=== PATIENT | female | born 1990 | race Caucasian/White ===

== ENCOUNTER 2016-09-23 09:31 | Observation (INO) | payer BC ==
[~2016-09-23] VITALS: Ht 165.1 cm; Wt 53.6 kg
[~2016-09-23 09:31] MED LIST: DIPH25CA84 PO; HYDR-4246 PO; INSU100V13 SQ; INSU100V8 SQ; METO10TA3 PO; MIDO5TAB PO; NITR100C9 PO
--- OUTSIDE RECORDS SUMMARY | 2016-09-23 09:37 | XMS REPORT ---
Author Author GENERATED, SYSTEM Organization Unknown Address Unknown Phone Unavailable Care Team Providers Care Electronics Instructor Name Role Phone PP Unavailable Reason For Visit Reason for Visit from 01/30/2016 2:37 PM:* Pt Stated Reason for Adm : schizophrenia or other psychotic disorder Reason for Visit from 01/29/2016 9:25 PM:* Pt Stated Reason for Adm : schizophrenia or other psychotic disorder Chief Complaint SCHIZOPHRENIA OR OTHER PSYCHOTIC D/O Social History Social History from 02/01/2016 1:52 PM:* Tobacco Use? : Current Some Day Smoker Social History from 01/30/2016 2:37 PM:* Tobacco Use? : Current Some Day Smoker Social History from 01/29/2016 9:25 PM:* Tobacco Use? : Current Some Day Smoker Functional Status Functional Status from 02/01/2016 10:12 AM:* LOC : Alert * Oriented To : Person,Place,Time,Event * Weight Bearing Status : Full * Assist Level : Independent * # Assists : Independent Functional Status from 01/31/2016 8:45 PM:* LOC : Alert * Oriented To : Person,Place,Time,Event * Weight Bearing Status : Full * Assist Level : Independent * # Assists : Independent Functional Status from 01/31/2016 9:22 AM:* LOC : Alert * Oriented To : Person,Place,Time,Event * Weight Bearing Status : Full * Assist Level : Independent * # Assists : Independent Functional Status from 01/30/2016 8:18 PM:* LOC : Alert * Oriented To : Person,Place,Time,Event * Weight Bearing Status : Full * Assist Level : Independent * # Assists : Independent Functional Status from 01/30/2016 10:26 AM:* LOC : Alert * Oriented To : Person,Place,Time,Event * Weight Bearing Status : Full * Assist Level : Independent * # Assists : Independent Functional Status from 01/29/2016 9:25 PM:* LOC : Alert * Oriented To : Person * Weight Bearing Status : Full * Assist Level : Independent * # Assists : Independent Vital Signs Hospital Vital Signs from 02/01/2016 5:51 AM:* Height : 5/5 ft,in * Temperature : 98.3 F * Pulse : 107 * Respirations : 18 * BP : 123/84 Hospital Vital Signs from 01/31/2016 10:27 AM:* Weight : 48.9/ kg * Height : 5/5 ft,in Hospital Vital Signs from 01/31/2016 5:30 AM:* Weight : 48.9/ kg * Height : 5/5 ft,in * Temperature : 97.8 F * Pulse : 102 * Respirations : 18 * BP : 119/87 Hospital Vital Signs from 01/31/2016 2:14 AM:* Height : 5/5 ft,in * Temperature : 98.2 F * Pulse : 126 * BP : 104/71 Hospital Vital Signs from 01/30/2016 10:09 PM:* Height : 5/5 ft,in * Pulse : 122 * BP : 96/63 Hospital Vital Signs from 01/30/2016 8:20 PM:* Height : 5/5 ft,in * Temperature : 98.9 F * Pulse : 120 * Respirations : 18 * BP : 105/74 Hospital Vital Signs from 01/30/2016 7:41 PM:* Height : 5/5 ft,in * Temperature : 99.5 F * Pulse : 129 * Respirations : 18 * BP : 81/57 Hospital Vital Signs from 01/30/2016 9:26 AM:* Height : 5/5 ft,in Hospital Vital Signs from 01/30/2016 5:54 AM:* Height : 5/5 ft,in * Temperature : 97.0 F * Pulse : 92 * Respirations : 16 * BP : 109/70 Hospital Vital Signs from 01/29/2016 9:44 PM:* Weight : 47.1/ kg * Height : 5/5 ft,in * Temperature : 97.8 F * Pulse : 113 * Respirations : 16 * BP : 115/82 Hospital Vital Signs from 01/29/2016 9:25 PM:* Weight : 47.1/ kg * Height : 5/5 ft,in Results Chemistry from 01/31/2016 4:56 AMGLUCOSE (FASTING) 56 MG/DL L (65-99 MG/DL) Chemistry from 01/30/2016 3:17 PM*EST AVG GLUCOSE 200.1 gm/dl TSH 0.623 UIU/ML (0.340-4.820 UIU/ML) THYROXINE FREE (FT4) (LAB) 1.27 NG/DL (0.76-1.46 NG/DL) HEMOGLOBIN A1C 8.6 % H (4.5-6.2 %) Urinalysis from 01/31/2016 5:49 PM*URINE COLOR YELLOW (STRAW/YELL/DK YELL ) *URINE APPEARANCE CLEAR (CLEAR ) URINE PH 6.5 (5.0-8.0 ) URINE SPECIFIC GRAVITY 1.010 (<=1.005->=1.030 ) *URINE GLUCOSE >1000 MG/DL A (NEGATIVE MG/DL) *URINE BILIRUBIN NEGATIVE (NEGATIVE ) *URINE KETONES NEGATIVE MG/DL (NEGATIVE MG/DL) *URINE BLOOD LARGE A (NEGATIVE ) *URINE PROTEIN NEGATIVE MG/DL (NEGATIVE MG/DL) *URINE UROBILINOGEN 0.2 EU/DL (0.2-1.0 EU/DL) *URINE NITRITES NEGATIVE (NEGATIVE ) *URINE LEUKOCYTES TRACE A (NEGATIVE ) *MICROSCOPIC EXAM PERFORMED PERFORMED *WBC URINE 1-5 /HPF (0-5 /HPF) *RBC URINE 10-25 /HPF A (0-1 /HPF) *SQUAMOUS EP. CELLS FEW /LPF (NEG-FEW /LPF) *BACTERIA FEW /HPF A (NEGATIVE /HPF) Microbiology from 01/31/2016 5:49 PM* CULTURE URINE (Preliminary Result) Specimen Number: [id number] Sample Collection Date/Time: 01/31/2016 5:49 PM Specimen Source: Urine Clean Catch CULTURE URINE: No growth at 24 hrs Problems Encounter Diagnosis * Altered Mental Status Status:Active. * Fall Risk Status:Active. * Nutritional Deficiency Status:Active. Encounters Encounter Diagnosis * Altered Mental Status Status:Active. * Fall Risk Status:Active. * Nutritional Deficiency Status:Active. Plan of Care Follow-up Appointments from 02/01/2016 1:52 PM:* #1 Office appointment: : Jb moya * #1 Date/Time : 02/05/2016 12:30 PM * Address # 1 : [place] [phone] Procedures No relevant procedures performed. Immunizations No immunizations administered or ordered. Hospital Course Hospital Discharge Instructions How to care for yourself at home from 02/01/2016 1:52 PM:* Discharge Activity : Activity as tolerated * Discharge Diet : As before hospitalization * Call your doctor if: : Fever over 101 F or severe chills,Chest pain or other unexplained symptoms,Tingling or numbness develops,A sudden increase or decrease in weight,You have persistent or worsening symptoms Allergies, Adverse Reactions, Alerts * sodium hypochlorite causes Mild Unknown. * Adhesive Tape (as Miscellaneous allergen) causes Unknown. * adhesive tape causes Unknown. * No Latex Allergy. * No IV Contrast Allergy. * No Known Food Allergies. Medication It is the responsibility of the patient or patient representative government relations to confirm the list of medications with either the patient's personal care provider or the patient's follow-up care provider to ensure the patient has an appropriate list of medications to take at home. Discharge medications New medications* QUEtiapine 100 mg Tablet, Ordered By: MATTHEW BRAVO Directions: as directed oral as directed for mood stabilization Additional Instructions: 0.5 tab 0900am , 0.5 tab 300pm. 1.5 tab hs #75 nr * phenazopyridine 200 mg Tablet, Ordered By: MATTHEW BRAVO Directions: 1 tablet oral three times a day after meals for dysuria Additional Instructions: for three more doses #3 nr * metoclopramide HCl (Reglan) 5 mg Tablet, Ordered By: MATTHEW BRAVO Directions: 1 tablet oral four times daily before meals and at bedtime for gastroparesis Additional Instructions: x 5 days # 20 nr Continued medications* HYDROcodone-acetaminophen 7.5 mg-325 mg Tablet, Ordered By: MATTHEW BRAVO Directions: 1 tablet oral every six hours PRN pain Additional Instructions: pt supply Changed medications* insulin glargine (LanTUS) 100 unit/mL Solution, Ordered By : MATTHEW BRAVO Directions: 6 unit subcutaneous twice a day every morning and at bedtime for DM Additional Instructions: pt supply * insulin aspart (NovoLOG) 100 unit/mL Solution, Ordered By: MATTHEW BRAVO Directions: per scale subcutaneous three times a day with or after meal for DM Additional Instructions: For Glucose 0 to 60 Give 0 UNIT ,For Glucose 61 to 140 Give 0 UNIT ,For Glucose 141 to 160 Give 2 UNIT ,For Glucose 161 to 200 Give 3 UNIT ,For Glucose 201 to 250 Give 4 UNIT ,For Glucose 251 to 300 Give 6 UNIT , For Glucose 301 to 350 Give 8 UNIT ,For Glucose 351 to 400 Give 10 UNIT * escitalopram oxalate 10 mg Tablet, Ordered By: MATTHEW BRAVO Directions: 1 tablet oral daily for depression * LORazepam 1 mg Tablet, Ordered By: MATTHEW BRAVO Directions: 1 tablet oral daily PRN anxiety Additional Instructions: supply at home Stopped medications* ondansetron 4 mg tablet,disintegrating Directions: 1 tablet oral every six hours PRN nausea or vomiting * dicyclomine 10 mg Capsule Directions: 1 capsule oral four times daily PRN unknown at this time
--- OUTSIDE RECORDS SUMMARY | 2016-09-23 09:37 | XMS REPORT | Continuity of Care Document ---
Author Author [facility] Organization [facility] Address Unknown Phone Unavailable Support Name Relationship Address Phone LESLY BRANCH MD Caregiver [address] [place] [address] Unavailable SHAHANA DAVIS II, MD Caregiver [address] [place] [address] [address] [place], [place] [phone] BRE SAWYER MD Caregiver [address] [place] [address] [address] [place] [address] [phone] GEMA MCKENNA Next Of Kin [address] [place] [address] CP Insurance Providers Payer Name Policy Number Subscriber Name Relationship [facility] [id number] Gema Mckenna 01 Spouse Advance Directives Directive Response Recorded Date/Time Ordered Resuscitation Status Full Code 05/14/14 8:16pm Resuscitation Documents on File Yes 05/14/14 9:51pm Chief Complaint and Reason for Visit Chief Complaint DKA AND ABD PAIN Reason for Visit DKA (diabetic ketoacidoses) Problems Medical Problems Problem Onset Date Status Abdominal pain Unknown Active Type I diabetes Unknown Active Vomiting Unknown Active Abdominal pain Unknown Active Chest pain Unknown Active Hyperglycemia mild acidosis Unknown Active Nausea with Vomiting Unknown Active Type I diabetes Unknown Active DIABETIC KETOACIDOSIS Unknown Active Diabetic gastroparesis Unknown Active DKA (diabetic ketoacidoses) Unknown Active DKA (diabetic ketoacidoses) Unknown Active Controlled type 1 diabetes mellitus Unknown Active DKA (diabetic ketoacidoses) Unknown Active Medications Medication Dose Route Sig Days/Qty Instructions Order Date Discontinued Date Status Ramipril 2.5 Mg PO DAILY 06/16/08 08/14/08 Discontinued Insulin Lispro 15 U SQ AC B 03/14/09 07/18/09 Discontinued Insulin Glargine 30 U SQ TWICE A DAY 03/14/09 07/18/09 Discontinued Diltiazem Hcl 1 DAILY HS 06/16/08 08/14/08 Discontinued [Treximet 85/500] 2 Q 2H PRN 06/16/08 08/14/08 Discontinued [Novolog] 17 Units SQ AC L & S 06/16/08 08/14/08 Discontinued Vits W-Ca,Fe,Fa(<1MG) 03/14/09 07/18/09 Discontinued Ondansetron Hcl 4 Mg PO NEEDED 03/14/09 07/18/09 Discontinued Amoxicillin Trihydrate 500 Mg PO FOUR TIMES DAILY 03/14/09 07/18/09 Discontinued Acyclovir 200 Mg PO THREE TIMES A DAY 03/14/09 07/18/09 Discontinued Insulin Glargine 12 U SQ TWICE A DAY 11/08/09 05/02/14 Discontinued Insulin Lispro 12 U SQ BEFORE MEALS 11/08/09 05/02/14 Discontinued [Altace] 08/29/09 11/08/09 Discontinued Ramipril 2.5 Mg PO DAILY 07/13/10 11/30/11 Discontinued Mometasone Furoate 2 [place] IH DAILY 09/24/10 02/20/11 Discontinued Hydrocodone Bit/Acetaminophen 1 Tab PO DAILY 09/24/10 11/05/10 Discontinued Guaifenesin/P-Ephed Hcl 1 Tab PO TWICE A DAY 09/24/10 11/05/10 Discontinued Vits W-Ca,Fe,Fa(<1MG) 1 Tab PO DAILY 11/30/11 04/10/12 Discontinued Acetaminophen/Dp-Hydram Hcl 1 Tab PO NEEDED 11/30/11 01/17/12 Discontinued Hydromorphone Hcl 2 Mg PO NEEDED 02/05/12 04/07/12 Discontinued Cephalexin Monohydrate 500 Mg PO 02/05/12 04/07/12 Discontinued Cephalexin Monohydrate 500 Mg PO THREE TIMES A DAY 21 Qty 04/07/1205/25 Discontinued Hydrocodone Bit/Acetaminophen 1 Udtab PO EVERY 4-6 HOURS 30 Qty 04/21/12 Discontinued Promethazine Hcl 25 Mg PO EVERY 4-6 HOURS 30 Qty 04/07/12 05/19/12 Discontinued Ranitidine Hcl 75 Mg PO TWICE A DAY 04/21/12 06/23/12 Discontinued Metoclopramide Hcl 10 Mg PO NEEDED 07/06/12 Active Hydrocodone Bit/Acetaminophen 30 Qty 04/21/13 07/24/13 Discontinued Ondansetron Hcl NEEDED 30 Qty 04/21/13 Active Insulin Glargine,Hum.rec.anlog 12 Unit SQ TWICE A DAY 04/27/1405/02 Discontinued Insulin Glargine,Hum.rec.anlog 10 Unit SQ MORNING AND BEDTIME 30 Days 05/02/14 Active Insulin Lispro 2 Unit SQ 1715 30 Days 05/02/14 Active Insulin Lispro 2 Unit SQ 0745 30 Days 05/02/14 Active Insulin Lispro 2 Unit SQ GIVE WITH LUNCH 30 Days 05/02/14 Active Levofloxacin 500 Mg PO BEFORE BREAKFAST 5 Days 05/16/14 Active Social History Social History Problem Response Recorded Date/Time Smoking Status Former smoker 05/14/2014 9:54pm When did patient START smoking? AGE 18 05/14/2014 9:54pm When did patient STOP smoking? AGE 21 05/14/2014 9:54pm Chewing Tobacco Status No 09/09/2013 8:07pm Hx Substance Use No 05/14/2014 7:12pm Hx Alcohol Use No 05/14/2014 7:12pm Has the pt used tobacco in the last 12 months Yes 05/14/2014 9:54pm Query Response Start Date Stop Date Smoking Status Former smoker Hospital Discharge Instructions Instructions: Care Instructions: Reason for Hospitalization: Diabetic Ketoacidosis I was in the hospital because (patient own words): "HEAVY BREATHING AND PAIN" Discharge Diet: Diet as tolerated at home. Discharge Activity: Regular Follow Up Appointments: 1-[address] Sawyer Pt states she will look at her calendar at home and make and appointment Patient Instructions: Call for any issues or questions concerning insulin/sugars Condition at time of discharge: Good or drainage from your wound. Condition at time of discharge: Good EMERGENT EVALUATION Wound/Incision Care: KEEP THE AREA DRY. Condition at time of discharge: Good incision is completely healed. Mepilex 1.Dressing to remain in place until your follow up appointment. 2.If this dressing starts peeling up slightly, it may be reinforced, if it peels excessively, notify your surgeon's office. 3.You may shower with the dressing in place, but do not submerge in water 4.Do not allow water to seep under the dressing, if it should seep under, remove the dressing and notify your surgeon. Notify Physician If: Call your Surgeon if you have: 1.Chest pain, difficulty breathing, fever>100.5 degrees, chills, heart rate >100, confusion, or persistent nausea/vomitting. 2.Severe pain, swelling, redness, or warmth in either of your legs. 3.During office hours, call [phone] 4. After hours, please call [facility] at [phone], and have the charging car operator page your Surgeon IN THE EVENT OF AN EMERGENCY, seek medical care at the nearest Emergency Room Condition at time of discharge: Good Plan of Care Discharge Date 05/16/14 1:30pm Disposition 01 DISCHARGED HOME, SELF-CARE Instructions/Education Provided Diabetic Ketoacidosis Prescriptions See Medications Section Functional Status Query Response Date Recorded Physical Hygiene Self May 16, 2014 1:10pm Disabilities Visual May 16, 2014 1:10pm Devices Used Glasses May 16, 2014 1:10pm Dressing Self May 16, 2014 1:10pm Ambulation Self May 16, 2014 1:10pm Diet Self May 16, 2014 1:10pm Mental Status Alert May 16, 2014 1:10pm Disabilities Visual May 16, 2014 1:10pm Devices Used Glasses May 16, 2014 1:10pm Physical Hygiene Self May 16, 2014 1:10pm Dressing Self May 16, 2014 1:10pm Ambulation Self May 16, 2014 1:10pm Diet Self May 16, 2014 1:10pm Allergies, Adverse Reactions, Alerts Allergen Type Severity Reaction Status Last Updated Sodium hypochlorite Allergy Mild Hives (Bleach) Active 05/14/14 Adhesive Allergy Unknown BLISTERING Active 05/14/14 Immunizations Name Given Type Hx Influenza Vaccination Y 2013 Historical Hx Pneumococcal Vaccination No Historical Hx Tetanus, Diptheria, Pertussis Y UNKNOWN Historical Hx Influenza Vaccination Y 2013 Historical Hx Tetanus, Diptheria, Pertussis Y UNKNOWN Historical Influenza, seasonal, injectable 04/28/14 Administered Influenza, seasonal, injectable 04/28/14 Administered Vital Signs Acute Vital Signs Vital Response Date/Time Temperature (Fahrenheit) 97.1 deg F (96.8 - 99.1) Temperature (Calculated Celsius) 36.39974 degrees C (36.0 - 37.3) Temperature Source Oral Pulse Rate (adult) 89 bpm (60 - 100) Respiratory Rate 16 breaths/min (10 - 20) Height 5 ft 5 in Weight 115 lb Body Mass Index 19.0 kg/m^2 Results Test Source Date Result Interp. Ref. Range Comments Acetaminophen Level September 24, 2010 6:08am < 10 UG/ML L 10-30 Acetone Level May 15, 2014 8:43am Negative - Acetone, Qualitative February 19, 2012 12:20am Ref lab rpt scanned - -- - 02/20/12 0730 ---ACETO previously reported as: SENT OUT Activated Partial Thromboplast Time July 18, 2009 10:47am 19.8 SEC L 25-36 Alanine Aminotransferase (ALT/SGPT) May 16, 2014 4:59am 29 U/L N 9- 52 Albumin May 16, 2014 4:59am 2.6 G/DL L 3.5-5.0 Albumin/Globulin Ratio May 16, 2014 4:59am 1.1 RATIO N 1.1-2.2 Alcohol, Quantitative September 24, 2010 6:08am <10 MG/DL - Alkaline Phosphatase May 16, 2014 4:59am 80 U/L N 38-126 Amylase Level May 15, 2014 8:43am 48 U/L N 30-110 Anion Gap May 16, 2014 4:59am 5 MEQ/L N 5-15 Anisocytosis April 15, 2013 4:35am 1+ - COMMENT CBC WITH MANUAL DIFF Arterial Blood Base Excess April 27, 2014 4:24pm -24.3 MMOL/L L -2.0- 2.0 Arterial Blood HCO3 April 27, 2014 4:24pm 4 MEQ/L L 22-26 Arterial Blood Oxygen Content November 08, 2009 9:41am Not Performed - Arterial Blood Oxygen Saturation April 27, 2014 4:24pm 97.0 % N 95.0- 98.0 Arterial Blood Partial Pressure CO2 April 27, 2014 4:24pm [address] 34-45 Arterial Blood Total CO2 April 27, 2014 4:24pm 4.2 MEQ/L L 23-27 Arterial Blood pH April 27, 2014 4:24pm 7.070 PL 7.350-7.450 Arterial Blood pO2 at Patient Temp April 27, 2014 4:24pm 120 MMHG H 80 -100 Aspartate Amino Transf (AST/SGOT) May 16, 2014 4:59am 19 U/L N 14- 36 BUN/Creatinine Ratio May 16, 2014 4:59am 30 RATIO H 6-26 Band Neutrophils # July 27, 2013 4:30am 0.1 T/MM3 - Band Neutrophils % July 27, 2013 4:30am 2.0 % N 0-6 Basophils # (Auto) May 16, 2014 4:59am 0.0 T/MM3 N 0-0.2 Basophils # (Manual) November 05, 2012 8:10am 0.2 T/MM3 N 0-0.2 Basophils % (Manual) November 05, 2012 8:10am 1.0 % N 0-2 Basophils (%) (Auto) May 16, 2014 4:59am 0.5 % N 0-2 Beta HCG, Quantitative May 28, 2012 2:48pm < 2.39 UIU/ML - NON- INDIVIDUALS=0 - 4.83;SAMPLES BETWEEN 4.83 - 25 SHOULD BE RE-TESTED AFTER 48 HOURS IF IS SUSPECTED; GESTATION 1-10 WEEKS: 45-256,380; 11-15 WEEKS: 11,556-265,380; 16-22 WEEKS: 27,023-111,954; 23-40 WEEKS: 24,031-101,566 Blood Gas Oxygen Saturation November 08, 2009 9:41am 98.0 % N 95.0-98.0 Is the patient on room air? YWhat is the Source? (Liters or Percent) ROOM AIR Blood Gas Tidal Volume November 08, 2009 9:41am Not Performed 0-1200 Blood Gas Vent Rate November 08, 2009 9:41am Not Performed 0-30 Blood Urea Nitrogen May 16, 2014 4:59am 12.0 MG/DL N 7-17 Calcium Level May 16, 2014 4:59am 8.4 MG/DL DN 8.4-10.2 Calculated Osmolality May 16, 2014 4:59am 269 MOSM/KG N 261-280 Carbon Dioxide Level May 16, 2014 4:59am 26 MEQ/L DN 22-30 Chemistry Specimen Hemolysis May 16, 2014 4:59am < 15 0-25 0-25 : No Hemolysis.26-70: Slight Hemolysis - can falsely elevate K and Urine Protein. 71-285: Moderate Hemolysis - can falsely elevate K, Troponin I, CA 19-9, PTH, CSF GLucose, and Urine Protein, and can falsely decrease Phenytoin. 286-999: Gross Hemolysis - can falsely elevate K, Troponin I, CA 19-9, PTH, CSF Glucose, and Urine Protine, and can falsely decrease Phenytoin. Recommend specimen recollection. Chlamydia Direct Antigen Assay December 12, 2007 9:43pm Negative - Has specimen been collected/obtained? Y Chloride Level May 16, 2014 4:59am 109 MEQ/L DH 98-107 Conjugated Bilirubin May 14, 2014 7:10pm 0.00 MG/DL N 0.00-0.30 Creatinine May 16, 2014 4:59am 0.4 MG/DL DL 0.7-1.2 D-Dimer April 13, 2013 9:28pm 425 NG/ML H 0-230 <224 NG/ML= PRESUMPTIVE NEGATIVE FOR PE OR DVT>224 NG/ML=ADDITIONAL EVALUATION FOR PE OR DVT RECOMMENDED Differential Total Cells Counted November 05, 2010 9:25pm 100 % - EKG June 15, 2008 6:45pm Complete - Eosinophils # (Auto) May 16, 2014 4:59am 0.1 T/MM3 N 0-0.5 Eosinophils # (Manual) September 24, 2010 6:08am 0.3 T/MM3 N 0-0.5 Eosinophils % (Manual) September 24, 2010 6:08am 1.0 % N 0-4 Eosinophils (%) (Auto) May 16, 2014 4:59am 1.3 % N 0-4 Erythrocyte Sedimentation Rate April 19, 2013 4:27am 54 MM/HR H 0-20 COMMENT DO ON BLOOD ALREADY DRAWNCOMMENT DO ON BLOOD AREADY DRAWN Membranes Rupture (PAMG-1) February 11, 2012 8:48pm Negative - Free Thyroxine August 29, 2009 6:15am 1.22 NG/DL N 0.78-2.19 Free Triiodothyronine August 29, 2009 6:15am 2.44 PG/ML L 2.77-5.27 Gastric Fluid Occult Blood February 11, 2012 5:32pm Pos - Has specimen been collected/obtained? Y Gastric Fluid pH February 11, 2012 5:32pm 3.000 - Has specimen been collected/obtained? Y Gentamicin Level Peak January 08, 2009 12:11pm 4.4 UG/ML L 5-12 Gentamicin Level Trough January 08, 2009 10:18am < 0.6 UG/ML 0-2 Globulin May 16, 2014 4:59am 2.3 G/DL L 2.4-3.6 Glomerular Filtration Rate Calc May 16, 2014 4:59am 198 - Glucometer May 16, 2014 9:43am 163 mg/dL H 65-110 Glucose Level May 16, 2014 4:59am 93 MG/DL N 65-110 Hematocrit May 16, 2014 4:59am 32.1 % DL 36-46 Hemoglobin May 16, 2014 4:59am 11.0 GM/DL DL 12-16 Hemoglobin A1c August 26, 2012 6:05am 13.5 % DH 6-7 <6.0 NON- DIABETIC RANGE6.0-7.0 ADA THERAPEUTIC RANGE >7.0 ACTION SUGGESTED Hypochromasia April 17, 2013 4:49am 1+ - Icterus Index May 16, 2014 4:59am < 2 0-7 Immature Granulocyte # (Auto) May 16, 2014 4:59am 0.01 T/MM3 N 0.00 -0.03 Immature Granulocyte % (Auto) May 16, 2014 4:59am 0.2 % N 0.0-0.5 Influenza Type A Antigen July 30, 2012 9:08pm Negative - Negative for Flu A protein antigen. Assay sensitivity isbetween 65-83%. A negative result does not exclude influenza virus infection. "Influenza FA" may be ordered if clinical presentation warrants confirmatory testing. Influenza Type B Antigen July 30, 2012 9:08pm Negative - Negative for Flu B protein antigen. Assay sensitivity isbetween 65-83%. A negative result does not exclude influenza virus infection. "Influenza FA" may be ordered if clinical presentation warrants confirmatory testing. Ionized Calcium (Measured) July 13, 2010 4:25pm 1.10 MMOL/L L 1.12- 1.32 Lab Scanned Report November 09, 2012 3:46pm LAB RESULTS - SCANNED [id number] - Lipase May 14, 2014 7:10pm 56 U/L N 23-300 Lymphocytes # (Auto) May 16, 2014 4:59am 2.5 T/MM3 N 1-4.8 Lymphocytes # (Manual) July 27, 2013 4:30am 2.0 T/MM3 N 1-4.8 Lymphocytes % (Manual) July 27, 2013 4:30am 30.0 % N 23-45 Lymphocytes (%) (Auto) May 16, 2014 4:59am 41.2 % N 23-45 Magnesium Level September 09, 2013 8:14pm 2.0 MG/DL N 1.6-2.3 Mean Corpuscular Hemoglobin May 16, 2014 4:59am 29.8 UUG N 26-34 Mean Corpuscular Hemoglobin Concent May 16, 2014 4:59am 34.3 GM/DL N 31-37 Mean Corpuscular Volume May 16, 2014 4:59am 87.0 UM3 N 80-100 Mean Platelet Volume May 16, 2014 4:59am 8.7 UM3 L 9.4-12.4 Metamyelocytes # November 05, 2010 9:25pm 0.3 T/MM3 - Metamyelocytes % November 05, 2010 9:25pm 1.0 % H 0-0 Monocytes # (Auto) May 16, 2014 4:59am 0.5 T/MM3 N 0-0.8 Monocytes # (Manual) July 27, 2013 4:30am 0.5 T/MM3 N 0-0.8 Monocytes % (Manual) July 27, 2013 4:30am 7.0 % N 0-9.0 Monocytes (%) (Auto) May 16, 2014 4:59am 8.3 % N 0-9.0 Neutrophils # (Auto) May 16, 2014 4:59am 2.9 T/MM3 N 1.8-7.7 Neutrophils # (Manual) July 27, 2013 4:30am 3.8 T/MM3 N 1.8-7.7 Neutrophils % (Manual) July 27, 2013 4:30am 57.0 % N 33-66 Neutrophils (%) (Auto) May 16, 2014 4:59am 48.5 % N 33-66 Oxygen Delivery Method (LAB) May 14, 2014 7:10pm Room air - Phosphorus Level November 07, 2012 7:10am 3.1 MG/DL N 2.5-4.5 Platelet Count May 16, 2014 4:59am 326 T/MM3 N 130-400 Platelet Evaluation (Diff) April 15, 2013 4:35am Few - COMMENT CBC WITH MANUAL DIFF Potassium Level May 16, 2014 4:59am 3.8 MEQ/L DN 3.6-5 Prealbumin October 01, 2012 8:53pm 15.4 MG/DL L 17.6-36.0 COMMENT may use blood in lab Procalcitonin April 13, 2013 8:00pm 0.07 NG/ML - PCT </=0.5 ng/mL - sepsis not likely;PCT >0.5 and </=2 ng/mL - sepsis possible; PCT >2 ng/mL - sepsis likely; PCT >/=10 ng/mL - systemic inflammatory response - sepsis or septic shock highly indicated. Prothromb Time International Ratio July 18, 2009 10:47am 0.72 L 0.79- 1.23 THERAPUTIC RANGE=2.00-3.00 FOR ANTI-THROMBOSIS THERAPUTIC RANGE=2.50- 3.50 FOR IMPLANTED VALVE RDW Standard Deviation May 16, 2014 4:59am 39.3 FL N 36.9-50.2 Reactive Lymphocytes # July 27, 2013 4:30am 0.3 T/MM3 H 0-0 Reactive Lymphocytes % July 27, 2013 4:30am 4.0 % H 0-0 Red Blood Count May 16, 2014 4:59am 3.69 M/MM3 L 4.00-5.20 Salicylates Level September 24, 2010 6:08am < 1.0 MG/DL L 2-20 Serum Osmolality September 09, 2013 8:14pm 318 mOsm/kg H - Osmolality performed at [facility], [address], [place] [address]Hskiegw Director Elen Rajput MD Sodium Level May 16, 2014 4:59am 140 MEQ/L N 134-144 Tests Not Done July 18, 2009 11:39am Not done - Has specimen been collected/obtained? Y Thyroid Stimulating Hormone (TSH) September 26, 2012 10:56pm 2.80 MIU/L N 0.47-4.68 Total Bilirubin May 16, 2014 4:59am 0.30 MG/DL N 0.20-1.30 Total Protein May 16, 2014 4:59am 4.9 G/DL L 6.3-8.2 Troponin I April 27, 2014 4:31pm < 0.012 ng/ml 0-0.12 Turbidity May 16, 2014 4:59am < 20 0-20 Unconjugated Bilirubin May 14, 2014 7:10pm 0.60 MG/DL N 0.00-1.10 Urinalysis Comment May 01, 2014 11:55am Microscopic not ind. - Has specimen been collected/obtained? Y Urine Acetaminophen Screen February 20, 2011 8:05am Positive NG/ML - Urine Amorphous Urates August 29, 2009 6:59am Few - Has specimen been collected/obtained? Y Urine Amphetamines Screen September 27, 2012 4:00pm Negative NG/ML - COMMENT WILL CALL Urine Bacteria May 14, 2014 7:26pm 2+ H - Has specimen been collected/obtained? Y Urine Barbiturates Screen September 27, 2012 4:00pm Negative NG/ML - COMMENT WILL CALL Urine Benzodiazepines Screen September 27, 2012 4:00pm Negative NG/ML - COMMENT WILL CALL Urine Bilirubin May 14, 2014 7:26pm Negative - Has specimen been collected/obtained? Y Urine Blood May 14, 2014 7:26pm 1+ H - Has specimen been collected /obtained? Y Urine Calcium Phosphate Crystals June 15, 2008 5:30pm Not Performed - Urine Cannabinoids Screen September 27, 2012 4:00pm Positive NG/ML - COMMENT WILL CALL Urine Cocaine Screen September 27, 2012 4:00pm Negative NG/ML - COMMENT WILL CALL Urine Collection Type May 14, 2014 7:26pm Cleancatch-midstream - Has specimen been collected/obtained? Y Urine Color May 14, 2014 7:26pm Yellow - Has specimen been collected/obtained? Y Urine Culture Indicated July 26, 2013 1:34am Cult reflexed &setup - COMMENT PER DKA PROTOCOLHas specimen been collected/obtained? Y What is the Source? VOIDED-NOT CC-MIDSTREAM Urine Drug Screen Confirmation September 27, 2012 4:29pm Sent out - Urine Fine Granular Casts July 24, 2013 2:10pm 0-1 /LPF - Has specimen been collected/obtained? Y Urine Glucose (UA) May 14, 2014 7:26pm 3+ H - Has specimen been collected/obtained? Y Urine Ketones May 14, 2014 7:26pm 3+ H - Has specimen been collected/obtained? Y Urine Leukocyte Esterase May 14, 2014 7:26pm Negative - Has specimen been collected/obtained? Y Urine Methadone Screen September 27, 2012 4:00pm Negative NG/ML - COMMENT WILL CALL Urine Methamphetamines Screen February 20, 2011 8:05am Negative NG/ML - Urine Microscopic Not Indicated February 20, 2011 8:05am Not indicated - Has specimen been collected/obtained? Y Urine Mucus September 10, 2013 4:00am Present - Has specimen been collected/obtained? Y Urine Nitrite May 14, 2014 7:26pm Negative - Has specimen been collected/obtained? Y Urine Opiates Screen September 27, 2012 4:00pm Positive NG/ML - COMMENT WILL CALL Urine Phencyclidine Screen September 27, 2012 4:00pm Not Performed - Urine Protein May 14, 2014 7:26pm Negative - Has specimen been collected/obtained? Y Urine RBC May 14, 2014 7:26pm 5-10 /HPF H - Has specimen been collected/obtained? Y Urine Renal Epithelial Cells February 19, 2009 3:18pm 1-3 /HPF - Has specimen been collected/obtained? Y Urine Specific [place] May 14, 2014 7:26pm 1.015 - Has specimen been collected/obtained? Y Urine Squamous Epithelial Cells September 10, 2013 4:00am 0-5 - Has specimen been collected/obtained? Y Urine Transitional Epithelial Cells February 19, 2009 3:18pm 1-3 /HPF - Has specimen been collected/obtained? Y Urine Tricyclic Antidepressants September 27, 2012 4:00pm Negative NG/ML - COMMENT WILL CALL Urine Turbidity May 14, 2014 7:26pm Sl cloudy - Has specimen been collected/obtained? Y Urine Urobilinogen May 14, 2014 7:26pm 0.2 EU/DL - Has specimen been collected/obtained? Y Urine WBC May 14, 2014 7:26pm Trace /HPF - Has specimen been collected/obtained? Y Urine WBC Clumps July 26, 2013 12:00am Few - Has specimen been collected/obtained? Y Urine Yeast May 14, 2014 7:26pm 1+ H - Has specimen been collected /obtained? Y Urine pH May 14, 2014 7:26pm 6.0 - Has specimen been collected/ obtained? Y Venous Blood Base Excess May 14, 2014 7:10pm -7.3 MMOL/L L -2.0- 2.0 Venous Blood HCO3 May 14, 2014 7:10pm 19 MEQ/L L 22-26 Venous Blood Lactate April 13, 2013 8:00pm 2.5 MMOL/L H 0.6-2.2 Venous Blood Oxygen Content September 09, 2013 8:45pm Not Performed - Venous Blood Oxygen Saturation May 14, 2014 7:10pm 44.0 % - Venous Blood Partial Pressure CO2 May 14, 2014 7:10pm 39 MMHG L 40- 52 Venous Blood Partial Pressure O2 May 14, 2014 7:10pm 28 MMHG L 40- 52 Venous Blood Total Carbon Dioxide May 14, 2014 7:10pm 20.0 MEQ/L - Venous Blood pH May 14, 2014 7:10pm 7.290 L 7.31-7.41 White Blood Count May 16, 2014 4:59am 6.0 T/MM3 DN 4.5-11.0 Blood Culture Blood April 13, 2013 8:12pm NO GROWTH AFTER 5 DAYS Neisseria gonorrhoeae Culture Cervix December 13, 2007 9:20pm Gram Stain Abscess September 25, 2010 12:38pm Urine Culture Urine, Clean Catch-Midstream July 26, 2013 2:06am Escherichia Coli Name: DENNIS MCKENNA Unit #: [id number] : 1990 Sex: F Loc / Svc: CCU DOS: 04/27/14 Signed Report #: [id number] DIAGNOSTIC IMAGING REPORT TYPE OF EXAM: CT ABD/PELVIS W/CONTRAST ONLY Dictated By: GEMA LIN MD INDICATION: ITS.REASON: severe RLQ pain CT ABD/PELVIS W/CONTRAST ONLY: Comparison: October 15, 2012 Technique: Axial CT images were performed through the abdomen and pelvis after the administration of intravenous contrast. Contrast: Omnipaque 300 67 mL Findings: The lung bases are clear. Minimal prominence of the intrahepatic bile ducts. No focal enhancing hepatic lesion or mass. The gallbladder is mildly distended. The spleen is normal. The pancreas and adrenal glands are normal. Kidneys are normal. The appendix shows large appendicoliths, unchanged from the comparison study. It is gas filled without periappendiceal inflammatory changes or stranding. This is in a retrocecal location. No abdominal or pelvic lymphadenopathy. Bladder is decompressed with a Serrano catheter with some nondependent gas likely related to prior instrumentation. Moderate free pelvic fluid. The uterus is heterogeneously enhancing and prominent. It is stable in appearance from the comparison study however. Large amount of stool throughout the colon. Small bowel is normal in caliber. Impression: No CT evidence of acute appendicitis. Moderate free pelvic fluid could relate to an ovarian cyst rupture. Probable constipation. . Procedures No known history of procedures. Encounters Encounter Location Date/Time Discharged Inpatient [facility] 05/14/14 10:03pm Discharged Inpatient [facility] 04/27/14 5:25pm Recent Diagnosis DKA (diabetic ketoacidoses)
--- OUTSIDE RECORDS SUMMARY | 2016-09-23 09:37 | XMS REPORT | Continuity of Care Document ---
Author Author [facility] Organization [facility] Address Unknown Phone Unavailable Allergies Medications Problems Date Dx Coded Attending Type Code Diagnosis Diagnosed By 10/19/2012 Padmini Pugh MD 250.13 DIAB W KETOACIDOSIS, TYPE I [JUVENILE TYPE ], UNCON 10/19/2012 Padmini Pugh MD 787.01 NAUSEA WITH VOMITING 10/19/2012 Padmini Pugh MD 789.00 ABDOMINAL PAIN, UNSPECIFIED SITE Procedures Results Test Result Range MRSA SURVEILLANCE SCREEN - 10/19/12 16:12 Uncategorized GLUCOSE (POC) - 10/19/12 17:10 GLUCOSE (POC) 336 mg/dL 70-99 URINALYSIS, ROUTINE - 10/19/12 18:14 UA LEUKOCYTE ESTERASE DIPSTICK NEGATIVE NEGATIVE UA NITRITE DIPSTICK NEGATIVE NEGATIVE UA PROTEIN DIPSTICK TRACE NEGATIVE UA GLUCOSE DIPSTICK 4+ NEGATIVE UA KETONE DIPSTICK 3+ NEGATIVE UA UROBILINOGEN DIPSTICK NORMAL NORMAL UA BILIRUBIN DIPSTICK NEGATIVE NEGATIVE UA BLOOD DIPSTICK NEGATIVE NEGATIVE UA BACTERIA 1+ NEGATIVE UA EPITHELIAL CELLS 1+ epi/hpf 0 - 1+ UA RBC 0-3 rbc/hpf 0 - 3 UA VOLUME FOR EXAM 12.0 mL (12mL STD) UA WBC 2-5 wbc/hpf 0 - 5 UA YEAST 3+ NEGATIVE UA SPECIFIC GRAVITY 1.026 1.015-1.025 UR PH 5.0 5.0-7.0 CBC - 10/19/12 19:01 MEAN CELL HGB 29.8 pg 27.0-33.0 MEAN CELL HGB CONCENTRATION 34.2 g/dL 32.0-37.0 MEAN CELL VOLUME 87.1 fl 80.0-100.0 RED BLOOD CELL 4.43 m/cumm 4.00-6.00 RED CELL DISTRIBUTION WIDTH 12.9 % 11.0- 15.6 WHITE BLOOD CELL 12.6 k/cumm 5.0-10.0 HEMOGLOBIN 13.2 gm/dL 12.0-16.0 HEMATOCRIT 38.6 % 37.0-47.0 PLATELET COUNT 448 k/cumm 150-400 HEMOGLOBIN A1C - 10/19/12 19:01 HEMOGLOBIN A1C 13.9 % < 5.7 METABOLIC PANEL, BASIC - 10/19/12 19:01 POTASSIUM 4.1 mmol/L 3.5-5.3 EST GFR (MDRD) > 60 mL/min > 59 ANION GAP 24 mmol/L 5-15 GLUCOSE 188 mg/dL 70-99 CALCIUM 7.5 mg/dL 8.5-10.1 BLOOD UREA NITROGEN 15 mg/dL 7-20 CREATININE 1.0 mg/dL 0.6-1.0 SODIUM 148 mmol/L 135-148 CHLORIDE 111 mmol/L 98-110 CARBON DIOXIDE 13 mmol/L 21-32 PHOSPHORUS - 10/19/12 19:01 PHOSPHORUS 2.0 mg/dL 2.5-4.9 MAGNESIUM - 10/19/12 19:01 MAGNESIUM 1.4 mg/dL 1.8-2.4 THYROID STIM HORMONE (TSH) - 10/19/12 19:01 THYROID STIM HORMONE (TSH) 0.83 uIU/mL 0.34-4.82 GLUCOSE (POC) - 10/19/12 19:03 GLUCOSE (POC) 201 mg/dL 70-99 GLUCOSE (POC) - 10/19/12 19:56 GLUCOSE (POC) 179 mg/dL 70-99 METABOLIC PANEL, BASIC - 10/19/12 21:45 POTASSIUM 3.9 mmol/L 3.5-5.3 EST GFR (MDRD) > 60 mL/min > 59 ANION GAP 15 mmol/L 5-15 GLUCOSE 104 mg/dL 70-99 CALCIUM 7.5 mg/dL 8.5-10.1 BLOOD UREA NITROGEN 14 mg/dL 7-20 CREATININE 0.9 mg/dL 0.6-1.0 SODIUM 143 mmol/L 135-148 CHLORIDE 113 mmol/L 98-110 CARBON DIOXIDE 15 mmol/L 21-32 GLUCOSE (POC) - 10/19/12 21:46 GLUCOSE (POC) 110 mg/dL 70-99 GLUCOSE (POC) - 10/19/12 23:59 GLUCOSE (POC) 148 mg/dL 70-99 GLUCOSE (POC) - 10/20/12 02:07 GLUCOSE (POC) 191 mg/dL 70-99 METABOLIC PANEL, BASIC - 10/20/12 02:07 POTASSIUM 4.0 mmol/L 3.5-5.3 EST GFR (MDRD) > 60 mL/min > 59 ANION GAP 16 mmol/L 5-15 GLUCOSE 178 mg/dL 70-99 CALCIUM 7.7 mg/dL 8.5-10.1 BLOOD UREA NITROGEN 13 mg/dL 7-20 CREATININE 0.9 mg/dL 0.6-1.0 SODIUM 140 mmol/L 135-148 CHLORIDE 109 mmol/L 98-110 CARBON DIOXIDE 15 mmol/L 21-32 UR KETONES - 10/20/12 02:19 UR KETONES 3+ NEGATIVE GLUCOSE (POC) - 10/20/12 03:07 GLUCOSE (POC) 187 mg/dL 70-99 GLUCOSE (POC) - 10/20/12 04:36 GLUCOSE (POC) 126 mg/dL 70-99 GLUCOSE (POC) - 10/20/12 05:21 GLUCOSE (POC) 89 mg/dL 70-99 METABOLIC PANEL, BASIC - 10/20/12 05:22 POTASSIUM 3.6 mmol/L 3.5-5.3 EST GFR (MDRD) > 60 mL/min > 59 ANION GAP 9 mmol/L 5-15 GLUCOSE 82 mg/dL 70-99 CALCIUM 7.6 mg/dL 8.5-10.1 BLOOD UREA NITROGEN 12 mg/dL 7-20 CREATININE 0.8 mg/dL 0.6-1.0 SODIUM 140 mmol/L 135-148 CHLORIDE 113 mmol/L 98-110 CARBON DIOXIDE 18 mmol/L 21-32 CBC W/MANUAL DIFF - 10/20/12 05:22 MEAN CELL HGB 29.2 pg 27.0-33.0 MEAN CELL HGB CONCENTRATION 33.7 g/dL 32.0-37.0 MEAN CELL VOLUME 86.5 fl 80.0-100.0 RED BLOOD CELL 4.08 m/cumm 4.00-6.00 RED CELL DISTRIBUTION WIDTH 12.9 % 11.0- 15.6 WHITE BLOOD CELL 9.0 k/cumm 5.0-10.0 HEMOGLOBIN 11.9 gm/dL 12.0-16.0 HEMATOCRIT 35.3 % 37.0-47.0 PLATELET COUNT 386 k/cumm 150-400 MANUAL DIFF(O) - 10/20/12 05:22 BAND % 2 % 0-10 GRANULOCYTE # 6.1 k/cumm 2.0-9.0 LYMPHOCYTE # 2.6 k/cumm 1.0-4.0 LYMPHOCYTE % 29 % 20-30 DIFFERENTIAL MANUAL MONOCYTE # 0.3 k/cumm 0.1-1.0 MONOCYTE % 3 % 4-6 RBC MORPH NOTED SEGMENTED NEUTROPHIL % 66 % 50-70 PHOSPHORUS - 10/20/12 05:22 PHOSPHORUS 1.7 mg/dL 2.5-4.9 GLUCOSE (POC) - 10/20/12 06:06 GLUCOSE (POC) 97 mg/dL 70-99 GLUCOSE (POC) - 10/20/12 06:56 GLUCOSE (POC) 95 mg/dL 70-99 GLUCOSE (POC) - 10/20/12 08:19 GLUCOSE (POC) 162 mg/dL 70-99 GLUCOSE (POC) - 10/20/12 12:24 GLUCOSE (POC) 121 mg/dL 70-99 METABOLIC PANEL, BASIC - 10/20/12 13:29 POTASSIUM 3.6 mmol/L 3.5-5.3 EST GFR (MDRD) > 60 mL/min > 59 ANION GAP 9 mmol/L 5-15 GLUCOSE 143 mg/dL 70-99 CALCIUM 7.9 mg/dL 8.5-10.1 BLOOD UREA NITROGEN 15 mg/dL 7-20 CREATININE 1.0 mg/dL 0.6-1.0 SODIUM 140 mmol/L 135-148 CHLORIDE 112 mmol/L 98-110 CARBON DIOXIDE 19 mmol/L 21-32 Encounters ACCT No. Visit Date/Time Discharge Status Pt. Type Provider Facility Loc./Unit Complaint [id number] 10/19/2012 15:50:00 2012 17:23:00 DIS Inpatient Lexy LATHAM, Padmini Stahl [facility] [id number]
--- OUTSIDE RECORDS SUMMARY | 2016-09-23 09:39 | XMS REPORT | Continuity of Care Document ---
Author Author [facility] Organization [facility] Address Unknown Phone Unavailable Support Name Relationship Address Phone RUFINOFORD HARDEN Caregiver [facility] [address] [place] [address] BRE SAWYER MD Caregiver [address] [place] [address] [place] [address] [phone] DAVID UQIJANO Next Of Kin [address] [id number] CP Insurance Providers Payer Name Policy Number Subscriber Name Relationship [facility] [id number] [place] 01 Spouse Advance Directives Directive Response Recorded Date/Time Advanced Directives Type Unable to Obtain 04/27/14 5:37pm Ordered Resuscitation Status Full Code 04/27/14 5:34pm Resuscitation Documents on File No 04/27/14 6:00pm Chief Complaint and Reason for Visit Chief Complaint DKA Reason for Visit Abdominal pain DKA (diabetic ketoacidoses) DKA (diabetic ketoacidoses) Controlled type 1 diabetes mellitus Problems Medical Problems Problem Onset Date Status [...] Controlled type 1 diabetes mellitus Unknown Active Medications Medication Dose Route Sig [...] DAILY 07/13/10 11/30/11 Discontinued Mometasone Furoate 2 [place] [facility] DAILY 09/24/10 02/20/11 Discontinued Hydrocodone Bit/Acetaminophen [...] Ondansetron Hcl NEEDED 30 Qty 04/21/13 Active Acetaminophen 650 Mg RECTALLY NEEDED 07/24/13 Active Insulin Glargine,Hum.rec.anlog 12 Unit SQ TWICE A DAY 04/27/1405/02 Discontinued Insulin Glargine,Hum.rec.anlog 10 Unit SQ MORNING AND BEDTIME 30 Days 05/02/14 Active Insulin Lispro 2 Unit SQ 1715 30 Days 05/02/14 Active Insulin Lispro 2 Unit SQ 0745 30 Days 05/02/14 Active Insulin Lispro 2 Unit SQ GIVE WITH LUNCH 30 Days 05/02/14 Active Hydrocodone/Acetaminophen 1-2 Tab PO Every 6 Hours PRN PAIN 40 Qty Active Social History Social History Problem Response Recorded Date/Time Smoking Status Current some day smoker 04/27/2014 7:53pm When did patient START smoking? a couple months ago she started back up 04/27 7:53pm Chewing Tobacco Status No 09/09/2013 8:07pm Hx Substance Use No 04/27/2014 4:04pm Hx Alcohol Use No 04/27/2014 4:04pm Has the pt used tobacco in the last 12 months Yes 04/27/2014 7:53pm Query Response Start Date Stop Date Smoking Status Former smoker Hospital Discharge Instructions Instructions: Care Instructions: Reason for Hospitalization: DKA I was in the hospital because (patient own words): "I am having trouble breathing. I hurt so bad" Discharge Diet: regular Discharge Activity: As tolerated Follow Up Appointments: Dr. Sawyer ON 05/12/14 AT 2:00PM Condition at time of discharge: Good Should your symptoms persist you [place] [facility] [place] return to the ED for emergent evaluation Condition at time of discharge: Good Call your Surgeon if you have: 1.Chest pain, difficulty breathing, fever>100.5 degrees, chills, heart rate >100, confusion, or persistent nausea/vomitting. 2.Severe pain, swelling, redness, or warmth in either of your legs. 3.During office hours, call [phone] 4. After hours, please call [facility] at [phone], and have the enhanced environmental operator page your Surgeon IN THE EVENT OF AN EMERGENCY, seek medical care at the nearest Emergency Room Condition at time of discharge: Good Plan of Care Discharge Date 05/02/14 1:50pm Disposition 01 DISCHARGED HOME, SELF-CARE Instructions/Education Provided Diabetic Ketoacidosis Prescriptions See Medications Section Functional Status Query Response Date Recorded Physical Hygiene Self May 02, 2014 1:12pm Disabilities None May 02, 2014 1:12pm Devices Used None May 02, 2014 1:12pm Dressing Self May 02, 2014 1:12pm Ambulation Self May 02, 2014 1:12pm Diet Self May 02, 2014 1:12pm Mental Status Alert Oriented May 02, 2014 1:12pm Disabilities None May 02, 2014 1:12pm Devices Used None May 02, 2014 1:12pm Physical Hygiene Self May 02, 2014 1:12pm Dressing Self May 02, 2014 1:12pm Ambulation Self May 02, 2014 1:12pm Diet Self May 02, 2014 1:12pm Allergies, Adverse Reactions, Alerts Allergen Type Severity Reaction Status Last Updated Sodium hypochlorite Allergy Mild Hives (Bleach) Active 07/24/13 Adhesive Allergy BLISTERING Active 07/24/13 Immunizations Name Given Type Hx Influenza Vaccination No Historical Hx Pneumococcal Vaccination No Historical Hx Tetanus, Diptheria, Pertussis NA Historical Hx Influenza Vaccination No Historical Hx Tetanus, Diptheria, Pertussis NA Historical Vital Signs Acute Vital Signs Vital Response Date/Time Temperature (Fahrenheit) 96.4 deg F (96.8 - 99.1) Temperature (Calculated Celsius) 35.01633 degrees C (36.0 - 37.3) Temperature Source Oral Pulse Rate (adult) 100 bpm (60 - 100) Respiratory Rate 14 breaths/min (10 - 20) O2 Sat by Pulse Oximetry 97 % (90 - 100) Oxygen Delivery Method Room Air Blood Pressure 96/64 mm Hg Blood Pressure Source Automatic Cuff Height 5 ft 5 in Weight 113 lb Body Mass Index 18.0 kg/m^2 Results Test Source Date Result Interp. Ref. Range Comments Acetaminophen Level September 24, 2010 6:08am < 10 UG/ML L 10-30 Acetone Level April 27, 2014 4:31pm 1+ - Acetone, Qualitative February 19, 2012 12:20am Ref lab rpt scanned - -- - 02/20/12 0730 ---ACETO previously reported as: SENT OUT Activated Partial Thromboplast Time July 18, 2009 10:47am 19.8 SEC L 25-36 Alanine Aminotransferase (ALT/SGPT) April 30, 2014 4:51am 27 U/L N 9- 52 Albumin April 30, 2014 4:51am 2.9 G/DL L 3.5-5.0 Albumin/Globulin Ratio April 30, 2014 4:51am 1.2 RATIO N 1.1-2.2 Alcohol, Quantitative September 24, 2010 6:08am <10 MG/DL - Alkaline Phosphatase April 30, 2014 4:51am 84 U/L N 38-126 Amylase Level April 28, 2014 9:06am 46 U/L N 30-110 Anion Gap April 30, 2014 4:51am 6 MEQ/L N 5-15 Anisocytosis April 15, 2013 [...] H 80 -100 Aspartate Amino Transf (AST/SGOT) April 30, 2014 4:51am 21 U/L N 14- 36 BUN/Creatinine Ratio April 30, 2014 4:51am 12 RATIO N 6-26 Band Neutrophils # July 27, 2013 4:30am 0.1 T/MM3 - Band Neutrophils % July 27, 2013 4:30am 2.0 % N 0-6 Basophils # (Auto) April 30, 2014 4:51am 0.0 T/MM3 N 0-0.2 Basophils # (Manual) November 05, 2012 8:10am 0.2 T/MM3 N 0-0.2 Basophils % (Manual) November 05, 2012 8:10am 1.0 % N 0-2 Basophils (%) (Auto) April 30, 2014 4:51am 0.3 % N 0-2 Beta HCG, Quantitative May [...] 9:41am Not Performed 0-30 Blood Urea Nitrogen April 30, 2014 4:51am 6.0 MG/DL DL 7-17 Calcium Level April 30, 2014 4:51am 8.7 MG/DL DN 8.4-10.2 Calculated Osmolality April 30, 2014 4:51am 265 MOSM/KG N 261-280 Carbon Dioxide Level April 30, 2014 4:51am 29 MEQ/L N 22-30 Chemistry Specimen Hemolysis April 30, 2014 4:51am < 15 0-25 0-25: No Hemolysis.26-70: Slight Hemolysis - can falsely [...] Has specimen been collected/obtained? Y Chloride Level April 30, 2014 4:51am 104 MEQ/L N 98-107 Conjugated Bilirubin April 28, 2014 9:06am 0.00 MG/DL N 0.00-0.30 Creatinine April 30, 2014 4:51am 0.5 MG/DL L 0.7-1.2 D-Dimer April 13, 2013 9:28pm 425 NG/ML H 0-230 <224 NG/ML= PRESUMPTIVE NEGATIVE FOR PE OR DVT>224 NG/ML=ADDITIONAL EVALUATION FOR PE OR DVT RECOMMENDED Differential Total Cells Counted November 05, 2010 9:25pm 100 % - EKG June 15, 2008 6:45pm Complete - Eosinophils # (Auto) April 30, 2014 4:51am 0.1 T/MM3 N 0-0.5 Eosinophils # (Manual) September 24, 2010 6:08am 0.3 T/MM3 N 0-0.5 Eosinophils % (Manual) September 24, 2010 6:08am 1.0 % N 0-4 Eosinophils (%) (Auto) April 30, 2014 4:51am 0.9 % N 0-4 Erythrocyte Sedimentation Rate April [...] 2009 10:18am < 0.6 UG/ML 0-2 Globulin April 30, 2014 4:51am 2.5 G/DL N 2.4-3.6 Glomerular Filtration Rate Calc April 30, 2014 4:51am 153 - Glucometer May 02, 2014 9:53am 197 mg/dL H 65-110 Glucose Level April 30, 2014 4:51am 80 MG/DL N 65-110 Hematocrit April 30, 2014 4:51am 35.1 % L 36-46 Hemoglobin April 30, 2014 4:51am 12.1 GM/DL N 12-16 Hemoglobin A1c August 26, 2012 6:05am 13.5 % DH 6-7 <6.0 NON- DIABETIC RANGE6.0-7.0 ADA THERAPEUTIC RANGE >7.0 ACTION SUGGESTED Hypochromasia April 17, 2013 4:49am 1+ - Icterus Index April 30, 2014 4:51am < 2 0-7 Immature Granulocyte # (Auto) April 30, 2014 4:51am 0.01 T/MM3 N 0.00- 0.03 Immature Granulocyte % (Auto) April 30, 2014 4:51am 0.1 % N 0.0-0.5 Influenza Type A Antigen [...] 09, 2012 3:46pm LAB RESULTS - SCANNED [id number] - Lipase April 28, 2014 9:06am 20 U/L L 23-300 Lymphocytes # (Auto) April 30, 2014 4:51am 1.9 T/MM3 N 1-4.8 Lymphocytes # (Manual) July 27, 2013 4:30am 2.0 T/MM3 N 1-4.8 Lymphocytes % (Manual) July 27, 2013 4:30am 30.0 % N 23-45 Lymphocytes (%) (Auto) April 30, 2014 4:51am 25.2 % N 23-45 Magnesium Level September 09, 2013 8:14pm 2.0 MG/DL N 1.6-2.3 Mean Corpuscular Hemoglobin April 30, 2014 4:51am 30.0 UUG N 26-34 Mean Corpuscular Hemoglobin Concent April 30, 2014 4:51am 34.5 GM/DL N 31-37 Mean Corpuscular Volume April 30, 2014 4:51am 86.9 UM3 N 80-100 Mean Platelet Volume April 30, 2014 4:51am 9.3 UM3 L 9.4-12.4 Metamyelocytes # November 05, 2010 9:25pm 0.3 T/MM3 - Metamyelocytes % November 05, 2010 9:25pm 1.0 % H 0-0 Monocytes # (Auto) April 30, 2014 4:51am 0.6 T/MM3 N 0-0.8 Monocytes # (Manual) July 27, 2013 4:30am 0.5 T/MM3 N 0-0.8 Monocytes % (Manual) July 27, 2013 4:30am 7.0 % N 0-9.0 Monocytes (%) (Auto) April 30, 2014 4:51am 8.0 % N 0-9.0 Neutrophils # (Auto) April 30, 2014 4:51am 4.9 T/MM3 N 1.8-7.7 Neutrophils # (Manual) July 27, 2013 4:30am 3.8 T/MM3 N 1.8-7.7 Neutrophils % (Manual) July 27, 2013 4:30am 57.0 % N 33-66 Neutrophils (%) (Auto) April 30, 2014 4:51am 65.5 % N 33-66 Oxygen Delivery Method (LAB) April 27, 2014 4:24pm Room air - Phosphorus Level November 07, 2012 7:10am 3.1 MG/DL N 2.5-4.5 Platelet Count April 30, 2014 4:51am 258 T/MM3 N 130-400 Platelet Evaluation (Diff) April 15, 2013 4:35am Few - COMMENT CBC WITH MANUAL DIFF Potassium Level April 30, 2014 4:51am 3.9 MEQ/L DN 3.6-5 Prealbumin October 01, 2012 [...] 3.50 FOR IMPLANTED VALVE RDW Standard Deviation April 30, 2014 4:51am 40.1 FL N 36.9-50.2 Reactive Lymphocytes # July 27, 2013 4:30am 0.3 T/MM3 H 0-0 Reactive Lymphocytes % July 27, 2013 4:30am 4.0 % H 0-0 Red Blood Count April 30, 2014 4:51am 4.04 M/MM3 N 4.00-5.20 Salicylates Level September 24, 2010 6:08am < 1.0 MG/DL L 2-20 Serum Osmolality September 09, 2013 8:14pm 318 mOsm/kg H - Osmolality performed at [facility], [address] [place], [place] [address]Yuxpitr Director Elen Rajput MD Sodium Level April 30, 2014 4:51am 139 MEQ/L N 134-144 Tests Not Done July 18, 2009 11:39am Not done - Has specimen been collected/obtained? Y Thyroid Stimulating Hormone (TSH) September 26, 2012 10:56pm 2.80 MIU/L N 0.47-4.68 Total Bilirubin April 30, 2014 4:51am 0.40 MG/DL N 0.20-1.30 Total Protein April 30, 2014 4:51am 5.4 G/DL L 6.3-8.2 Troponin I April 27, 2014 4:31pm < 0.012 ng/ml 0-0.12 Turbidity April 30, 2014 4:51am < 20 0-20 Unconjugated Bilirubin April 28, 2014 9:06am 0.30 MG/DL N 0.00-1.10 Urinalysis Comment May 01, 2014 11:55am Microscopic not ind. - Has specimen been collected/obtained? Y Urine Acetaminophen Screen February 20, 2011 8:05am Positive NG/ML - Urine Amorphous Urates August 29, 2009 6:59am Few - Has specimen been collected/obtained? Y Urine Amphetamines Screen September 27, 2012 4:00pm Negative NG/ML - COMMENT WILL CALL Urine Bacteria September 10, 2013 4:00am None seen - Has specimen been collected/obtained? Y Urine Barbiturates Screen September 27, 2012 4:00pm Negative NG/ML - COMMENT WILL CALL Urine Benzodiazepines Screen September 27, 2012 4:00pm Negative NG/ML - COMMENT WILL CALL Urine Bilirubin May 01, 2014 11:55am Negative - Has specimen been collected/obtained? Y Urine Blood May 01, 2014 11:55am Trace-lysed H - Has specimen been collected/obtained? Y Urine Calcium Phosphate Crystals June 15, 2008 5:30pm Not Performed - Urine Cannabinoids Screen September 27, 2012 4:00pm Positive NG/ML - COMMENT WILL CALL Urine Cocaine Screen September 27, 2012 4:00pm Negative NG/ML - COMMENT WILL CALL Urine Collection Type May 01, 2014 11:55am Voided-not cc-midstr - Has specimen been collected/obtained? Y Urine Color May 01, 2014 11:55am Yellow - Has specimen been collected/obtained? Y Urine Culture Indicated July 26, 2013 1:34am Cult reflexed &setup - COMMENT PER DKA PROTOCOLHas specimen been collected/obtained? Y What is the Source? VOIDED-NOT CC-MIDSTREAM Urine Drug Screen Confirmation September 27, 2012 4:29pm Sent out - Urine Fine Granular Casts July 24, 2013 2:10pm 0-1 /LPF - Has specimen been collected/obtained? Y Urine Glucose (UA) May 01, 2014 11:55am Negative - Has specimen been collected/obtained? Y Urine Ketones May 01, 2014 11:55am Negative - Has specimen been collected/obtained? Y Urine Leukocyte Esterase May 01, 2014 11:55am Trace H - Has specimen been collected/obtained? Y Urine Methadone Screen September 27, 2012 4:00pm Negative NG/ML - COMMENT WILL CALL Urine Methamphetamines Screen February 20, 2011 8:05am Negative NG/ML - Urine Microscopic Not Indicated February 20, 2011 8:05am Not indicated - Has specimen been collected/obtained? Y Urine Mucus September 10, 2013 4:00am Present - Has specimen been collected/obtained? Y Urine Nitrite May 01, 2014 11:55am Negative - Has specimen been collected/obtained? Y Urine Opiates Screen September 27, 2012 4:00pm Positive NG/ML - COMMENT WILL CALL Urine Phencyclidine Screen September 27, 2012 4:00pm Not Performed - Urine Test September 10, 2013 4:00am Negative - Has specimen been collected/obtained? Y Urine Protein May 01, 2014 11:55am Negative - Has specimen been collected/obtained? Y Urine RBC September 10, 2013 4:00am 1-3 /HPF - Has specimen been collected/obtained? Y Urine Renal Epithelial Cells February 19, 2009 3:18pm 1-3 /HPF - Has specimen been collected/obtained? Y Urine Specific [place] May 01, 2014 11:55am 1.020 - Has specimen been collected/obtained? Y Urine Squamous Epithelial Cells September 10, 2013 4:00am 0-5 - Has specimen been collected/obtained? Y Urine Transitional Epithelial Cells February 19, 2009 3:18pm 1-3 /HPF - Has specimen been collected/obtained? Y Urine Tricyclic Antidepressants September 27, 2012 4:00pm Negative NG/ML - COMMENT WILL CALL Urine Turbidity May 01, 2014 11:55am Clear - Has specimen been collected/obtained? Y Urine Urobilinogen May 01, 2014 11:55am 0.2 EU/DL - Has specimen been collected/obtained? Y Urine WBC September 10, 2013 4:00am 1-3 /HPF - Has specimen been collected/obtained? Y Urine WBC Clumps July 26, 2013 12:00am Few - Has specimen been collected/obtained? Y Urine Yeast July 26, 2013 1:34am 1+ H - COMMENT PER DKA PROTOCOLHas specimen been collected/obtained? Y What is the Source? VOIDED-NOT CC-MIDSTREAM Urine pH May 01, 2014 11:55am 6.0 - Has specimen been collected/ obtained? Y Venous Blood Base Excess September 09, 2013 8:45pm -16.4 MMOL/L L -2.0- 2.0 Venous Blood HCO3 September 09, 2013 8:45pm 11 MEQ/L L 22-26 Venous Blood Lactate April 13, 2013 8:00pm 2.5 MMOL/L H 0.6-2.2 Venous Blood Oxygen Content September 09, 2013 8:45pm Not Performed - Venous Blood Oxygen Saturation September 09, 2013 8:45pm 69.0 % - Venous Blood Partial Pressure CO2 September 09, 2013 8:45pm 28 MMHG L 40- 52 Venous Blood Partial Pressure O2 September 09, 2013 8:45pm 46 MMHG N 40- 52 Venous Blood Total Carbon Dioxide September 09, 2013 8:45pm 11.4 MEQ/L - Venous Blood pH September 09, 2013 8:45pm 7.180 L 7.31-7.41 White Blood Count April 30, 2014 4:51am 7.5 T/MM3 N 4.5-11.0 Blood Culture Blood April 13, 2013 8:12pm NO GROWTH AFTER 5 DAYS Neisseria gonorrhoeae Culture Cervix December 13, 2007 9:20pm Gram Stain Abscess September 25, 2010 12:38pm Urine Culture Urine, Clean Catch-Midstream July 26, 2013 2:06am Escherichia Coli Name: DENNIS ANGELES Unit #: [id number] : 1990 Sex: F Loc / Svc: CCU DOS: 04/27/14 Signed Report #: [id number] DIAGNOSTIC IMAGING REPORT TYPE OF EXAM: CT [...] procedures. Encounters Encounter Location Date/Time Discharged Inpatient [facility] 04/27/14 5:25pm Recent Diagnosis Abdominal pain DKA (diabetic ketoacidoses) DKA (diabetic ketoacidoses) Controlled type 1 diabetes mellitus
--- OUTSIDE RECORDS SUMMARY | 2016-09-23 09:39 | XMS REPORT ---
Author Author [facility], SYSTEM Organization Unknown Address Unknown Phone Unavailable Care Team Providers Care [facility] Specialist Name Role Phone PP Unavailable Reason For [...] PM* CULTURE URINE (Preliminary Result) Specimen Number: [id number] Sample Collection Date/Time: 01/31/2016 5:49 PM Specimen [...] * Address # 1 : [place] [phone] Procedures No relevant procedures performed. Immunizations No [...] the responsibility of the patient or patient security systems sales representative to confirm the list of medications with [...]
--- OUTSIDE RECORDS SUMMARY | 2016-09-23 09:39 | XMS REPORT | Continuity of Care Document ---
Author Author [facility] Organization [facility] Address Unknown Phone Unavailable Support Name Relationship Address Phone RICHARD GANDHI MD Caregiver [address] [place] [address] Unavailable RADHA SOTO MD Caregiver [address] [place] [address] Unavailable GEMA ANGELES Next Of Kin [address] [address] Insurance Providers Guarantor Dennis Angeles Address [address] [address] CP Email DENIED/09/01/16 Payer [facility] Policy Number [id number] Subscriber's Name Gema Angeles Relationship 01 Spouse Group Number [id number] Advance Directives Directive Response Recorded Date/Time Advanced Directives Type None 09/01/16 10:58am Chief Complaint and Reason for Visit Chief Complaint Diabetic Problem Reason for Visit [id number] Chronic abdominal pain Nausea and vomiting Problems Active Problems Medical Problem Onset Date Status Abdominal pain Unknown Acute Abdominal pain Unknown Acute Acute appendicitis Unknown Acute Anxiety Unknown Anxiety and depression Unknown Chronic Cannabis use, unspecified with anxiety disorder Unknown Chronic Chest pain Unknown Acute Chronic abdominal pain Unknown Chronic Controlled type 1 diabetes mellitus Unknown Chronic DIABETIC KETOACIDOSIS Unknown Acute DKA (diabetic ketoacidoses) Unknown Acute DKA (diabetic ketoacidoses) Unknown Resolved DKA (diabetic ketoacidoses) Unknown Resolved DKA (diabetic ketoacidoses) Unknown Acute Depression Unknown Diabetic gastroparesis Unknown Chronic Fatigue Unknown Chronic Febrile illness, acute Unknown Acute Hives Unknown Acute Hyperglycemia mild acidosis Unknown Acute Hypokalemia Unknown Resolved Mood disorder Unknown Chronic Narcotic abuse, episodic Unknown Acute Narcotic dependence, episodic use Unknown Nausea and vomiting Unknown Resolved Normocytic anemia Unknown Acute Panic attacks Unknown Pneumonia Unknown Acute Pre-syncope Unknown Chronic Pyelonephritis Unknown Acute Recurrent UTI (urinary tract infection) Unknown Chronic Respiratory distress Unknown Acute Sepsis Unknown Resolved Suicidal ideation Unknown Type I diabetes mellitus Unknown Chronic Type I diabetes mellitus Unknown Chronic UTI (urinary tract infection) Unknown Resolved Urinary retention Unknown Acute Vomiting Unknown Acute Past Problems Medical Problem Onset Date Acute psychosis Unknown Altered mental state Unknown Constipation Unknown Dehydration Unknown Depression with suicidal ideation Unknown Diabetes mellitus, insulin dependent (IDDM), controlled Unknown Diabetes mellitus, insulin dependent (IDDM), uncontrolled Unknown E10.65 Unknown Emphysematous cystitis Unknown Fall on same level Unknown Hydronephrosis Unknown Hyperglycemia without ketosis Unknown Leukocytosis Unknown Manipulative behavior Unknown Medical non-compliance Unknown Opiate withdrawal Unknown Psychogenic cyclical vomiting Unknown Suicidal ideations Unknown Syncopal episodes Unknown UTI (urinary tract infection) Unknown UTI (urinary tract infection) Unknown Urinary retention Unknown Urinary tract infection Unknown Urinary tract infection Unknown Volume depletion Unknown Medications Current Home Medications Medication Dose Units Route Directions Days Qty Instructions Start Date Diphenhydramine Hcl (Benadryl) 25 Mg Capsule 25 Mg Oral Q6h/0300,0900,1500, 2100 as needed for Itch 30 Days 120 Capsule 08/24/16 Hydrocodone/Acetaminophen ([place] 5-325 Tablet) 5-325 Tablet 1-2 Tab Oral Every 4-6 Hours Prn for Pain 20 Tablet 07/09/16 Insulin Aspart (Novolog) 100 Unit/Ml Inj 10 Unit Sub-Q Three Times Daily With Meals 01/08/16 Insulin Glargine,Hum.rec.anlog (Lantus) 100 Unit/Ml Inj 10 Unit Sub-Q Twice A Day 01/08/16 Metoclopramide Hcl 10 Mg Tablet 10 Mg Oral Four Times Daily 07/09 Midodrine Hcl 5 Mg Tablet 5 Mg Oral Three Times A Day 09/01/16 Nitrofurantoin Monohyd/M-Cryst (Nitrofurantoin Roane-Mcr 100 Mg) 100 Mg Capsule 100 Mg Oral Twice A Day 09/01/16 Past Home Medications Medication Directions Ordered Status Acetaminophen/Dp-Hydram Hcl (Tylenol Pm Ex-Str Caplet) 1 Tab Tablet, 1 Tab Oral As Needed 11/30/11 Discontinued Acetaminophen/Hydrocodone Bitart ([place] 5-325 Tablet) 1 Each Tablet, 1 Tab Oral Every 6 Hours as needed for Pain 08/18/15 Discontinued Acyclovir 200 Mg Capsule, 200 Mg Oral Three Times A Day 03/14/09 Discontinued Altace , 08/29/09 Discontinued Amoxicillin Trihydrate (Amoxicillin) 500 Mg Capsule, 500 Mg Oral Four Times Daily 03/14/09 Discontinued Cephalexin Monohydrate (Keflex) 500 Mg Capsule, 500 Mg Oral Three Times A Day 04/07/12 Discontinued Cephalexin Monohydrate (Keflex) 500 Mg Capsule, 500 Mg Oral 02/05/12 Discontinued Ciprofloxacin Hcl 500 Mg Tablet, 500 Mg Oral Twice A Day 01/08/16 Discontinued Ciprofloxacin Hcl 500 Mg Tablet, 500 Mg Oral Twice A Day 08/18/15 Discontinued Diltiazem Hcl (Cardizem Cd) 180 Mg Cap.sr.24h, 1 Daily Hs 06/16/08 Discontinued Escitalopram Oxalate 10 Mg Tablet, 10 Mg Oral Daily 11/13/15 Discontinued Guaifenesin/P-Ephed Hcl (Mucinex D 1,200 Mg/120 Mg Tab) 1 Tab.sr .12 H Tab.sr.12h, 1 Tab Oral Twice A Day 09/24/10 Discontinued Hydrocodone Bit/Acetaminophen (Anexsia 7.5/325 Mg Tablet) 1 Tab Tablet, 03/26 Discontinued Hydrocodone Bit/Acetaminophen ([place] 5) 1 Udtab Tablet, 1 Udtab Oral Every 4- 6 Hours 04/07/12 Discontinued Hydrocodone Bit/Acetaminophen (Lortab 5) 1 Tab Tablet, 1 Tab Oral Daily 09/24 Discontinued Hydrocodone/Acetaminophen ([place] 5-325 Tablet) 5-325 Tablet, 1-2 Tab Oral Q6h/ 0300,0900,1500,2100 as needed for Pain 01/08/16 Discontinued Hydromorphone Hcl (Dilaudid) 2 Mg Tablet, 2 Mg Oral As Needed 02/05/12 Discontinued Insulin Glargine (Lantus) 100 U/Ml Vial, 12 U Sub-Q Twice A Day 11/08/09 Discontinued Insulin Glargine (Lantus) 100 U/Ml Vial, 30 U Sub-Q Twice A Day 03/14/09 Discontinued Insulin Glargine,Hum.rec.anlog (Lantus) 100 Unit/Ml Inj, 12 Unit Sub-Q Twice A Day 04/27/14 Discontinued Insulin Lispro (Humalog) 100 Unit/Ml Inj, 12 Unit Sub-Q Give With Supper 10/27 Discontinued Insulin Lispro (Humalog) 100 Unit/Ml Inj, 2 Unit Sub-Q 0745 05/02/14 Discontinued Insulin Lispro (Humalog) 100 Unit/Ml Inj, 2 Unit Sub-Q 1715 05/02/14 Discontinued Insulin Lispro (Humalog) 100 Unit/Ml Inj, 2 Unit Sub-Q Give With Lunch Discontinued Insulin Lispro (Humalog) 100 U/Ml Vial, 12 U Sub-Q Before Meals 11/08/09 Discontinued Insulin Lispro (Humalog) 100 U/Ml Vial, 15 U Sub-Q Ac B 03/14/09 Discontinued Levofloxacin (Levaquin) 500 Mg Tablet, 500 Mg Oral Daily 11/15/15 Discontinued Levofloxacin (Levaquin) 500 Mg Tablet, 500 Mg Oral Daily 09/23/15 Discontinued Levofloxacin (Levaquin) 500 Mg Tablet, 500 Mg Oral Before Breakfast 05/16/14 Discontinued Metronidazole 500 Mg Tablet, 500 Mg Oral Three Times A Day 01/08/16 Discontinued Mometasone Furoate (Nasonex) 17 Gm [place], 2 [place] Inhalation Daily 09/24/10 Discontinued Novolog , 17 Units Sub-Q Ac L & S 06/16/08 Discontinued Ondansetron (Zofran Odt) 4 Mg Tab.rapdis, 4 Mg Oral Every 4-6 Hours Prn for Nausea &/Or Vomiting 07/09/16 Discontinued Ondansetron Hcl 4 Mg Tablet, 4 Mg Oral As Needed 04/21/13 Discontinued Ondansetron Hcl (Zofran) 4 Mg Tablet, 4 Mg Oral As Needed 03/14/09 Discontinued Vits W-Ca,Fe,Fa(<1MG) () 1 Tab Tablet, 1 Tab Oral Daily 01/07 Discontinued Vits W-Ca,Fe,Fa(<1MG) ( Vitamins) 1 Tab Tablet, 03/14/09 Discontinued Prochlorperazine Maleate (Compazine) 10 Mg Tablet, 10 Mg Oral Four Times Daily for Nausea &/Or Vomiting 07/09/16 Discontinued Promethazine Hcl (Phenergan) 25 Mg Tablet, 25 Mg Oral Every 4-6 Hours Discontinued Quetiapine Fumarate (Seroquel) 100 Mg Tablet, 50 Mg Oral Am 02/24/16 Discontinued Quetiapine Fumarate (Seroquel) 100 Mg Tablet, 100 Mg Oral 1500 02/24/16 Discontinued Quetiapine Fumarate (Seroquel) 100 Mg Tablet, 150 Mg Oral Bedtime 02/24/16 Discontinued Ramipril (Altace) 2.5 Mg Tablet, 2.5 Mg Oral Daily 07/13/10 Discontinued Ramipril (Altace) 2.5 Mg Tablet, 2.5 Mg Oral Daily 06/16/08 Discontinued Ranitidine Hcl (Zantac 75) 75 Mg Tablet, 75 Mg Oral Twice A Day 04/21/12 Discontinued Sulfamethoxazole/Trimethoprim (Sulfamethoxazole-Tmp Ds Tablet) 1 Tab Tablet, 1 Tab Oral Twice A Day 03/28/15 Discontinued Treximet 85/500 , 2 Q 2H Prn 06/16/08 Discontinued Social History Social History Problem Response Recorded Date/Time Onset Date Status Chewing Tobacco Status No 09/09/2013 8:07pm Not Applicable Not Applicable Hx Substance Use No 07/09/2016 12:40pm Not Applicable Not Applicable Hx Alcohol Use Y OCCASIONALLY 07/09/2016 12:40pm Not Applicable Not Applicable Has the pt used tobacco in the last 12 months Yes 08/21/2016 4:26pm Not Applicable Not Applicable Tobacco Usage none 01/16/2016 1:28pm Not Applicable Not Applicable Hospital Discharge Instructions No hospital discharge instructions. Plan of Care Discharge Date 09/01/16 3:00pm Disposition 01 DISCHARGED HOME, SELF-CARE Condition at Discharge Improved Instructions/Education Provided Type 1 Diabetes in Adults (ED) Acute Nausea and Vomiting (ED) Prescriptions See Medication Section Referrals RICHARD GANDHI MD Address: [address] [place] [id number] Additional Instructions/Education 1. Continue your usual home medications 2. Clear liquids advancing diet as tolerated 3. Follow up with your primary doctor tomorrow. Care Plan and Goals Physician Care Plan Problem: Vomiting Goal: Follow up with primary care provider Instructions: Take medications and follow care plan as discussed/written Functional Status No functional status results. Allergies, Adverse Reactions, Alerts Allergen Type Severity Reaction Status Last Updated Sodium hypochlorite Allergy Mild Hives ([place]ach) Active 09/01/16 Adhesive Allergy Unknown BLISTERING Active 09/01/16 Immunizations Query Response on File Recorded Date/Time Hx Influenza Vaccination No 08/21/16 4:26pm Hx Pneumococcal Vaccination No 08/21/16 4:26pm Hx Tetanus, Diptheria, Pertussis Y UNKNOWN 03/26/15 1:03pm Hx Influenza Vaccination No 08/21/16 4:26pm Hx Tetanus, Diptheria, Pertussis Y UNKNOWN 03/26/15 1:03pm DTaP Vaccine History 1 07/09/16 12:40pm Influenza Vaccine Hx 05/201608/22/16 12:14pm Tetanus Diptheria Vaccine History 1 07/09/16 12:40pm Vital Signs Acute Vital Signs Vital Response Date/Time Temperature (Fahrenheit) 98.2 deg F (96.8 - 99.1) 09/01/2016 3:00pm Temperature (Calculated Celsius) 36.88923 degrees C (36.0 - 37.3) 09/01/2016 3:00pm Pulse Rate (adult) 100 bpm (60 - 100) 09/01/2016 3:00pm Respiratory Rate 20 breaths/min (10 - 20) 09/01/2016 3:00pm O2 Sat by Pulse Oximetry 98 % (90 - 100) 09/01/2016 3:00pm Oxygen Delivery Method Room Air 08/24/2016 8:40am Blood Pressure 110/76 mm Hg 09/01/2016 3:00pm Blood Pressure Source Automatic Cuff 08/24/2016 8:40am Height (Feet) 5 feet 09/01/2016 10:30am Height (Inches) 5.00 inches 09/01/2016 10:30am Weight (Kilograms) 50.000 kg 09/01/2016 10:30am Body Mass Index (BMI) 18.0 09/01/2016 10:30am Results Laboratory Results Test Name Result Units Flags Reference Collection Date/Time Result Date/ Time Comments Troponin I < 0.012 ng/ml 0-0.12 07/09/2016 1:28pm 07/09/2016 2:00pm Troponin values with a difference of 55% increase from orginal troponin value represent a true biological DELTA value. (%increase Calc=Orginal Troponin value, divided by subsequent Troponin value, multiplied by 100) Lipase 49 U/L 23-300 07/09/2016 1:28pm 07/09/2016 1:53pm B-Hydroxybutyrate 5.50 MMOL/L H 0-0.6 07/09/2016 2:20pm 07/09/2016 2: 32pm Urine Collection Type VOIDED-NOT CC-MIDSTR 07/09/2016 2:15pm 2015 2:35pm Urine Color YELLOW YELLOW 07/09/2016 2:15pm 07/09/2016 2:35pm Urine Turbidity SL CLOUDY CLEAR 07/09/2016 2:15pm 07/09/2016 2:35pm Urine Specific [place] >=1.030 H 1.015-1.025 07/09/2016 2:15pm 2015 2:35pm Urine pH 5.5 5.0-8.0 07/09/2016 2:15pm 07/09/2016 2:35pm Urine Leukocyte Esterase NEGATIVE NEGATIVE 07/09/2016 2:15pm 2015 2:35pm Urine Nitrite NEGATIVE NEGATIVE 07/09/2016 2:15pm 07/09/2016 2:35pm Urine Protein TRACE A NEGATIVE 07/09/2016 2:15pm 07/09/2016 2:35pm Urine Glucose (UA) 3+ A NEGATIVE 07/09/2016 2:15pm 07/09/2016 2:35pm Urine Ketones 3+ A NEGATIVE 07/09/2016 2:15pm 07/09/2016 2:35pm Urine Urobilinogen 0.2 EU/DL NORMAL 07/09/2016 2:15pm 07/09/2016 2: 35pm Urine Bilirubin 1+ A NEGATIVE 07/09/2016 2:15pm 07/09/2016 2:35pm Urine Blood 2+ A NEGATIVE 07/09/2016 2:15pm 07/09/2016 2:35pm Urine WBC 1-3 /HPF 0-5 07/09/2016 2:15pm 07/09/2016 2:54pm Urine RBC 3-5 /HPF H 0-3 07/09/2016 2:15pm 07/09/2016 2:54pm Urine Squamous Epithelial Cells 0-5 07/09/2016 2:15pm 07/09/2016 2: 54pm Urine Bacteria 4+ H NEGATIVE 07/09/2016 2:15pm 07/09/2016 2:54pm Urine Yeast 1+ H NEGATIVE 07/09/2016 2:15pm 07/09/2016 2:54pm Urine Amorphous Urates MANY 07/09/2016 2:15pm 07/09/2016 2:54pm Urine Mucus PRESENT 07/09/2016 2:15pm 07/09/2016 2:54pm Urine Hyaline Casts 0-1 /LPF 07/09/2016 2:15pm 07/09/2016 2:54pm Urine Culture Indicated CULT NOT INDICATED 07/09/2016 2:15pm 2015 2:54pm Erythrocyte Sedimentation Rate 19 mm/h 0-23 08/22/2016 4:23pm 2016 11:09pm Sedimentation Rate performed at [facility] Reference Lab, [facility] [place] [facility] [place] [address] Network Technical Analyst Ugo Romero DO White Blood Count 11.9 T/MM3 H 4.5-11.0 09/01/2016 11:3009/01/2016 12 :09pm Red Blood Count 4.58 M/MM3 4.00-5.20 09/01/2016 11:3009/01/2016 12: 09pm Hemoglobin 13.3 GM/DL 12-16 09/01/2016 11:3009/01/2016 12:09pm Hematocrit 38.4 % 36-46 09/01/2016 11:3009/01/2016 12:09pm Mean Corpuscular Volume 83.8 UM3 80-100 09/01/2016 11:3009/01/2016 12:09pm Mean Corpuscular Hemoglobin 29.0 UUG 26-34 09/01/2016 11:302016 12:09pm Mean Corpuscular Hemoglobin Concent 34.6 GM/DL 31-37 09/01/2016 11:3009/01/2016 12:09pm RDW Standard Deviation 36.6 FL L 36.9-50.2 09/01/2016 11:302016 12:09pm Platelet Count 374 T/MM3 130-400 09/01/2016 11:3009/01/2016 12:09pm Mean Platelet Volume 9.1 UM3 L 9.4-12.4 09/01/2016 11:3009/01/2016 12 :09pm Neutrophils (%) (Auto) 74.1 % H 33-66 09/01/2016 11:3009/01/2016 12: 09pm Lymphocytes (%) (Auto) 20.4 % L 23-45 09/01/2016 11:3009/01/2016 12: 09pm Monocytes (%) (Auto) 4.5 % 0-9.0 09/01/2016 11:3009/01/2016 12:09pm Eosinophils (%) (Auto) 0.4 % 0-4 09/01/2016 11:30am 09/01/2016 12:09pm Basophils (%) (Auto) 0.4 % 0-2 09/01/2016 11:3009/01/2016 12:09pm Immature Granulocyte % (Auto) 0.2 % 0.0-0.5 09/01/2016 11:302016 12:09pm Absolute Neutrophils (auto) 8.8 T/MM3 H 1.8-7.7 09/01/2016 11:3009/01 12:09pm Absolute Lymphocytes (auto) 2.4 T/MM3 1-4.8 09/01/2016 11:302016 12:09pm Absolute Monocytes (auto) 0.5 T/MM3 0-0.8 09/01/2016 11:302016 12:09pm Absolute Eosinophils (auto) 0.1 T/MM3 0-0.5 09/01/2016 11:302016 12:09pm Absolute Basophils (auto) 0.1 T/MM3 0-0.2 09/01/2016 11:302016 12:09pm Absolute Immature Granulocyte (auto 0.02 T/MM3 0.00-0.03 09/01/2016 11: 3009/01/2016 12:09pm Icterus Index < 2 0-7 09/01/2016 11:3009/01/2016 12:14pm Chemistry Specimen Hemolysis < 15 0-25 09/01/2016 11:3009/01/2016 12:14pm 0-25: Specimen Exhibited No Hemolysis. Turbidity < 20 0-20 09/01/2016 11:3009/01/2016 12:14pm Sodium Level 139 MEQ/L 134-144 09/01/2016 11:3009/01/2016 12:14pm Potassium Level 4.2 MEQ/L 3.6-5 09/01/2016 11:3009/01/2016 12:14pm Chloride Level 101 MEQ/L 98-107 09/01/2016 11:3009/01/2016 12:14pm Carbon Dioxide Level 24 MEQ/L 22-30 09/01/2016 11:3009/01/2016 12: 14pm Anion Gap 14 MEQ/L 5-15 09/01/2016 11:3009/01/2016 12:14pm Blood Urea Nitrogen 22.0 MG/DL H 7-17 09/01/2016 11:3009/01/2016 12: 14pm Creatinine 0.5 MG/DL L 0.7-1.2 09/01/2016 11:3009/01/2016 12:14pm BUN/Creatinine Ratio 44 RATIO H 6-26 09/01/2016 11:3009/01/2016 12: 14pm Glomerular Filtration Rate Calc 149 09/01/2016 11:3009/01/2016 12:14pm Glucose Level 234 MG/DL H 65-110 09/01/2016 11:3009/01/2016 12:14pm Calculated Osmolality 279 MOSM/KG 261-280 09/01/2016 11:302016 12:14pm Calcium Level 10.2 MG/DL 8.4-10.2 09/01/2016 11:3009/01/2016 12: 14pm Total Bilirubin 0.80 MG/DL 0.20-1.30 09/01/2016 11:3009/01/2016 12: 14pm Alkaline Phosphatase 129 U/L H 38-126 09/01/2016 11:3009/01/2016 12: 14pm Total Protein 7.9 G/DL 6.3-8.2 09/01/2016 11:3009/01/2016 12:14pm Albumin 4.6 G/DL 3.5-5.0 09/01/2016 11:3009/01/2016 12:14pm Globulin 3.3 G/DL 2.4-3.6 09/01/2016 11:3009/01/2016 12:14pm Albumin/Globulin Ratio 1.4 RATIO 1.1-2.2 09/01/2016 11:3009/01/2016 12:14pm Aspartate Amino Transf (AST/SGOT) 43 U/L H 14-36 09/01/2016 11:30 12:14pm Alanine Aminotransferase (ALT/SGPT) 31 U/L 9-52 09/01/2016 11:30 12:14pm Magnesium Level 2.0 MG/DL 1.6-2.3 09/01/2016 11:30am 09/01/2016 12: 14pm Arterial Blood pH 7.390 7.350-7.450 09/01/2016 2:00pm 09/01/2016 2: 17pm Arterial Blood Partial Pressure CO2 42 MMHG 34-45 09/01/2016 2:00pm 2:17pm Arterial Blood pO2 at Patient Temp 60 MMHG L 80-100 09/01/2016 2:00pm 2:17pm Arterial Blood HCO3 25 MEQ/L 22-26 09/01/2016 2:00pm 09/01/2016 2:17pm Arterial Blood Total CO2 26.7 MEQ/L 23-27 09/01/2016 2:00pm 09/01/2016 2:17pm Arterial Blood Base Excess 0.3 MMOL/L -2.0-2.0 09/01/2016 2:00pm 2016 2:17pm Arterial Blood Oxygen Saturation 90.0 % L 95.0-98.0 09/01/2016 2:00pm 2:17pm Blood Gas Oxygen Percent Given 21 09/01/2016 2:00pm 09/01/2016 2: 17pm Oxygen Delivery Method (LAB) ROOM AIR 09/01/2016 2:00pm 09/01/2016 2:17pm Glucometer 221 mg/dL H 65-110 09/01/2016 11:13am 09/01/2016 11:16am Procedures Procedure Status Date Provider(s) Mri brain stem w/o dye Completed 06/26/16 Routine venipuncture Completed 07/09/16 Comprehen metabolic panel Completed 07/09/16 Urinalysis auto w/scope Completed 07/09/16 Acetone assay Completed 07/09/16 Reagent strip/blood glucose Completed 07/09/16 Reagent strip/blood glucose Completed 07/09/16 Assay of lipase Completed 07/09/16 Assay of troponin quant Completed 07/09/16 Chorionic gonadotropin assay Completed 07/09/16 Complete cbc w/auto diff wbc Completed 07/09/16 Hydrate iv infusion add-on Completed 07/09/16 Ther/proph/diag iv inf init Completed 07/09/16 Ther/proph/diag inj sc/im Completed 07/09/16 Ther/proph/diag inj sc/im Completed 07/09/16 Tx/pro/dx inj new drug addon Completed 07/09/16 Tx/pro/dx inj new drug addon Completed 07/09/16 Tx/pro/dx inj new drug addon Completed 07/09/16 Tx/pro/dx inj new drug addon Completed 07/09/16 Tx/pro/dx inj same drug service learning coordinator Completed 07/09/16 Tx/pro/dx inj same drug service learning coordinator Completed 07/09/16 Emergency dept visit Completed 07/09/16"INJECTION, PROCHLORPERAZINE, UP TO 10 MG" Completed 07/09/16"INJECTION, HYDROMORPHONE, UP TO 4 MG" Completed 07/09/16"INJECTION, HYDROMORPHONE, UP TO 4 MG" Completed 07/09/16"INJECTION, DIPHENHYDRAMINE HCL, UP TO 50 MG" Completed 07/09/16"INJECTION, DIPHENHYDRAMINE HCL, UP TO 50 MG" Completed 07/09/16"INJECTION, INSULIN, PER 5 UNITS" Completed 07/09/16"INJECTION, ONDANSETRON HYDROCHLORIDE, PER 1 MG" Completed 07/09/16"INJECTION, HYDROXYZINE HCL, UP TO 25 MG" Completed 07/09/16"INFUSION, NORMAL SALINE SOLUTION , 1000 CC" Completed 07/09/16"INFUSION, NORMAL SALINE SOLUTION , 1000 CC" Completed 07/09/16 Encounters Encounter Location Arrival/Admit Date Discharge/Depart Date Attending Provider Departed Emergency Room [facility] 09/01/16 10:29am 09/01/16 3: 00pm RADHA SOTO MD Discharged Inpatient [facility] 08/21/16 4:04pm 08/24/16 4:00pm RICHARD GANDHI MD Departed Emergency Room [facility] 07/09/16 12:15pm 07/09/16 5: 45pm RADHA SOTO MD Registered Clinic [facility] 06/26/16 1:27pm RICHARD GANDHI MD Recent Diagnosis
--- NOTE | 2016-09-23 09:49 | NUR ---
DR DR GARCIA AT BEDSIDE.
[2016-09-23] MEDS ORDERED: NORMAL SALINE 1,000 ML IV ONE (09:51)
--- NOTE | 2016-09-23 09:54 | ERPDOC ---
Departure Disposition Decision Date: Sep 23, 2016 Disposition Decision Time: 11:51 Disposition: 02 TO [facility] Impression Impression Impression: Primary Impression: Nausea and vomiting Vomiting type: unspecified Vomiting Intractability: non-intractable Qualified Codes: R11.2 - Nausea with vomiting, unspecified Severity: Moderate Condition: Stable Seen By: Physician only Referrals: RICHARD YUSUF MD (Family) Problems/Meds/Labs Reviewed?: Yes Medications reviewed and manag: Yes Follow up care ordered?: Yes Mental Status: Alert, Oriented HPI - General Medical General Chief Complaint: Nausea,Vomiting,Diarrhea Stated Complaint: N/V, HIGH BLOOD SUGARS, FEVER Time Seen by Provider: 09:51 Source: patient Exam Limitations: no limitations HPI - General Medical Initial Comments Patient is a 26-year-old female brittle type I diabetic with poor coping mechanisms and poor compliance. Patient presents to the ER for evaluation of nausea vomiting diarrhea. Patient started feeling poorly yesterday approximately 3:30 the morning patient developed nausea and vomiting has had 4- 5 greenish stools that she describes. Patient has not seen her primary medical physician or her antiquer in several months due to financial issues. Patient this morning decided to present to the ER for evaluation. Occurred At: home Onset: Rapid Duration: 6-12 hrs Allergies: Coded Allergies: sodium hypochlorite solution (Verified Allergy, Mild, Hives (Bleach), 09/01) adhesive (Verified Allergy, Unknown, BLISTERING, 09/01/16) ADHESIVE TAPE Past History Patient Surgical History 04/23/2016 - Cystoscopy by Dr. Pelletier: Trabeculated bladder with mild catheter-associated cystitis Appendectomy in August 2015 x 2 Ureteral stents Groin abscess excision Past Medical History Metabolic: diabetes, other GI: GERD, other Female: UTI, kidney stones, pyelonephritis Neurological: headaches Psychological: anxiety, depression, suicide attempt Surgical History General: appendix Reproductive/: , other Family History Family PMH: FOUND: CA, aortic aneurysm, diabetes, hypertension Vaccines Hx Influenza Vaccination: No Hx Pneumococcal Vaccination: No Hx Tetanus, Diptheria, Pertuss: Yes (UNKNOWN) Social History Does patient use chewing tobac: No Substance Use Type: former substance user, marijuana Alcohol Intake: occasionally Marital Status: Sexuality: male partner Housing: house Household Members: spouse, children Number of Children: 2 Current Occupational Status: unemployed Grade (if student): Graduated HS Review of Systems Constitutional Constitutional: appetite decrease, chills, dizziness, fever (subjective), weakness Eyes Vision: DENIES: double vision, loss of visual bentley ENMT Sinuses: DENIES: congestion, rhinorrhea Mouth/Throat: DENIES: scratchy throat, sore throat Cardiovascular Cardiac: DENIES: chest pain, dyspnea on exertion Pulmonary Respiratory: DENIES: cough, dyspnea, sputum, tachypnea GI Upper Abdomen: nausea, pain, vomiting Lower Abdomen: diarrhea, pain General: DENIES: burning, frequency, urgency Musculoskeletal General: DENIES: cramps, pain, weakness Integumentary Skin: DENIES: color change, itching, rash Endocrine Endocrine: DENIES: heat/cold intolerance Hematologic/Lymphatic Hematologic/Lymphatic: DENIES: anemia Physical Exam General General Nourishment: well nourished, well developed General Body Habitus: well groomed Vitals and Pain First Documented Vital Signs Date Time Temp Pulse Resp B/P Pulse Ox O2 Delivery O2 Flow Rate FiO2 09/23/16 09:34 97.9 116 20 111/74 99 Room Air Weight: Kilograms: 50.600 Height (feet): 5 Height (inches): 5.00 Triage Pain Scale: RN VS reviewed by Provider: Yes Eyes (brief) Eyes Brief: found: EOMI ENMT (brief) ENMT Brief: FOUND: mucosa moist, normal dentition, NOT FOUND: nasal erythema, pharnyx erythema, tonsillar deviation Neck (brief) Neck: NOT FOUND: adenopathy, spasm, tenderness Respiratory (brief) Respiratory: FOUND: clear all bentley, equal bilaterally, NOT FOUND: rales, wheezes Cardiovascular (brief) Cardiac: FOUND: regular rate, regular rhythm Capillary Refill: <2 sec Abdomen (brief) Abdominal Brief: FOUND: bowel normo active x4, soft, tender (diffuse abdominal tenderness) Lymphatic (brief) Lymphatic Brief: NOT FOUND: adenopathy Musculoskeletal (brief) Musculoskeletal Brief: NOT FOUND: spasm, tenderness Integumentary (brief) Integumentary Brief: FOUND: dry, pink, warm, NOT FOUND: rash Neurologic (brief) Neurological Brief: FOUND: CN w/o gross def to obs, motor-no gross deficits, sensory-no gross deficits Psychiatric (brief) Psychiatric Brief: FOUND: alert, oriented Differential Diagnoses Considering: DKA, Hypo/Hyperglycemia, Hypo/Hyperkalemia, Hypo/Hypernatremia, UTI, Other (gastroenteritis, colitis, diarrhea) Progress Results/Orders Orders Procedure Category Date Status Time Bgm (Ed) EDM 09/23/16 Transmitted 09:33 Cbc W/Auto LAB 09/23/16 Complete Diff-Reflex Manual 09:51 Cmp - Comprehensive LAB 09/23/16 Complete Metabolic 09:51 Lipase LAB 09/23/16 Complete 09:51 Magnesium LAB 09/23/16 Complete 09:51 Iv Lock (Ed Only) EDM 09/23/16 Transmitted 09:51 Nothing By Mouth (Ed EDM 09/23/16 Transmitted Only) 09:51 Normal Saline (Normal PHA 09/23/16 Complete Saline Iv) 09:51 Diphenhydramine PHA 09/23/16 Complete (Benadryl) 10:00 Hydromorphone PHA 09/23/16 Complete (Dilaudid) 10:00 Prochlorperazine PHA 09/23/16 Complete (Compazine) 10:00 Blood Gas, Arterial - LAB 09/23/16 Complete ABG 09:51 LAB 09/23/16 Complete Qualitative, Serum 10:02 UA, LAB 09/23/16 Complete Dip&Micro(Complete) & 10:08 Diphenhydramine PHA 09/23/16 Complete (Benadryl) 12:00 Place In Facility: ED ADM 09/23/16 Transmitted 11:55 Up In Room With Assist CARTER 09/23/16 In Process 11:55 Full Liquid Diet DIET 09/23/16 Transmitted Dinner Iv Lock (Nursing) CARTER 09/23/16 In Process 11:55 Prn Orders (Adult) PHA 09/23/16 In Process (May Use Prn Orders) 12:00 1/2 Ns W/ Kcl 20meq PHA 09/23/16 In Process (1/2 Ns W/ Kcl 20meq 12:00 Ondansetron Inj PHA 09/23/16 In Process (Zofran) 12:00 Promethazine PHA 09/23/16 In Process (Phenergan) 15:00 Measure Vital Signs CARTER 09/23/16 In Process 11:55 Lab Results Laboratory Tests Test 09/23/16 09:43 09/23/16 10:08 09/23/16 10:29 09/23/16 11:20 Glucometer 266mg/dL Urine Collection Type Voided-not cc-midstr Urine Color Yellow Urine Turbidity Clear Urine pH 5.5 Urine Specific [place] 1.025 Urine Protein 1+ Urine Glucose (UA) 3+ Urine Ketones 3+ Urine Blood 2+ Urine Nitrite Negative Urine Bilirubin 2+ Urine Urobilinogen 0.2EU/DL Urine Leukocyte Esterase Negative Urine RBC 1-3/HPF Urine WBC 0-1/HPF Urine Squamous Epithelial Cells 5-10 Urine Bacteria 1+ Urine Hyaline Casts 0-1/LPF Urine Yeast Trace Urine Culture Indicated Cult not indicated White Blood Count 7.4T/MM3 Red Blood Count 4.92M/MM3 Hemoglobin 14.3GM/DL Hematocrit 41.1% Mean Corpuscular Volume 83.5UM3 Mean Corpuscular Hemoglobin 29.1UUG Mean Corpuscular Hemoglobin Concent 34.8GM/DL RDW Standard Deviation 37.7FL Platelet Count 334T/MM3 Mean Platelet Volume 8.9UM3 Immature Granulocyte % (Auto) 0.1% Neutrophils (%) (Auto) 63.0% Lymphocytes (%) (Auto) 28.5% Monocytes (%) (Auto) 6.6% Eosinophils (%) (Auto) 1.1% Basophils (%) (Auto) 0.7% Absolute Immature Granulocyte (auto 0.01T/MM3 Absolute Neutrophils (auto) 4.7T/MM3 Absolute Lymphocytes (auto) 2.1T/MM3 Absolute Monocytes (auto) 0.5T/MM3 Absolute Eosinophils (auto) 0.1T/MM3 Absolute Basophils (auto) 0.1T/MM3 Turbidity < 20 Sodium Level 142MEQ/L Potassium Level 4.1MEQ/L Chloride Level 105MEQ/L Carbon Dioxide Level 21MEQ/L Anion Gap 16MEQ/L Blood Urea Nitrogen 20.0MG/DL Creatinine 0.6MG/DL Glomerular Filtration Rate Calc 121 BUN/Creatinine Ratio 33RATIO Glucose Level 191MG/DL Calculated Osmolality 281MOSM/KG Calcium Level 10.1MG/DL Magnesium Level 1.9MG/DL Total Bilirubin 1.10MG/DL Icterus Index < 2 Aspartate Amino Transf (AST/SGOT) 15U/L Alanine Aminotransferase (ALT/SGPT) 24U/L Alkaline Phosphatase 120U/L Total Protein 7.8G/DL Albumin 4.5G/DL Globulin 3.3G/DL Albumin/Globulin Ratio 1.4RATIO Lipase 72U/L Human Chorionic Gonadotropin, Qual Negative Chemistry Specimen Hemolysis < 15 Arterial Blood pH 7.320 Arterial Blood Partial Pressure CO2 41MMHG Arterial Blood pO2 at Patient Temp 91MMHG Arterial Blood HCO3 21MEQ/L Arterial Blood Total CO2 22.4MEQ/L Arterial Blood Oxygen Saturation 96.0% Arterial Blood Base Excess -4.7MMOL/L Oxygen Delivery Method (LAB) Room air Blood Gas Oxygen Liter Flow Blood Gas Oxygen Percent Given 21 Blood Gas Vent Rate Blood Gas Tidal Volume ML Medications Current ED Medications Sodium Chloride (Normal Saline IV) 1,000 ml @ 999 mls/hr Q1H1M ONCE IV Last administered on 09/23/16 10:40; Start 09/23/16 at 09:51; Stop 09/23/16 at 10:51 ; Status DC Diphenhydramine HCl (Benadryl) 25 mg O ONCE IV Last administered on 09/23/16 10:40; Start 09/23/16 at 10:00; Stop 09/23/16 at 10:01; Status DC Hydromorphone HCl (Dilaudid) 0.5 mg O ONCE IV Last administered on 09/23/16 10:48; Start 09/23/16 at 10:00; Stop 09/23/16 at 10:01; Status DC Prochlorperazine Edisylate (Compazine) 10 mg O ONCE IV Last administered on 10:44; Start 09/23/16 at 10:00; Stop 09/23/16 at 10:01; Status DC Progress Progress Patient with mildly elevated gap of 16, mildly low CO2 at 21, 3+ ketones pH of 7.32. I do not believe patient isn't nory diabetic ketoacidosis, however patient certainly is at risk given her past medical history. Discuss case with Dr. Yusuf he will admit observation status to the floor. KESHIA GARCIA MD Sep 23, 2016 09:54
[2016-09-23] MEDS ORDERED: PROCHLORPERAZINE 10mg/2ml INJECTION IV ONE (10:00)
[2016-09-23] MEDS ORDERED: HYDROMORPHONE 2mg/ml INJECTION IV ONE (10:00)
[2016-09-23] MEDS ORDERED: DiphenhydrAMINE 50 MG/ML INJECTION IV ONE ×2 (10:00→12:00)
--- OUTSIDE RECORDS SUMMARY | 2016-09-23 10:03 | XMS REPORT ---
Author Author GENERATED, SYSTEM Organization Unknown Address Unknown Phone Unavailable Care Team Providers Care Frame Maker Name Role Phone PP Unavailable Reason For [...] PM* CULTURE URINE (Preliminary Result) Specimen Number: [id number] Sample Collection Date/Time: 01/31/2016 5:49 PM Specimen [...] * Address # 1 : [place] [phone] Procedures No relevant procedures performed. Immunizations No [...] the responsibility of the patient or patient sales representative aircraft to confirm the list of medications with [...] phenazopyridine 200 mg Tablet, Ordered By: MATTHEW BRAOV Directions: 1 tablet oral three times a [...]
--- OUTSIDE RECORDS SUMMARY | 2016-09-23 10:03 | XMS REPORT | Continuity of Care Document ---
Author Author [facility] Organization [facility] Address Unknown Phone Unavailable Allergies Medications [...] Status Pt. Type Provider Facility Loc./Unit Complaint [id number] 10/19/2012 15:50:00 2012 17:23:00 DIS Inpatient Lexy LATHAM, Padmini Stahl [facility] W.9TS
--- OUTSIDE RECORDS SUMMARY | 2016-09-23 10:03 | XMS REPORT | Continuity of Care Document ---
Author Author [facility] Organization [facility] Address Unknown Phone Unavailable Support Name Relationship Address Phone LESLY BRANCH MD Caregiver [address] [place] [address] Unavailable SHAHANA DAVIS II, MD Caregiver [address] [place] [address] [address] [place], [place] [phone] BRE SAWYER MD Caregiver [address] [place] [address] [address] [place] [address] [phone] GEMA MCKENNA Next Of Kin [address] [place] [address] CP Insurance Providers Payer Name Policy Number Subscriber Name Relationship [facility] [id number] Gema Mckenna 01 Spouse Advance Directives Directive [...] DAILY 07/13/10 11/30/11 Discontinued Mometasone Furoate 2 [place] [facility] DAILY 09/24/10 02/20/11 Discontinued Hydrocodone Bit/Acetaminophen [...] of your legs. 3.During office hours, call [phone] 4. After hours, please call [facility] at [phone], and have the clipper machine operator page your Surgeon IN THE EVENT [...] F (96.8 - 99.1) Temperature (Calculated Celsius) 36.36355 degrees C (36.0 - 37.3) Temperature Source [...] 09, 2012 3:46pm LAB RESULTS - SCANNED [id number] - Lipase May 14, 2014 7:10pm 56 [...] 318 mOsm/kg H - Osmolality performed at [facility], [address] [facility], [place] [address]Stlwwvt Director Elen Rajput MD Sodium Level May [...] Has specimen been collected/obtained? Y Urine Specific [place] May 14, 2014 7:26pm 1.015 - Has [...] Escherichia Coli Name: DENNIS MCKENNA Unit #: [id number] : 1990 Sex: F Loc / Svc: CCU DOS: 04/27/14 Signed Report #: [id number] DIAGNOSTIC IMAGING REPORT TYPE OF EXAM: CT [...] procedures. Encounters Encounter Location Date/Time Discharged Inpatient [facility] 05/14/14 10:03pm Discharged Inpatient [facility] 04/27/14 5:25pm Recent Diagnosis DKA (diabetic ketoacidoses)
--- OUTSIDE RECORDS SUMMARY | 2016-09-23 10:05 | XMS REPORT | Continuity of Care Document ---
Author Author [facility] Organization [facility] Address Unknown Phone Unavailable Support Name Relationship Address Phone RUFINOFORD HARDEN Caregiver [facility] [address] [address] BRE SAWYER MD Caregiver [address] [place] [address] [place] [address] [phone] DAVID QUIJANO Next Of Kin [address] [id number] CP Insurance Providers Payer Name Policy Number Subscriber Name Relationship [facility] [id number] Gema [place] 01 Spouse Advance Directives Directive [...] DAILY 07/13/10 11/30/11 Discontinued Mometasone Furoate 2 [place] [facility] DAILY 09/24/10 02/20/11 Discontinued Hydrocodone Bit/Acetaminophen [...] Should your symptoms persist you could contact [facility] or return to the ED for emergent evaluation Condition at time of discharge: Good Call your Surgeon if you have: 1.Chest pain, difficulty breathing, fever>100.5 degrees, chills, heart rate >100, confusion, or persistent nausea/vomitting. 2.Severe pain, swelling, redness, or warmth in either of your legs. 3.During office hours, call [phone] 4. After hours, please call [facility] at [phone], and have the tape edge machine operator page your Surgeon IN THE [...] F (96.8 - 99.1) Temperature (Calculated Celsius) 35.10724 degrees C (36.0 - 37.3) Temperature Source [...] 09, 2012 3:46pm LAB RESULTS - SCANNED [id number] - Lipase April 28, 2014 9:06am 20 [...] 318 mOsm/kg H - Osmolality performed at [facility], [address] [place], [place] [address]Gkbjiki Director Elen Rajput MD Sodium Level April [...] Has specimen been collected/obtained? Y Urine Specific [place] May 01, 2014 11:55am 1.020 - Has [...] Escherichia Coli Name: DENNIS ANGELES Unit #: [id number] : 1990 Sex: F Loc / Svc: CCU DOS: 04/27/14 Signed Report #: [id number] DIAGNOSTIC IMAGING REPORT TYPE OF EXAM: CT [...] procedures. Encounters Encounter Location Date/Time Discharged Inpatient [facility] 04/27/14 5:25pm Recent Diagnosis Abdominal pain DKA (diabetic ketoacidoses) DKA (diabetic ketoacidoses) Controlled type 1 diabetes mellitus
--- OUTSIDE RECORDS SUMMARY | 2016-09-23 10:05 | XMS REPORT ---
Author Author GENERATED, SYSTEM Organization Unknown Address Unknown Phone Unavailable Care Team Providers Care Wet Mixer Name Role Phone PP Unavailable Reason For [...] PM* CULTURE URINE (Preliminary Result) Specimen Number: [id number] Sample Collection Date/Time: 01/31/2016 5:49 PM Specimen [...] * Address # 1 : [place] [phone] Procedures No relevant procedures performed. Immunizations No [...] the responsibility of the patient or patient claim representative to confirm the list of medications [...]
--- NOTE | 2016-09-23 10:07 | NUR ---
UA PT VOIDED 300ML CLEAR YELLOW URINE.
--- NOTE | 2016-09-23 10:15 | NUR ---
IV ATTEMPT UNSUCCESSFUL X2 ATTEMPTS. NOTIFIED DR GARCIA. HOT PACKED L ARM FOR ASSISTANCE BY AKBAR BRAVO.
[2016-09-23 10:36] LABS: BASOPHILS # (AUTO) 0.1 T/MM3 (0-0.2); BASOPHILS % (AUTO) 0.7 % (0-2); EOSINOPHILS # (AUTO) 0.1 T/MM3 (0-0.5); EOSINOPHILS % (AUTO) 1.1 % (0-4); HCT - HEMATOCRIT 41.1 % (36-46); HGB - HEMOGLOBIN 14.3 GM/DL (12-16); IMMATURE GRANULOCYTE # (AUTO) 0.01 T/MM3 (0.00-0.03); IMMATURE GRANULOCYTE % (AUTO) 0.1 % (0.0-0.5); LYMPHOCYTES # (AUTO) 2.1 T/MM3 (1-4.8); LYMPHOCYTES % (AUTO) 28.5 % (23-45); MEAN CORPUSCULAR HGB 29.1 UUG (26-34); MEAN CORPUSCULAR HGB CONC(MCHC 34.8 GM/DL (31-37); MEAN CORPUSCULAR VOLUME 83.5 UM3 (80-100); MEAN PLATELET VOLUME 8.9 UM3 (9.4-12.4); MONOCYTES # (AUTO) 0.5 T/MM3 (0-0.8); MONOCYTES % (AUTO) 6.6 % (0-9.0); NEUTROPHILS #(AUTO)-ABSOLUTE 4.7 T/MM3 (1.8-7.7); RED BLOOD COUNT 4.92 M/MM3 (4.00-5.20); WBC - WHITE BLOOD COUNT 7.4 T/MM3 (4.5-11.0)
[2016-09-23 10:38] LABS: BLOOD, URINE 2+ (NEGATIVE); COLOR,URINE YELLOW (YELLOW); LEUKOCYTE ESTERASE ,URINE NEGATIVE (NEGATIVE); NITRITE,URINE NEGATIVE (NEGATIVE); UROBILINOGEN,URINE 0.2 EU/DL (NORMAL)
[2016-09-23 10:48] LABS: ALBUMIN 4.5 G/DL (3.5-5.0); ALBUMIN/GLOBULIN RATIO 1.4 RATIO (1.1-2.2); ALKALINE PHOSPHATASE 120 U/L (38-126); ALT (SGPT) 24 U/L (9-52); ANION GAP 16 MEQ/L (5-15); AST (SGOT) 15 U/L (14-36); BUN/CREATININE RATIO 33 RATIO (6-26); CALCIUM 10.1 MG/DL (8.4-10.2); CHLORIDE 105 MEQ/L (98-107); CO2 - CARBON DIOXIDE 21 MEQ/L (22-30); CREATININE 0.6 MG/DL (0.7-1.2); GLOMERULAR FILTRATION RATE 121; GLUCOSE 191 MG/DL (65-110); MAGNESIUM 1.9 MG/DL (1.6-2.3); POTASSIUM 4.1 MEQ/L (3.6-5); SODIUM 142 MEQ/L (134-144); TOTAL PROTEIN 7.8 G/DL (6.3-8.2)
[2016-09-23 10:49] LABS: BACTERIA,URINE 1+ (NEGATIVE); WBC,URINE 0-1 /HPF (0-5)
[2016-09-23 10:50] LABS: HYALINE CASTS, URINE 0-1 /LPF; YEAST,URINE TRACE (NEGATIVE)
[2016-09-23 10:57] LABS: LIPASE 72 U/L (23-300)
--- NOTE | 2016-09-23 11:19 | NUR ---
RT AT BEDSIDE FOR ABG DRAW.
[2016-09-23] MEDS ORDERED: PRN ORDERS MC (12:00)
[2016-09-23] MEDS ORDERED: ONDANSETRON 4mg/2ml INJECTION IV PRN (12:00)
--- NOTE | 2016-09-23 12:14 | NUR ---
REPORT GIVEN TO [facility].
--- OUTSIDE RECORDS SUMMARY | 2016-09-23 12:18 | XMS REPORT | Continuity of Care Document ---
Author Author [facility] Organization [facility] Address Unknown Phone Unavailable Allergies Medications Problems [...] Status Pt. Type Provider Facility Loc./Unit Complaint [id number] 10/19/2012 15:50:00 2012 17:23:00 DIS Inpatient Lexy LATHAM, Padmini Stahl [facility] W.9TS
--- OUTSIDE RECORDS SUMMARY | 2016-09-23 12:18 | XMS REPORT | Continuity of Care Document ---
Author Author [facility] Organization [facility] Address Unknown Phone Unavailable Support Name Relationship Address Phone LESLY BRANCH MD Caregiver [address] [place] [address] Unavailable SHAHANA DAVIS II, MD Caregiver [address] [place] [address] [address] [place], [place] [phone] BRE SAWYER MD Caregiver [address] [place] [address] [address] [place] [address] [phone] GEMA MCKENNA Next Of Kin [address] [place] [address] CP Insurance Providers Payer Name Policy Number Subscriber Name Relationship [facility] [id number] Gema Mckenna 01 Spouse Advance Directives Directive [...] DAILY 07/13/10 11/30/11 Discontinued Mometasone Furoate 2 [place] [facility] DAILY 09/24/10 02/20/11 Discontinued Hydrocodone Bit/Acetaminophen [...] of your legs. 3.During office hours, call [phone] 4. After hours, please call [facility] at [phone], and have the feed preparation operator page your Surgeon IN THE EVENT [...] F (96.8 - 99.1) Temperature (Calculated Celsius) 36.96886 degrees C (36.0 - 37.3) Temperature Source [...] 09, 2012 3:46pm LAB RESULTS - SCANNED [id number] - Lipase May 14, 2014 7:10pm 56 [...] 318 mOsm/kg H - Osmolality performed at [facility], [address] [facility], [place] [address]Fluwgpr Director Elen Rajput MD Sodium Level May [...] Has specimen been collected/obtained? Y Urine Specific [place] May 14, 2014 7:26pm 1.015 - Has [...] Escherichia Coli Name: DENNIS MCKENNA Unit #: [id number] : 1990 Sex: F Loc / Svc: CCU DOS: 04/27/14 Signed Report #: [id number] DIAGNOSTIC IMAGING REPORT TYPE OF EXAM: CT [...] procedures. Encounters Encounter Location Date/Time Discharged Inpatient [facility] 05/14/14 10:03pm Discharged Inpatient [facility] 04/27/14 5:25pm Recent Diagnosis DKA (diabetic ketoacidoses)
--- OUTSIDE RECORDS SUMMARY | 2016-09-23 12:19 | XMS REPORT ---
Author Author GENERATED, SYSTEM Organization Unknown Address Unknown Phone Unavailable Care Team Providers Care Jig Worker Name Role Phone PP Unavailable Reason For [...] PM* CULTURE URINE (Preliminary Result) Specimen Number: [id number] Sample Collection Date/Time: 01/31/2016 5:49 PM Specimen [...] * Address # 1 : [place] [phone] Procedures No relevant procedures performed. Immunizations No [...] the responsibility of the patient or patient asset protection representative to confirm the list of medications [...]
--- OUTSIDE RECORDS SUMMARY | 2016-09-23 12:20 | XMS REPORT | Continuity of Care Document ---
Author Author [facility] Organization [facility] Address Unknown Phone Unavailable Support Name Relationship Address Phone RUFINOFORD HARDEN Caregiver [facility] [address] [place] [address] BRE SAWYER MD Caregiver [address] [place] [address] [place] [address] [phone] DAVID QUIJANO Next Of Kin [address] [phone] CP Insurance Providers Payer Name Policy Number Subscriber Name Relationship [facility] [id number] Gema [place] 01 Spouse Advance Directives Directive [...] DAILY 07/13/10 11/30/11 Discontinued Mometasone Furoate 2 [place] [facility] DAILY 09/24/10 02/20/11 Discontinued Hydrocodone Bit/Acetaminophen [...] Should your symptoms persist you could contact [facility] or return to the ED for emergent evaluation Condition at time of discharge: Good Call your Surgeon if you have: 1.Chest pain, difficulty breathing, fever>100.5 degrees, chills, heart rate >100, confusion, or persistent nausea/vomitting. 2.Severe pain, swelling, redness, or warmth in either of your legs. 3.During office hours, call [phone] 4. After hours, please call [facility] at [phone], and have the melt down furnace operator page your Surgeon IN THE EVENT [...] F (96.8 - 99.1) Temperature (Calculated Celsius) 35.10721 degrees C (36.0 - 37.3) Temperature Source [...] 09, 2012 3:46pm LAB RESULTS - SCANNED [id number] - Lipase April 28, 2014 9:06am 20 [...] 318 mOsm/kg H - Osmolality performed at [facility], [address] [place], [place] [address]Cfjcpxm Director Elen Rajput MD Sodium Level April [...] Has specimen been collected/obtained? Y Urine Specific [place] May 01, 2014 11:55am 1.020 - Has [...] Escherichia Coli Name: DENNIS ANGELES Unit #: [id number] : 1990 Sex: F Loc / Svc: CCU DOS: 04/27/14 Signed Report #: [id number] DIAGNOSTIC IMAGING REPORT TYPE OF EXAM: CT [...] procedures. Encounters Encounter Location Date/Time Discharged Inpatient [facility] 04/27/14 5:25pm Recent Diagnosis Abdominal pain DKA (diabetic ketoacidoses) DKA (diabetic ketoacidoses) Controlled type 1 diabetes mellitus
--- OUTSIDE RECORDS SUMMARY | 2016-09-23 12:21 | XMS REPORT ---
Author Author GENERATED, SYSTEM Organization Unknown Address Unknown Phone Unavailable Care Team Providers Care Application Manager Name Role Phone PP Unavailable Reason For [...] PM* CULTURE URINE (Preliminary Result) Specimen Number: [id number] Sample Collection Date/Time: 01/31/2016 5:49 PM Specimen [...] * Address # 1 : [place] [phone] Procedures No relevant procedures performed. Immunizations No [...] the responsibility of the patient or patient community engagement representative to confirm the list of medications [...]
--- NOTE | 2016-09-23 12:23 | NUR ---
ADMIT PT TAKEN TO MEDICAL UNIT VIA WC. PT'S GLASSES, PHONE WITH GENERATION ENGINEERING TECHNOLOGIST, PURSE, COAT, T-SHIRT AND PANTS AND SLIPPERS ACCOMPANY.
--- NOTE | 2016-09-23 12:23 | NUR ---
ADMISSION VSS. RA. REPORTING PAIN 7/10 IN ABDOMEN. REPORTS NAUSEA IS BETTER THAN WHEN ARRIVING IN ER BUT STILL PRESENT, WILL GIVE ZOFRAN. UP WITH SBA. WILL PUT BED ALARM ON FOR NOW SINCE RECEIVING DILAUDID AND APPEARS A LITTLE WEAK.
[2016-09-23 12:33] VITALS: BP 107/74; PULSE 100; RESP 16; TEMP 96.8; O2SAT 100
[2016-09-23 12:38] VITALS: Ht 165.1 cm; Wt 53.6 kg
[2016-09-23] MEDS: 1/2 NS w/ KCL 20mEq 1,000 ML IV SCH ×2 (12:44→22:53)
[2016-09-23 13:48] VITALS: PULSE 95; RESP 16; O2SAT 98
[2016-09-23] MEDS: HYDROCODONE/APAP 5 mg/325 mg TABLET PO PRN ×2 (14:11→19:42)
[2016-09-23] MEDS ORDERED: METOCLOPRAMIDE 10mg/2ml INJECTION IV PRN (14:15)
[2016-09-23] MEDS ORDERED: PROMETHAZINE 25 MG INJECTION IV SCH (15:00)
[2016-09-23 15:09] VITALS: BP 93/65; PULSE 98; RESP 18; TEMP 97; O2SAT 100
[2016-09-23] MEDS: INSULIN LISPRO 100 UNIT/ML SQ SCH (18:23)
--- NOTE | 2016-09-23 18:29 | NUR ---
SHIFT SUMMARY VSS. RA. PATIENT REPORTS LOWER ABDOMINAL PAIN. PRN NORCO GIVEN X1. ZOFRAN GIVEN X1 AND REGLAN GIVEN X1 FOR NAUSEA. 1/2NS WITH 20 KCL INFUSING AT 100CC/HR INTO PERIPHERAL. PATIENT CURRENTLY ON FULL LIQUID DIET, INTAKE IS FAIR. SUPPER BLOOD GLUCOSE ELEVATED, SCHEDULED INSULIN GIVEN.
[2016-09-23] MEDS: DiphenhydrAMINE 25 MG CAPSULE PO PRN (19:42)
--- NOTE | 2016-09-23 19:45 | NUR ---
COMFORT REQUESTS BENADRYL AND PAIN MED. GIVEN, TAKES WITH LIQUIDS. DENIES NAUSEA AT PRESENT
--- NOTE | 2016-09-23 20:10 | HPF ---
HISTORY Patient is a 26-year-old female with known history of type I diabetes needing insulin. Patient has been doing well she said until this morning at 3 a.m. She started having acute onset of diarrhea, nausea and vomiting. Within four hours she vomited six times and had diarrhea six times. No diarrhea since 7 o'clock this morning. She is nauseated. She also complains of itching which is always a symptom she has when she comes to the hospital. She thought it was due to bed linens, etc. PAST MEDICAL HISTORY 1. Type I diabetes mellitus needing insulin. 2. Chronic UTI. 3. Anxiety. 4. Depression. 5. Mood disorder. 6. Chronic abdominal pain, gastroparesis. PAST SURGICAL HISTORY 1. Cystoscopy for trabeculated bladder with mild catheter-associated cystitis. 2. Appendectomy - August 2015. 3. x 2. 4. Urethral stent. 5. Groin abscess incision. ALLERGIES Sodium hypochlorite. Adhesive tape. FAMILY HISTORY Father had heart attack. Grandparents had aortic aneurysm. Two sisters are healthy. Maternal great-grandmother had diabetes mellitus. SOCIAL HISTORY Patient is with two children. REVIEW OF SYSTEMS Denies fever, chills, orthopnea, PND, leg-swelling, hematochezia, melena, TIA or seizure symptoms. PHYSICAL EXAM GENERAL: The patient looks comfortable at this time. VITAL SIGNS: Blood pressure 93/65, pulse 98, respirations 16, oxygen saturation 100% on room air, temperature 97.0. NECK: Supple. CHEST: Lungs are clear. CARDIOVASCULAR: Regular rate and rhythm. ABDOMEN: Soft. Diffusely tender mostly in the right upper quadrant which is similar to what she has had in the past. Bowel sounds are normoactive. No surgical abdomen at this time. EXTREMITIES: No cyanosis, clubbing or edema. NEUROLOGIC: Grossly intact. LABORATORY ABG shows pH 7.32, pco2 41, po2 91, base excess -4.7. Potassium 4.1, sodium 142, creatinine 0.6, blood sugar 191. Blood sugars have run between 102-266 since 3:20. Liver function tests are normal. test is negative. Lipase is normal. CBC is unremarkable. Urine shows 1+ protein, 3+ glucose, 3+ ketones, 2+ blood, 2+ bilirubin, 1+ bacteria. ASSESSMENT 1. Acute gastroenteritis, probably viral. 2. Moderate dehydration. 3. Recurrent diffuse abdominal pain. 4. Diffuse itching which is chronic, associated with when patient comes to the hospital. 5. Anxiety disorder. 6. Depression. 7. Mood disorder. PLAN Admit patient to the medical floor on an outpatient basis under the care of Dr. Jean Yusuf. The patient will receive IV fluids overnight. Will manage her pain with Kalama use. Will try to avoid IV narcotics at this time. Will try her on oral Benadryl as well. Continue home medications. Continue insulin dosage as at home. Check blood sugar q.i.d. and see what happens for now. No additional tests are needed at this time. FILEMOND
[2016-09-23] MEDS ORDERED: MIDODRINE 5 MG TABLET PO SCH (21:00)
[2016-09-23] MEDS: INSULIN GLARGINE 100 UNIT/ML SQ SCH (21:47)
--- NOTE | 2016-09-23 23:00 | NUR ---
BGM pt. feels like blood sugar "is dropping". Checked at 70, takes milk, PB and minda crackers
--- NOTE | 2016-09-23 23:59 | NUR ---
ACTIVITY UP IN ROOM W/ GOOD BALANCE. DENIES DIZZINESS UP
[2016-09-24 00:02] VITALS: BP 109/75; PULSE 85; RESP 12; TEMP 97.5; O2SAT 98
--- NOTE | 2016-09-24 05:02 | NUR ---
rest sleeps restfully last four hours, resp. easy
[2016-09-24 05:24] LABS: ANION GAP 6 MEQ/L (5-15); BUN/CREATININE RATIO 30 RATIO (6-26); CALCIUM 8.7 MG/DL (8.4-10.2); CHLORIDE 106 MEQ/L (98-107); CO2 - CARBON DIOXIDE 25 MEQ/L (22-30); CREATININE 0.4 MG/DL (0.7-1.2); GLOMERULAR FILTRATION RATE 193; GLUCOSE 165 MG/DL (65-110); POTASSIUM 3.9 MEQ/L (3.6-5); SODIUM 137 MEQ/L (134-144)
[2016-09-24 07:45] VITALS: BP 114/69; PULSE 88; RESP 14; TEMP 97.5; O2SAT 99
[2016-09-24] MEDS: 1/2 NS w/ KCL 20mEq 1,000 ML IV SCH ×3 (08:00→18:00)
[2016-09-24] MEDS: DiphenhydrAMINE 25 MG CAPSULE PO PRN ×2 (08:04→17:31)
[2016-09-24] MEDS: HYDROCODONE/APAP 5 mg/325 mg TABLET PO PRN ×3 (08:04→18:49)
[2016-09-24] MEDS: MIDODRINE 5 MG TABLET PO SCH ×3 (08:05→17:32)
[2016-09-24] MEDS: INSULIN GLARGINE 100 UNIT/ML SQ SCH (08:05)
--- NOTE | 2016-09-24 09:26 | NUR ---
KAY VILLANUEVA VISITED PT. CM EXPLAINED ROLE AND PROVIDED CONTACT INFORMATION. PT PLANS TO RETURN HOME POST STAY AT [facility]. PT DENIES NEEDS. PT IS AWARE TO CONTACT CM IF NEEDS ARISE.
[2016-09-24] MEDS: INSULIN LISPRO 100 UNIT/ML SQ SCH ×3 (10:49→18:00)
[2016-09-24] MEDS ORDERED: INFLUENZA VAC QIV 2016-17 (Fluarix*)(>=3yo) 0.5ml IM ONE (11:30)
[2016-09-24] MEDS ORDERED: INFLUENZA VAC. ADMIN CHARGE INJ ONE (13:24)
--- NOTE | 2016-09-24 15:00 | NUR ---
STATUS PT ALERT AND ORIENTED X3. PT ON RA, DENIES SOA. DENIES N/V AT THIS TIME. PRN PAIN MEDS ADMINISTERED, PT REPORTED DECREASED PAIN. IVF INFUSING ORDERED INTO RIGHT FOREARM. ADEQUATE URINE OUTPUT. PT ABLE TO MAKE NEEDS KNOWN. CALL LIGHT WITHIN REACH.
[2016-09-24 16:20] VITALS: BP 109/66; PULSE 100; RESP 16; TEMP 98.6; O2SAT 99
[2016-09-24] MEDS ORDERED: HYDR-4246 PO (18:53)
--- NOTE | 2016-09-24 19:42 | NUR ---
DISMISSAL PT DISMISSED TO HOME AT THIS TIME, ACCOMPANIED BY . DISMISSAL INSTRUCTIONS REVIEWED, QUESTIONS ANSWERED. PT EXPRESSES UNDERSTANDING OF DISMISSAL INSTRUCTIONS, INCLUDING BUT NOT LIMITED TO, S/S TO REPORT TO WELL MEDICATION REGIMEN. PT TO SCHEDULE FOLLOW-UP APPOINTMENT, EXPRESSES UNDERSTANDING. PRESCRIPTION FOR NORCO SENT WITH PT. IV DC'D, BELONGINGS GATHERED.
--- NOTE | 2016-09-25 15:54 | NUR ---
CM CM LVM
--- NOTE | 2016-09-27 07:29 | DSF ---
FINAL DIAGNOSES 1. Acute gastroenteritis, probably viral. 2. Moderate dehydration. 3. Recurrent diffuse abdominal pain. 4. Nausea and vomiting. 5. Diffuse itching. 5. Anxiety disorder. 6. Depression. 7. Mood disorder. REASON FOR ADMISSION The patient is a 26-year-old female with known history of insulin-dependent diabetes with recurrent episodes of DKA in the past. She presented to [facility] ER this morning with chief complaint of vomiting since 2 o'clock on the morning of admission followed by diarrhea, nausea as well. She was having quite a lot of vomiting and diarrhea. She felt weak. May like she was going to pass out. PHYSICAL EXAMINATION The patient looked tired but otherwise doing okay by the time I saw today. The patient already had approximately one liter of IV fluids in place. She does have diffuse abdominal pain mostly in the right lower quadrant. LABORATORY Essentially unremarkable lab including ABG with pH 7.32 with pCO2 41, pO2 91, base excess -4.7. Electrolytes are normal. Blood sugar between 102 and 266. Liver function tests are normal. test negative. Lipase normal. CBC: Normal. UA showed 1+ protein, 3+ glucose, 3+ ketones, 2+ blood, 2+ bilirubin and 1+ bacteria. HOSPITAL COURSE The patient was admitted to the general medical floor on an outpatient basis under the care of Dr. Jean Yusuf. The patient received appropriate IV fluid rehydration which was successful without any complication. The patient's nausea resolved, pain went away, and then she desired to go home on the following day. Therefore patient was dismissed to home on 09/24/2016. JAYSON
--- NOTE | 2016-09-27 16:10 | NUR ---
CM CM LVM
--- NOTE | 2016-10-01 15:33 | NUR ---
CM CM LVM
== END 2016-09-24 19:42 | disposition home or self-care (01) ==
LOC: ED 09:31 → EDHOLD 11:58 → MED 12:23
PROVIDERS: ADMIT Family Medicine; ATTEND Family Medicine
DX: E86.0 Dehydration (principal); K52.9 Noninfective gastroenteritis and colitis, unspecified; E10.9 Type 1 diabetes mellitus without complications; Z79.4 Long term (current) use of insulin; Z91.19 Patient's noncompliance with other medical treatment and regimen; L29.9 Pruritus, unspecified; F41.9 Anxiety disorder, unspecified; F32.9 Major depressive disorder, single episode, unspecified; F39 Unspecified mood [affective] disorder; K21.9 Gastro-esophageal reflux disease without esophagitis; Z87.440 Personal history of urinary (tract) infections; Z91.048 Other nonmedicinal substance allergy status; Z23 Encounter for immunization
CPT/HCPCS: 36415; 36600; 80048; 80053; 81001; 82803; 82948; 83690; 83735; 84703; 85025; 90686; 96361; 96372; 96374; 96375; 99218; 99284; G0008; J0780; J1170; J1200; J1815; J1817; J2405; J2765; J7030

== ENCOUNTER 2016-10-14 16:03 | Emergency (ER) | payer BC ==
[~2016-10-14] VITALS: Ht 165.1 cm; Wt 50.0 kg
[~2016-10-14 16:03] MED LIST changes: -DIPH25CA84 PO; -NITR100C9 PO
[2016-10-14 16:05] VITALS: Ht 165.1 cm; Wt 50.0 kg
--- OUTSIDE RECORDS SUMMARY | 2016-10-14 16:07 | XMS REPORT ---
Author Author Lakhwinder Klein Organization [facility] Address [address] [place] [address] Care Team Providers Care Substation Operator Conversion Name Role Phone Lakhwinder Klein Unavailable [phone] PROBLEMS Unknown Problems ALLERGIES Unknown Allergies SOCIAL HISTORY No smoking Hx information available PLAN OF CARE VITAL SIGNS MEDICATIONS Unknown Medications RESULTS No Results PROCEDURES No Known procedures IMMUNIZATIONS No Known Immunizations
--- OUTSIDE RECORDS SUMMARY | 2016-10-14 16:07 | XMS REPORT | Continuity of Care Document ---
Author Author [facility] Organization [facility] Address Unknown Phone Unavailable Allergies Medications Problems Date Dx Coded Attending Type Code Diagnosis Diagnosed By 10/19/2012 Lexy LATHAM, Padmini Watkins 250.13 DIAB W KETOACIDOSIS, TYPE I [JUVENILE [...] Status Pt. Type Provider Facility Loc./Unit Complaint [id number] 10/19/2012 15:50:00 2012 17:23:00 DIS Inpatient Lexy LATHAM, Padmini Stahl [facility] W.9TS
--- OUTSIDE RECORDS SUMMARY | 2016-10-14 16:07 | XMS REPORT | Continuity of Care Document ---
Author Author [facility] Organization [facility] Address Unknown Phone Unavailable Support Name Relationship Address Phone LESLY BRANCH MD Caregiver [address] [place] [address] Unavailable SHAHANA DAVIS II, MD Caregiver [address] [place] [address] [address] [place], [place] [phone] BRE SAWYER MD Caregiver [address] [place] [address] [address] [place] [address] [phone] GEMA MCKENNA Next Of Kin [address] [place] [address] CP Insurance Providers Payer Name Policy Number Subscriber Name Relationship [facility] [id number] Gema Mckenna 01 Spouse Advance Directives Directive [...] DAILY 07/13/10 11/30/11 Discontinued Mometasone Furoate 2 [place] [facility] DAILY 09/24/10 02/20/11 Discontinued Hydrocodone Bit/Acetaminophen [...] of your legs. 3.During office hours, call [phone] 4. After hours, please call [facility] at [phone], and have the clarifier operator page your Surgeon IN THE EVENT [...] F (96.8 - 99.1) Temperature (Calculated Celsius) 36.59807 degrees C (36.0 - 37.3) Temperature Source [...] 09, 2012 3:46pm LAB RESULTS - SCANNED [id number] - Lipase May 14, 2014 7:10pm 56 [...] 318 mOsm/kg H - Osmolality performed at [facility], [address] [facility], [place] [address]Pudcyjx Director Elen Rajput MD Sodium Level May [...] Has specimen been collected/obtained? Y Urine Specific [place] May 14, 2014 7:26pm 1.015 - Has [...] Escherichia Coli Name: DENNIS MCKENNA Unit #: [id number] : 1990 Sex: F Loc / Svc: CCU DOS: 04/27/14 Signed Report #: [id number] DIAGNOSTIC IMAGING REPORT TYPE OF EXAM: CT [...] Discharged Inpatient [facility] 05/14/14 10:03pm Discharged Inpatient [facility] 04/27/14 5:25pm Recent Diagnosis DKA (diabetic ketoacidoses)
--- OUTSIDE RECORDS SUMMARY | 2016-10-14 16:07 | XMS REPORT ---
Author Author GENERATED, SYSTEM Organization Unknown Address Unknown Phone Unavailable Care Team Providers Care Skin Drier Name Role Phone PP Unavailable Reason For [...] PM* CULTURE URINE (Preliminary Result) Specimen Number: [id number] Sample Collection Date/Time: 01/31/2016 5:49 PM Specimen [...] * Address # [address] : [place] [phone] Procedures No relevant procedures performed. Immunizations No [...] the responsibility of the patient or patient district sales representative to confirm the list of [...]
--- OUTSIDE RECORDS SUMMARY | 2016-10-14 16:07 | XMS REPORT ---
Author Author Lakhwinder Klein Organization [facility] Address [address] [place] [address] Care Team Providers Care Operating Room Technologist Name Role Phone Lakhwinder Klein Unavailable [phone] PROBLEMS Type Condition ICD9-CM Code [id number] Code Onset Dates Condition Status SNOMED Code Assessment Dizziness R42 Jun, Active 200257790 Assessment Low blood pressure I95.9 Jun, Active 56881511 ALLERGIES Substance Reaction Event Type Date Status N.K.D.A. Unknown Non Drug Allergy Jun, Unknown SOCIAL HISTORY No smoking Hx information available PLAN OF CARE VITAL SIGNS Height 65 in 2016-07-02 Weight 106.4 lbs 2016-07-02 BMI 17.70 kg/m2 2016-07-02 Oximetry 99%RA % 2016-07-02 Heart Rate 111 /min 2016-07-02 Blood pressure systolic 90 mm Hg 2016-07-02 Blood pressure diastolic 60 mm Hg 2016-07-02 MEDICATIONS Medication Instructions Dosage Frequency Start Date End Date Duration Status Midodrine HCl 2.5 MG Orally Three times a day 1 tablet 8h Active Metoclopramide HCl 10 MG Orally qid 1 tab 6h Active Insulin Active RESULTS Name Result Date Reference Range AtriaECW 2016-07-02 PROCEDURES Procedure Date Ordered Related Diagnosis Body Site ELECTROCARDIOGRAM, COMPLETE Jul 02, 2016 Office Visit, New Pt., Level 4 Jul 02, 2016 IMMUNIZATIONS No Known Immunizations
--- OUTSIDE RECORDS SUMMARY | 2016-10-14 16:08 | XMS REPORT | Continuity of Care Document ---
Author Author [facility] Organization [facility] Address Unknown Phone Unavailable Support Name Relationship Address Phone RICHARD GANDHI MD Caregiver [address] [place] [address] Unavailable RICHARD GANDHI MD Caregiver [address] [place] [address] Unavailable RICHARD GANDHI MD Caregiver [address] [place] [address] Unavailable KESHIA GARCIA MD Caregiver [address] [place] [address] [place] [address] Unavailable GEMA MCKENNA Next Of Kin [address] [address] CP Insurance Providers Guarantor Dennis Mckenna Address [address] [address] CP Email DENIED 16 Payer [facility] Policy Number [id number] Subscriber's Name Gema Mckenna Relationship 01 Spouse Group Number [id number] Advance Directives Directive Response Recorded Date/Time Advanced Directives Type None 09/23/16 9:43am Ordered Resuscitation Status Full Code 09/23/16 11:58am Resuscitation Documents on File No 09/23/16 12:39pm DPOA for Healthcare Only No 09/23/16 12:39pm Living Will No 09/23/16 12:39pm Problems Active Problems Medical Problem Onset Date [...] Route Directions Days Qty Instructions Start Date Hydrocodone/Acetaminophen ([place] 5-325 Tablet) 5-325 Tablet 1 Tab Oral Three Times A Day as needed for Pain 30 Days 30 Tablet 09/24/16 Insulin Aspart (Novolog) 100 Unit/Ml Inj 10 Unit Sub-Q Three Times Daily With Meals 01/08/16 Insulin Glargine,Hum.rec.anlog (Lantus) 100 Unit/Ml Inj 10 Unit Sub-Q Twice A Day 01/08/16 Metoclopramide Hcl 10 Mg Tablet 10 Mg Oral Four Times Daily 07/09 Midodrine Hcl 5 Mg Tablet 5 Mg Oral Three Times A Day 09/01/16 Past Home Medications Medication Directions Ordered Status Acetaminophen/Dp-Hydram Hcl (Tylenol Pm Ex-Str Caplet) 1 Tab Tablet, 1 Tab Oral As Needed 11/30/11 Discontinued Acetaminophen/Hydrocodone Bitart ([place] 5-325 Tablet) 1 Each Tablet, 1 Tab [...] 1 Tab Tablet, 03/26 Discontinued Hydrocodone Bit/Acetaminophen ([place] 5) 1 Udtab Tablet, 1 Udtab Oral Every 4- 6 Hours 04/07/12 Discontinued Hydrocodone Bit/Acetaminophen (Lortab 5) 1 Tab Tablet, 1 Tab Oral Daily 09/24 Discontinued Hydrocodone/Acetaminophen ([place] 5-325 Tablet) 5-325 Tablet, 1-2 Tab Oral [...] 01/08/16 Discontinued Mometasone Furoate (Nasonex) 17 Gm [place], 2 [place] Inhalation Daily 09/24/10 Discontinued Novolog , 17 [...] Problem Response Recorded Date/Time Onset Date Status Reason for Hospitalization Abdominal pain, nausea 09/24/2016 7:08pm Not Applicable Not Applicable Chewing Tobacco Status No 09/09/2013 8:07pm Not Applicable Not Applicable Hx Substance Use No 09/23/2016 9:50am Not Applicable Not Applicable Hx Alcohol Use Y OCCASIONALLY 09/23/2016 9:50am Not Applicable Not Applicable Has the pt used tobacco in the last 12 months No 09/23/2016 12:47pm Not Applicable Not Applicable Tobacco Usage none 01/16/2016 1:28pm Not Applicable Not Applicable Query Response Start Date Stop Date Smoking Status Never smoker Hospital Discharge Instructions Instructions: Care Instructions: I was in the hospital because (patient own words): "VOMITING" Discharge Diet: 1600 ADA diet Discharge Activity: as tolerated Follow Up Appointments: 7-10 days Pending Lab / Results: No Pending Lab Expected Signs/Symptoms: same Notify Physician If: same During Business Hours:: Please call the physician's office at After Business Hours:: Please call [phone] and have the certified solid waste facility operator page the physician. Pain Management/Treatment: [place] prn Wound/Incision Care: not applicable Condition at time of discharge: Good Plan of Care Discharge Date 09/24/16 7:42pm Disposition 01 DISCHARGED HOME, SELF-CARE Instructions/Education Provided Acute Abdominal Pain (DC) Prescriptions See Medication Section Care Plan and Goals See Discharge Instructions Section Functional Status Query Response Date Recorded Mobility Status Ambulatory September 23, 2016 12:35pm Assistive Devices None September 23, 2016 12:35pm Activity Limitations Weakness Fatigue Dizziness Syncope/fainting Pain September 23, 2016 12:35pm Feeding Ability Independent September 23, 2016 12:35pm Toileting Ability Independent September 23, 2016 12:35pm Grooming Ability Independent September 23, 2016 12:35pm Dressing Ability Independent September 23, 2016 12:35pm Driving Ability Independent September 23, 2016 12:35pm Housework Ability Independent September 23, 2016 12:35pm Meal Preparation Ability Independent September 23, 2016 12:35pm Stair Climbing Ability Independent September 23, 2016 12:35pm Ability to complete ADL's impeded by No change September 23, 2016 12:39pm Cognitive/Perceptual Impairments Impaired vision September 23, 2016 12:35pm Visual Assistive Devices Glasses September 23, 2016 12:35pm Allergies, Adverse Reactions, Alerts Allergen Type Severity Reaction Status Last Updated Sodium hypochlorite Allergy Mild Hives (Bleach) Active 09/01/16 Adhesive Allergy Unknown BLISTERING Active 09/01/16 Immunizations Immunization Event Date Type Not Given Reason Dose Number Lot Number Director Of Psychiatry VIS Given Influenza, seasonal, injectable 09/24/16 Administered 1 [id number] [employer] 02/17/15 Query Response on File Recorded Date/Time Hx Influenza Vaccination No 09/23/16 12:47pm Hx Pneumococcal Vaccination No 09/23/16 12:47pm Hx Tetanus, Diptheria, Pertussis Y UNKNOWN 03/26/15 1:03pm Hx Influenza Vaccination No 09/23/16 12:47pm Hx Tetanus, Diptheria, Pertussis Y UNKNOWN 03/26/15 1:03pm DTaP Vaccine History 1 09/23/16 9:50am Influenza Vaccine Hx 09/24/16 09/24/16 1:24pm Tetanus Diptheria Vaccine History 1 09/23/16 9:50am Vital Signs Acute Vital Signs Vital Response Date/Time Temperature (Fahrenheit) 98.6 deg F (96.8 - 99.1) 09/24/2016 4:20pm Temperature (Calculated Celsius) 37.29459 degrees C (36.0 - 37.3) 09/24/2016 4:20pm Pulse Rate (adult) 100 bpm (60 - 100) 09/24/2016 4:20pm Respiratory Rate 16 breaths/min (10 - 20) 09/24/2016 4:20pm O2 Sat by Pulse Oximetry 99 % (90 - 100) 09/24/2016 4:20pm Oxygen Delivery Method Room Air 09/24/2016 4:20pm Blood Pressure 109/66 mm Hg 09/24/2016 4:20pm Blood Pressure Source Automatic Cuff 09/24/2016 4:20pm Height (Feet) 5 feet 09/23/2016 12:38pm Height (Inches) 5.00 inches 09/23/2016 12:38pm Weight (Kilograms) 53.600 kg 09/24/2016 7:45am Body Mass Index (BMI) 18.5 09/23/2016 12:38pm Results Laboratory Results Test Name Result Units Flags Reference Collection Date/Time Result Date/ Time Comments Troponin I < 0.012 ng/ml 0-0.12 07/09/2016 1:28pm 07/09/2016 2:00pm Troponin values with a difference of 55% increase from orginal troponin value represent a true biological DELTA value. (%increase Calc=Orginal Troponin value, divided by subsequent Troponin value, multiplied by 100) B-Hydroxybutyrate 5.50 MMOL/L H 0-0.6 07/09/2016 2:20pm 07/09/2016 2: 32pm Urine Amorphous Urates MANY 07/09/2016 2:15pm 07/09/2016 2:54pm Urine Mucus PRESENT 07/09/2016 2:15pm 07/09/2016 2:54pm Erythrocyte Sedimentation Rate 19 mm/h 0-23 08/22/2016 4:23pm 2016 11:09pm Sedimentation Rate performed at [facility], [address] [place] [address] [place] Former Ugo Romero DO White Blood Count 7.4 T/MM3 4.5-11.0 09/23/2016 10:29am 09/23/2016 10: 36am Red Blood Count 4.92 M/MM3 4.00-5.20 09/23/2016 10:29am 09/23/2016 10: 36am Hemoglobin 14.3 GM/DL 12-16 09/23/2016 10:29am 09/23/2016 10:36am Hematocrit 41.1 % 36-46 09/23/2016 10:29am 09/23/2016 10:36am Mean Corpuscular Volume 83.5 UM3 80-100 09/23/2016 10:29am 09/23/2016 10:36am Mean Corpuscular Hemoglobin 29.1 UUG 26-34 09/23/2016 10:29am 2016 10:36am Mean Corpuscular Hemoglobin Concent 34.8 GM/DL 31-37 09/23/2016 10:09/23/2016 10:36am RDW Standard Deviation 37.7 FL 36.9-50.2 09/23/2016 10:09/23/2016 10:36am Platelet Count 334 T/MM3 130-400 09/23/2016 10:09/23/2016 10:36am Mean Platelet Volume 8.9 UM3 L 9.4-12.4 09/23/2016 10:09/23/2016 10 :36am Neutrophils (%) (Auto) 63.0 % 33-66 09/23/2016 10:09/23/2016 10: 36am Lymphocytes (%) (Auto) 28.5 % 23-45 09/23/2016 10:09/23/2016 10: 36am Monocytes (%) (Auto) 6.6 % 0-9.0 09/23/2016 10:09/23/2016 10:36am Eosinophils (%) (Auto) 1.1 % 0-4 09/23/2016 10:09/23/2016 10:36am Basophils (%) (Auto) 0.7 % 0-2 09/23/2016 10:09/23/2016 10:36am Immature Granulocyte % (Auto) 0.1 % 0.0-0.5 09/23/2016 10:2016 10:36am Absolute Neutrophils (auto) 4.7 T/MM3 1.8-7.7 09/23/2016 10:2016 10:36am Absolute Lymphocytes (auto) 2.1 T/MM3 1-4.8 09/23/2016 10:2016 10:36am Absolute Monocytes (auto) 0.5 T/MM3 0-0.8 09/23/2016 10:2016 10:36am Absolute Eosinophils (auto) 0.1 T/MM3 0-0.5 09/23/2016 10:2016 10:36am Absolute Basophils (auto) 0.1 T/MM3 0-0.2 09/23/2016 10:2016 10:36am Absolute Immature Granulocyte (auto 0.01 T/MM3 0.00-0.03 09/23/2016 10: 09/23/2016 10:36am Icterus Index < 2 0-7 09/24/2016 4:09/24/2016 5:24am Chemistry Specimen Hemolysis 43 H 0-25 09/24/2016 4:09/24/2016 5: 24am 26-70: Specimen Exhibited Slight Hemolysis - can falsely elevate K (Potassium) and Urine Protein. Turbidity < 20 0-20 09/24/2016 4:09/24/2016 5:24am Sodium Level 137 MEQ/L 134-144 09/24/2016 4:09/24/2016 5:24am Potassium Level 3.9 MEQ/L 3.6-5 09/24/2016 4:09/24/2016 5:24am Chloride Level 106 MEQ/L 98-107 09/24/2016 4:09/24/2016 5:24am Carbon Dioxide Level 25 MEQ/L 22-30 09/24/2016 4:09/24/2016 5: 24am Anion Gap 6 MEQ/L 5-15 09/24/2016 4:09/24/2016 5:24am Blood Urea Nitrogen 12.0 MG/DL 7-17 09/24/2016 4:09/24/2016 5: 24am Creatinine 0.4 MG/DL D L 0.7-1.2 09/24/2016 4:09/24/2016 5:28am BUN/Creatinine Ratio 30 RATIO H 6-26 09/24/2016 4:09/24/2016 5: 24am Glomerular Filtration Rate Calc 193 09/24/2016 4:09/24/2016 5: 24am Glucose Level 165 MG/DL H 65-110 09/24/2016 4:09/24/2016 5:24am Calculated Osmolality 268 MOSM/KG 261-280 09/24/2016 4:09/24/2016 5:24am Calcium Level 8.7 MG/DL D 8.4-10.2 09/24/2016 4:09/24/2016 5:28am Total Bilirubin 1.10 MG/DL 0.20-1.30 09/23/2016 10:09/23/2016 10: 48am Alkaline Phosphatase 120 U/L 38-126 09/23/2016 10:09/23/2016 10: 48am Total Protein 7.8 G/DL 6.3-8.2 09/23/2016 10:09/23/2016 10:48am Albumin 4.5 G/DL 3.5-5.0 09/23/2016 10:09/23/2016 10:48am Globulin 3.3 G/DL 2.4-3.6 09/23/2016 10:09/23/2016 10:48am Albumin/Globulin Ratio 1.4 RATIO 1.1-2.2 09/23/2016 10:09/23/2016 10:48am Aspartate Amino Transf (AST/SGOT) 15 U/L 14-36 09/23/2016 10:09/23 10:48am Alanine Aminotransferase (ALT/SGPT) 24 U/L 9-52 09/23/2016 10: 10:48am Lipase 72 U/L 23-300 09/23/2016 10:09/23/2016 10:57am Magnesium Level 1.9 MG/DL 1.6-2.3 09/23/2016 10:09/23/2016 10: 48am Arterial Blood pH 7.320 L 7.350-7.450 09/23/2016 11:09/23/2016 11 :31am Arterial Blood Partial Pressure CO2 41 MMHG 34-45 09/23/2016 11: 11:31am Arterial Blood pO2 at Patient Temp 91 MMHG 80-100 09/23/2016 11: 11:31am Arterial Blood HCO3 21 MEQ/L L 22-26 09/23/2016 11:09/23/2016 11: 31am Arterial Blood Total CO2 22.4 MEQ/L L 23-27 09/23/2016 11:2016 11:31am Arterial Blood Base Excess -4.7 MMOL/L L -2.0-2.0 09/23/2016 11: 11:31am Arterial Blood Oxygen Saturation 96.0 % 95.0-98.0 09/23/2016 11: 11:31am Blood Gas Oxygen Percent Given 21 09/23/2016 11:20am 09/23/2016 11: 31am Oxygen Delivery Method (LAB) ROOM AIR 09/23/2016 11:20am 2016 11:31am Urine Collection Type VOIDED-NOT CC-MIDSTR 09/23/2016 10:08am 09/23 10:38am Urine Color YELLOW YELLOW 09/23/2016 10:08am 09/23/2016 10:38am Urine Turbidity CLEAR CLEAR 09/23/2016 10:08am 09/23/2016 10:38am Urine Specific [place] 1.025 1.015-1.025 09/23/2016 10:08am 2016 10:38am Urine pH 5.5 5.0-8.0 09/23/2016 10:08am 09/23/2016 10:38am Urine Leukocyte Esterase NEGATIVE NEGATIVE 09/23/2016 10:08am 2016 10:38am Urine Nitrite NEGATIVE NEGATIVE 09/23/2016 10:08am 09/23/2016 10: 38am Urine Protein 1+ A NEGATIVE 09/23/2016 10:08am 09/23/2016 10:38am Urine Glucose (UA) 3+ A NEGATIVE 09/23/2016 10:08am 09/23/2016 10: 38am Urine Ketones 3+ A NEGATIVE 09/23/2016 10:08am 09/23/2016 10:38am Urine Urobilinogen 0.2 EU/DL NORMAL 09/23/2016 10:08am 09/23/2016 10: 38am Urine Bilirubin 2+ A NEGATIVE 09/23/2016 10:08am 09/23/2016 10:38am Urine Blood 2+ A NEGATIVE 09/23/2016 10:08am 09/23/2016 10:38am Urine WBC 0-1 /HPF 0-5 09/23/2016 10:08am 09/23/2016 10:51am Urine RBC 1-3 /HPF 0-3 09/23/2016 10:08am 09/23/2016 10:51am Urine Squamous Epithelial Cells 5-10 09/23/2016 10:08am 09/23/2016 10:51am Urine Bacteria 1+ H NEGATIVE 09/23/2016 10:08am 09/23/2016 10:51am Urine Yeast TRACE H NEGATIVE 09/23/2016 10:08am 09/23/2016 10:51am Urine Hyaline Casts 0-1 /LPF 09/23/2016 10:08am 09/23/2016 10:51am Urine Culture Indicated CULT NOT INDICATED 09/23/2016 10:08am 09/23 10:51am Glucometer 52 mg/dL L 65-110 09/24/2016 4:53pm 09/24/2016 4:54pm Procedures Procedure Status Date Provider(s) Mri brain [...] addon Completed 07/09/16 Tx/pro/dx inj same drug bookmobile librarian Completed 07/09/16 Tx/pro/dx inj same drug bookmobile librarian Completed 07/09/16 Emergency dept visit Completed 07/09/16"INJECTION, PROCHLORPERAZINE, UP TO 10 MG" Completed 07/09/16"INJECTION, HYDROMORPHONE, UP TO 4 MG" Completed 07/09/16"INJECTION, HYDROMORPHONE, UP TO 4 MG" Completed 07/09/16"INJECTION, DIPHENHYDRAMINE HCL, UP TO 50 MG" Completed 07/09/16"INJECTION, DIPHENHYDRAMINE HCL, UP TO 50 MG" Completed 12/27/16 [id number]"INJECTION, INSULIN, PER 5 UNITS" Completed 07/09/16586731"INJECTION, ONDANSETRON HYDROCHLORIDE, PER 1 MG" Completed 07/09/16923421"INJECTION, HYDROXYZINE HCL, UP TO 25 MG" Completed 07/09/16173452"INFUSION, NORMAL SALINE SOLUTION , 1000 CC" Completed 07/09/16"INFUSION, NORMAL SALINE SOLUTION , 1000 CC" Completed 07/09/16 Comprehen metabolic panel Completed 09/01/16 Blood gases any combination Completed 09/01/16 Reagent strip/blood glucose Completed 09/01/16 Assay of magnesium Completed 09/01/16 Chorionic gonadotropin assay Completed 09/01/16 Complete cbc w/auto diff wbc Completed 09/01/16 Hydrate iv infusion add-on Completed 09/01/16 Ther/proph/diag inj iv push Completed 09/01/16 Tx/pro/dx inj new drug addon Completed 09/01/16 Tx/pro/dx inj new drug addon Completed 09/01/16 Emergency dept visit Completed 09/01/16567400"INJECTION, DIPHENHYDRAMINE HCL, UP TO 50 MG" Completed 09/01/16330534"INJECTION, ONDANSETRON HYDROCHLORIDE, PER 1 MG" Completed 09/01/16"INJECTION, METOCLOPRAMIDE HCL, UP TO 10 MG" Completed 09/01/16"INFUSION, NORMAL SALINE SOLUTION , 1000 CC" Completed 09/01/16 Encounters Encounter Location Arrival/Admit Date Discharge/Depart Date Attending Provider Discharged Inpatient (obs) [facility] 09/23/16 11:58am 09/24/16 7 :42pm RICHARD GANDHI MD Departed Emergency Room [facility] 09/01/16 10:29am 09/01/16 3: 00pm RADHA SOTO MD Discharged Inpatient [facility] 08/21/16 4:04pm 08/24/16 4:00pm RICHARD GANDHI MD Departed Emergency Room [facility] 07/09/16 12:15pm 07/09/16 5: 45pm RADHA SOTO MD Registered Clinic [facility] 06/26/16 1:27pm RICHARD GANDHI MD
--- OUTSIDE RECORDS SUMMARY | 2016-10-14 16:09 | XMS REPORT | Continuity of Care Document ---
Author Author [facility] Organization [facility] Address Unknown Phone Unavailable Support Name Relationship Address Phone RUFINOFORD HARDEN Caregiver [facility] [address] [place] [address] BRE SAWYER MD Caregiver [address] [place] [address] [place] [address] [phone] DAVID QUIJANO Next Of Kin [address] [id number] CP Insurance Providers Payer Name Policy Number Subscriber Name Relationship [facility] [id number] Gema [place] 01 Spouse Advance Directives Directive [...] DAILY 07/13/10 11/30/11 Discontinued Mometasone Furoate 2 [place] [facility] DAILY 09/24/10 02/20/11 Discontinued Hydrocodone Bit/Acetaminophen [...] Should your symptoms persist you could contact [facility] or return to the ED for emergent evaluation Condition at time of discharge: Good Call your Surgeon if you have: 1.Chest pain, difficulty breathing, fever>100.5 degrees, chills, heart rate >100, confusion, or persistent nausea/vomitting. 2.Severe pain, swelling, redness, or warmth in either of your legs. 3.During office hours, call [phone] 4. After hours, please call [facility] at [phone], and have the sponge press operator page your Surgeon IN THE EVENT [...] F (96.8 - 99.1) Temperature (Calculated Celsius) 35.84765 degrees C (36.0 - 37.3) Temperature Source [...] 09, 2012 3:46pm LAB RESULTS - SCANNED [id number] - Lipase April 28, 2014 9:06am 20 [...] 318 mOsm/kg H - Osmolality performed at [facility], [address] [place], [place] [id number] Director Elen Rajput MD Sodium Level April [...] Has specimen been collected/obtained? Y Urine Specific [place] May 01, 2014 11:55am 1.020 - Has [...] Escherichia Coli Name: DENNIS ANGELES Unit #: [id number] : 1990 Sex: F Loc / Svc: CCU DOS: 04/27/14 Signed Report #: [id number] DIAGNOSTIC IMAGING REPORT TYPE OF EXAM: CT [...] procedures. Encounters Encounter Location Date/Time Discharged Inpatient [facility] 04/27/14 5:25pm Recent Diagnosis Abdominal pain DKA (diabetic ketoacidoses) DKA (diabetic ketoacidoses) Controlled type 1 diabetes mellitus
--- OUTSIDE RECORDS SUMMARY | 2016-10-14 16:10 | XMS REPORT ---
Author Author [facility] Organization Unknown Address Unknown Phone Unavailable Care Team Providers Care Bolt Sorter Name Role Phone PP Unavailable Reason For [...] PM* CULTURE URINE (Preliminary Result) Specimen Number: [id number] Sample Collection Date/Time: 01/31/2016 5:49 PM Specimen [...] * Address # 1 : [place] [phone] Procedures No relevant procedures performed. Immunizations No [...] the responsibility of the patient or patient hospital insurance representative to confirm the list of medications [...]
[2016-10-14] MEDS ORDERED: ONDANSETRON 4mg/2ml INJECTION IV ONE (16:15)
[2016-10-14] MEDS ORDERED: NORMAL SALINE 1,000 ML IV ONE (16:15)
[2016-10-14] MEDS ORDERED: MORPHINE SULFATE 4 MG SYRINGE IV ONE (16:15)
--- NOTE | 2016-10-14 16:18 | ERPDOC ---
Departure Disposition Decision Date: Oct 14, 2016 Disposition Decision Time: 18:51 Disposition: 01 DISCHARGED HOME, SELF-CARE Impression Impression Impression: Primary Impression: Nausea and vomiting Additional Impressions: Chronic abdominal pain Urinary tract infection Urinary tract infection type: acute cystitis Hematuria presence: without hematuria Qualified Codes: N30.00 - Acute cystitis without hematuria Severity: Moderate Condition: Stable Seen By: Mid-level only Referrals: RICHARD YUSUF MD (Family) Patient Instructions: Abdominal Pain (ED), Urinary Tract Infection in Women (ED ) Problems/Meds/Labs Reviewed?: Yes Medications reviewed and manag: Yes Additional Instructions: Take the Macrobid as prescribed. May use the Zofran as needed for nausea. If unable to keep fluids down then use the promethazine suppositories. Make sure to drink fluids at home to stay hydrated. Follow up with Dr Yusuf if you are not improving at all. Follow up care ordered?: Yes Mental Status: Alert Scripts Hydrocodone/Acetaminophen ([place] 5-325 Tablet) 5-325 Tablet 1 TAB PO Q6H Y for PAIN, #10 TAB 0 Refills Prov: EDSON PEREZ APRN 10/14/16 Promethazine HCl (Promethazine HCl) 25 Mg Supp.rect 1 SUPP RECTALLY Q6H Y for NAUSEA, #6 SUPP 0 Refills Prov: EDSON PEREZ APRN 10/14/16 Nitrofurantoin Monohyd/M-Cryst (Macrobid 100 mg Capsule) 100 Mg Capsule 1 CAP PO BIDWM, #14 CAP 0 Refills Take 2 (100 mg) capsules, by mouth, twice daily with meals. Prov: EDSON PEREZ APRN 10/14/16 HPI - Abdominal Pain General Chief Complaint: Abdominal Pain Stated Complaint: STOMACH PAIN Time Seen by Provider: 16:06 Source: patient History/Exam Limitations: no limitations HPI - Abdominal Pain Initial Comments eVrito is a well known type 1 diabetic who has frequent DKA episodes and episodes of nausea/vomiting/abdominal pain related to her gastroparesis. She has been admitted to [facility] [place] times. Her symptoms started yesterday and have persisted today. She does have Zofran at home but did not take anything since she was not able to keep any fluids down. Has not spoken to her PCP today. Has not been able to keep her medications down. Did not check her BGM at home but was 300s upon arrival to ER. Occurred At: home Onset: Gradual Duration: 12-24 hrs Quality: sharpness Location: generalized abdomen Radiation: no radiation Activities at Onset: none Associated Symptoms: nausea/vomiting, DENIES: back pain, chest pain, diaphoresis, fatigue, fever/chills, headache, heartburn, rash, shortness of breath, swelling/mass in abdomen, syncope, weakness Hx of Similar Symptoms: Yes Allergies: Coded Allergies: sodium hypochlorite solution (Verified Allergy, Mild, Hives (Bleach), ) adhesive (Verified Allergy, Unknown, BLISTERING, 10/14/16) ADHESIVE TAPE Past History Patient Surgical History 04/23/2016 - Cystoscopy by Dr. Pelletier: Trabeculated bladder with mild catheter-associated cystitis Appendectomy in August 2015 x 2 Ureteral stents Groin abscess excision Past Medical History Metabolic: diabetes, other GI: GERD, other Female: UTI, kidney stones, pyelonephritis Neurological: headaches Psychological: anxiety, depression, suicide attempt Surgical History General: appendix Reproductive/: , other Family History Family PMH: FOUND: [place], aortic aneurysm, diabetes, hypertension Vaccines Hx Influenza Vaccination: No Hx Pneumococcal Vaccination: No Hx Tetanus, Diptheria, Pertuss: Yes (UNKNOWN) Social History Does patient use chewing tobac: No Substance Use Type: former substance user, marijuana Alcohol Intake: occasionally Marital Status: Sexuality: male partner Housing: house Household Members: spouse, children Number of Children: 2 Current Occupational Status: unemployed Grade (if student): Graduated Review of Systems Constitutional Constitutional: appetite decrease, fatigue, weakness, DENIES: chills, dizziness , fever Cardiovascular Cardiac: DENIES: chest pain, orthopnea Rhythm/Rate: DENIES: irregular beat, palpitations Vascular: DENIES: pedal edema, unilateral swelling Pulmonary Respiratory: DENIES: cough, dyspnea, sputum, tachypnea GI Upper Abdomen: nausea, pain, vomiting Lower Abdomen: pain, DENIES: constipation, diarrhea General: DENIES: dysuria, frequency, urgency Integumentary Skin: DENIES: rash Neurological General: DENIES: headache, numbness, tingling, weakness Physical Exam General General Nourishment: well nourished, well developed, appears stated age, no acute distress, adult, thin General Body Habitus: well groomed Vitals and Pain First Documented Vital Signs Date Time Temp Pulse Resp B/P Pulse Ox O2 Delivery O2 Flow Rate FiO2 10/14/16 16:05 98.4 116 16 101/66 99 Room Air Weight: Kilograms: Height (feet): 5 Height (inches): 5.00 Triage Pain Scale: RN VS reviewed by Provider: Yes Normal Exams: ENMT: No facial trauma, nasal exudates, pharyngeal erythema, or exudates are noted Neck: Full range of motion, without adenopathy, JVD, bruits or thyromegaly Chest/Resp: Clear all bentley, with good airflow, and symmetry bilaterally CV: Regular rate and rhythm, without murmur or gallop, Pulses 2+ all extremities, capillary refill, <2 seconds all ext., no pedal edema noted Abdomen: Bowel sounds positive, non-distended, no hepatosplenomegaly, masses or bruits noted Lymphatic: No lymphadenopathy, or lymphedema noted Integumentary: No rashes, hives, or bruising noted Neurologic: Patient is alert, and oriented Psychiatric: Patient exhibits, appropriate attention, emotion and affect Abdomen Inspection: NOT FOUND: distention Palpation: FOUND: soft, tender (mild TTP throughout abdomen), NOT FOUND: involuntary guarding, voluntary guarding Auscultation: FOUND: normoactive Differential Diagnoses Considering: DKA, UTI, Other (dehydration, gastroparesis, gastroenteritis) Progress Results/Orders Orders Procedure Category Date Status Time Cbc W/Auto LAB 10/14/16 Complete Diff-Reflex Manual Cmp - Comprehensive LAB 10/14/16 Complete Metabolic Iv Lock (Ed Only) EDM 10/14/16 Transmitted 16:12 Normal Saline (Normal PHA 10/14/16 Complete Saline Iv) 16:15 Ondansetron Inj PHA 10/14/16 Complete (Zofran) 16:15 Morphine Sulfate PHA 10/14/16 Complete (Morphine) 16:15 Diphenhydramine PHA 10/14/16 Complete (Benadryl) 16:45 Ketorolac (Toradol) PHA 10/14/16 Complete 17:15 Prochlorperazine PHA 10/14/16 Complete (Compazine) 18:30 UA, LAB 10/14/16 Complete Dip&Micro(Complete) & 18:31 Urine Culture SUN 10/14/16 In Process 18:47 Nitrofurantoin PHA 10/14/16 Complete (Macrobid) (Macrobid) 19:00 Ceftriaxone (Rocephin) PHA 10/14/16 Complete 19:00 Hydrocodone/Acetaminophen PHA 10/14/16 Complete ([place] 5/325) 19:00 Nitrofurantoin PHA 10/14/16 Complete (Macrobid) (Macrobid) 19:15 Lab Results Laboratory Tests Test 10/14/16 16:24 10/14/16 18:31 White Blood Count 7.2T/MM3 Red Blood Count 4.79M/MM3 Hemoglobin 13.8GM/DL Hematocrit 39.4% Mean Corpuscular Volume 82.3UM3 Mean Corpuscular Hemoglobin 28.8UUG Mean Corpuscular Hemoglobin Concent 35.0GM/DL RDW Standard Deviation 37.1FL Platelet Count 364T/MM3 Mean Platelet Volume 9.1UM3 Immature Granulocyte % (Auto) 0.3% Neutrophils (%) (Auto) 57.8% Lymphocytes (%) (Auto) 35.3% Monocytes (%) (Auto) 5.2% Eosinophils (%) (Auto) 0.7% Basophils (%) (Auto) 0.7% Absolute Immature Granulocyte (auto 0.02T/MM3 Absolute Neutrophils (auto) 4.2T/MM3 Absolute Lymphocytes (auto) 2.5T/MM3 Absolute Monocytes (auto) 0.4T/MM3 Absolute Eosinophils (auto) 0.1T/MM3 Absolute Basophils (auto) 0.1T/MM3 Turbidity < 20 Sodium Level 139MEQ/L Potassium Level 4.8MEQ/L Chloride Level 99MEQ/L Carbon Dioxide Level 21MEQ/L Anion Gap 19MEQ/L Blood Urea Nitrogen 26.0MG/DL Creatinine 0.6MG/DL Glomerular Filtration Rate Calc 121 BUN/Creatinine Ratio 43RATIO Glucose Level 349MG/DL Calculated Osmolality 287MOSM/KG Calcium Level 9.8MG/DL Total Bilirubin 1.20MG/DL Icterus Index < 2 Aspartate Amino Transf (AST/SGOT) 18U/L Alanine Aminotransferase (ALT/SGPT) 32U/L Alkaline Phosphatase 125U/L Total Protein 7.6G/DL Albumin 4.5G/DL Globulin 3.1G/DL Albumin/Globulin Ratio 1.5RATIO Chemistry Specimen Hemolysis < 15 Urine Collection Type Cleancatch-midstream Urine Color Yellow Urine Turbidity Clear Urine pH 5.0 Urine Specific [place] 1.025 Urine Protein 1+ Urine Glucose (UA) 3+ Urine Ketones 2+ Urine Blood 2+ Urine Nitrite Negative Urine Bilirubin Negative Urine Urobilinogen 0.2EU/DL Urine Leukocyte Esterase Negative Urine RBC 3-5/HPF Urine WBC 50-200/HPF Urine Squamous Epithelial Cells 0-5 Urine Bacteria 3+ Urine Culture Indicated Cult reflexed &setup Medications Current ED Medications Sodium Chloride (Normal Saline IV) 1,000 ml @ 1,000 mls/hr Q1H ONCE IV Last administered on 10/14/16 16:32; Start 10/14/16 at 16:15; Stop 10/14/16 at 17:14; Status DC Ondansetron HCl (Zofran) 4 mg O ONCE IV Last administered on 10/14/16 16:33; Start 10/14/16 at 16:15; Stop 10/14/16 at 16:16; Status DC Morphine Sulfate (Morphine) 4 mg O ONCE IV Last administered on 10/14/16 16:34 ; Start 10/14/16 at 16:15; Stop 10/14/16 at 16:16; Status DC Diphenhydramine HCl (Benadryl) 25 mg O ONCE IV Last administered on 10/14/16 16:42; Start 10/14/16 at 16:45; Stop 10/14/16 at 16:46; Status DC Ketorolac Tromethamine (Toradol) 30 mg O ONCE IV Last administered on 17:16; Start 10/14/16 at 17:15; Stop 10/14/16 at 17:16; Status DC Prochlorperazine Edisylate (Compazine) 10 mg O ONCE IV Last administered on 18:22; Start 10/14/16 at 18:30; Stop 10/14/16 at 18:31; Status DC Nitrofurantoin Macrocrystals (Macrobid) 100 mg O ONCE PO ; Start 10/14/16 at 19: 00; Stop 10/14/16 at 19:00; Status DC Ceftriaxone Sodium (Rocephin) 1 g O ONCE IM ; Start 10/14/16 at 19:00; Stop 10/14 at 19:13; Status DC Acetaminophen/ Hydrocodone Bitart ([place] 5/325) 1 tab O ONCE PO Last administered on 10/14/16t 19:11; Start 10/14/16 at 19:00; Stop 10/14/16 at 19:01; Status DC Nitrofurantoin Macrocrystals (Macrobid) 100 mg O ONCE PO ; Start 10/14/16 at 19: 15; Stop 10/14/16 at 19:16; Status DC Progress Progress CBC is normal. BMP is essentially normal. CO2 is 21and anion gap is 19. UA does have 50-200 WBC and 3+ bacteria. Did order Rocephin 1 Gm IV but she does prefer to have PO medication. Will have her start PO Macrobid. Push fluids. Did advise that she take Zofran at home but can use some Promethazine supp. She states that she is not comfortable using suppositories at home. EDSON PEREZ APRN Oct 14, 2016 16:18
--- OUTSIDE RECORDS SUMMARY | 2016-10-14 16:24 | XMS REPORT | Continuity of Care Document ---
Author Author [facility] Organization [facility] Address Unknown Phone Unavailable Allergies Medications Problems [...] Status Pt. Type Provider Facility Loc./Unit Complaint [id number] 10/19/2012 15:50:00 2012 17:23:00 DIS Inpatient Lexy LATHAM, Padmini Stahl [facility] W.9TS
--- OUTSIDE RECORDS SUMMARY | 2016-10-14 16:24 | XMS REPORT | Continuity of Care Document ---
Author Author [facility] Organization [facility] Address Unknown Phone Unavailable Support Name Relationship Address Phone LESLY BRANCH MD Caregiver [address] [address] Unavailable SHAHANA DAVIS II, MD Caregiver [address] [place] [address] [address] [place], [place] [phone] BRE SAWYER MD Caregiver [address] [place] [address] [address] [place] [address] [phone] GEMA MCKENNA Next Of Kin [address] [place] [address] CP Insurance Providers Payer Name Policy Number Subscriber Name Relationship [facility] [id number] Gema Mckenna 01 Spouse Advance Directives Directive [...] DAILY 07/13/10 11/30/11 Discontinued Mometasone Furoate 2 [place] [facility] DAILY 09/24/10 02/20/11 Discontinued Hydrocodone Bit/Acetaminophen [...] of your legs. 3.During office hours, call [phone] 4. After hours, please call [facility] at [phone], and have the automatic serging machine operator page your Surgeon IN THE [...] F (96.8 - 99.1) Temperature (Calculated Celsius) 36.03136 degrees C (36.0 - 37.3) Temperature Source [...] 09, 2012 3:46pm LAB RESULTS - SCANNED [id number] - Lipase May 14, 2014 7:10pm 56 [...] 318 mOsm/kg H - Osmolality performed at [facility], [address] [facility], [place] [address]Nmlkiqx Director Elen Rajput MD Sodium Level May [...] Has specimen been collected/obtained? Y Urine Specific [place] May 14, 2014 7:26pm 1.015 - Has [...] Escherichia Coli Name: DENNIS MCKENNA Unit #: [id number] : 1990 Sex: F Loc / Svc: CCU DOS: 04/27/14 Signed Report #: [id number] DIAGNOSTIC IMAGING REPORT TYPE OF EXAM: CT [...] procedures. Encounters Encounter Location Date/Time Discharged Inpatient [facility] 05/14/14 10:03pm Discharged Inpatient [facility] 04/27/14 5:25pm Recent Diagnosis DKA (diabetic ketoacidoses)
--- OUTSIDE RECORDS SUMMARY | 2016-10-14 16:25 | XMS REPORT ---
Author Author [facility] Organization Unknown Address Unknown Phone Unavailable Care Team Providers Care Vacuum Caster Name Role Phone PP Unavailable Reason For [...] PM* CULTURE URINE (Preliminary Result) Specimen Number: [id number] Sample Collection Date/Time: 01/31/2016 5:49 PM Specimen [...] * Address # 1 : [place] [phone] Procedures No relevant procedures performed. Immunizations No [...] the responsibility of the patient or patient customer success representative to confirm the list of medications [...]
--- OUTSIDE RECORDS SUMMARY | 2016-10-14 16:26 | XMS REPORT | Continuity of Care Document ---
Author Author [facility] Organization [facility] Address Unknown Phone Unavailable Support Name Relationship Address Phone RUFINOFORD HARDEN Caregiver [facility] [address] [place] [address] BRE SAWYER MD Caregiver [address] [place] [address] [place] [address] [phone] DAVID QUIJANO Next Of Kin [address] [id number] CP Insurance Providers Payer Name Policy Number Subscriber Name Relationship [facility] [id number] Gema [place] 01 Spouse Advance Directives Directive [...] DAILY 07/13/10 11/30/11 Discontinued Mometasone Furoate 2 [place] [facility] DAILY 09/24/10 02/20/11 Discontinued Hydrocodone Bit/Acetaminophen [...] Should your symptoms persist you could contact [facility] or return to the ED for emergent evaluation Condition at time of discharge: Good Call your Surgeon if you have: 1.Chest pain, difficulty breathing, fever>100.5 degrees, chills, heart rate >100, confusion, or persistent nausea/vomitting. 2.Severe pain, swelling, redness, or warmth in either of your legs. 3.During office hours, call [phone] 4. After hours, please call [facility] at [phone], and have the type rolling machine operator page your Surgeon IN THE [...] F (96.8 - 99.1) Temperature (Calculated Celsius) 35.98680 degrees C (36.0 - 37.3) Temperature Source [...] 09, 2012 3:46pm LAB RESULTS - SCANNED [id number] - Lipase April 28, 2014 9:06am 20 [...] H - Osmolality performed at [facility], [address] [place], [place] [address]Qhzcdly Director Elen Rajput MD Sodium Level April [...] Has specimen been collected/obtained? Y Urine Specific [place] May 01, 2014 11:55am 1.020 - Has [...] Escherichia Coli Name: DENNIS ANGELES Unit #: [id number] : 1990 Sex: F Loc / Svc: CCU DOS: 04/27/14 Signed Report #: [id number] DIAGNOSTIC IMAGING REPORT TYPE OF EXAM: CT [...] procedures. Encounters Encounter Location Date/Time Discharged Inpatient [facility] 04/27/14 5:25pm Recent Diagnosis Abdominal pain DKA (diabetic ketoacidoses) DKA (diabetic ketoacidoses) Controlled type 1 diabetes mellitus
--- OUTSIDE RECORDS SUMMARY | 2016-10-14 16:27 | XMS REPORT ---
Author Author [facility] Organization Unknown Address Unknown Phone Unavailable Care Team Providers Care Skin Care Consultant Name Role Phone PP Unavailable Reason For [...] PM* CULTURE URINE (Preliminary Result) Specimen Number: [id number] Sample Collection Date/Time: 01/31/2016 5:49 PM Specimen [...] * Address # 1 : [place] [phone] Procedures No relevant procedures performed. Immunizations No [...] the responsibility of the patient or patient membership sales representative to confirm the list of [...]
[2016-10-14 16:41] LABS: BASOPHILS # (AUTO) 0.1 T/MM3 (0-0.2); BASOPHILS % (AUTO) 0.7 % (0-2); EOSINOPHILS # (AUTO) 0.1 T/MM3 (0-0.5); EOSINOPHILS % (AUTO) 0.7 % (0-4); HCT - HEMATOCRIT 39.4 % (36-46); HGB - HEMOGLOBIN 13.8 GM/DL (12-16); IMMATURE GRANULOCYTE # (AUTO) 0.02 T/MM3 (0.00-0.03); IMMATURE GRANULOCYTE % (AUTO) 0.3 % (0.0-0.5); LYMPHOCYTES # (AUTO) 2.5 T/MM3 (1-4.8); LYMPHOCYTES % (AUTO) 35.3 % (23-45); MEAN CORPUSCULAR HGB 28.8 UUG (26-34); MEAN CORPUSCULAR VOLUME 82.3 UM3 (80-100); MEAN PLATELET VOLUME 9.1 UM3 (9.4-12.4); MONOCYTES # (AUTO) 0.4 T/MM3 (0-0.8); MONOCYTES % (AUTO) 5.2 % (0-9.0); NEUTROPHILS #(AUTO)-ABSOLUTE 4.2 T/MM3 (1.8-7.7); NEUTROPHILS % (AUTO) 57.8 % (33-66); RED BLOOD COUNT 4.79 M/MM3 (4.00-5.20); WBC - WHITE BLOOD COUNT 7.2 T/MM3 (4.5-11.0)
[2016-10-14] MEDS ORDERED: DiphenhydrAMINE 50 MG/ML INJECTION IV ONE (16:45)
[2016-10-14 16:51] LABS: ALBUMIN 4.5 G/DL (3.5-5.0); ALBUMIN/GLOBULIN RATIO 1.5 RATIO (1.1-2.2); ALKALINE PHOSPHATASE 125 U/L (38-126); ALT (SGPT) 32 U/L (9-52); ANION GAP 19 MEQ/L (5-15); AST (SGOT) 18 U/L (14-36); BUN/CREATININE RATIO 43 RATIO (6-26); CALCIUM 9.8 MG/DL (8.4-10.2); CHLORIDE 99 MEQ/L (98-107); CO2 - CARBON DIOXIDE 21 MEQ/L (22-30); CREATININE 0.6 MG/DL (0.7-1.2); GLOMERULAR FILTRATION RATE 121; GLUCOSE 349 MG/DL (65-110); POTASSIUM 4.8 MEQ/L (3.6-5); SODIUM 139 MEQ/L (134-144); TOTAL PROTEIN 7.6 G/DL (6.3-8.2)
[2016-10-14] MEDS ORDERED: KETOROLAC 30mg/ml INJECTION IV ONE (17:15)
[2016-10-14] MEDS ORDERED: PROCHLORPERAZINE 10mg/2ml INJECTION IV ONE (18:30)
[2016-10-14 18:35] LABS: BLOOD, URINE 2+ (NEGATIVE); COLOR,URINE YELLOW (YELLOW); LEUKOCYTE ESTERASE ,URINE NEGATIVE (NEGATIVE); NITRITE,URINE NEGATIVE (NEGATIVE); UROBILINOGEN,URINE 0.2 EU/DL (NORMAL)
[2016-10-14 18:45] LABS: WBC,URINE 50-200 /HPF (0-5)
[2016-10-14 18:46] LABS: BACTERIA,URINE 3+ (NEGATIVE)
[2016-10-14 18:47] LABS: SQUAMOUS EPITHELIAL CELL,UR 0-5
[2016-10-14] MEDS ORDERED: PROM25SU59 RECTALLY (18:54)
[2016-10-14] MEDS ORDERED: NITR100C4 PO (18:54)
[2016-10-14] MEDS ORDERED: NITROFURANTOIN (Macrobid) 100mg CAP PO ONE ×2 (19:00→19:15)
[2016-10-14] MEDS ORDERED: CEFTRIAXONE 1 GRAM INJECTION IM ONE (19:00)
[2016-10-14] MEDS ORDERED: HYDROCODONE/APAP 5 mg/325 mg TABLET PO ONE (19:00)
[2016-10-14] MEDS ORDERED: HYDR-4246 PO (19:15)
[2016-10-14 19:30] VITALS: BP 108/68; PULSE 94; RESP 16; TEMP 98.4; O2SAT 96
== END 2016-10-14 19:30 | disposition home or self-care (01) ==
LOC: ED 16:03
DX: R10.84 Generalized abdominal pain (principal); G89.29 Other chronic pain; R11.2 Nausea with vomiting, unspecified; N30.00 Acute cystitis without hematuria
CPT/HCPCS: 80053; 81001; 85025; 87086; 96361; 96374; 96375; 99284; J0780; J1200; J1885; J2405; J7030

== ENCOUNTER 2016-11-01 12:52 | Inpatient (IN) | payer BC ==
[~2016-11-01] VITALS: Ht 165.1 cm; Wt 52.0 kg
[~2016-11-01 12:52] MED LIST changes: +NITR100C4 PO; +PROM25SU59 RECTALLY
--- OUTSIDE RECORDS SUMMARY | 2016-11-01 12:56 | XMS REPORT | Continuity of Care Document ---
Author Author [facility] Organization [facility] Address Unknown Phone Unavailable Support Name Relationship Address Phone LESLY BRANCH MD Caregiver [address] [place] [address] Unavailable SHAHANA DAVIS II, MD Caregiver [address] [place] [address] [address] [place], [place] [phone] BRE SAWYER MD Caregiver [address] [place] [address] [address] [place] [address] [phone] GEMA MCKENNA Next Of Kin [address] [place] [address] CP Insurance Providers Payer Name Policy Number Subscriber Name Relationship [facility] [id number] Gema Mckenna 01 Spouse Advance Directives Directive [...] DAILY 07/13/10 11/30/11 Discontinued Mometasone Furoate 2 [place] [facility] DAILY 09/24/10 02/20/11 Discontinued Hydrocodone Bit/Acetaminophen [...] of your legs. 3.During office hours, call [phone] 4. After hours, please call [facility] at [phone], and have the jumbo operator page your Surgeon IN THE EVENT [...] F (96.8 - 99.1) Temperature (Calculated Celsius) 36.73960 degrees C (36.0 - 37.3) Temperature Source [...] 09, 2012 3:46pm LAB RESULTS - SCANNED [id number] - Lipase May 14, 2014 7:10pm 56 [...] 318 mOsm/kg H - Osmolality performed at [facility], [address] [facility], [place] [address]Hznppim Director Elen Rajput MD Sodium Level May [...] Has specimen been collected/obtained? Y Urine Specific [place] May 14, 2014 7:26pm 1.015 - Has [...] Escherichia Coli Name: DENNIS MCKENNA Unit #: [id number] : 1990 Sex: F Loc / Svc: CCU DOS: 04/27/14 Signed Report #: [id number] DIAGNOSTIC IMAGING REPORT TYPE OF EXAM: CT [...] procedures. Encounters Encounter Location Date/Time Discharged Inpatient [facility] 05/14/14 10:03pm Discharged Inpatient [facility] 04/27/14 5:25pm Recent Diagnosis DKA (diabetic ketoacidoses)
--- OUTSIDE RECORDS SUMMARY | 2016-11-01 12:56 | XMS REPORT | Continuity of Care Document ---
Author Author [facility] Organization [facility] Address Unknown Phone Unavailable Allergies Medications [...] Status Pt. Type Provider Facility Loc./Unit Complaint [id number] 10/19/2012 15:50:00 2012 17:23:00 DIS Inpatient Lexy LATHAM, Padmini Stahl [facility] W.9TS
--- OUTSIDE RECORDS SUMMARY | 2016-11-01 12:57 | XMS REPORT ---
Author Author [facility] Organization Unknown Address Unknown Phone Unavailable Care Team Providers Care Airline Radio Operator Name Role Phone PP Unavailable Reason For [...] PM* CULTURE URINE (Preliminary Result) Specimen Number: [id number] Sample Collection Date/Time: 01/31/2016 5:49 PM Specimen [...] * Address # 1 : [place] [phone] Procedures No relevant procedures performed. Immunizations No [...] of the patient or patient sales representative [employer] supplies to confirm the list of medications with [...]
--- OUTSIDE RECORDS SUMMARY | 2016-11-01 12:58 | XMS REPORT | Continuity of Care Document ---
Author Author [facility] Organization [facility] Address Unknown Phone Unavailable Support Name Relationship Address Phone RICHARD YUSUF MD Caregiver [address] [place] [address] Unavailable FORD JOY DO Caregiver [address] [place] [address] Unavailable GEMA ANGELES Next Of Kin [address] [address] CP Insurance Providers Guarantor Dennis Angeles Address [address] [address] CP Email DENIED 16 Payer [facility] Policy Number [id number] Subscriber's Name Gema Angeles Relationship 01 Spouse Group Number [id number] Advance Directives Directive Response Recorded Date/Time Advanced Directives Type None 10/14/16 4:05pm Chief Complaint and Reason for Visit Chief Complaint Abdominal Pain Reason for Visit [id number] Urinary tract infection Chronic abdominal pain Problems Active Problems Medical Problem Onset Date [...] infection) Unknown Resolved Urinary retention Unknown Acute Urinary tract infection Unknown Acute Vomiting Unknown Acute Past Problems [...] Directions Days Qty Instructions Start Date Hydrocodone/Acetaminophen ([place] 5-325 Tablet) 5-325 Tablet 1 Tab Oral Three Times A Day as needed for Pain 30 Days 30 Tablet 09/24/16 Hydrocodone/Acetaminophen ([place] 5-325 Tablet) 5-325 Tablet 1 Tab Oral Every 6 Hours as needed for Pain 10 Tablet 10/14/16 Insulin Aspart (Novolog) 100 Unit/Ml Inj 10 Unit Sub-Q Three Times Daily With Meals 01/08/16 Insulin Glargine,Hum.rec.anlog (Lantus) 100 Unit/Ml Inj 10 Unit Sub-Q Twice A Day 01/08/16 Metoclopramide Hcl 10 Mg Tablet 10 Mg Oral Four Times Daily 07/09 Midodrine Hcl 5 Mg Tablet 5 Mg Oral Three Times A Day 09/01/16 Nitrofurantoin Monohyd/M-Cryst (Macrobid 100 Mg Capsule) 100 Mg Capsule 1 Cap Oral Twice Daily With Meals 14 Capsule Take 2 (100 mg) capsules, by mouth, twice daily with meals. 10/14/16 Promethazine Hcl 25 Mg Supp.rect 1 Supp Rectally Every 6 Hours as needed for Nausea 6 Suppository 10/14/16 Past Home Medications Medication Directions Ordered Status Acetaminophen/Dp-Hydram Hcl (Tylenol Pm Ex-Str Caplet) 1 Tab Tablet, 1 Tab Oral As Needed 11/30/11 Discontinued Acetaminophen/Hydrocodone Bitart ([place] 5-325 Tablet) 1 Each Tablet, 1 Tab [...] 1 Tab Tablet, 03/26 Discontinued Hydrocodone Bit/Acetaminophen ([place] 5) 1 Udtab Tablet, 1 Udtab Oral Every 4- 6 Hours 04/07/12 Discontinued Hydrocodone Bit/Acetaminophen (Lortab 5) 1 Tab Tablet, 1 Tab Oral Daily 09/24 Discontinued Hydrocodone/Acetaminophen ([place] 5-325 Tablet) 5-325 Tablet, 1-2 Tab Oral [...] 01/08/16 Discontinued Mometasone Furoate (Nasonex) 17 Gm [place], 2 [place] Inhalation Daily 09/24/10 Discontinued Novolog , 17 [...] Applicable Not Applicable Hx Substance Use No 10/14/2016 5:18pm Not Applicable Not Applicable Hx Alcohol Use Y OCCASIONALLY 10/14/2016 5:18pm Not Applicable Not Applicable Has the pt used tobacco in the last 12 months No 09/23/2016 12:47pm Not Applicable Not Applicable Tobacco Usage none 01/16/2016 1:28pm Not Applicable Not Applicable Query Response Start Date Stop Date Smoking Status Unknown if ever smoked Hospital Discharge Instructions No hospital discharge instructions. Plan of Care Discharge Date 10/14/16 7:30pm Disposition 01 DISCHARGED HOME, SELF-CARE Condition at Discharge Stable Instructions/Education Provided Urinary Tract Infection in Women (ED) Abdominal Pain (ED) Prescriptions See Medication Section Referrals RICHARD YUSUF MD Address: [address] [place], [place] [id number] Additional Instructions/Education Take the Macrobid as prescribed. May use the Zofran as needed for nausea. If unable to keep fluids down then use the promethazine suppositories. Make sure to drink fluids at home to stay hydrated. Follow up with Dr Yusuf if you are not improving at all. Care Plan and Goals Physician Care Plan Problem:Nausea/vomiting, abdominal pain, urinary tract infection Goal: Follow up with primary care provider Instructions: Take medications and follow care plan as discussed/written Functional Status No functional status results. Allergies, Adverse Reactions, Alerts Allergen Type Severity Reaction Status Last Updated Sodium hypochlorite Allergy Mild Hives (Bleach) Active 10/14/16 Adhesive Allergy Unknown BLISTERING Active 10/14/16 Immunizations Immunization Event Date Type Not Given Reason Dose Number Lot Number Fire Watcher VIS Given Influenza, seasonal, injectable 09/24/16 Administered 1 [id number] iLive 02/17/15 Query Response on File Recorded Date/Time Hx Influenza Vaccination No 09/23/16 12:47pm Hx Pneumococcal Vaccination No 09/23/16 12:47pm Hx Tetanus, Diptheria, Pertussis Y UNKNOWN 03/26/15 1:03pm Hx Influenza Vaccination No 09/23/16 12:47pm Hx Tetanus, Diptheria, Pertussis Y UNKNOWN 03/26/15 1:03pm DTaP Vaccine History 1 10/14/16 5:18pm Influenza Vaccine Hx 09/24/16 10/14/16 5:18pm Tetanus Diptheria Vaccine History 1 10/14/16 5:18pm Vital Signs Acute Vital Signs Vital Response Date/Time Temperature (Fahrenheit) 98.4 deg F (96.8 - 99.1) 10/14/2016 7:30pm Temperature (Calculated Celsius) 36.89190 degrees C (36.0 - 37.3) 10/14/2016 7:30pm Pulse Rate (adult) 94 bpm (60 - 100) 10/14/2016 7:30pm Respiratory Rate 16 breaths/min (10 - 20) 10/14/2016 7:30pm O2 Sat by Pulse Oximetry 96 % (90 - 100) 10/14/2016 7:30pm Oxygen Delivery Method Room Air 09/24/2016 4:20pm Blood Pressure 108/68 mm Hg 10/14/2016 7:30pm Blood Pressure Source Automatic Cuff 09/24/2016 4:20pm Height (Feet) 5 feet 10/14/2016 4:05pm Height (Inches) 5.00 inches 10/14/2016 4:05pm Weight (Kilograms) 50.000 kg 10/14/2016 4:05pm Body Mass Index (BMI) 18.0 10/14/2016 4:05pm Results Laboratory Results Test Name Result Units Flags Reference Collection Date/Time Result Date/ Time Comments Erythrocyte Sedimentation Rate 19 mm/h 0-23 08/22/2016 4:23pm 2016 11:09pm Sedimentation Rate performed at [facility] Reference Lab, [facility] [place] [address] Group Account Director [place]leigh Mcdonald Nick, DO Lipase 72 U/L 23-300 09/23/2016 10:29am 09/23/2016 10:57am Magnesium Level 1.9 MG/DL 1.6-2.3 09/23/2016 10:2909/23/2016 10: 48am Arterial Blood pH 7.320 L 7.350-7.450 09/23/2016 11:20am 09/23/2016 11 :31am Arterial Blood Partial Pressure CO2 41 MMHG 34-45 09/23/2016 11:20 11:31am Arterial Blood pO2 at Patient Temp 91 MMHG 80-100 09/23/2016 11:20 11:31am Arterial Blood HCO3 21 MEQ/L L 22-26 09/23/2016 11:2009/23/2016 11: 31am Arterial Blood Total CO2 22.4 MEQ/L L 23-27 09/23/2016 11:202016 11:31am Arterial Blood Base Excess -4.7 MMOL/L L -2.0-2.0 09/23/2016 11:20 11:31am Arterial Blood Oxygen Saturation 96.0 % 95.0-98.0 09/23/2016 11:20 11:31am Blood Gas Oxygen Percent Given 21 09/23/2016 11:2009/23/2016 11: 31am Oxygen Delivery Method (LAB) ROOM AIR 09/23/2016 11:20am 2016 11:31am Urine Yeast TRACE H NEGATIVE 09/23/2016 10:08am 09/23/2016 10:51am Urine Hyaline Casts 0-1 /LPF 09/23/2016 10:08am 09/23/2016 10:51am Glucometer 108 mg/dL 65-110 09/24/2016 5:26pm 09/24/2016 8:07pm White Blood Count 7.2 T/MM3 4.5-11.0 10/14/2016 4:24pm 10/14/2016 4: 41pm Red Blood Count 4.79 M/MM3 4.00-5.20 10/14/2016 4:24pm 10/14/2016 4: 41pm Hemoglobin 13.8 GM/DL 12-16 10/14/2016 4:2410/14/2016 4:41pm Hematocrit 39.4 % 36-46 10/14/2016 4:pm 10/14/2016 4:41pm Mean Corpuscular Volume 82.3 UM3 80-100 10/14/2016 4:pm 10/14/2016 4: 41pm Mean Corpuscular Hemoglobin 28.8 UUG 26-34 10/14/2016 4:24pm 2016 4:41pm Mean Corpuscular Hemoglobin Concent 35.0 GM/DL 31-37 10/14/2016 4:pm 10/14/2016 4:41pm RDW Standard Deviation 37.1 FL 36.9-50.2 10/14/2016 4:24pm 10/14/2016 4 :41pm Platelet Count 364 T/MM3 130-400 10/14/2016 4:pm 10/14/2016 4:41pm Mean Platelet Volume 9.1 UM3 L 9.4-12.4 10/14/2016 4:24pm 10/14/2016 4: 41pm Neutrophils (%) (Auto) 57.8 % 33-66 10/14/2016 4:24pm 10/14/2016 4: 41pm Lymphocytes (%) (Auto) 35.3 % 23-45 10/14/2016 4:pm 10/14/2016 4: 41pm Monocytes (%) (Auto) 5.2 % 0-9.0 10/14/2016 4:pm 10/14/2016 4:41pm Eosinophils (%) (Auto) 0.7 % 0-4 10/14/2016 4:10/14/2016 4:41pm Basophils (%) (Auto) 0.7 % 0-2 10/14/2016 4:24pm 10/14/2016 4:41pm Immature Granulocyte % (Auto) 0.3 % 0.0-0.5 10/14/2016 4:24pm 2016 4:41pm Absolute Neutrophils (auto) 4.2 T/MM3 1.8-7.7 10/14/2016 4:24pm 2016 4:41pm Absolute Lymphocytes (auto) 2.5 T/MM3 1-4.8 10/14/2016 4:24pm 2016 4:41pm Absolute Monocytes (auto) 0.4 T/MM3 0-0.8 10/14/2016 4:24pm 10/14/2016 4:41pm Absolute Eosinophils (auto) 0.1 T/MM3 0-0.5 10/14/2016 4:24pm 2016 4:41pm Absolute Basophils (auto) 0.1 T/MM3 0-0.2 10/14/2016 4:24pm 10/14/2016 4:41pm Absolute Immature Granulocyte (auto 0.02 T/MM3 0.00-0.03 10/14/2016 4: 24pm 10/14/2016 4:41pm Icterus Index < 2 0-7 10/14/2016 4:24pm 10/14/2016 4:51pm Chemistry Specimen Hemolysis < 15 0-25 10/14/2016 4:24pm 10/14/2016 4 :51pm 0-25: Specimen Exhibited No Hemolysis. Turbidity < 20 0-20 10/14/2016 4:24pm 10/14/2016 4:51pm Sodium Level 139 MEQ/L 134-144 10/14/2016 4:24pm 10/14/2016 4:51pm Potassium Level 4.8 MEQ/L 3.6-5 10/14/2016 4:24pm 10/14/2016 4:51pm Chloride Level 99 MEQ/L 98-107 10/14/2016 4:24pm 10/14/2016 4:51pm Carbon Dioxide Level 21 MEQ/L L 22-30 10/14/2016 4:24pm 10/14/2016 4: 51pm Anion Gap 19 MEQ/L H 5-15 10/14/2016 4:24pm 10/14/2016 4:51pm Blood Urea Nitrogen 26.0 MG/DL H 7-17 10/14/2016 4:24pm 10/14/2016 4: 51pm Creatinine 0.6 MG/DL L 0.7-1.2 10/14/2016 4:24pm 10/14/2016 4:51pm BUN/Creatinine Ratio 43 RATIO H 6-10/14/2016 4:24pm 10/14/2016 4: 51pm Glomerular Filtration Rate Calc 121 10/14/2016 4:24pm 10/14/2016 4: 51pm Glucose Level 349 MG/DL H 65-110 10/14/2016 4:24pm 10/14/2016 4:51pm Calculated Osmolality 287 MOSM/KG H 261-280 10/14/2016 4:24pm 2016 4:51pm Calcium Level 9.8 MG/DL 8.4-10.2 10/14/2016 4:24pm 10/14/2016 4:51pm Total Bilirubin 1.20 MG/DL 0.20-1.30 10/14/2016 4:24pm 10/14/2016 4: 51pm Alkaline Phosphatase 125 U/L 38-126 10/14/2016 4:24pm 10/14/2016 4: 51pm Total Protein 7.6 G/DL 6.3-8.2 10/14/2016 4:24pm 10/14/2016 4:51pm Albumin 4.5 G/DL 3.5-5.0 10/14/2016 4:24pm 10/14/2016 4:51pm Globulin 3.1 G/DL 2.4-3.6 10/14/2016 4:24pm 10/14/2016 4:51pm Albumin/Globulin Ratio 1.5 RATIO 1.1-2.2 10/14/2016 4:24pm 10/14/2016 4 :51pm Aspartate Amino Transf (AST/SGOT) 18 U/L 14-36 10/14/2016 4:24pm 2016 4:51pm Alanine Aminotransferase (ALT/SGPT) 32 U/L 9-52 10/14/2016 4:24pm 10/14 4:51pm Urine Collection Type CLEANCATCH-MIDSTREAM 10/14/2016 6:31pm 2016 6:35pm Urine Color YELLOW YELLOW 10/14/2016 6:31pm 10/14/2016 6:35pm Urine Turbidity CLEAR CLEAR 10/14/2016 6:31pm 10/14/2016 6:35pm Urine Specific [place] 1.025 1.015-1.025 10/14/2016 6:31pm 2016 6:35pm Urine pH 5.0 5.0-8.0 10/14/2016 6:31pm 10/14/2016 6:35pm Urine Leukocyte Esterase NEGATIVE NEGATIVE 10/14/2016 6:31pm 2016 6:35pm Urine Nitrite NEGATIVE NEGATIVE 10/14/2016 6:31pm 10/14/2016 6:35pm Urine Protein 1+ A NEGATIVE 10/14/2016 6:31pm 10/14/2016 6:35pm Urine Glucose (UA) 3+ A NEGATIVE 10/14/2016 6:31pm 10/14/2016 6:35pm Urine Ketones 2+ A NEGATIVE 10/14/2016 6:31pm 10/14/2016 6:35pm Urine Urobilinogen 0.2 EU/DL NORMAL 10/14/2016 6:31pm 10/14/2016 6: 35pm Urine Bilirubin NEGATIVE NEGATIVE 10/14/2016 6:31pm 10/14/2016 6: 47pm --- 10/14/16 1844 --- UBILI previously reported as: 1+ A Urine Blood 2+ A NEGATIVE 10/14/2016 6:31pm 10/14/2016 6:35pm Urine WBC 50-200 /HPF H 0-5 10/14/2016 6:31pm 10/14/2016 6:47pm Urine RBC 3-5 /HPF H 0-3 10/14/2016 6:31pm 10/14/2016 6:47pm Urine Squamous Epithelial Cells 0-5 10/14/2016 6:31pm 10/14/2016 6: 47pm Urine Bacteria 3+ H NEGATIVE 10/14/2016 6:31pm 10/14/2016 6:47pm Urine Culture Indicated CULT REFLEXED &SETUP 10/14/2016 6:31pm 09/2016 6:47pm Microbiology Results Procedure Source Organism/Result Collection Date/Time Result Date/Time Result Status Urine Culture Urine, Clean Catch-Midstream CULTURE INITIATED - RESULTS PENDING 10/14/2016 6:47pm 10/14/2016 6:48pm Preliminary Procedures Procedure Status Date Provider(s) Comprehen metabolic panel Completed 09/01/16 Blood gases any combination Completed 09/01/16 Reagent strip/blood glucose Completed 09/01/16 Assay of magnesium Completed 09/01/16 Chorionic gonadotropin assay Completed 09/01/16 Complete cbc w/auto diff wbc Completed 09/01/16 Hydrate iv infusion add-on Completed 09/01/16 Ther/proph/diag inj iv push Completed 09/01/16 Tx/pro/dx inj new drug addon Completed 09/01/16 Tx/pro/dx inj new drug addon Completed 09/01/16 Emergency dept visit Completed 09/01/16"INJECTION, DIPHENHYDRAMINE HCL, UP TO 50 MG" Completed 09/01/16"INJECTION, ONDANSETRON HYDROCHLORIDE, PER 1 MG" Completed 09/01/16"INJECTION, METOCLOPRAMIDE HCL, UP TO 10 MG" Completed 09/01/16"INFUSION, NORMAL SALINE SOLUTION , 1000 CC" Completed 09/01/16 Routine venipuncture Completed 09/23/16 Routine venipuncture Completed 09/23/16 Withdrawal of arterial blood Completed 09/23/16 Metabolic panel total ca Completed 09/23/16 Comprehen metabolic panel Completed 09/23/16 Urinalysis auto w/scope Completed 09/23/16 Blood gases any combination Completed 09/23/16 Reagent strip/blood glucose Completed 09/23/16 Reagent strip/blood glucose Completed 09/23/16 Reagent strip/blood glucose Completed 09/23/16 Reagent strip/blood glucose Completed 09/23/16 Reagent strip/blood glucose Completed 09/23/16 Reagent strip/blood glucose Completed 09/23/16 Reagent strip/blood glucose Completed 09/23/16 Reagent strip/blood glucose Completed 09/23/16 Reagent strip/blood glucose Completed 09/23/16 Assay of lipase Completed 09/23/16 Assay of magnesium Completed 09/23/16 Chorionic gonadotropin assay Completed 09/23/16 Complete cbc w/auto diff wbc Completed 09/23/16 Iiv4 vacc no prsv 0.5 ml im Completed 09/23/16 Hydrate iv infusion add-on Completed 09/23/16 Hydrate iv infusion add-on Completed 09/23/16 Hydrate iv infusion add-on Completed 09/23/16 Ther/proph/diag inj sc/im Completed 09/23/16 Ther/proph/diag inj sc/im Completed 09/23/16 Ther/proph/diag inj sc/im Completed 09/23/16 Ther/proph/diag inj sc/im Completed 09/23/16 Ther/proph/diag inj sc/im Completed 09/23/16 Ther/proph/diag inj sc/im Completed 09/23/16 Ther/proph/diag inj iv push Completed 09/23/16 Tx/pro/dx inj new drug addon Completed 09/23/16 Tx/pro/dx inj new drug addon Completed 09/23/16 Initial observation care Completed 09/23/16 Initial observation care Completed 09/23/16 Initial observation care Completed 09/23/16 Initial observation care Completed 09/23/16 Emergency dept visit Completed 09/23/[id number] OF INFLUENZA VIRUS VACCINE Completed 09/23/16"INJECTION, PROCHLORPERAZINE, UP TO 10 MG" Completed 09/23/16"INJECTION, HYDROMORPHONE, UP TO 4 MG" Completed 09/23/16"INJECTION, DIPHENHYDRAMINE HCL, UP TO 50 MG" Completed 09/23/16"INJECTION, DIPHENHYDRAMINE HCL, UP TO 50 MG" Completed 09/23/16"INJECTION, INSULIN, PER 5 UNITS" Completed 09/23/16"INJECTION, INSULIN, PER 5 UNITS" Completed 09/23/16"INSULIN FOR ADMINISTRATION THROUGH DME (I.E., INSULIN Completed "INSULIN FOR ADMINISTRATION THROUGH DME (I.E., INSULIN Completed "INSULIN FOR ADMINISTRATION THROUGH DME (I.E., INSULIN Completed "INSULIN FOR ADMINISTRATION THROUGH DME (I.E., INSULIN Completed "INJECTION, ONDANSETRON HYDROCHLORIDE, PER 1 MG" Completed 09/23/16"INJECTION, METOCLOPRAMIDE HCL, UP TO 10 MG" Completed 09/23/16"INFUSION, NORMAL SALINE SOLUTION , 1000 CC" Completed 09/23/16 Encounters Encounter Location Arrival/Admit Date Discharge/Depart Date Attending Provider Departed Emergency Room [facility] 10/14/16 4:03pm 10/14/16 7: 30pm FORD JOY DO Discharged Inpatient (obs) [facility] 09/23/16 11:58am 09/24/16 7 :42pm RICHARD YUSUF MD Departed Emergency Room [facility] 09/01/16 10:29am 09/01/16 3: 00pm RADHA SOTO MD Discharged Inpatient [facility] 08/21/16 4:04pm 08/24/16 4:00pm RICHARD YUSUF MD Recent Diagnosis
--- OUTSIDE RECORDS SUMMARY | 2016-11-01 12:59 | XMS REPORT ---
Author Author [facility] Organization Unknown Address Unknown Phone Unavailable Care Team Providers Care Admissions Dean Name Role Phone PP Unavailable Reason For [...] PM* CULTURE URINE (Preliminary Result) Specimen Number: [id number] Sample Collection Date/Time: 01/31/2016 5:49 PM Specimen [...] * Address # 1 : [place] [phone] Procedures No relevant procedures performed. Immunizations No [...] of the patient or patient sales representative education courses to confirm the list of medications with [...]
--- OUTSIDE RECORDS SUMMARY | 2016-11-01 12:59 | XMS REPORT | Continuity of Care Document ---
Author Author [facility] Organization [facility] Address Unknown Phone Unavailable Support Name Relationship Address Phone RUFINOFORD HARDEN Caregiver [facility] [address] [place] [address] BRE SAWYER MD Caregiver [address] [place] [address] [place] [address] [phone] DAVID QUIJANO Next Of Kin [address] [phone] CP Insurance Providers Payer Name Policy Number Subscriber Name Relationship [facility] [id number] Gema Angeles 01 Spouse Advance Directives Directive [...] DAILY 07/13/10 11/30/11 Discontinued Mometasone Furoate 2 [place] DAILY 09/24/10 02/20/11 Discontinued Hydrocodone Bit/Acetaminophen [...] of your legs. 3.During office hours, call [phone] 4. After hours, please call [facility] at [phone], and have the letterset press set up operator page your Surgeon IN THE EVENT [...] F (96.8 - 99.1) Temperature (Calculated Celsius) 35.31448 degrees C (36.0 - 37.3) Temperature Source [...] 09, 2012 3:46pm LAB RESULTS - SCANNED [id number] - Lipase April 28, 2014 9:06am 20 [...] 318 mOsm/kg H - Osmolality performed at [facility], [address] [place], [place] [address]Miyceca Director Elen Rajput MD Sodium Level April [...] Has specimen been collected/obtained? Y Urine Specific [place] May 01, 2014 11:55am 1.020 - Has [...] Escherichia Coli Name: DENNIS ANGELES Unit #: [id number] : 1990 Sex: F Loc / Svc: CCU DOS: 04/27/14 Signed Report #: [id number] DIAGNOSTIC IMAGING REPORT TYPE OF EXAM: CT [...] procedures. Encounters Encounter Location Date/Time Discharged Inpatient [facility] 04/27/14 5:25pm Recent Diagnosis Abdominal pain DKA (diabetic ketoacidoses) DKA (diabetic ketoacidoses) Controlled type 1 diabetes mellitus
[2016-11-01] MEDS ORDERED: DiphenhydrAMINE 50 MG/ML INJECTION IV ONE ×2 (13:15→15:00)
[2016-11-01] MEDS ORDERED: NORMAL SALINE 1,000 ML IV ONE (13:15)
[2016-11-01] MEDS ORDERED: PROCHLORPERAZINE 10mg/2ml INJECTION IV ONE (13:15)
--- NOTE | 2016-11-01 13:22 | ERPDOC ---
Departure Disposition Decision Date: Nov 01, 2016 Disposition Decision Time: 14:42 (EDSON PEREZ APRN) Disposition: 02 TO [facility] Impression Impression (EDSON PEREZ APRN) Impression: Primary Impression: DKA (diabetic ketoacidoses) Diabetes mellitus type: type 1 Diabetes mellitus complication detail: without coma Qualified Codes: E10.10 - Type 1 diabetes mellitus with ketoacidosis without coma Severity: Moderate (EDSON PEREZ APRN) Condition: Stable Seen By: Mid-level only (EDSON PEREZ APRN) Referrals: RICHARD YUSUF MD (Family) Problems/Meds/Labs Reviewed?: Yes Medications reviewed and manag: Yes (EDSON PEREZ APRN) Follow up care ordered?: Yes Mental Status: Alert (EDSON PEREZ APRN) HPI - General Medical General Chief Complaint: Abdominal Pain Stated Complaint: ABD PAIN, HIGH BLOOD SUGAR, & VOMITING Time Seen by Provider: 13:04 Source: patient Exam Limitations: no limitations (EDSON PEREZ APRN) Time Seen by Provider: 13:04 (GILL CARVALHO DO) HPI - General Medical Initial Comments Verito is a type 1 diabetic and well known to the Er. Has frequent history of DKA and has been admitted in the past. States that this morning around 3am she started having abdominal pain and vomiting. She did take some Zofran at home but was not able to keep it down. She is having generalized abdominal pain like she gets with these episodes. She denies any fever. Has had dry heaves. Blood sugars have been elevated from the 250-350s. Occurred At: home Onset: Gradual Duration: other (Since 3 am) Severity: moderate Associated Symptoms: loss of appetite, malaise, nausea/vomiting, DENIES: chest pain, cough, diaphoresis, fever/chills, headaches, rash, seizure, shortness of breath, syncope, weakness Hx of Similar Symptoms: No (EDSON PEREZ APRN) Allergies: Coded Allergies: sodium hypochlorite solution (Verified Allergy, Mild, Hives (Bleach), 11/01) adhesive (Verified Allergy, Unknown, BLISTERING, 11/01/16) ADHESIVE TAPE Past History Patient Surgical History 04/23/2016 - Cystoscopy by Dr. Pelletier: Trabeculated bladder with mild catheter-associated cystitis Appendectomy in August 2015 x 2 Ureteral stents Groin abscess excision (NOLD,EDSON N FUNERAL PRE NEED CONSULTANT) Past Medical History Metabolic: diabetes, other GI: GERD, other Female: UTI, kidney stones, pyelonephritis Neurological: headaches Psychological: anxiety, depression, suicide attempt (NOLD,EDSON N FUNERAL PRE NEED CONSULTANT) Surgical History General: appendix Reproductive/: , other (NOLD,EDSON N FUNERAL PRE NEED CONSULTANT) Family History Family PMH: FOUND: OR, aortic aneurysm, diabetes, hypertension (NOLD,EDSON N FUNERAL PRE NEED CONSULTANT) Vaccines Hx Influenza Vaccination: No Hx Pneumococcal Vaccination: No Hx Tetanus, Diptheria, Pertuss: Yes (UNKNOWN) (NOLD,EDSON N FUNERAL PRE NEED CONSULTANT) Social History Smoking Status: Never smoker Does patient use chewing tobac: No Substance Use Type: former substance user, marijuana Alcohol Intake: occasionally Marital Status: Sexuality: male partner Housing: house Household Members: spouse, children Number of Children: 2 Current Occupational Status: unemployed Grade (if student): Graduated HS (NOLD,EDSON N FUNERAL PRE NEED CONSULTANT) Review of Systems Constitutional Constitutional: appetite decrease, fatigue, weakness, DENIES: chills, dizziness , fever (NOLD,EDSON N FUNERAL PRE NEED CONSULTANT) Cardiovascular Cardiac: DENIES: chest pain, orthopnea Rhythm/Rate: DENIES: irregular beat, palpitations (NOLD,EDSON N FUNERAL PRE NEED CONSULTANT) Pulmonary Respiratory: DENIES: cough, dyspnea, sputum, tachypnea (NOLD,EDSON N FUNERAL PRE NEED CONSULTANT) GI Upper Abdomen: nausea, pain, vomiting Lower Abdomen: pain, DENIES: blood in stool, constipation, diarrhea (NOLD, EDSON N FUNERAL PRE NEED CONSULTANT) General: DENIES: dysuria, frequency, urgency (NOLD,EDSON N FUNERAL PRE NEED CONSULTANT) Integumentary Skin: DENIES: rash (NOLD,EDSON N FUNERAL PRE NEED CONSULTANT) Neurological General: DENIES: headache, numbness, tingling, weakness (NOLD,EDSON N FUNERAL PRE NEED CONSULTANT) Physical Exam General General Nourishment: well nourished, well developed, appears stated age, no acute distress, adult, thin General Body Habitus: well groomed (NOLD,EDSON N FUNERAL PRE NEED CONSULTANT) Vitals and Pain First Documented Vital Signs Date Time Temp Pulse Resp B/P Pulse Ox O2 Delivery O2 Flow Rate FiO2 11/01/16 12:55 98.2 127 24 135/82 97 Room Air (GILL CARVALHO DO) Vitals and Pain Weight: Kilograms: 50.200 Height (feet): 5 Height (inches): 5.00 Triage Pain Scale: (EDSON PEREZ APRN) RN VS reviewed by Provider: Yes (EDSON PEREZ APRN) Normal Exams: Neck: Full range of motion, without adenopathy, JVD, bruits or thyromegaly Chest/Resp: Clear all bentley, with good airflow, and symmetry bilaterally CV: Regular rate and rhythm, without murmur or gallop, Pulses 2+ all extremities, capillary refill, <2 seconds all ext., no pedal edema noted Abdomen: Bowel sounds positive, non-distended, no hepatosplenomegaly, masses or bruits noted Lymphatic: No lymphadenopathy, or lymphedema noted Neurologic: Patient is alert, and oriented Psychiatric: Patient exhibits, appropriate attention, emotion and affect (EDSON PEREZ APRN) Abdomen Inspection: NOT FOUND: distention Palpation: FOUND: soft, tender (moderate TTP in all quadrants), voluntary guarding, NOT FOUND: involuntary guarding (EDSON PEREZ APRN) Differential Diagnoses Considering: DKA, Hypo/Hyperglycemia, Hypo/Hyperkalemia, Hypo/Hypernatremia, Metabolic, UTI (EDSON PEREZ APRN) Progress Results/Orders Orders Procedure Category Date Status Time Cbc W/Auto LAB 11/01/16 Complete Diff-Reflex Manual Iv Lock (Ed Only) EDM 11/01/16 Transmitted 13:12 Cmp - Comprehensive LAB 11/01/16 Complete Metabolic LAB 11/01/16 In Process Qualitative, Urine 13:12 Normal Saline (Normal PHA 11/01/16 Complete Saline Iv) 13:15 Diphenhydramine PHA 11/01/16 Complete (Benadryl) 13:15 Prochlorperazine PHA 11/01/16 Complete (Compazine) 13:15 Blood Gas, Venous - LAB 11/01/[address] In Facility As: ADMIT 11/01/16 Transmitted UA, LAB 11/01/16 In Process Dip&Micro(Complete) & 18:01 (GILL CARVALHO ) Lab Results Laboratory Tests Test 11/01/16 13:06 11/01/16 13:31 11/01/16 14:37 Glucometer 357mg/dL White Blood Count 10.8T/MM3 Red Blood Count 4.83M/MM3 Hemoglobin 13.9GM/DL Hematocrit 39.9% Mean Corpuscular Volume 82.6UM3 Mean Corpuscular Hemoglobin 28.8UUG Mean Corpuscular Hemoglobin Concent 34.8GM/DL RDW Standard Deviation 38.2FL Platelet Count 263T/MM3 Mean Platelet Volume 9.3UM3 Immature Granulocyte % (Auto) 0.3% Neutrophils (%) (Auto) 78.8% Lymphocytes (%) (Auto) 16.7% Monocytes (%) (Auto) 3.3% Eosinophils (%) (Auto) 0.3% Basophils (%) (Auto) 0.6% Absolute Immature Granulocyte (auto 0.03T/MM3 Absolute Neutrophils (auto) 8.5T/MM3 Absolute Lymphocytes (auto) 1.8T/MM3 Absolute Monocytes (auto) 0.4T/MM3 Absolute Eosinophils (auto) 0.0T/MM3 Absolute Basophils (auto) 0.1T/MM3 Turbidity < 20 Sodium Level 141MEQ/L Potassium Level 4.6MEQ/L Chloride Level 100MEQ/L Carbon Dioxide Level 17MEQ/L Anion Gap 24MEQ/L Blood Urea Nitrogen 21.0MG/DL Creatinine 0.6MG/DL Glomerular Filtration Rate Calc 121 BUN/Creatinine Ratio 35RATIO Glucose Level 419MG/DL Calculated Osmolality 292MOSM/KG Calcium Level 10.2MG/DL Total Bilirubin 1.40MG/DL Icterus Index < 2 Aspartate Amino Transf (AST/SGOT) 19U/L Alanine Aminotransferase (ALT/SGPT) 33U/L Alkaline Phosphatase 128U/L Total Protein 7.3G/DL Albumin 4.6G/DL Globulin 2.7G/DL Albumin/Globulin Ratio 1.7RATIO Chemistry Specimen Hemolysis < 15 Venous Blood pH 7.290 Venous Blood Partial Pressure CO2 32MMHG Venous Blood Partial Pressure O2 56MMHG Venous Blood HCO3 15MEQ/L Venous Blood Total Carbon Dioxide 16.4MEQ/L Venous Blood Oxygen Saturation 85.0% Venous Blood Base Excess -10.1MMOL/L Oxygen Delivery Method (LAB) Room air Blood Gas Oxygen Liter Flow Blood Gas Oxygen Percent Given (GILL CARVALHO DO) Medications Current ED Medications Sodium Chloride (Normal Saline IV) 1,000 ml @ 1,000 mls/hr Q1H ONCE IV Last administered on 11/01/16 13:33; Start 11/01/16 at 13:15; Stop 11/01/16 at 14:14 ; Status DC Diphenhydramine HCl (Benadryl) 25 mg O ONCE IV Last administered on 11/01/16 13:40; Start 11/01/16 at 13:15; Stop 11/01/16 at 13:16; Status DC Prochlorperazine Edisylate (Compazine) 10 mg O ONCE IV Last administered on 13:35; Start 11/01/16 at 13:15; Stop 11/01/16 at 13:16; Status DC (GILL CARVALHO DO) Progress Progress CBC today is normal. K+-4.6, CO2-17 and anion gap of 24. PH on VBG is 7.29 with CO2 of 32, HCO3 of 15. 1 Liter of NS infused. BGM is 419 on labs. Did discuss findings with Dr Yusuf and he will admit to medical floor at this time. (EDSON PEREZ APRN) EDSON PEREZ APRN Nov 01, 2016 13:22 GILL CARVALHO DO Nov 01, 2016 18:16
--- NOTE | 2016-11-01 13:30 | NUR ---
IVL/MEDS INSTRUCTED PT REGARDING NS AND MEDICATION ORDERED. UNDERSTANDING VERBALIZED.
[2016-11-01 13:40] LABS: BASOPHILS # (AUTO) 0.1 T/MM3 (0-0.2); BASOPHILS % (AUTO) 0.6 % (0-2); EOSINOPHILS % (AUTO) 0.3 % (0-4); HCT - HEMATOCRIT 39.9 % (36-46); HGB - HEMOGLOBIN 13.9 GM/DL (12-16); IMMATURE GRANULOCYTE # (AUTO) 0.03 T/MM3 (0.00-0.03); IMMATURE GRANULOCYTE % (AUTO) 0.3 % (0.0-0.5); LYMPHOCYTES # (AUTO) 1.8 T/MM3 (1-4.8); LYMPHOCYTES % (AUTO) 16.7 % (23-45); MEAN CORPUSCULAR HGB 28.8 UUG (26-34); MEAN CORPUSCULAR HGB CONC(MCHC 34.8 GM/DL (31-37); MEAN CORPUSCULAR VOLUME 82.6 UM3 (80-100); MEAN PLATELET VOLUME 9.3 UM3 (9.4-12.4); MONOCYTES # (AUTO) 0.4 T/MM3 (0-0.8); MONOCYTES % (AUTO) 3.3 % (0-9.0); NEUTROPHILS #(AUTO)-ABSOLUTE 8.5 T/MM3 (1.8-7.7); NEUTROPHILS % (AUTO) 78.8 % (33-66); RED BLOOD COUNT 4.83 M/MM3 (4.00-5.20); WBC - WHITE BLOOD COUNT 10.8 T/MM3 (4.5-11.0)
--- OUTSIDE RECORDS SUMMARY | 2016-11-01 13:45 | XMS REPORT | Continuity of Care Document ---
Author Author [facility] Organization [facility] Address Unknown Phone Unavailable Support Name Relationship Address Phone LESLY BRANCH MD Caregiver [address] [place] [address] Unavailable SHAHANA DAVIS II, MD Caregiver [address] [place] [address] [address] [place], [place] [phone] BRE SAWYER MD Caregiver [address] [place] [address] [address] [place] [address] [phone] GEMA MCKENNA Next Of Kin [address] [place] [address] CP Insurance Providers Payer Name Policy Number Subscriber Name Relationship [facility] [id number] Gema Mckenna 01 Spouse Advance Directives Directive [...] DAILY 07/13/10 11/30/11 Discontinued Mometasone Furoate 2 [place] [facility] DAILY 09/24/10 02/20/11 Discontinued Hydrocodone Bit/Acetaminophen [...] of your legs. 3.During office hours, call [phone] 4. After hours, please call [facility] at [phone], and have the sulfonation equipment operator page your Surgeon IN THE EVENT [...] F (96.8 - 99.1) Temperature (Calculated Celsius) 36.76234 degrees C (36.0 - 37.3) Temperature Source [...] 09, 2012 3:46pm LAB RESULTS - SCANNED [id number] - Lipase May 14, 2014 7:10pm 56 [...] 318 mOsm/kg H - Osmolality performed at [facility], [address] [facility], [place] [address]Jdjlpru Director Elen Rajput MD Sodium Level May [...] Has specimen been collected/obtained? Y Urine Specific [place] May 14, 2014 7:26pm 1.015 - Has [...] Escherichia Coli Name: DENNIS MCKENNA Unit #: [id number] : 1990 Sex: F Loc / Svc: CCU DOS: 04/27/14 Signed Report #: [id number] DIAGNOSTIC IMAGING REPORT TYPE OF EXAM: CT [...] procedures. Encounters Encounter Location Date/Time Discharged Inpatient [facility] 05/14/14 10:03pm Discharged Inpatient [facility] 04/27/14 5:25pm Recent Diagnosis DKA (diabetic ketoacidoses)
--- OUTSIDE RECORDS SUMMARY | 2016-11-01 13:46 | XMS REPORT ---
Author Author [facility] Organization Unknown Address Unknown Phone Unavailable Care Team Providers Care Dusting And Brushing Machine Operator Name Role Phone PP Unavailable Reason [...] PM* CULTURE URINE (Preliminary Result) Specimen Number: [id number] Sample Collection Date/Time: 01/31/2016 5:49 PM Specimen [...] * Address # [address] : [place] [phone] Procedures No relevant procedures performed. Immunizations No [...] responsibility of the patient or patient sales service representative to confirm the list of medications [...]
--- OUTSIDE RECORDS SUMMARY | 2016-11-01 13:46 | XMS REPORT | Continuity of Care Document ---
Author Author [facility] Organization [facility] Address Unknown Phone Unavailable Allergies Medications Problems Date Dx Coded Attending Type Code Diagnosis Diagnosed By 10/19/2012 Lexy LTAHAM, Padmini Watkins 250.13 DIAB W KETOACIDOSIS, TYPE [...] Status Pt. Type Provider Facility Loc./Unit Complaint [id number] 10/19/2012 15:50:00 2012 17:23:00 DIS Inpatient Lexy LATHAM, Padmini Stahl [facility] W.9TS
--- NOTE | 2016-11-01 13:48 | NUR ---
PAIN PT STATES "I AM NOT NAUSEOUS ANYMORE, I JUST WANT SOMETHING FOR PAIN." EDUCATED PT REGARDING CURRENT BLOOD PRESSURE. INFORMED PT THAT I WOULD DISCUSS HER PAIN WITH JOAN. PT APPEARS CALM, EYES CLOSED. NON-LABORED RESPIRATIONS AT 12/MIN.
--- OUTSIDE RECORDS SUMMARY | 2016-11-01 13:48 | XMS REPORT | Continuity of Care Document ---
Author Author [facility] Organization [facility] Address Unknown Phone Unavailable Support Name Relationship Address Phone RUFINOFORD HARDEN Caregiver [facility] [address] [place] [address] BRE SAWYER MD Caregiver [address] [place] [address] [place] [address] [phone] DAVID QUIJANO Next Of Kin [address] [id number] CP Insurance Providers Payer Name Policy Number Subscriber Name Relationship [facility] [id number] Gema [place] 01 Spouse Advance Directives Directive [...] DAILY 07/13/10 11/30/11 Discontinued Mometasone Furoate 2 [place] [facility] DAILY 09/24/10 02/20/11 Discontinued Hydrocodone Bit/Acetaminophen [...] Should your symptoms persist you could contact [facility] or return to the ED for emergent evaluation Condition at time of discharge: Good Call your Surgeon if you have: 1.Chest pain, difficulty breathing, fever>100.5 degrees, chills, heart rate >100, confusion, or persistent nausea/vomitting. 2.Severe pain, swelling, redness, or warmth in either of your legs. 3.During office hours, call [phone] 4. After hours, please call [facility] at [phone], and have the maintenance operator page your Surgeon IN THE EVENT [...] F (96.8 - 99.1) Temperature (Calculated Celsius) 35.50661 degrees C (36.0 - 37.3) Temperature Source [...] 09, 2012 3:46pm LAB RESULTS - SCANNED [id number] - Lipase April 28, 2014 9:06am 20 [...] 318 mOsm/kg H - Osmolality performed at [facility], [address] [place], [place] [address]Irqzpqm Director Elen Rajput MD Sodium Level April [...] Has specimen been collected/obtained? Y Urine Specific [place] May 01, 2014 11:55am 1.020 - Has [...] Escherichia Coli Name: DENNIS ANGELES Unit #: [id number] : 1990 Sex: F Loc / Svc: CCU DOS: 04/27/14 Signed Report #: [id number] DIAGNOSTIC IMAGING REPORT TYPE OF EXAM: CT [...] procedures. Encounters Encounter Location Date/Time Discharged Inpatient [facility] 04/27/14 5:25pm Recent Diagnosis Abdominal pain DKA (diabetic ketoacidoses) DKA (diabetic ketoacidoses) Controlled type 1 diabetes mellitus
[2016-11-01 13:49] LABS: ALBUMIN 4.6 G/DL (3.5-5.0); ALBUMIN/GLOBULIN RATIO 1.7 RATIO (1.1-2.2); ALKALINE PHOSPHATASE 128 U/L (38-126); ALT (SGPT) 33 U/L (9-52); ANION GAP 24 MEQ/L (5-15); AST (SGOT) 19 U/L (14-36); BUN/CREATININE RATIO 35 RATIO (6-26); CALCIUM 10.2 MG/DL (8.4-10.2); CHLORIDE 100 MEQ/L (98-107); CO2 - CARBON DIOXIDE 17 MEQ/L (22-30); CREATININE 0.6 MG/DL (0.7-1.2); GLOMERULAR FILTRATION RATE 121; GLUCOSE 419 MG/DL (65-110); POTASSIUM 4.6 MEQ/L (3.6-5); SODIUM 141 MEQ/L (134-144); TOTAL PROTEIN 7.3 G/DL (6.3-8.2)
--- OUTSIDE RECORDS SUMMARY | 2016-11-01 13:49 | XMS REPORT ---
Author Author [facility] Organization Unknown Address Unknown Phone Unavailable Care Team Providers Care Project/Production Manager Imaging Name Role Phone PP Unavailable Reason For [...] PM* CULTURE URINE (Preliminary Result) Specimen Number: [id number] Sample Collection Date/Time: 01/31/2016 5:49 PM Specimen [...] * Address # 1 : [place] [phone] Procedures No relevant procedures performed. Immunizations No [...] the responsibility of the patient or patient pharmaceutical specialty representative to confirm the list of medications [...]
[2016-11-01] MEDS ORDERED: ONDA4TAB10 PO (13:53)
--- NOTE | 2016-11-01 14:30 | NUR ---
STATUS PT RESTING CALMLY, NO DISTRESS NOTED.
[2016-11-01] MEDS ORDERED: MORPHINE SULFATE 2 MG SYRINGE IV ONE (14:45)
[2016-11-01 14:47] LABS: VBG TOTAL CO2 16.4 MEQ/L
--- OUTSIDE RECORDS SUMMARY | 2016-11-01 14:51 | XMS REPORT | Continuity of Care Document ---
Author Author [facility] Organization [facility] Address Unknown Phone Unavailable Support Name Relationship Address Phone LESLY BRANCH MD Caregiver [address] [place] [address] Unavailable SHAHANA DAVIS II, MD Caregiver [address] [place] [address] [address] [place], [place] [phone] BRE SAWYER MD Caregiver [address] [place] [address] [address] [place] [address] [phone] GEMA MCKENNA Next Of Kin [address] [place] [address] CP Insurance Providers Payer Name Policy Number Subscriber Name Relationship [facility] [id number] Gema Mckenna 01 Spouse Advance Directives Directive [...] DAILY 07/13/10 11/30/11 Discontinued Mometasone Furoate 2 [place] [facility] DAILY 09/24/10 02/20/11 Discontinued Hydrocodone Bit/Acetaminophen [...] of your legs. 3.During office hours, call [phone] 4. After hours, please call [facility] at [phone], and have the bar finish operator page your Surgeon IN THE EVENT [...] F (96.8 - 99.1) Temperature (Calculated Celsius) 36.86192 degrees C (36.0 - 37.3) Temperature Source [...] 09, 2012 3:46pm LAB RESULTS - SCANNED [id number] - Lipase May 14, 2014 7:10pm 56 [...] 318 mOsm/kg H - Osmolality performed at [facility], [address] [facility], [place] [address]Nxbcoaa Director Elen Rajput MD Sodium Level May [...] Has specimen been collected/obtained? Y Urine Specific [place] May 14, 2014 7:26pm 1.015 - Has [...] Escherichia Coli Name: DENNIS MCKENNA Unit #: [id number] : 1990 Sex: F Loc / Svc: CCU DOS: 04/27/14 Signed Report #: [id number] DIAGNOSTIC IMAGING REPORT TYPE OF EXAM: CT [...] procedures. Encounters Encounter Location Date/Time Discharged Inpatient [facility] 05/14/14 10:03pm Discharged Inpatient [facility] 04/27/14 5:25pm Recent Diagnosis DKA (diabetic ketoacidoses)
--- OUTSIDE RECORDS SUMMARY | 2016-11-01 14:51 | XMS REPORT ---
Author Author [facility] Organization Unknown Address Unknown Phone Unavailable Care Team Providers Care Tray Delivery Aide Name Role Phone PP Unavailable Reason For [...] PM* CULTURE URINE (Preliminary Result) Specimen Number: [id number] Sample Collection Date/Time: 01/31/2016 5:49 PM Specimen [...] * Address # 1 : [place] [phone] Procedures No relevant procedures performed. Immunizations No [...] the responsibility of the patient or patient corporate representative to confirm the list of medications [...]
--- OUTSIDE RECORDS SUMMARY | 2016-11-01 14:51 | XMS REPORT | Continuity of Care Document ---
Author Author [facility] Organization [facility] Address Unknown Phone Unavailable Allergies Medications [...] Status Pt. Type Provider Facility Loc./Unit Complaint [id number] 10/19/2012 15:50:00 2012 17:23:00 DIS Inpatient Lexy LATHAM, Padmini Stahl [facility] W.9TS
--- OUTSIDE RECORDS SUMMARY | 2016-11-01 14:53 | XMS REPORT | Continuity of Care Document ---
Author Author [facility] Organization [facility] Address Unknown Phone Unavailable Support Name Relationship Address Phone RUFINOFORD HARDEN Caregiver [facility] [address] [place] [address] BRE SAWYER MD Caregiver [address] [place] [address] [place] [address] [phone] DAVID QUIJANO Next Of Kin [address] [id number] CP Insurance Providers Payer Name Policy Number Subscriber Name Relationship [facility] [id number] Gema [place] 01 Spouse Advance Directives Directive [...] DAILY 07/13/10 11/30/11 Discontinued Mometasone Furoate 2 [place] [facility] DAILY 09/24/10 02/20/11 Discontinued Hydrocodone Bit/Acetaminophen [...] Should your symptoms persist you could contact [facility] [place] [place] or return to the ED for emergent evaluation Condition at time of discharge: Good Call your Surgeon if you have: 1.Chest pain, difficulty breathing, fever>100.5 degrees, chills, heart rate >100, confusion, or persistent nausea/vomitting. 2.Severe pain, swelling, redness, or warmth in either of your legs. 3.During office hours, call [phone] 4. After hours, please call [facility] at [phone], and have the diesel pile hammer operator page your Surgeon IN THE EVENT [...] F (96.8 - 99.1) Temperature (Calculated Celsius) 35.21790 degrees C (36.0 - 37.3) Temperature Source [...] 09, 2012 3:46pm LAB RESULTS - SCANNED [id number] - Lipase April 28, 2014 9:06am 20 [...] 318 mOsm/kg H - Osmolality performed at [facility], [address] [place], [place] [address]Tvoewnq Director Elen Rajput MD Sodium Level April [...] Has specimen been collected/obtained? Y Urine Specific [place] May 01, 2014 11:55am 1.020 - Has [...] Escherichia Coli Name: DENNIS ANGELES Unit #: [id number] : 1990 Sex: F Loc / Svc: CCU DOS: 04/27/14 Signed Report #: [id number] DIAGNOSTIC IMAGING REPORT TYPE OF EXAM: CT [...] procedures. Encounters Encounter Location Date/Time Discharged Inpatient [facility] 04/27/14 5:25pm Recent Diagnosis Abdominal pain DKA (diabetic ketoacidoses) DKA (diabetic ketoacidoses) Controlled type 1 diabetes mellitus
--- OUTSIDE RECORDS SUMMARY | 2016-11-01 14:54 | XMS REPORT ---
Author Author [employer] [employer] Organization Unknown Address Unknown Phone Unavailable Care Team Providers Care Tank Farm Operator Name Role Phone PP Unavailable Reason [...] PM* CULTURE URINE (Preliminary Result) Specimen Number: [id number] Sample Collection Date/Time: 01/31/2016 5:49 PM Specimen [...] * Address # 1 : [place] [phone] Procedures No relevant procedures performed. Immunizations No [...] responsibility of the patient or patient customer service representative teacher to confirm the list of medications with [...]
[2016-11-01] MEDS: NORMAL SALINE 1,000 ML IV SCH ×2 (14:57→22:29)
--- NOTE | 2016-11-01 15:03 | NUR ---
REPORT GIVEN TO [facility].
--- NOTE | 2016-11-01 15:15 | NUR ---
ADMIT PT TRANSFERRED TO MEDICAL UNIT VIA . [facility].
[2016-11-01 15:18] VITALS: Ht 165.1 cm; Wt 52.0 kg
[2016-11-01 15:31] VITALS: BP 107/62; PULSE 112; RESP 14; TEMP 97.8; O2SAT 98
--- NOTE | 2016-11-01 15:36 | NUR ---
ADMISSION PT ADMITTED TO ROOM 153 VIA WHEELCHAIR FROM ED AT 1515. PT IS A&OX3, UP WITH NO ASSIST, LOW FALL. PT DENIES SOA BUT REPORTS NAUSEA AND PAIN. PRN PAIN MEDS GIVEN IN ED. PT REPORTS PAIN IN ABDOMEN AND GRIMACES WHEN PUSHED ON LOWER QUADRANTS. PT ORIENTED TO HOSPITAL BED AND ROOM. AWAITING NEW ORDERS.
[2016-11-01 16:43] VITALS: PULSE 110; RESP 14; O2SAT 98
[2016-11-01 18:07] LABS: BLOOD, URINE 2+ (NEGATIVE); COLOR,URINE YELLOW (YELLOW); LEUKOCYTE ESTERASE ,URINE NEGATIVE (NEGATIVE); NITRITE,URINE NEGATIVE (NEGATIVE); UROBILINOGEN,URINE 0.2 EU/DL (NORMAL)
[2016-11-01 18:18] LABS: BACTERIA,URINE TRACE (NEGATIVE); RBC,URINE 0-1 /HPF (0-3); SQUAMOUS EPITHELIAL CELL,UR 0-5; WBC,URINE 0-1 /HPF (0-5); YEAST,URINE 1+ (NEGATIVE)
[2016-11-01] MEDS: METOCLOPRAMIDE 10mg/2ml INJECTION IV PRN (19:12)
[2016-11-01] MEDS: DiphenhydrAMINE 25 MG CAPSULE PO PRN (19:12)
[2016-11-01] MEDS: HYDROCODONE/APAP 5 mg/325 mg TABLET PO PRN (19:12)
[2016-11-01] MEDS: ONDANSETRON 4mg/2ml INJECTION IV PRN ×2 (19:12→22:59)
[2016-11-01] MEDS: MORPHINE SULFATE 2 MG SYRINGE IV PRN (19:13)
--- NOTE | 2016-11-01 20:31 | HPF ---
CHIEF COMPLAINT Nausea, vomiting, abdominal pain. HISTORY OF PRESENT ILLNESS Patient is a 26-year-old female here today with chief complaint of acute onset of nausea, vomiting and abdominal pain that started about 2 o'clock this morning. She just couldn't hold things down. She feels tired. Her blood sugar has been waxing and waning, 250-270 at home lately. She says she is unable to afford going to the doctor's office for evaluation lately. Patient is a frequent admit to [facility] for DKA. PAST MEDICAL HISTORY 1. Type I diabetes mellitus needing insulin. 2. Chronic UTI. 3. Anxiety. 4. Depression. 5. Mood disorder. 6. Chronic abdominal pain/gastroparesis. PAST SURGICAL HISTORY 1. Appendectomy - August 2015. 2. x 2. 3. Urethral stent. 4. Groin abscess incision. 5. Cystoscopy for trabeculated bladder with mild catheter-associated cystitis. ALLERGIES Sodium hypochlorite. Adhesive tape. FAMILY HISTORY Father had heart attack. Grandparent had aortic aneurysm. Two sisters are healthy. Maternal great-grandfather had diabetes mellitus. SOCIAL HISTORY Patient is with two children. REVIEW OF SYSTEMS Denies fever, chills, headache, hematemesis or hematochezia. She complained of nausea and vomiting. Complained of itching which a typical symptom she always has when she comes in. PHYSICAL EXAM GENERAL: The patient is tearful because she is having nausea, belly pain and itching (a typical symptom she always presents with). NECK: Supple. CHEST: Lungs are clear. CARDIOVASCULAR: Regular rate and rhythm. ABDOMEN: Soft. Diffuse tenderness. No acute surgical abdomen, i.e., no rebound tenderness. Bowel sounds are normoactive. EXTREMITIES: No cyanosis, clubbing or edema. NEUROLOGIC: Grossly intact. LABORATORY CBC is unremarkable. ABG shows pH 7.29, po2 56, pco2 15, base excess -10, CO2 17. Creatinine 0.6, BUN 21. Glucose 419. Total bilirubin 1.40. Alkaline phosphatase 128. UA shows 3+ glucose, 2+ ketones, 2+ blood, trace bacteria, 1+ yeast. Specific gravity 1.025, pH 5.5. ASSESSMENT 1. Diabetic ketoacidosis - mild. 2. Abdominal pain. 3. Nausea and vomiting. 4. Type I diabetes needing insulin - poorly controlled. 5. Diffuse itching. PLAN Admit patient to [facility] under the care of Dr. Jean Yusuf. Patient received IV fluids. Monitor electrolytes closely. Continue IV fluids of normal saline for now - adjust later. Followup lab in the morning - CBC, CMP, ABG, magnesium. Start oral Benadryl p.r.n. itching. Will use morphine IV x 2 and convert patient back to oral medication, [place]. IV Zofran and IV Reglan for nausea. MTDD
[2016-11-01] MEDS: INSULIN ASPART 100 UNIT/ML SQ PRN (22:42)
[2016-11-01] MEDS: INSULIN GLARGINE 100 UNIT/ML SQ SCH (22:43)
[2016-11-01 23:25] VITALS: PULSE 100
[2016-11-02] VITALS: BP 112/75; PULSE 117; RESP 18; TEMP 98.8; O2SAT 98
[2016-11-02] MEDS: MORPHINE SULFATE 2 MG SYRINGE IV PRN ×3 (00:58→21:31)
--- NOTE | 2016-11-02 01:00 | NUR ---
PRN PT WAS GIVEN MORPHINE PER HER REQUEST. SHE WAS REPORTING ABDOMINAL PAIN 02/20. PT WAS TOLD THIS WAS HER LAST MORPHINE DOSE. MORPHINE WAS ORDERED X2 DOSES. PT STARTED CRYING. MORPHINE WAS GIVEN ASPER THE ORDER. WILL CONTINUE TO MONITOR.
[2016-11-02] MEDS: HYDROCODONE/APAP 5 mg/325 mg TABLET PO PRN ×4 (04:06→16:31)
[2016-11-02] MEDS: DiphenhydrAMINE 25 MG CAPSULE PO PRN ×3 (04:06→18:42)
[2016-11-02] MEDS: ONDANSETRON 4mg/2ml INJECTION IV PRN ×5 (04:06→21:32)
[2016-11-02] MEDS: NORMAL SALINE 1,000 ML IV SCH (05:22)
[2016-11-02 05:30] LABS: HCT - HEMATOCRIT 35.7 % (36-46); HGB - HEMOGLOBIN 12.2 GM/DL (12-16); MEAN CORPUSCULAR HGB 29.2 UUG (26-34); MEAN CORPUSCULAR HGB CONC(MCHC 34.2 GM/DL (31-37); MEAN CORPUSCULAR VOLUME 85.4 UM3 (80-100); MEAN PLATELET VOLUME 9.5 UM3 (9.4-12.4); RED BLOOD COUNT 4.18 M/MM3 (4.00-5.20); WBC - WHITE BLOOD COUNT 9.2 T/MM3 (4.5-11.0)
[2016-11-02 05:36] LABS: ALBUMIN 4.1 G/DL (3.5-5.0); ALBUMIN/GLOBULIN RATIO 1.6 RATIO (1.1-2.2); ALKALINE PHOSPHATASE 98 U/L (38-126); ALT (SGPT) 39 U/L (9-52); ANION GAP 21 MEQ/L (5-15); AST (SGOT) 16 U/L (14-36); BUN/CREATININE RATIO 26 RATIO (6-26); CALCIUM 9.3 MG/DL (8.4-10.2); CHLORIDE 109 MEQ/L (98-107); CO2 - CARBON DIOXIDE 11 MEQ/L (22-30); CREATININE 0.5 MG/DL (0.7-1.2); GLOMERULAR FILTRATION RATE 149; GLUCOSE 185 MG/DL (65-110); MAGNESIUM 1.8 MG/DL (1.6-2.3); POTASSIUM 4.2 MEQ/L (3.6-5); SODIUM 141 MEQ/L (134-144); TOTAL PROTEIN 6.7 G/DL (6.3-8.2)
[2016-11-02 06:17] LABS: BAND NEUTROPHILS # 0.1 T/MM3; LYMPHOCYTES # (MANUAL) 1.3 T/MM3 (1-4.8); MONOCYTES # (MANUAL) 0.1 T/MM3 (0-0.8); NEUTROPHILS #(MANUAL)-ABSOLUTE 7.7 T/MM3 (1.8-7.7); TOTAL CELLS COUNTED 100 %
[2016-11-02] MEDS ORDERED: SODIUM BICARBONATE 50 MEQ in D5W 1,000 ML IV SCH (06:45)
[2016-11-02] MEDS ORDERED: D5-1/2 NS KCL 20 MEQ 1,000 ML IV SCH (06:45)
[2016-11-02 07:10] VITALS: BP 132/92; PULSE 117; RESP 14; TEMP 97.8; O2SAT 100
--- NOTE | 2016-11-02 07:16 | NUR ---
SUMMARY PT SLEPT ON AND OFF THIS SHIFT. HERE IN THE MORNING AND SAW THE PT. NEW IV FLUID ORDER GIVEN. PT WAS GIVEN ZOFRAN FOR NAUSEA, PAIN MEDICATION AND BENADRYL FOR ITCHING. ON IV FLUIDS THAT SHE IS TOLERATING WELL.
[2016-11-02] MEDS: INSULIN ASPART 100 UNIT/ML SQ PRN ×4 (07:32→22:07)
[2016-11-02 07:33] VITALS: PULSE 112
[2016-11-02] MEDS: 1/2 NS IV SCH ×2 (07:45→17:01)
[2016-11-02] MEDS: D5 IV SCH ×2 (07:45→17:01)
[2016-11-02] MEDS: SODIUM BICARBONATE IV SCH ×2 (07:45→17:01)
[2016-11-02] MEDS: POTASSIUM CHLORIDE IV SCH ×2 (07:45→17:01)
[2016-11-02] MEDS: INSULIN ASPART 100 UNIT/ML SQ SCH ×3 (08:00→18:42)
[2016-11-02] MEDS: INSULIN GLARGINE 100 UNIT/ML SQ SCH ×2 (08:14→22:03)
--- NOTE | 2016-11-02 08:26 | PNF ---
DATE 11/02/2016 MELANI Sellers was lying in her bed in room 153 this morning when I saw her. She was tearful, complaining of generalized body achiness, diffuse itching. She cannot urinate. I spoke with the nurse who took care of the patient overnight. Patient is very emotional. Typically she will not complain until a person goes into her room. PHYSICAL EXAMINATION VITAL SIGNS: Vital signs are fairly stable. GENERAL: She is tearful. I tried to reassure her that she is on the right course, and she is doing better. NECK: Supple. LUNGS: Clear. CARDIOVASCULAR: Regular rate and rhythm. ABDOMEN: Soft. She does complain of diffuse tenderness. Bowel sounds normoactive. EXTREMITIES: No edema. NEUROLOGIC: Grossly intact. LABORATORY DATA Electrolytes were normal. CO2 is 11. ABG 7.29. Base excess is -14. CBC looks normal. ASSESSMENT 1. Diabetic ketoacidosis. 2. Type 1 diabetic, poorly controlled due to lack of compliance. 3. Nausea and vomiting. 4. Diffuse itching. 5. Anxiety disorder. PLAN Add sodium bicarbonate to the patient's IV fluids this morning. Change IV fluids to D5 half-normal with 10 mEq of potassium with 1 amp of bicarb to run at 150 mL an hour for now. Followup BMP in the afternoon at 12 o'clock today. MTDD
--- NOTE | 2016-11-02 09:41 | NUR ---
Breakfast insulin Patient refused to eat breakfast due to nausea. Patient refused morning Novolog, stating 'I know I'll drop low.' Will continue to monitor.
[2016-11-02] MEDS: METOCLOPRAMIDE 10mg/2ml INJECTION IV PRN ×2 (10:40→18:41)
--- NOTE | 2016-11-02 11:08 | NUR ---
CM CM IN TO VISIT PT. CM EXPLAINED ROLE AND PROVIDED CONTACT INFORMATION. PT DENIES HOME NEEDS AND IS AWARE TO CALL CM SHOULD NEEDS ARISE.
[2016-11-02 12:10] LABS: ANION GAP 22 MEQ/L (5-15); BUN/CREATININE RATIO 20 RATIO (6-26); CALCIUM 9.6 MG/DL (8.4-10.2); CHLORIDE 106 MEQ/L (98-107); CO2 - CARBON DIOXIDE 11 MEQ/L (22-30); CREATININE 0.5 MG/DL (0.7-1.2); GLOMERULAR FILTRATION RATE 149; GLUCOSE 271 MG/DL (65-110); POTASSIUM 4.1 MEQ/L (3.6-5); SODIUM 139 MEQ/L (134-144)
--- NOTE | 2016-11-02 14:46 | NUR ---
LUNCH INSULIN PT REFUSED LUNCH, REFUSED SCHEDULED NOVOLOG, STATING 'MY STOMACH HURTS AND I DON'T WANT TO EAT.' WILL CONTINUE TO MONITOR.
[2016-11-02] MEDS: PANTOPRAZOLE 40mg INJECTION IV SCH (16:30)
[2016-11-02 16:39] VITALS: BP 147/77; PULSE 112; RESP 18; TEMP 98.2; O2SAT 100
[2016-11-02 17:57] LABS: ANION GAP 20 MEQ/L (5-15); BUN/CREATININE RATIO 16 RATIO (6-26); CALCIUM 9.7 MG/DL (8.4-10.2); CHLORIDE 105 MEQ/L (98-107); CO2 - CARBON DIOXIDE 12 MEQ/L (22-30); CREATININE 0.5 MG/DL (0.7-1.2); GLOMERULAR FILTRATION RATE 149; GLUCOSE 241 MG/DL (65-110); SODIUM 137 MEQ/L (134-144)
--- NOTE | 2016-11-02 19:23 | NUR ---
SHIFT SUMMARY PT ALERT AND ORIENTED X3. PT ON RA, DENIES SOA. PT RATES PAIN 7/10 AT THIS TIME, PRN MORPHINE AND NORCO ADMINISTERED THIS SHIFT. PT HAS HAD EMESIS FREQUENTLY THROUGHOUT TODAY, BROWN-TINGED. PRN ZOFRAN AND REGLAN ADMINISTERED. UP AD JANIA, STEADY ON FEET. ADEQUATE URINE OUTPUT. IVF INFUSING ORDERED INTO RIGHT AC. PT ABLE TO MAKE NEEDS KNOWN. CALL LIGHT WITHIN REACH.
--- NOTE | 2016-11-02 20:01 | NUR ---
STUDENT CHARTING REVIEWED BY THIS NURSE.
--- NOTE | 2016-11-02 21:35 | NUR ---
PRN PT WAS GIVEN IV PAIN MEDICATION FOR PAIN AND ZOFRAN FOR NAUSEA. WILL CONTINUE TO MONITOR.
[2016-11-03] MEDS: D5 IV SCH ×3 (02:26→14:50)
[2016-11-03] MEDS: POTASSIUM CHLORIDE IV SCH ×3 (02:26→14:50)
[2016-11-03] MEDS: 1/2 NS IV SCH ×3 (02:26→14:50)
[2016-11-03] MEDS: SODIUM BICARBONATE IV SCH ×3 (02:26→14:50)
[2016-11-03] MEDS: METOCLOPRAMIDE 10mg/2ml INJECTION IV PRN ×3 (02:26→18:42)
[2016-11-03] MEDS: HYDROCODONE/APAP 5 mg/325 mg TABLET PO PRN ×5 (02:27→19:03)
[2016-11-03] MEDS: MORPHINE SULFATE 2 MG SYRINGE IV PRN ×5 (03:29→22:27)
[2016-11-03 04:10] VITALS: BP 134/84; PULSE 104; RESP 18; TEMP 97.4; O2SAT 100
[2016-11-03] MEDS: ONDANSETRON 4mg/2ml INJECTION IV PRN ×3 (05:17→17:12)
[2016-11-03 05:47] LABS: ANION GAP 16 MEQ/L (5-15); BUN/CREATININE RATIO 18 RATIO (6-26); CHLORIDE 102 MEQ/L (98-107); CO2 - CARBON DIOXIDE 21 MEQ/L (22-30); CREATININE 0.4 MG/DL (0.7-1.2); GLOMERULAR FILTRATION RATE 193; GLUCOSE 225 MG/DL (65-110); POTASSIUM 3.5 MEQ/L (3.6-5); SODIUM 139 MEQ/L (134-144)
[2016-11-03] MEDS ORDERED: POTASSIUM CHLORIDE 20 MEQ TABLET PO ONE (06:30)
--- NOTE | 2016-11-03 07:09 | NUR ---
SUMMARY PT SLEEPING AT THE MOMENT. WAS GIVEN PAIN AND NAUSEA MEDICATION SEVERAL TIMES THIS SHIFT. PT ALERT AND ORIENTED. UP AD JANIA. ON IV FLUID THAT SHE TOLERATES WELL. PT WAS EDUCATED ABT CALL LIGHT USE AND PT SAFETY. HAS BEEN CRYING SEVERAL TIME SAYING THAT SHE HAS ABDOMINAL PAIN OR NAUSEA. PT VOICED THAT SHE DOESN'T LIKE THE PAIN PILLS BECAUSE THEY DON'T HELP WITH PAIN. SHE SAID SHE PREFER IV PAIN MEDICATION. THIS NURSE TOLD HER SHE CAN TALK TO THE DOCTOR IN THE MORNING WHEN HE COME TO DO HIS ROUNDS. PT WAS SEEN BY THE DOCTOR THIS MORNING. NEW ORDERS RECEIVED.
[2016-11-03] MEDS: POTASSIUM CHLORIDE 10 MEQ in WATER FOR INJECTION 100 ML IV SCH ×4 (07:44→10:56)
[2016-11-03] MEDS ORDERED: NORMAL SALINE 500 ML IV PRN (07:45)
[2016-11-03] MEDS: DiphenhydrAMINE 25 MG CAPSULE PO PRN ×2 (07:47→17:11)
[2016-11-03 07:59] VITALS: BP 152/96; PULSE 110; RESP 16; TEMP 96.8; O2SAT 99
[2016-11-03] MEDS: PANTOPRAZOLE 40mg INJECTION IV SCH (08:17)
[2016-11-03] MEDS: INSULIN GLARGINE 100 UNIT/ML SQ SCH ×2 (08:17→21:16)
[2016-11-03] MEDS: INSULIN ASPART 100 UNIT/ML SQ SCH ×3 (08:17→18:42)
[2016-11-03 09:57] VITALS: PULSE 110
[2016-11-03] MEDS: INSULIN ASPART 100 UNIT/ML SQ PRN ×2 (12:13→21:17)
[2016-11-03 17:02] VITALS: BP 106/72; PULSE 115; RESP 16; TEMP 98.9; O2SAT 96
[2016-11-03] MEDS: D5-1/2 NS KCL 20 MEQ 1,000 ML IV SCH (17:14)
--- NOTE | 2016-11-03 19:51 | NUR ---
SHIFT SUMMARY PT ALERT AND ORIENTED X3. PT ON RA, DENIES SOA. THIS SHIFT, PT HAS MOSTLY RATED PAIN BETWEEN 7-8/10. PRN MORPHINE AND NORCO ADMINISTERED, SEE EMAR. PT REPORTS N/V, DECREASED FREQUENCY SINCE YESTERDAY. PRN ZOFRAN AND REGLAN ADMINISTERED, SEE EMAR. PT UP AD JANIA, STEADY ON FEET. ADEQUATE URINE OUTPUT. IVF INFUSING ORDERED INTO RIGHT FOREARM. PT ABLE TO MAKE NEEDS KNOWN. CALL LIGHT WITHIN REACH.
[2016-11-04] VITALS: BP 126/87; PULSE 101; RESP 16; TEMP 98.1; O2SAT 99
[2016-11-04] MEDS: HYDROCODONE/APAP 5 mg/325 mg TABLET PO PRN ×3 (01:55→19:44)
[2016-11-04] MEDS: ONDANSETRON 4mg/2ml INJECTION IV PRN ×3 (01:56→16:14)
[2016-11-04] MEDS: D5-1/2 NS KCL 20 MEQ 1,000 ML IV SCH ×3 (01:56→18:57)
[2016-11-04] MEDS: MORPHINE SULFATE 2 MG SYRINGE IV PRN ×5 (02:57→21:12)
[2016-11-04] MEDS: INSULIN ASPART 100 UNIT/ML SQ PRN ×2 (06:13→12:41)
--- NOTE | 2016-11-04 06:29 | NUR ---
SUMMARY PT SLEEPING AT THE MOMENT. ALERT AND ORIENTED. WAS GIVEN PRN PAIN MEDICATION AND NAUSEA MEDICATION SEVERAL TIMES THIS SHIFT. PT REQUESTED TO BE WOKE UP FOR PRN IV PAIN MEDICATION. THIS NURSE EDUCATED HER ABT THE PRN MEDICATION. PT VOICED THAT SHE IS FEELING WEAK, SLEEPY AND DIZZY. WAS EDUCATED IT'S DUE TO THE MEDICATIONS THAT SHE WAS GETTING. SHE STARTED CRYING SAYING THAT SHE IS DYING. FAMILY WAS HERE TO VISIT HER AT THE BEGINNING OF THE SHIFT.
[2016-11-04 07:47] VITALS: BP 137/93; PULSE 110; RESP 12; TEMP 97.7; O2SAT 98
[2016-11-04] MEDS: METOCLOPRAMIDE 10mg/2ml INJECTION IV PRN ×2 (10:02→18:43)
[2016-11-04] MEDS: PANTOPRAZOLE 40mg INJECTION IV SCH (10:02)
[2016-11-04] MEDS: INSULIN ASPART 100 UNIT/ML SQ SCH ×3 (10:03→18:43)
[2016-11-04] MEDS: INSULIN GLARGINE 100 UNIT/ML SQ SCH ×2 (10:06→21:11)
[2016-11-04 10:49] VITALS: PULSE 112
[2016-11-04] MEDS ORDERED: LIDOCAINE VISCOUS 2% Oral Soln 15ml UD ONE (11:05)
--- NOTE | 2016-11-04 11:46 | NUR ---
KAY VILLANUEVA VISITED PT. CM EXPLAINED ROLE AND PROVIDED CONTACT INFORMATION. PT DID NOT FEEL LIKE TALKING BUT PLANS TO RETURN HOME POST STAY AT [facility] [place]. PT WILL CONTACT CM IF NEEDS ARISE.
[2016-11-04 14:39] LABS: BLOOD, URINE 3+ (NEGATIVE); COLOR,URINE YELLOW (YELLOW); LEUKOCYTE ESTERASE ,URINE NEGATIVE (NEGATIVE); NITRITE,URINE NEGATIVE (NEGATIVE); UROBILINOGEN,URINE 0.2 EU/DL (NORMAL)
[2016-11-04 15:04] LABS: WBC CLUMPS,URINE FEW; WBC,URINE 20-30 /HPF (0-5)
[2016-11-04 15:05] LABS: BACTERIA,URINE 3+ (NEGATIVE)
[2016-11-04 16:11] VITALS: BP 102/69; PULSE 117; RESP 16; TEMP 98.2; O2SAT 96
--- NOTE | 2016-11-04 16:36 | DI ---
Indication: ITS.REASON: ABDOMINAL PAIN, N/V PROCEDURE: KUB W/UPRIGHT: Encounter: Initial Comparison: 04/18/2016 Findings: The included portions of the lung bases are clear. Heart size normal. No pleural effusion. There is scattered gas and stool in the abdomen without evidence of obstruction or free air. No soft tissue mass or organomegaly. No abnormal calcification. No definite bony destructive process. Impression: No evidence for obstruction or perforation. .
[2016-11-04] MEDS: CEFTRIAXONE 1 G in NORMAL SALINE 100 ML IV SCH (18:43)
--- NOTE | 2016-11-04 19:40 | NUR ---
SHIFT SUMMARY PT ALERT AND ORIENTED X3. PT ON RA, DENIES SOA. RATES PAIN 7-8/10, PRN MORPHINE AND NORCO ADMINISTERED. PRN ZOFRAN AND REGLAN ADMINISTERED FOR NAUSEA, PT DRY-HEAVED THROUGHOUT TODAY. PT ENCOURAGED TO TRY TO EAT/DRINK, PT REFUSED. PT ENCOURAGED TO SIT IN THE RECLINER TO CHANGE POSITIONS OR AMBULATE IN THE HALLWAY, REFUSED. PT REMAINED IN BED FOR MOST OF TODAY. UP AD JANIA TO RESTROOM. ADEQUATE URINE OUTPUT. NO BM THIS SHIFT. IVF INFUSING ORDERED INTO RIGHT FOREARM. CALL LIGHT WITHIN REACH.
[2016-11-04 20:24] LABS: HCT - HEMATOCRIT 37.5 % (36-46); HGB - HEMOGLOBIN 13.7 GM/DL (12-16); MEAN CORPUSCULAR HGB 28.5 UUG (26-34); MEAN CORPUSCULAR HGB CONC(MCHC 36.5 GM/DL (31-37); MEAN CORPUSCULAR VOLUME 78.1 UM3 (80-100); MEAN PLATELET VOLUME 8.9 UM3 (9.4-12.4); WBC - WHITE BLOOD COUNT 7.3 T/MM3 (4.5-11.0)
[2016-11-04 20:35] LABS: ANION GAP 11 MEQ/L (5-15); BUN/CREATININE RATIO 13 RATIO (6-26); CALCIUM 9.1 MG/DL (8.4-10.2); CHLORIDE 95 MEQ/L (98-107); CO2 - CARBON DIOXIDE 25 MEQ/L (22-30); CREATININE 0.3 MG/DL (0.7-1.2); GLOMERULAR FILTRATION RATE 269; GLUCOSE 93 MG/DL (65-110); POTASSIUM 3.6 MEQ/L (3.6-5); SODIUM 131 MEQ/L (134-144)
[2016-11-04 20:52] LABS: BAND NEUTROPHILS # 0.2 T/MM3; EOSINOPHILS # (MANUAL) 0.2 T/MM3 (0-0.5); LYMPHOCYTES # (MANUAL) 1.8 T/MM3 (1-4.8); METAMYELOCYTES # 0.1 T/MM3; MONOCYTES # (MANUAL) 0.9 T/MM3 (0-0.8); REACTIVE LYMPHOCYTES # 0.1 T/MM3 (0-0); TOTAL CELLS COUNTED 100 %
[2016-11-04 22:00] VITALS: PULSE 117
[2016-11-04 23:27] VITALS: BP 128/90; PULSE 111; RESP 14; TEMP 98.5; O2SAT 98
[2016-11-05] MEDS: ONDANSETRON 4mg/2ml INJECTION IV PRN ×3 (00:42→19:47)
[2016-11-05] MEDS: MORPHINE SULFATE 2 MG SYRINGE IV PRN ×5 (02:20→19:47)
[2016-11-05] MEDS: D5-1/2 NS KCL 20 MEQ 1,000 ML IV SCH ×4 (04:11→22:18)
--- NOTE | 2016-11-05 04:33 | NUR ---
Status Pt complained of 7-8/10 diffuse abdominal pain and requested PRN morphine several times during shift. On reassessment pain did not decrease at all. Pt appeared to be able to rest comfortably, however. Also gave PRN [place] which patient stated was not vomited up. Pt stated that she had another episode of nausea. Gave Zofran as charted. Pt stated that Zofran was ineffective against nausea. IVF running as charted. Blood glucose stable so far during shift. No SS insulin given. Up ad esteban in room. Will continue to monitor.
[2016-11-05] MEDS: METOCLOPRAMIDE 10mg/2ml INJECTION IV SCH ×4 (05:34→22:18)
[2016-11-05] MEDS: INSULIN ASPART 100 UNIT/ML SQ PRN ×2 (05:49→17:10)
--- NOTE | 2016-11-05 05:52 | NUR ---
BGM Gave SS insulin for BGM of 154.
--- NOTE | 2016-11-05 07:18 | NUR ---
PRN PT REQUESTED PRN MORPHINE. PAIN AT 7/10. STATES SHE FEELS MISERABLE. GIVEN CHARTED.
[2016-11-05 08:45] VITALS: BP 127/94; PULSE 116; RESP 22; TEMP 95.5; O2SAT 99
[2016-11-05] MEDS: PANTOPRAZOLE 40mg INJECTION IV SCH (09:10)
[2016-11-05] MEDS: HYDROCODONE/APAP 5 mg/325 mg TABLET PO PRN ×3 (09:11→19:13)
[2016-11-05] MEDS: CEFTRIAXONE 1 G in NORMAL SALINE 100 ML IV SCH (09:11)
[2016-11-05] MEDS: INSULIN ASPART 100 UNIT/ML SQ SCH ×3 (09:27→17:09)
[2016-11-05] MEDS: INSULIN GLARGINE 100 UNIT/ML SQ SCH ×2 (09:27→22:18)
--- NOTE | 2016-11-05 09:30 | NUR ---
Status/Pain Pt alert and oriented. Pt continues to be tearful at times stating she is anxious and so tired of being here, of being sick. Vitals obtained and stable as charted. [place] 5 i tab PO given for c/o's abdominal pain rated 7/10. Zofran 4 mg IV given for c/o's nausea. Pt has beef broth only for breakfast. Novolog 2.5 units given as ordered. Will continue to monitor.
[2016-11-05] MEDS ORDERED: IOHEXOL 300 MG/ML 75ml INJECTION ONE (09:32)
[2016-11-05] MEDS ORDERED: SALINE FLUSH 10ml SYRINGE ONE (09:32)
[2016-11-05] MEDS ORDERED: NORMAL SALINE 100 ML ONE (09:32)
[2016-11-05 09:39] VITALS: PULSE 111
[2016-11-05 09:43] LABS: ANION GAP 11 MEQ/L (5-15); BUN/CREATININE RATIO 17 RATIO (6-26); CALCIUM 9.1 MG/DL (8.4-10.2); CHLORIDE 99 MEQ/L (98-107); CO2 - CARBON DIOXIDE 23 MEQ/L (22-30); CREATININE 0.3 MG/DL (0.7-1.2); GLOMERULAR FILTRATION RATE 269; GLUCOSE 145 MG/DL (65-110); MAGNESIUM 1.4 MG/DL (1.6-2.3); POTASSIUM 3.9 MEQ/L (3.6-5); SODIUM 133 MEQ/L (134-144)
--- NOTE | 2016-11-05 11:18 | DI ---
Indication: ITS.REASON: abdominal pain PROCEDURE: CT ABD/PELVIS W/CONTRAST ONLY: Encounter: Initial Comparison: CT abdomen and pelvis dated April 12, 2016 Technique: Axial CT images were performed through the abdomen and pelvis after the administration of intravenous contrast. Coronal and sagittal two-dimensional reformats. Automated Exposure Control and Iterative Reconstruction dose reducing techniques were utilized. Contrast: Omnipaque 300 67 mL Findings: The lung bases are clear. The liver is normal. Gallbladder is unremarkable. The spleen, pancreas and adrenal glands are within normal limits. The kidneys are normal. No abdominal or pelvic adenopathy. Distended bladder is thin walled. Uterus and ovaries are normal for age. No significant free pelvic fluid. No evidence of a bowel obstruction. Prior appendectomy. Bone windows are unchanged. There is a narrow angle of takeoff of the SMA from the aorta and mild prominence of the left renal vein before it traverses through this area of narrowing. There is no significant upstream dilatation of the duodenum however. The appearance is similar on prior studies. The aortic SMA angle is approximately 31 degrees (normal range 38 to 65 degrees). Impression: 1. Distended bladder, otherwise no acute disease process seen. 2. Narrowing of the aortic SMA angle with mild compression of the left renal vein. This is often asymptomatic however clinical correlation is recommended for any evidence of hematuria and left flank pain that could represent "nutcracker" syndrome. Additionally recommend clinical correlation for any evidence of pain with eating that could be due to superior mesenteric artery syndrome with compression of the duodenum. .
--- NOTE | 2016-11-05 11:44 | PNF ---
DATE 11/05/2016 SUBJECTIVE Verito was lying in bed in Room 153 on the medical floor this morning when I saw her on rounding. She seemed pretty quiet initially, but as soon as I walked into the room Verito started crying, complaining of abdominal pain diffusely and nausea and vomiting. She is not eating and basically is dry heaving at this time. I spoke with the nurse who took care of Verito last night and also this morning. Patient appeared quiet but as soon as a staff member goes into the room patient started crying and complaining of abdominal pain. This is typical of Verito over the last six different admissions , both through Dr. Pedraza(her previous PCP) and also through the hospitalist program-- similar presentation has been documented. PHYSICAL EXAMINATION VITAL SIGNS: Blood pressure 137/93. Pulse 110. Temperature 97.7. Respiration 12. O2 sat 98% on room air. GENERAL: Once again, patient looks comfortable until I enter the room and then she starts crying. NECK: Supple. LUNGS: Clear to auscultation bilaterally . CARDIOVASCULAR: Tachycardic. ABDOMEN: Soft. Minimal tenderness in the hypogastric region. Bowel sounds normoactive. : No flank tenderness. EXTREMITIES: No edema. NEUROLOGIC: Grossly intact. LABORATORY DATA No lab this morning. We just ordered for some lab a little while ago. ASSESSMENT 1. Diabetic ketoacidosis. This has totally resolved over the last couple of days. 2. Type 1 diabetic, poorly controlled due to lack of compliance. Blood sugar actually getting better in the last 24-48 hours. 3. Nausea and vomiting with dry heaving because she is not eating, nothing there to vomit. Patient is not actually having any nausea or vomiting at this moment just dry heavings. 4. Diffuse itching. This is typical. She is not asking for Benadryl at this time. 5. Anxiety disorder. 6. Urinary tract infection, not otherwise specified. Patient on IV Rocephin. 7. Tachycardia. 8. Hyponatremia (mild). F/U with BMP today. PLAN 1. We did a KUB yesterday. Totally normal. 2. We're going order for at CT abdomen and pelvis today. I told Verito if the CT abdomen and pelvis is normal, we may be able send her home tomorrow. 3. ENCOURAGE her to ambulate multiple times today. [facility]
[2016-11-05 15:26] VITALS: BP 121/84; PULSE 122; RESP 12; TEMP 98; O2SAT 100
--- NOTE | 2016-11-05 17:18 | NUR ---
SUMMARY PT AMBULATES IN HALLS MULTIPLE TIMES TODAY. ALSO AMBULATES DOWN TO [place] WITH FAMILY. PT CONTINUES TEARFUL AT TIMES STATING SHE IS "SO TIRED OF THIS" AND SHE IS "GETTING EMOTIONAL" AND THAT SHE "DOESN'T KNOW WHAT TO DO ABOUT IT." THIS IS WHEN PT IS ENCOURAGED TO GO TO SIT IN THE [place] AREA WITH HER MOTHER. PT DOES THIS FOR A SHORT TIME AND THEN COMES BACK AND NAPS. VITALS CONTINUE STABLE CHARTED. PT CONTINUES TO ASK FOR MORPHINE AND NORCO FOR HER ABDOMINAL PAIN WHICH IS GIVEN-SEE EMAR. PT ASKED WHEN SHE LAST HAD A BM. PT STATES "A COUPLE DAYS AGO." WHEN ASKED IF SHE NEEDS SOMETHING TO HELP HER HAVE ANOTHER ONE, PT STATES "NO, I DON'T HAVE TO GO." PT ENCOURAGED/TAUGHT THAT WITH THE MORPHINE AND NORCO WE WILL NEED TO WATCH THIS CLOSELY. PT LIES IN BED WITH ARM COVERING EYES. IS COOPERATIVE BUT NOT VERY ENGAGED. PT DENIES FURTHER NEEDS. NO NEW CONCERNS. SLIDING SCALE INSULIN GIVEN FOR ELEVATED [id number] BEFORE SUPPER. WILL CONTINUE TO MONITOR.
[2016-11-05 19:53] VITALS: PULSE 122
[2016-11-06] VITALS (7 sets, daily range): BP systolic 90–146; BP diastolic 66–100; PULSE 98–107; RESP 14–18; TEMP 96.5–97.9; O2SAT 98–100
[2016-11-06] MEDS: MORPHINE SULFATE 2 MG SYRINGE IV PRN ×4 (02:53→15:29)
--- NOTE | 2016-11-06 05:31 | NUR ---
Status Pt appeared to rest well during night. Requested morphine twice so far during shift. Given as charted with no reported difference in pain upon reassessment. Pt stated at 0200, "I feel so anxious. What can I do?" Pt reported that she walked to cafeteria in the evening and felt weak. Encouraged pt to request assistance from nursing if ambulation makes her tired. BP of 90/66 at 0000. Recheck two hours later revealed 124/85. Will continue to monitor.
[2016-11-06] MEDS: METOCLOPRAMIDE 10mg/2ml INJECTION IV SCH ×3 (05:57→17:11)
[2016-11-06] MEDS: D5-1/2 NS KCL 20 MEQ 1,000 ML IV SCH (06:47)
[2016-11-06] MEDS: ONDANSETRON 4mg/2ml INJECTION IV PRN (09:27)
[2016-11-06] MEDS: PANTOPRAZOLE 40mg INJECTION IV SCH (09:27)
[2016-11-06] MEDS: CEFTRIAXONE 1 G in NORMAL SALINE 100 ML IV SCH (09:28)
[2016-11-06] MEDS: INSULIN GLARGINE 100 UNIT/ML SQ SCH (09:35)
[2016-11-06] MEDS: INSULIN ASPART 100 UNIT/ML SQ SCH ×3 (09:35→17:13)
--- NOTE | 2016-11-06 09:46 | NUR ---
PT REFUSED TO ORDER BREAKFAST THIS MORNING. GIVEN IV ZOFRAN FOR NAUSEA
--- NOTE | 2016-11-06 10:06 | NUR ---
UPDATED DR GANDHI ON PT STATUS. INFORMED HIM PT REFUSED BREAKFAST AND HAD 100CC OF CLEAR FLUID IN EMESIS BAG. PT QUIET OUTSIDE OF HER ROOM AND SOON RN OR STAFF WALK IN PT STARTS MOANING AND CRYING OUT.
[2016-11-06] MEDS: MAGNESIUM SULFATE 1 G in D5W 100 ML IV SCH ×2 (10:48→12:11)
--- NOTE | 2016-11-06 11:56 | NUR ---
ENCOURAGED PT TO DRINK BOOST BREEZE. PT STATES "I DO NOT WANT TO DO ANYTHING RIGHT NOW." INFORMED HER I WOULD COME BACK WITH HER INSULIN WHEN SHE HAS DECIDED IF SHE WILL EAT LUNCH AND I WOULD BE BACK TO CHECK ON HER IN 1 HR. WILL CONTINUE TO MONITOR.
[2016-11-06 13:02] LABS: ANION GAP 15 MEQ/L (5-15); BUN/CREATININE RATIO 10 RATIO (6-26); CALCIUM 9.2 MG/DL (8.4-10.2); CHLORIDE 104 MEQ/L (98-107); CO2 - CARBON DIOXIDE 20 MEQ/L (22-30); CREATININE 0.4 MG/DL (0.7-1.2); GLOMERULAR FILTRATION RATE 193; GLUCOSE 167 MG/DL (65-110); POTASSIUM 4.1 MEQ/L (3.6-5); SODIUM 139 MEQ/L (134-144)
[2016-11-06] MEDS: HYDROCODONE/APAP 5 mg/325 mg TABLET PO PRN (13:16)
--- NOTE | 2016-11-06 15:31 | CONSPD ---
Consultation Info Date DATE: 11/06/16 TIME: 15:26 Date of Consultation: Nov 07, 2016 Attending Physician: Paramjit Reason for Consultation: Abnormal CT scan HPI - Adult Date DATE: 11/06/16 TIME: 15:26 General History of Present Illness Per DR. Crooks Past Medical History Past Medical History Patient's Medical History: (1) Nephrolithiasis (2) DKA (diabetic ketoacidoses) (3) Anxiety (4) Depression (5) Panic attacks (6) Suicidal ideation (7) Recurrent UTI (urinary tract infection) (8) Pyelonephritis (9) Mood disorder (10) Narcotic abuse, episodic (11) Cannabis use, unspecified with anxiety disorder (12) Gastroparesis due to DM Surgical History Patient's Surgical History: 04/23/2016 - Cystoscopy by Dr. Pelletier: Trabeculated bladder with mild catheter-associated cystitis Appendectomy in August 2015- [place] x 2 Ureteral stents - Tandoc Groin abscess excision Current Medications Home Meds Active Scripts Hydrocodone/Acetaminophen ([place] 5-325 Tablet) 5-325 Tablet, 1 TAB PO Q6H Y for PAIN, #10 TAB 0 Refills Prov:EDSON PEREZ Rhonda HARTN 10/14/16 Reported Medications Ondansetron (Ondansetron Odt) 4 Mg Tab.rapdis, 4 MG PO Q4-6H Y for NAUSEA &/OR VOMITING 11/01/16 Midodrine HCl (Midodrine HCl) 5 Mg Tablet, 5 MG PO TID 09/01/16 Insulin Aspart (Novolog) 100 Unit/Ml Inj, 10 UNIT SQ TIDWM 01/08/16 Insulin Glargine,Hum.rec.anlog (Lantus) 100 Unit/Ml Inj, 12 UNIT SQ BID 01/08/16 Allergies: Coded Allergies: sodium hypochlorite solution (Verified Allergy, Mild, Hives (Bleach), 11/01) adhesive (Verified Allergy, Unknown, BLISTERING, 11/01/16) ADHESIVE TAPE Family History Family History: Father had a heart attack. Grandparent has an aortic aneurysm. Mother, 2 Sisters - healthy. Maternal Grandmother, Maternal Great-grandmother - diabetes mellitus Social History Smoking Status: Never smoker Does patient use chewing tobac: No Substance Use Type: former substance user, marijuana Alcohol Intake: occasionally Marital Status: Sexuality: male partner Housing: house Household Members: spouse, children Number of Children: 2 Current Occupational Status: unemployed Grade (if student): Graduated HS Advance Directives: No DPOA for Healthcare Only GS Review of Systems Ear, Nose, and Throat REPORTS vision problems (wears glasses) Gastrointestional REPORTS nausea, REPORTS constipation, REPORTS other (GERD) Psychiatric REPORTS anxiety, REPORTS depression, REPORTS emotional instability 10-point Review of Systems otherwise negative except HPI GS Physical Exam Vital Signs Date Time Temp Pulse Resp B/P Pulse Ox O2 Delivery O2 Flow Rate FiO2 11/06/16 15:13 97.1 105 18 102/72 100 Room Air Height (Feet): 5 Height (Inches): 5.00 Weight (Kilograms): 52.000 BMI 18.7 Laboratory Laboratory Tests 11/04/16 20:11 11/05/16 09:18 11/06/16 12:46 Laboratory Tests 11/04/16 20:11 DEON VEGA APRN Nov 06, 2016 15:31
[2016-11-06] MEDS ORDERED: HYDR-4246 PO (16:42)
[2016-11-06] MEDS ORDERED: ONDA4TAB10 PO (16:42)
--- NOTE | 2016-11-06 16:52 | NUR ---
Late Entry for Nutrition Risk R/T adult BMI <18.6 Diet Order: 1800 calorie consistent carb diet Based on [address] Jeor with 1.3 activity factor and 1.0 injury factor caloric needs ~ 1621 to maintain current weight. Pt stated she was nauseated on 11/05 and was having difficulty keeping anything down. RD offered pt Boost Breeze as she has had in previous hospitalizations. Pt agreed to this and was able to drink the entire carton. RD notified [employer] to send Boost Breeze with each meal in addition to [address] returned to see pt on 11/06 to find pt stating she would be dismissed today and would eat supper at home. Pt reports she was able to drink Boost Breeze at lunch and had eaten a sandwich this afternoon. RD available at ext [phone]
--- NOTE | 2016-11-06 17:38 | NUR ---
DISCHARGE PT DISCHARGED TO HOME WITH SELF CARE. PT ALERT AND ORIENTED X3. GIVEN NEW SCRIPTS SIGNED BY DR GANDHI. PT HAS DISCHARGE INSTRUCTIONS AND BELONGINGS WITH HER. 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 PT AMBULATORY. PTS MOTHER TO PICK PT UP. THANKED PT FOR CHOOSING [facility].
--- NOTE | 2016-11-07 08:25 | DSF ---
FINAL DIAGNOSES 1. Acute diabetic ketoacidosis. 2. Type 2 diabetes poorly controlled due to lack of compliance. 3. Hyponatremia - treated and resolved. 4. Nausea and vomiting/dry heaving - treated and resolved. 5. Diffuse itching, chronic. 6. Anxiety disorder. 7. Urinary tract infection not otherwise specified which was treated with IV Rocephin throughout the duration of her hospitalization for about four days or so. 5. Tachycardia, resolved. 6. CT of the abdomen and pelvis that showed a distended bladder and also maybe narrowing of the aortic SMA angle with mild compression of the left renal vein. The patient does not have any symptoms consistent with that at this time. REASON FOR ADMISSION The patient is a 26-year-old female here on the day of admission, 11/01/2016, with chief complaint of acute onset of nausea, vomiting and abdominal pain that started about 2 o'clock in the morning on the day of admission. She just could not hold anything down. She felt tired. Her blood sugar was waxing and waning at home between 250 and 270. She has been unable to afford going to the doctor's office for evaluation lately. PHYSICAL EXAMINATION She is quite tearful because she said she had nausea, belly pain and itching. Abdomen had some tenderness but not an acute surgical abdomen with no rebound tenderness and bowel sounds normoactive. LABORATORY VBG showed pH of 7.29, pCO2 32, pO2 56 with a base excess of -10.1 CBC unremarkable. Creatinine 0.6. BUN 35. GFR 121. Glucose 419. CO2 of 17. Total bilirubin 1.40. Alkaline phosphatase 128. Liver function tests otherwise normal. test negative. HOSPITAL COURSE The patient was admitted to the general medical floor under the care of Dr. Jean Yusuf. The patient was made NPO initially, started on IV fluids. The patient was also started on IV Rocephin for urinary tract infection. The patient's symptoms would wax and wane. It was difficult to tell whether she was getting better or not. She did have hypomagnesemia. This was treated with IV mag sulfate. She also had a low sodium which was essentially resolved with IV fluids. A CT abdomen and pelvis was done with results as noted above. This patient was medically stable enough to dismiss to home today. She was active and cheerful as well as ambulating well, eating well without any difficulty and dismissed to home on 11/06/2016. DISMISSAL MEDICATION 1. NovoLog 10 units subcu t.i.d. with meals. 2. Lantus 12 units subcu b.i.d. 3. Midodrine 5 mg one tablet p.o. t.i.d. 4. Zofran 4 mg one tablet every 4-6 hours p.r.n. 5. Hydrocodone 5/325 mg one tablet q.6h. p.r.n., #60 prescribed with no refills. FOLLOWUP Patient will follow with Dr. Yusuf in one week or sooner. The patient will also be scheduled to see Dr. Crooks to follow up on the abnormal CT for now. [facility]
--- NOTE | 2016-11-11 12:30 | NUR ---
CM CM LVM
--- NOTE | 2016-11-13 15:06 | NUR ---
CM CM LVM
--- NOTE | 2016-11-14 15:00 | NUR ---
CM CM LVM
== END 2016-11-06 17:38 | disposition home or self-care (01) | DRG 638 ==
LOC: ED 12:52 → MED 14:41 → EDHOLD 14:41
PROVIDERS: ADMIT Family Medicine; ATTEND Family Medicine
DX: E10.10 Type 1 diabetes mellitus with ketoacidosis without coma (principal); N39.0 Urinary tract infection, site not specified; E87.1 Hypo-osmolality and hyponatremia; L29.9 Pruritus, unspecified; K31.84 Gastroparesis; Z91.19 Patient's noncompliance with other medical treatment and regimen; R11.2 Nausea with vomiting, unspecified; F41.9 Anxiety disorder, unspecified; R00.0 Tachycardia, unspecified; Z79.4 Long term (current) use of insulin
CPT/HCPCS: 36415; 36416; 36600; 80048; 80053; 81001; 81025; 82803; 82948; 83690; 83735; 84703; 85007; 85025; 85027; 85379; 87077; 87086; 87186; 96361; 96374; 96375

== ENCOUNTER 2017-02-19 13:26 | Observation (INO) ==
[2017-02-19 14:03] VITALS: BMI 19.1
[2017-02-19] MEDS ORDERED: 1/2 NS with KCL 20mEq 1,000 ML IV SCH ×2 (14:15→16:15)
--- NOTE | 2017-02-19 14:51 | History and Physical ---
CHIEF COMPLAINT Nausea and vomiting. HISTORY OF PRESENT ILLNESS Patient is a 26-year-old female who presented to the office with the chief complaint of several day history of nausea and vomiting. She is having trouble holding her food down. She feels really weak and exhausted, fatigued and feels like she is going to pass out. She does occasionally have chills. She went to [facility] I believe last and then she went to [facility] last Friday with the same thing. She is just not feeling better, she feels so weak she feels like she is going pass out. She is stressed out from multiple walks of life, challenges, her cousin recently and the is scheduled for Friday. Blood sugar has been running between 120 to 180 or less, occasionally 200s. Her blood sugar is better controlled compared to her previous numbers. ALLERGIES SODIUM HYPOCHLORITE SOLUTION and ADHESIVE TAPE. CURRENT MEDICATIONS 1. Aspirin 81 mg one tablet daily. 2. [place] 10/325 mg one tablet twice a day p.r.n. pain. 3. Lantus 9 units twice daily. 4. Lispro varies between 5 to 6 units with meals. 5. Lorazepam 0.5 mg one tablet t.i.d. p.r.n. anxiety. 6. Reglan 10 mg one tablet every 4-6 hours p.r.n. nausea. 7. Midodrine 5 mg one tablet three times a day. 8. Zofran 4 mg one tablet every 4-6 hours p.r.n. 9. Venlafaxine 75 mg one tablet daily. 10. Prochlorperazine 10 mg one tablet twice daily. REVIEW OF SYSTEMS She is complaining of chills. No fever, no hemoptysis, no coughing spells. She does complain of mild abdominal discomfort but her main problem is as listed under HPI. PAST MEDICAL HISTORY 1. Anxiety disorder. 2. Type 1 diabetes. 3. Chronic vomiting. 4. Chronic diarrhea. 5. Chronic abdominal pain. 6. Diabetic gastroparesis. 7. Dehydration. 8. Multiple hospitalizations. FAMILY HISTORY Aortic aneurysm - maternal uncle. Myocardial infarction - dad. Diabetes mellitus. SOCIAL HISTORY The patient is with two children. She has never smoked cigarettes. PHYSICAL EXAMINATION GENERAL: Patient looks comfortable although she looks ill. VITALS: Blood pressure 104/68 with a pulse of 84. Temperature 97.3. NECK: Supple. LUNGS: Clear. CARDIOVASCULAR: Regular rate and rhythm. ABDOMEN: Soft. Patient has minimal tenderness diffusely. Bowel sounds normoactive. EXTREMITIES: No cyanosis, no clubbing, no significant edema. ASSESSMENT 1. Dehydration. 2. Generalized weakness. 3. Fatigue. 4. Nausea and vomiting. 5. Physical exhaustion. 6. Chills. PLAN Admit patient to [facility] on outpatient basis for IV fluid replacement, IV antiemetic, and lab as follows, including CBC, CMP, magnesium and sed rate are pending. MTDD
[2017-02-19] MEDS: MIDODRINE 5 MG TABLET PO SCH ×2 (15:27→21:35)
[2017-02-19] MEDS: LORazepam 0.5 MG TABLET PO PRN ×2 (15:28→21:29)
[2017-02-19] MEDS: HYDROCODONE/APAP 10 MG/325 MG TABLET PO PRN ×2 (15:28→21:29)
[2017-02-19] MEDS: ONDANSETRON 4 MG/2 ML INJECTION IVP PRN (17:43)
[2017-02-19] MEDS: INSULIN ASPART 100unit/ml INJECTION SQ SCH (17:45)
[2017-02-19] MEDS ORDERED: METOCLOPRAMIDE 10mg/2ml INJECTION IVP PRN (19:23)
[2017-02-19] MEDS ORDERED: DiphenhydrAMINE 25 MG CAPSULE PO PRN (19:24)
[2017-02-19] MEDS ORDERED: LORazepam 0.5 MG TABLET PO SCH (19:30)
[2017-02-19] MEDS: INSULIN GLARGINE 100unit/ml INJECTION SQ SCH (21:28)
[2017-02-19] MEDS: 1/2 NS with KCL 20mEq 1,000 ML IV SCH (22:05)
[2017-02-20] MEDS: LORazepam 0.5 MG TABLET PO PRN ×2 (03:24→14:10)
[2017-02-20] MEDS: HYDROCODONE/APAP 10 MG/325 MG TABLET PO PRN (06:26)
[2017-02-20] MEDS: 1/2 NS with KCL 20mEq 1,000 ML IV SCH ×2 (06:28→14:42)
[2017-02-20] MEDS ORDERED: CETIRIZINE 10 MG TABLET PO SCH (09:00)
[2017-02-20] MEDS ORDERED: FLUTICASONE NASAL SPRAY 50mcg EA NOSTRIL SCH (09:00)
[2017-02-20] MEDS: INSULIN ASPART 100unit/ml INJECTION SQ SCH ×3 (09:58→17:35)
[2017-02-20] MEDS: MIDODRINE 5 MG TABLET PO SCH ×2 (09:58→14:58)
[2017-02-20] MEDS: INSULIN GLARGINE 100unit/ml INJECTION SQ SCH (09:59)
[2017-02-20] MEDS: ONDANSETRON 4 MG/2 ML INJECTION IVP PRN (14:10)
[2017-02-20 16:06] VITALS: O2SAT 100
[2017-02-20 16:42] VITALS: BP 129/98; PULSE 117; RESP 16; TEMP 99.5
[2017-02-20] MEDS ORDERED: HYDROCODONE/APAP 10 MG/325 MG TABLET PO PRN ×2 (17:31→18:39)
[2017-02-20] MEDS ORDERED: LORazepam 0.5 MG TABLET PO PRN (18:39)
[2017-02-20] MEDS ORDERED: ONDANSETRON ODT 4 MG TABLET PO PRN (18:39)
[2017-02-20] MEDS ORDERED: INSULIN GLARGINE 100unit/ml INJECTION SQ SCH (21:00)
[2017-02-20] MEDS ORDERED: MIDODRINE 5 MG TABLET PO SCH (21:00)
[2017-02-21] MEDS ORDERED: INSULIN ASPART 100unit/ml INJECTION SQ SCH (08:00)
[2017-02-21] MEDS ORDERED: ASPIRIN 81 MG CHEWABLE TABLET PO SCH (09:00)
== END 2017-02-20 19:00 | disposition home or self-care (01) ==
LOC: MED
PROVIDERS: ADMIT Family Medicine; ATTEND Family Medicine

== ENCOUNTER 2017-03-15 09:42 | Inpatient (IN) ==
--- NOTE | 2017-03-15 09:57 | Emergency Department Report ---
Nausea/Vomiting/Diarrhea HPI - General Chief complaint: Nausea/Vomiting/Diarrhea Stated complaint: 600bs,vomiting Time Seen by Provider: 03/15/17 09:55 Source: patient Mode of arrival: ambulatory Limitations: no limitations - History of Present Illness HPI Narrative: Patient with IDDM type 1 who presents often with vomiting and abdominal pain comes in with vomiting starting last evening at 9 pm. Her blood sugars have been high. Took some [place] last night for her recurring abdominal pain. Her sugars have been over 600 since last night. She took 7U Novalog and 10U Lantus this morning after her sugar was high. She says her vomit is brown and she thinks that it might have blood in it, but no red streaks or clots. She also has two loose stools. Denies fever or dysuria. MD complaint: nausea, vomiting, diarrhea, abdominal pain Onset (ago): hour(s) Description of Vomiting: watery Description of Diarrhea: other (loose) Location of pain: diffuse Radiation: diffuse Severity: similar to previous episodes Severity scale (1-10): 8 Quality: cramping, sharp Consistency: constant Relieving factors: none Exacerbating factors: eating Context: other (hx DKA) Associated symptoms: loss of appetite, malaise, nausea/vomiting, weakness - Related Data Home Medications Medication Instructions Recorded Confirmed Venlafaxine [Effexor] 75 mg PO DAILY 02/15/17 03/15/17 Hydrocodone/APAP 10/325 [[place] 1 tab PO TID PRN 03/15/17 03/15/17 10/325] Insulin Aspart [NovoLOG] 7 unit SQ TIDWM 03/15/17 03/15/17 Insulin Glargine,Hum.rec.anlog 10 unit SQ BID 03/15/17 03/15/17 [Lantus Solostar] LORazepam [Ativan] 0.5 mg PO TID PRN 03/15/17 03/15/17 Lisinopril [Prinivil] 10 mg PO DAILY 03/15/17 03/15/17 Metoclopramide [Reglan] 10 mg PO QID PRN 03/15/17 03/15/17 Midodrine [Proamatine] 5 mg PO TID 03/15/17 03/15/17 Previous Rx's Medication Instructions Recorded Ondansetron [Ondansetron Odt] 4 mg PO Q4-6H PRN #40 11/06/16 Prochlorperazine Maleate 10 mg PO QID PRN #45 tab 02/15/17 [Compazine] Allergies Allergy/AdvReac Type Severity Reaction Status Date / Time sodium hypochlorite solution Allergy Mild Hives Verified 03/15/17 09:57 (Bleach) adhesive Allergy Unknown BLISTERING Verified 03/15/17 09:57 Review of Systems Constitutional: Reports: weakness. Denies: fever, chills Eyes: Denies: eye pain, eye discharge ENT: Denies: ear pain, congestion Cardiovascular: Reports: palpitations. Denies: chest pain Respiratory: Denies: cough, dyspnea Gastrointestinal: Reports: abdominal pain, nausea, vomiting, diarrhea Genitourinary: Denies: urgency, dysuria Musculoskeletal: Denies: back pain Integumentary: Reports: pruritus. Denies: alopecia, change in pigmentation, non -healing lesions Neurological: Denies: headache Psychiatric: Denies: anxiety, depression Endocrine: Reports: fatigue Hematological/Lymphatic: Denies: easy bleeding, easy bruising Allergic/Immunologic: Denies: facial swelling, urticaria PFSH Patient Stated Medical History Diabetes Mellitus Type 2 Yes Other GI Yes: gastroenteritis Hx Kidney Stones Yes Hx Urinary Tract Infection Yes Other Yes: RETENTION Depression Yes Clinic Medical History (Last Updated 03/05/17 @ 14:49 by Jeromy Bruce MD) Diabetic nephropathy associated with type 1 diabetes mellitus (Chronic Medical ~ 11/2016) No longer on ramipril. Gastroparesis diabeticorum (Chronic Medical) Type 1 diabetes mellitus with hyperglycemia (Chronic Medical ~1995) Variable control due to gastroparesis in poor oral intake. However a bit more insulin for lunch and supper should be safe. 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 . stent placement on one of her urethra Family History: Family History (Last Reviewed 03/05/17 @ 14:28 by ANOOP Jiménez) Maternal Uncle Aortic aneurysm Father Myocardial infarction Unknown Diabetes mellitus - Social History Smoking status: Former smoker Substance use type: does not use Alcohol intake frequency: does not drink Physical Exam - Limitations Limitations: no limitations - General General appearance: alert, in distress - Normal Exams: Head:: Normocephalic without trauma Eyes:: Pupils are PERRLA w/ EOMI, No scleral icterus, irritation, or foreign bodies noted ENMT:: No facial trauma, nasal exudates, pharyngeal erythema, or exudates are noted Neck:: Full range of motion, without adenopathy, JVD, bruits or thyromegaly Chest/Respirations:: Clear all bentley, with good airflow, and symmetry bilaterally Cardiovascular:: Pulses 2+ all extremities, capillary refill, <2 seconds all extremities Abdomen:: Bowel sounds positive, no hepatosplenomegaly Lymphatic:: No lymphadenopathy Musculoskeletal:: No tenderness, or deformity noted Integumentary:: No rashes, hives, or bruising noted Neurological:: Patient is alert, and oriented Psychiatric:: appropriate attention, emotion and affect - ENT ENT exam: Present: mucous membranes dry - Cardiovascular Cardiovascular exam: Present: tachycardia. Absent: irregular rhythm - Abdominal Exam Abdominal exam: Present: soft, guarding, diminished bowel sounds. Absent: rebound, rigidity, trauma, incision, psoas sign, obturator sign, Hirsch's sign, Rovsing's sign, tenderness at McBurney's Point, mass Abdominal tenderness: Present: diffuse, moderate Course Course Narrative: Patient started on IV fluids and antiemetics while labs and CXR done. Patient has just taken insulin before coming to ER, so although her initial sugar was quite high, we waited to see how much it came down before ordering more. Meanwhile labs came back showing low CO2 on her metabolic profile. This was confirmed with venous blood gas along with urinary ketones, showing DKA as her diagnosis. PAtient will need to be admitted to the unit for further care. Discussed with hospitalist. - Consultations Consultation #1: Dr Becca Wyatt. Vital Signs Temperature 36.8 C 03/15/17 09:48 Pulse Rate 136 H 03/15/17 09:48 Respiratory Rate 24 03/15/17 09:48 Blood Pressure 103/60 03/15/17 09:48 Pulse Oximetry 100 03/15/17 09:48 Temperature 35.6 C L 03/19/17 19:54 Pulse Rate 96 03/19/17 19:54 Respiratory Rate 16 03/19/17 19:54 Blood Pressure 165/106 H 03/19/17 19:54 Pulse Oximetry 100 03/19/17 19:54 Nausea/Vomiting/Diarrhea - Differential Diagnosis Likely: gastroenteritis, dehydration - Medical Records Attestation: I reviewed the patient's medical records. - Lab Data Attestation: I reviewed the patient's lab results. Result diagrams: 03/18/17 20:22 03/19/17 06:36 Lab Results 03/15/17 03/15/17 03/15/17 Range/Units 10:24 10:24 12:05 WBC 19.3 H (4.5-11.0) T/MM3 RBC 4.72 (4.00-5.20) M/MM3 Hgb 13.5 (12-16) GM/DL Hct 38.3 (36-46) % MCV 81.1 (80-100) UM3 MCH 28.6 (26-34) UUG MCHC 35.2 (31-37) GM/DL RDW Std Deviation 37.2 (36.9-50.2) FL Plt Count 380 (130-400) T/MM3 MPV 9.6 (9.4-12.4) UM3 Immature Gran % (Auto) Not performed Neut % (Auto) Not performed Lymph % (Auto) Not performed [place] % (Auto) Not performed Eos % (Auto) Not performed Baso % (Auto) Not performed Neut # Not performed Lymph # Not performed Carson # Not performed Eos # Not performed Baso # Not performed Abs Immat Gran (auto) Not performed Neutrophils % (Manual) 87.0 H (33-66) % Band Neutrophils % 6.0 (0-6) % Lymphocytes % (Manual) 6.0 L (23-45) % Monocytes % (Manual) 1.0 (0-9.0) % Neutrophils # (Manual) 16.8 H (1.8-7.7) T/MM3 Band Neutrophils # 1.2 T/MM3 Lymphocytes # (Manual) 1.2 (1-4.8) T/MM3 Monocytes # (Manual) 0.2 (0-0.8) T/MM3 RBC Morph Comment Normal VBG pH (7.31-7.41) VBG pCO2 (40-52) MMHG VBG pO2 (40-52) MMHG VBG HCO3 (22-26) MEQ/L VBG Total CO2 MEQ/L VBG O2 Saturation % VBG Base Excess (-2.0-2.0) MMOL/L O2 Delivery Method Turbidity < 20 (0-20) Sodium 143 (134-144) MEQ/L Potassium 5.1 H (3.6-5) MEQ/L Chloride 94 L (98-107) MEQ/L Carbon Dioxide 17 L (22-30) MEQ/L Anion Gap 32 H (5-15) MEQ/L BUN 34.0 H (7-17) MG/DL Creatinine 0.8 (0.7-1.2) MG/DL GFR Calculation 87 BUN/Creatinine Ratio 43 H (6-26) RATIO Glucose 593 H (65-110) MG/DL Calculated Osmolality 310 H (261-280) MOSM/KG Calcium 10.8 H (8.4-10.2) MG/DL Total Bilirubin 1.10 (0.20-1.30) MG/DL Icterus Index < 2 (0-7) AST 27 (14-36) U/L ALT 57 H (9-52) U/L Alkaline Phosphatase 146 H (38-126) U/L Total Protein 8.4 H (6.3-8.2) G/DL Albumin 5.2 H (3.5-5.0) G/DL Globulin 3.2 (2.4-3.6) G/DL Albumin/Globulin Ratio 1.6 (1.1-2.2) RATIO Lipase 12 L (23-300) U/L Specimen Hemolysis 54 H (0-25) Ur Collection Type Urine, clean catch Urine Color Yellow (YELLOW) Urine Clarity Clear Urine pH 5.5 (5.0-8.0) Ur Specific [place] 1.020 (1.015-1.025) Urine Protein Trace A (NEGATIVE) Urine Glucose (UA) 3+ A (NEGATIVE) Urine Ketones 3+ A (NEGATIVE) Urine Occult Blood 2+ A (NEGATIVE) Urine Nitrate Negative (NEGATIVE) Urine Bilirubin 1+ A (NEGATIVE) Urine Urobilinogen 0.2 (NORMAL) EU/DL Ur Leukocyte Esterase Negative (NEGATIVE) Urine RBC 0-1 (0-3) /HPF Urine WBC 0-1 (0-5) /HPF Ur Squamous Epith Cells 0-5 Urine Bacteria Trace H (NEGATIVE) Ur Culture Indicated? Cult not indicated Urine Test (Negative) 03/15/17 03/15/17 Range/Units 12:05 12:53 WBC (4.5-11.0) T/MM3 RBC (4.00-5.20) M/MM3 Hgb (12-16) GM/DL Hct (36-46) % MCV (80-100) UM3 MCH (26-34) UUG MCHC (31-37) GM/DL RDW Std Deviation (36.9-50.2) FL Plt Count (130-400) T/MM3 MPV (9.4-12.4) UM3 Immature Gran % (Auto) Neut % (Auto) Lymph % (Auto) Carson % (Auto) Eos % (Auto) Baso % (Auto) Neut # Lymph # Carson # Eos # Baso # Abs Immat Gran (auto) Neutrophils % (Manual) (33-66) % Band Neutrophils % (0-6) % Lymphocytes % (Manual) (23-45) % Monocytes % (Manual) (0-9.0) % Neutrophils # (Manual) (1.8-7.7) T/MM3 Band Neutrophils # T/MM3 Lymphocytes # (Manual) (1-4.8) T/MM3 Monocytes # (Manual) (0-0.8) T/MM3 RBC Morph Comment VBG pH 7.300 L (7.31-7.41) VBG pCO2 46 (40-52) MMHG VBG pO2 24 L (40-52) MMHG VBG HCO3 23 (22-26) MEQ/L VBG Total CO2 24.0 MEQ/L VBG O2 Saturation 35.0 % VBG Base Excess -3.9 L (-2.0-2.0) MMOL/L O2 Delivery Method Room air Turbidity (0-20) Sodium (134-144) MEQ/L Potassium (3.6-5) MEQ/L Chloride (98-107) MEQ/L Carbon Dioxide (22-30) MEQ/L Anion Gap (5-15) MEQ/L BUN (7-17) MG/DL Creatinine (0.7-1.2) MG/DL GFR Calculation BUN/Creatinine Ratio (6-26) RATIO Glucose (65-110) MG/DL Calculated Osmolality (261-280) MOSM/KG Calcium (8.4-10.2) MG/DL Total Bilirubin (0.20-1.30) MG/DL Icterus Index (0-7) AST (14-36) U/L ALT (9-52) U/L Alkaline Phosphatase (38-126) U/L Total Protein (6.3-8.2) G/DL Albumin (3.5-5.0) G/DL Globulin (2.4-3.6) G/DL Albumin/Globulin Ratio (1.1-2.2) RATIO Lipase (23-300) U/L Specimen Hemolysis (0-25) Ur Collection Type Urine Color (YELLOW) Urine Clarity Urine pH (5.0-8.0) Ur Specific [place] (1.015-1.025) Urine Protein (NEGATIVE) Urine Glucose (UA) (NEGATIVE) Urine Ketones (NEGATIVE) Urine Occult Blood (NEGATIVE) Urine Nitrate (NEGATIVE) Urine Bilirubin (NEGATIVE) Urine Urobilinogen (NORMAL) EU/DL Ur Leukocyte Esterase (NEGATIVE) Urine RBC (0-3) /HPF Urine WBC (0-5) /HPF Ur Squamous Epith Cells Urine Bacteria (NEGATIVE) Ur Culture Indicated? Urine Test Negative (Negative) - Radiology Data Attestation: I reviewed the patient's radiology results. CXR -- no acute disease Critical Care Time Critical Care Time: Yes Total Critical Care Time: 30 Attestation: Critical care time due to diabetic ketoacidosis requiring admission to ICU. Time spend in doing history and physical, ordering labs and meds, interpreting labs results, talking to admitting doctor, and documentation Disposition Clinical Impression: DKA, Type 1 diabetes mellitus with hyperglycemia Disposition: 02 To [facility] Acute Care Condition: Critical - Seen By: physician
[2017-03-15] MEDS ORDERED: DiphenhydrAMINE 50 MG/ML INJECTION IVP ONE (10:07)
[2017-03-15] MEDS ORDERED: HYDROMORPHONE 2 MG/ML INJECTION IVP ONE ×2 (10:07→12:11)
[2017-03-15] MEDS ORDERED: NS 1,000 ML IV ONE ×2 (10:07→13:03)
[2017-03-15] MEDS ORDERED: ONDANSETRON 4 MG/2 ML INJECTION IVP ONE (10:07)
[2017-03-15] MEDS: SALINE FLUSH 10ml SYRINGE IVF PRN (10:24)
[2017-03-15] MEDS ORDERED: LORATADINE ODT 10 MG TABLET PO ONE (11:31)
[2017-03-15] MEDS ORDERED: PROCHLORPERAZINE 10 MG/2 ML INJECTION IVP ONE (12:12)
[2017-03-15] MEDS ORDERED: DEXTROSE 50% SYRINGE 50ml (1 AMP) IVP PRN (14:46)
[2017-03-15] MEDS ORDERED: INSULIN REGULAR, HUMAN 100 UNIT in NS 100 ML IV PRN (14:52)
[2017-03-15] MEDS ORDERED: PROCHLORPERAZINE 10 MG/2 ML INJECTION IVP PRN (15:02)
[2017-03-15] MEDS: ONDANSETRON 4 MG/2 ML INJECTION IVP PRN ×2 (15:28→22:06)
[2017-03-15] MEDS ORDERED: PANTOPRAZOLE 40 MG INJECTION IVP ONE (15:30)
[2017-03-15] MEDS: DiphenhydrAMINE 50 MG/ML INJECTION IVP PRN ×2 (15:34→22:07)
--- NOTE | 2017-03-15 15:52 | History & Physical Report ---
History of Present Illness Date: 03/15/17 Chief complaint: abdominal pain, nausea and vomiting, elevated blood sugar HPI: The patient is a 26-year-old female with history of type 1 diabetes since the age of 5. She has history of frequent, chronic abdominal pain. She stated that yesterday she was feeling okay but last night she started vomiting and developed abdominal pain. She states this is not uncommon for her. Initially emesis appeared normal but then towards and was looking like coffee grounds. She noticed no red blood. She denies having any history of black tarry stools. She states she has had coffee-ground emesis in the past. This morning, her blood sugar was over 600 at home. She gave herself her usual dose of Lantus 10 units this morning and 7 units of NovoLog prior to coming into the emergency room. In the ER the patient was found to have a blood sugar of 593 with a bicarbonate of 17 and anion gap of 32. White count was elevated at 19.3 with 6 bands and 87 neutrophils. Hemoglobin was 13.5 and platelet count 380. UA revealed 3+ glucose, 3+ ketones, 2+ blood, +1 bilirubin and trace bacteria. She was given 2 L of IV fluids. She complained of severe abdominal pain as well as complaining of itching after coming in contact with the bed sheets in the emergency room. She was given IV Benadryl and Claritin orally in the emergency room for itching. She was given IV Zofran and IV Compazine for nausea. She was given Dilaudid IV for pain 1 mg 2. I was contacted and asked to admit the patient for DKA. In the CCU, the patient is tearful and complaining of severe nausea, itching, and abdominal pain. She states her abdominal pain is typical for her when she has DKA. She denies any headache, neck pain, chest pain or pain elsewhere. She denies any shortness of breath. She has not had any fevers, chills or sweats. She states she has been taking her Lantus 10 units twice a day but has not been eating well and so she has not been taking her with meal insulin very often. She also admits she is not checking her blood sugars very often. Review of Systems Review of systems: The patient states that she has passed out 3 times in the past few weeks. She states she was just walking and talking and passed out. She states she has been taking her Midodrine. She admits she might of been dehydrated. Otherwise comprehensive review of systems is negative other than the above in history of present illness. [facility] Clinic Medical History (Last Updated 03/05/17 @ 14:49 by Jeromy Bruce MD) Diabetic nephropathy associated with type 1 diabetes mellitus (Chronic Medical ~ 11/2016) No longer on ramipril. Gastroparesis diabeticorum (Chronic Medical) Type 1 diabetes mellitus with hyperglycemia (Chronic Medical ~1995) Variable control due to gastroparesis in poor oral intake. However a bit more insulin for lunch and supper should be safe. 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 appendectomy. . 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 Medications Home Medications Medication Instructions Recorded Confirmed Type Venlafaxine [Effexor] 75 mg PO DAILY 02/15/17 03/15/17 History Hydrocodone/APAP 10/325 [[place] 1 tab PO TID PRN 03/15/17 03/15/17 History 10/325] Insulin Aspart [NovoLOG] 7 unit SQ TIDWM 03/15/17 03/15/17 History Insulin Glargine,Hum.rec.anlog 10 unit SQ BID 03/15/17 03/15/17 History [Lantus Solostar] LORazepam [Ativan] 0.5 mg PO TID PRN 03/15/17 03/15/17 History Lisinopril [Prinivil] 10 mg PO DAILY 03/15/17 03/15/17 History Metoclopramide [Reglan] 10 mg PO QID PRN 03/15/17 03/15/17 History Midodrine [Proamatine] 5 mg PO TID 03/15/17 03/15/17 History Allergies Allergy/AdvReac Type Severity Reaction Status Date / Time sodium hypochlorite solution Allergy Mild Hives Verified 03/15/17 09:57 (Bleach) adhesive Allergy Unknown BLISTERING Verified 03/15/17 09:57 Exam Vital Signs: Temperature 98.5 F 03/15/17 15:00 Pulse Rate 126 H 03/15/17 15:00 Respiratory Rate 24 03/15/17 15:00 Blood Pressure 119/64 03/15/17 15:00 Pulse Oximetry 100 03/15/17 15:00 Height/Weight/BMI: Weight 1425 kg Comments: Currently blood pressure is 105/66 with heart rate of 121 and O2 sat of 90%. She has been afebrile. In the ER blood pressure was as low as 73/46 prior to IV fluids. GEN-alert, oriented, tearful and moaning in pain initially. Currently she is calm and appears more comfortable HEENT-pupils equal round and reactive, sclerae anicteric, oropharynx is moist NECK-supple CV-tachycardic rate with irregular rhythm. Appears to have sinus tach on EKG CHEST-clear to auscultation bilaterally ABD-soft, mild tenderness, no rebound or guarding, hypoactive bowel sounds, no distention -no S[place] EXT-no edema NEURO-no focal deficits SKIN-warm and dry without rashes. She appears to have some scars on her lower legs. Results - Labs CBC & Chem 7: 03/15/17 14:59 03/15/17 14:59 Labs: VBG shows pH of 7.3, PCO2 46, PO2 24 Lipase is 12 Calcium 10.8 - Imaging and Cardiology Chest x-ray Status: image reviewed by me (by my read shows no acute cardiopulmonary abnormalities) Assessment and Plan GI Prophylaxis: Protonix Resuscitation Status: Full Code Assessment and Plan: Impression DKA Poorly controlled type 1 diabetes Diabetic gastroparesis Abdominal pain Emesis with nausea Possible hematemesis/possible Vesna-Abreu tear Pruritus-possibly secondary to intolerance to detergents for her bed sheets Leukocytosis hydration Chronic narcotic use Plan Admit to CCU as a full inpatient. DKA protocol Zofran and Reglan for nausea Protonix drip and serial hemoglobin for possible upper GI bleed. Will also check gastric occult. Recheck CBC and basic metabolic profile in the morning Benadryl for itching Greater than 1 hour critical care time spent seeing and evaluating the patient for DKA Sepsis Assessment - Evaluation Sepsis screening result: No Definite Risk Hospital Course Summary Disclaimer: The visit summary below is not to be considered part of the above Progress Note.
[2017-03-15] MEDS: HYDROMORPHONE 2 MG/ML INJECTION IVP PRN ×2 (16:37→19:18)
[2017-03-15] MEDS: METOCLOPRAMIDE 10mg/2ml INJECTION IVP PRN (19:23)
[2017-03-15] MEDS: PANTOPRAZOLE IV 80 MG in NS 250ml 250 ML IV SCH (20:07)
[2017-03-15] MEDS: INSULIN GLARGINE 100unit/ml INJECTION SQ SCH (20:12)
[2017-03-15] MEDS: MIDODRINE 5 MG TABLET PO SCH (22:02)
[2017-03-15] MEDS: INSULIN ASPART 100unit/ml INJECTION SQ PRN (22:15)
[2017-03-16] MEDS: HYDROMORPHONE 2 MG/ML INJECTION IVP PRN ×7 (00:01→15:36)
[2017-03-16] MEDS: INSULIN ASPART 100unit/ml INJECTION SQ PRN ×2 (00:10→12:27)
[2017-03-16] MEDS: 1/2 NS 1,000 ML IV SCH ×4 (00:48→18:44)
[2017-03-16] MEDS: METOCLOPRAMIDE 10mg/2ml INJECTION IVP PRN (03:53)
[2017-03-16] MEDS: DiphenhydrAMINE 50 MG/ML INJECTION IVP PRN ×4 (03:55→21:17)
[2017-03-16] MEDS: PANTOPRAZOLE IV 80 MG in NS 250ml 250 ML IV SCH (05:42)
--- NOTE | 2017-03-16 09:08 | XRay Report ---
Indication: leukocytosis with left shift, ? infection PROCEDURE: XR chest 1V: Encounter: Initial Comparison: January 16, 2016 Findings: The lungs are stable in appearance without new focal airspace consolidation. There is no pleural effusion or pneumothorax. The heart size, pulmonary vascularity and mediastinal contours are unchanged. IMPRESSION: Stable appearance of the chest without acute cardiopulmonary disease. .
[2017-03-16] MEDS: ONDANSETRON 4 MG/2 ML INJECTION IVP PRN ×2 (09:44→19:46)
--- NOTE | 2017-03-16 10:11 | Progress Note ---
Subjective: The patient's DKA has resolved and blood sugars have improved and are in the 120s to 160 range. She continues to complain of her usual abdominal pain that she has with DKA. She is vomiting up bilious looking emesis. No red blood or coffee grounds are seen. She continues to complain of itching all over but without rash or hives. She denies pain elsewhere. She is intermittently moaning and crying from pain, nausea and itching. Objective Vital signs: Temperature 99.2 F 03/16/17 07:56 Pulse Rate 112 H 03/16/17 06:31 Respiratory Rate 16 03/16/17 06:31 Blood Pressure 130/91 H 03/16/17 06:31 Pulse Oximetry 100 03/16/17 06:31 Height/Weight/BMI: Weight 49.1 kg Comments: I&O total 3737/1200 GEN-alert, tearful, moaning at times, active green emesis (nonbloody) HEENT-sclera anicteric, oropharynx is moist NECK-supple CV-borderline tachycardic rate with irregular rhythm CHEST-to auscultation bilaterally ABD-soft, nondistended, tender throughout but no rebound or guarding, bladder feels distended, hypoactive bowel sounds -no Serrano EXT-no edema NEURO-no focal deficits SKIN-warm and dry and without rashes Results - Labs CBC & Chem 7: 03/16/17 04:02 03/16/17 04:02 Labs: Phosphorus is low at 2.0. Magnesium normal at 1.7. White count is 15.4 down from 19.3. 0 bands. B 12, iron and folate are all pending Assessment and Plan GI Prophylaxis: Protonix Resuscitation Status: Full Code Assessment and Plan: 03/16/2017 Impression DKA-resolved Poorly controlled type 1 diabetes Diabetic gastroparesis Abdominal pain-likely secondary to gastroparesis. Abdominal exam is benign. Emesis with nausea-nausea and vomiting continues despite resolution of DKA. Likely related to diabetic gastroparesis Patient reported coffee-ground emesis-here emesis appears nonbloody-gastric occult was negative last evening Pruritus-possibly secondary to intolerance to detergents for her bed sheets Leukocytosis without fever or bandemia-likely related to DKA, white count is improving. Dehydration-proving Hypokalemia-replace IV Hypophosphatemia-replace IV Chronic narcotic use Plan Currently on her usual home dose of Lantus twice a day with good blood sugar control. Will start her usual insulin with meals when she is able to eat. Zofran and Reglan for nausea DC Protonix drip and start IV Protonix Recheck CBC and basic metabolic profile in the morning Transfer to medical floor. Sepsis Assessment - Evaluation Sepsis screening result: No Definite Risk Hospital Course Summary Disclaimer: The visit summary below is not to be considered part of the above Progress Note. Hospital Course: 03/15/2017 Impression DKA Poorly controlled type 1 diabetes Diabetic gastroparesis Abdominal pain Emesis with nausea Possible hematemesis/possible Vesna-Abreu tear Pruritus-possibly secondary to intolerance to detergents for her bed sheets Leukocytosis hydration Chronic narcotic use Plan Admit to CCU as a full inpatient. DKA protocol Zofran and Reglan for nausea Protonix drip and serial hemoglobin for possible upper GI bleed. Will also check gastric occult. Recheck CBC and basic metabolic profile in the morning Benadryl for itching Greater than 1 hour critical care time spent seeing and evaluating the patient for DKA
[2017-03-16] MEDS ORDERED: POTASSIUM PHOSPHATE (mMol) 20 MMOL in NS 500ml 500 ML IV ONE (10:15)
[2017-03-16] MEDS: MIDODRINE 5 MG TABLET PO SCH ×3 (10:45→16:20)
[2017-03-16] MEDS: INSULIN ASPART 100unit/ml INJECTION SQ SCH ×3 (10:46→19:45)
[2017-03-16] MEDS: VENLAFAXINE 75 MG TABLET PO SCH (10:46)
[2017-03-16] MEDS: INSULIN GLARGINE 100unit/ml INJECTION SQ SCH ×2 (13:02→21:16)
[2017-03-16] MEDS: METOCLOPRAMIDE 10mg/2ml INJECTION IVP SCH ×3 (15:08→21:17)
[2017-03-16] MEDS: SALINE FLUSH 10ml SYRINGE IVF PRN (17:44)
[2017-03-16] MEDS ORDERED: HYDROMORPHONE 2 MG/ML INJECTION IVP ONE (17:46)
[2017-03-16] MEDS: HYDROCODONE/APAP 5mg/325mg TABLET PO PRN (21:18)
[2017-03-17] MEDS: METOCLOPRAMIDE 10mg/2ml INJECTION IVP SCH ×2 (03:04→08:01)
[2017-03-17] MEDS: 1/2 NS 1,000 ML IV SCH (03:04)
[2017-03-17] MEDS: DiphenhydrAMINE 50 MG/ML INJECTION IVP PRN ×2 (03:22→09:27)
[2017-03-17] MEDS: HYDROCODONE/APAP 5mg/325mg TABLET PO PRN ×2 (03:22→09:38)
[2017-03-17] MEDS: ONDANSETRON 4 MG/2 ML INJECTION IVP PRN ×3 (05:55→22:56)
[2017-03-17] MEDS: PANTOPRAZOLE 40 MG INJECTION IVP SCH (08:00)
[2017-03-17] MEDS: INSULIN GLARGINE 100unit/ml INJECTION SQ SCH ×2 (09:27→22:18)
[2017-03-17] MEDS: PHOSPHORUS 250 MG TABLET PO SCH ×5 (09:31→22:17)
[2017-03-17] MEDS: VENLAFAXINE 75 MG TABLET PO SCH (09:31)
[2017-03-17] MEDS: INSULIN ASPART 100unit/ml INJECTION SQ SCH ×3 (09:32→18:12)
[2017-03-17] MEDS: 1/2 NS with KCL 20mEq 1,000 ML IV SCH (11:47)
[2017-03-17] MEDS: MIDODRINE 5 MG TABLET PO SCH ×4 (11:51→15:23)
--- NOTE | 2017-03-17 13:09 | Progress Note ---
<Coby Lynne V - Last Filed: 03/17/17 12:58> Subjective: Verito is seen this afternoon while resting in bed. She complains of having persistent nausea and abdominal discomfort. She has not had any emesis today. Noted BP slightly elevated 145/98 and she does take Midodrine. Fasting blood sugar this morning was 153. Objective Vital signs: Temperature 97.7 F 03/17/17 11:00 Pulse Rate 105 H 03/17/17 11:00 Respiratory Rate 16 03/17/17 11:00 Blood Pressure 145/98 H 03/17/17 11:00 Pulse Oximetry 98 03/17/17 11:00 Height/Weight/BMI: Weight 52.5 kg - Constitutional Present: no acute distress, well nourished, well developed - Routine HEENT Exam Eye: Present: EOMI ENT: Present: mucous membranes moist, dentition normal - Routine Respiratory Exam Present: CTA bilaterally. Absent: wheezes - Routine Cardiovascular Exam Present: RRR, S1, S2. Absent: murmur - Routine Abdominal Exam Present: soft, non distended. Absent: normoactive bowel sounds (hypoactive), tenderness - Routine Extremities Exam Present: pulses intact - Routine Skin Exam Present: dry, warm - Routine Neurological Exam Present: alert, oriented X3, CN II-XII intact - Routine Lymphatic Exam Lymphatic: Absent: adenopathy - Routine Psychiatric Exam Present: normal affect Results - Labs CBC & Chem 7: 03/17/17 05:44 03/17/17 05:44 Assessment and Plan Assessment and Plan: 03/17/2017 Impression DKA-resolved Poorly controlled type 1 diabetes Diabetic gastroparesis Abdominal pain-likely secondary to gastroparesis. Abdominal exam is benign. Emesis with nausea-nausea and vomiting continues despite resolution of DKA. Likely related to diabetic gastroparesis Patient reported coffee-ground emesis-here emesis appears nonbloody-gastric occult was negative last evening Pruritus-possibly secondary to intolerance to detergents for her bed sheets Leukocytosis without fever or bandemia-likely related to DKA, white count is improving. Dehydration-proving Hypokalemia-replace IV Hypophosphatemia-replace IV Chronic narcotic use Plan Will change Reglan to oral tabs 10 milligrams every 6 hours for nausea and gastroparesis Change Benadryl to as needed orally Continue with Protonix for GI protection Intake today has been poor. Continue to monitor blood sugars. Resume NovoLog 7 units with meals and Lantus 10 units at bedtime Asked nursing staff to obtain orthostatic vital signs, Midodrine may need to be held, Diastolic BP elevated. Monitor electrolytes, Need to replace Phos and Mg. Will discuss further orders with Dr Wyatt Sepsis Assessment - Evaluation Sepsis screening result: No Definite Risk Hospital Course Summary Disclaimer: The visit summary below is not to be considered part of the above Progress Note. Hospital Course: 03/15/2017 Impression DKA Poorly controlled type 1 diabetes Diabetic gastroparesis Abdominal pain Emesis with nausea Possible hematemesis/possible Vesna-Abreu tear Pruritus-possibly secondary to intolerance to detergents for her bed sheets Leukocytosis hydration Chronic narcotic use Plan Admit to CCU as a full inpatient. DKA protocol Zofran and Reglan for nausea Protonix drip and serial hemoglobin for possible upper GI bleed. Will also check gastric occult. Recheck CBC and basic metabolic profile in the morning Benadryl for itching Greater than 1 hour critical care time spent seeing and evaluating the patient for DKA 03/17/17 Will change Reglan to oral tabs 10 milligrams every 6 hours for nausea and gastroparesis Change Benadryl to as needed orally Continue with Protonix for GI protection Intake today has been poor. Continue to monitor blood sugars. Resume NovoLog 7 units with meals and Lantus 10 units at bedtime Asked nursing staff to obtain orthostatic vital signs, Midodrine may need to be held, Diastolic BP elevated. Monitor electrolytes, Need to replace Phos and Mg. Will discuss further orders with Dr Wyatt <Becca Wyatt - Last Filed: 03/17/17 15:02> Objective Vital signs: Temperature 97.7 F 03/17/17 11:00 Pulse Rate 105 H 03/17/17 11:00 Respiratory Rate 16 03/17/17 11:00 Blood Pressure 145/98 H 03/17/17 11:00 Pulse Oximetry 98 03/17/17 11:00 Height/Weight/BMI: Weight 52.5 kg Results - Labs CBC & Chem 7: 03/17/17 05:44 03/17/17 05:44 Assessment and Plan Assessment and Plan: 03/17/2017-I reviewed this chart, the patient history, and the DIRECTOR INTERNAL AUDIT's/PA's documented findings as above. We discussed and formulated the assessment and plan as above with the additions below.-Dr. Wyatt Overall, the patient looks better today. She continues to have nausea, but is not vomiting. She is able to keep down some food today. She still complains of abdominal pain and states she is on Lortab 10 at home and usually takes one twice a day. She also states she is on Ativan 0.5 mg 3 times a day as needed. She states she does not take it very often but feels very anxious now. The patient chronically takes Midrin for lightheadedness with standing and states that she is not feeling lightheaded today. On exam she is alert and oriented and in no acute distress. Chest is clear to auscultation. Cardiovascular reveals a regular rate and rhythm. Abdomen is soft with mild tenderness. Bladder feels very full and after my examination she immediately states she needs to go to the bathroom. Upper abdomen is less tender. Extremities are free of edema. Will replace magnesium IV. Recheck magnesium tomorrow. Blood sugars are elevated today. I've asked the nurse to call me her blood sugar 2 hours after lunch today. Agree with continuing Lantus at her current dose. We'll give NovoLog 7 units with meals. We'll see if Toradol 30 mg times one is helpful. Thereafter, can try 15 mg every 12 hours as needed. Continue IV fluids, but will slow rate to 50 ML's an hour. Hospital Course Summary Disclaimer: The visit summary below is not to be considered part of the above Progress Note.
[2017-03-17] MEDS ORDERED: MAGNESIUM OXIDE 400 MG TABLET PO SCH (13:15)
[2017-03-17] MEDS ORDERED: KETOROLAC 30 MG/ML INJECTION IVP PRN (14:11)
[2017-03-17] MEDS ORDERED: KETOROLAC 15 MG/ML INJECTION IVP PRN (14:31)
[2017-03-17] MEDS: MAGNESIUM SULFATE 1gm PREMIX 1 GM/100 ML BAG IV SCH ×2 (15:10→16:50)
[2017-03-17] MEDS: LORazepam 0.5 MG TABLET PO PRN ×2 (15:48→22:17)
[2017-03-17] MEDS: DiphenhydrAMINE 25 MG CAPSULE PO PRN (15:48)
[2017-03-17] MEDS ORDERED: INSULIN ASPART 100unit/ml INJECTION SQ ONE (17:15)
[2017-03-17] MEDS: HYDROCODONE/APAP 10 MG/325 MG TABLET PO PRN (17:27)
[2017-03-17] MEDS: SALINE FLUSH 10ml SYRINGE IVF PRN (22:56)
[2017-03-18] MEDS: HYDROCODONE/APAP 10 MG/325 MG TABLET PO PRN ×2 (04:31→16:37)
[2017-03-18] MEDS: PHOSPHORUS 250 MG TABLET PO SCH ×5 (06:14→21:47)
[2017-03-18] MEDS: MIDODRINE 5 MG TABLET PO SCH ×3 (06:15→17:48)
[2017-03-18] MEDS: 1/2 NS with KCL 20mEq 1,000 ML IV SCH (06:25)
[2017-03-18] MEDS: LIDOCAINE 1% 2ml INJ 10 MG, POTASSIUM CHLORIDE INJ 10 MEQ in NS 100 ML IV SCH ×5 (09:25→22:58)
--- NOTE | 2017-03-18 10:04 | Progress Note ---
<Coby Lynne V - Last Filed: 03/18/17 10:00> Subjective: Verito is seen this morning for acute evaluation given hypokalemia. She complains of constant and persistane nausea with abdominal pain. She states that Wilson is not treating her pain and requests IV Dilaudid. She does not feel that Toradol helps. Objective Vital signs: Temperature 98.3 F 03/18/17 04:19 Pulse Rate 110 H 03/18/17 04:19 Respiratory Rate 18 03/18/17 04:19 Blood Pressure 140/104 H 03/18/17 04:19 Pulse Oximetry 98 03/18/17 04:19 Height/Weight/BMI: Weight 52.5 kg - Constitutional Present: no acute distress, well nourished, well developed - Routine HEENT Exam Eye: Present: EOMI ENT: Present: mucous membranes moist, dentition normal - Routine Respiratory Exam Present: CTA bilaterally. Absent: wheezes - Routine Cardiovascular Exam Present: RRR, S1, S2. Absent: murmur - Routine Abdominal Exam Present: soft, normoactive bowel sounds, non distended. Absent: tenderness - Routine Extremities Exam Present: normal capillary refill - Routine Back/Spine/Pelvis Exam Back/Spine: Present: full ROM - Routine Skin Exam Present: intact, dry, warm - Routine Neurological Exam Present: alert, oriented X3, CN II-XII intact - Routine Lymphatic Exam Lymphatic: Absent: adenopathy - Routine Psychiatric Exam Present: normal affect Results - Labs CBC & Chem 7: 03/18/17 04:07 03/18/17 04:07 Assessment and Plan Assessment and Plan: 03/18/17 Care will be returned to her PCP Dr Yusuf this morning Given significant drop in potassium, Started on IV potassium bolus supplementation Blood sugars appear to be better controlled. Recommend further pain and nausea management as per PCP Sepsis Assessment - Evaluation Sepsis screening result: No Definite Risk Hospital Course Summary Disclaimer: The visit summary below is not to be considered part of the above Progress Note. Hospital Course: 03/15/2017 Impression DKA Poorly controlled type 1 diabetes Diabetic gastroparesis Abdominal pain Emesis with nausea Possible hematemesis/possible Vesna-Abreu tear Pruritus-possibly secondary to intolerance to detergents for her bed sheets Leukocytosis hydration Chronic narcotic use Plan Admit to CCU as a full inpatient. DKA protocol Patrick for nausea Protonix drip and serial hemoglobin for possible upper GI bleed. Will also check gastric occult. Recheck CBC and basic metabolic profile in the morning Benadryl for itching Greater than 1 hour critical care time spent seeing and evaluating the patient for DKA 03/17/17 Will change Reglan to oral tabs 10 milligrams every 6 hours for nausea and gastroparesis Change Benadryl to as needed orally Continue with Protonix for GI protection Intake today has been poor. Continue to monitor blood sugars. Resume NovoLog 7 units with meals and Lantus 10 units at bedtime Asked nursing staff to obtain orthostatic vital signs, Midodrine may need to be held, Diastolic BP elevated. Monitor electrolytes, Need to replace Phos and Mg. Will discuss further orders with Dr Wyatt <Margie Presley - Last Filed: 03/18/17 18:28> Objective Vital signs: Temperature 98.9 F 03/18/17 15:27 Pulse Rate 85 03/18/17 16:00 Respiratory Rate 17 03/18/17 15:27 Blood Pressure 146/104 H 03/18/17 15:27 Pulse Oximetry 98 03/18/17 15:27 Height/Weight/BMI: Weight 115 lb 8.356 oz Results - Labs CBC & Chem 7: 03/18/17 04:07 03/18/17 04:07 Hospital Course Summary Disclaimer: The visit summary below is not to be considered part of the above Progress Note.
[2017-03-18] MEDS: INSULIN GLARGINE 100unit/ml INJECTION SQ SCH ×2 (10:59→21:56)
[2017-03-18] MEDS: INSULIN ASPART 100unit/ml INJECTION SQ SCH ×3 (10:59→18:33)
[2017-03-18] MEDS: PANTOPRAZOLE 40 MG INJECTION IVP SCH (11:00)
[2017-03-18] MEDS: ONDANSETRON 4 MG/2 ML INJECTION IVP PRN ×2 (11:00→19:56)
[2017-03-18] MEDS: DiphenhydrAMINE 25 MG CAPSULE PO PRN ×2 (11:10→19:57)
[2017-03-18] MEDS: LORazepam 0.5 MG TABLET PO PRN ×3 (11:10→21:56)
[2017-03-18] MEDS: VENLAFAXINE 75 MG TABLET PO SCH ×2 (17:49→20:14)
[2017-03-18] MEDS: KETOROLAC 15 MG/ML INJECTION IM PRN (20:06)
[2017-03-18] MEDS: MIRTAZAPINE 15 MG TABLET PO SCH ×2 (20:14→22:01)
[2017-03-18] MEDS ORDERED: POTASSIUM CHLORIDE PREMIX 10 MEQ/100 ML BAG IV SCH (22:12)
[2017-03-18] MEDS ORDERED: MAGNESIUM SULFATE 1gm PREMIX 1 GM/100 ML BAG IV ONE (22:57)
[2017-03-19] MEDS: LIDOCAINE 1% 2ml INJ 10 MG, POTASSIUM CHLORIDE INJ 10 MEQ in NS 100 ML IV SCH ×3 (01:47→02:52)
[2017-03-19] MEDS: 1/2 NS with KCL 20mEq 1,000 ML IV SCH ×2 (04:48→12:35)
[2017-03-19] MEDS: HYDROCODONE/APAP 10 MG/325 MG TABLET PO PRN ×3 (06:05→23:52)
[2017-03-19] MEDS: ONDANSETRON 4 MG/2 ML INJECTION IVP PRN ×2 (06:05→16:29)
[2017-03-19] MEDS: KETOROLAC 15 MG/ML INJECTION IM PRN ×3 (06:21→19:09)
[2017-03-19] MEDS: LORazepam 0.5 MG TABLET PO PRN ×3 (06:21→23:52)
[2017-03-19] MEDS: INSULIN ASPART 100unit/ml INJECTION SQ SCH ×3 (11:23→17:00)
[2017-03-19] MEDS: PHOSPHORUS 250 MG TABLET PO SCH ×4 (11:28→20:00)
[2017-03-19] MEDS: MIDODRINE 5 MG TABLET PO SCH ×2 (11:28→15:09)
[2017-03-19] MEDS: PANTOPRAZOLE 40 MG INJECTION IVP SCH (11:29)
[2017-03-19] MEDS: INSULIN GLARGINE 100unit/ml INJECTION SQ SCH ×2 (11:29→23:54)
[2017-03-19] MEDS: VENLAFAXINE 75 MG TABLET PO SCH ×2 (11:29→17:00)
--- NOTE | 2017-03-19 11:43 | Progress Note ---
DATE: 03/18/2017 SUBJECTIVE This is a 26-year-old female who was admitted to [facility] on 2016 by the hospitalist group, Dr. Becca Wyatt, for DKA. Patient was subsequently placed in CCU when her DKA didn't resolve. She was then transferred to the medical floor. She has been on the medical floor since that time. The challenge with this patient has been chronic vomiting and abdominal pain. She developed some hypokalemia yesterday with potassium of 2.6. We are trying to correct that. Patient was seen by Dr. Margie Presley, one of the hospitalists here, yesterday morning and then patient's care was transferred to dc as of yesterday evening by the hospitalist group. Dr. Becca Wyatt actually called me on Friday night (03/17/17) to give me an update on this patient. When I saw her last evening she was more concerned about her state of mind. She basically said that she is very, very depressed. She is asking for help but she doesn't want to go home because she feels like she is very depressed and she may do something that she will regret so she is wanting some aggressive treatment for depression. She was congratulated as she was acknowledging and asking for help when it comes to depression. I've seen this patient before in the past on multiple occasions when I've treated her for depression roughly about six weeks ago. She had been on Effexor. She was getting some improvement until this acute illness that brought her to the hospital this time. She is a 26-year-old female diagnosed with insulin dependent diabetes since age 5 so she has been dealing with this for 21 years. She is basically tired of her situation. I did promise Verito that I would have her seen by Dr. Judd Falcon while she is here in the hospital for further evaluation and recommendations. PHYSICAL EXAMINATION GENERAL: Patient does have a flat affect, depressed look. HEENT: Unremarkable. NECK: Supple. LUNGS: Clear. CARDIOVASCULAR: Regular rhythm. ABDOMEN: Soft. Patient is mildly tender in the epigastric region. Bowel sounds are normoactive. EXTREMITIES: No cyanosis. No clubbing. No edema. NEURO: Grossly intact. Patient is alert and oriented x 3. No focal neurological deficits. LAB Potassium yesterday morning was 2.6. That was corrected with IV potassium replacement, up to 2.9 as of yesterday evening. Hemoglobin was 11.5. Her magnesium was 1.6. ASSESSMENT 1. Severe depression. 2. DKA which is resolving. 3. Nausea and vomiting. 4. Chronic gastroparesis. 5. Anxiety disorder. 6. Insulin dependent diabetic - borderline control. Patient's blood sugar during this hospital setting the last couple of days has been pretty good with blood sugar running between 63 and 157. PLAN 1. Close observation tonight. 2. Consultation to Dr. Falcon for evaluation of patient's severe depression. 3. Patient is supposed to be on Effexor 75 mg b.i.d. so will get her back to that current dose b.i.d. I'm going to add Remeron 15 mg at bedtime. The reason I am adding Remeron is because studies have shown that Remeron can be an effective treatment for gastroparesis. I have tried the patient on Reglan in the past that has not really been that helpful. In addition to this, she has increased appetite and she should eat on a schedule so that way she can take insulin on a regular basis which should have prevented her current DKA. Of course that will also help with the depression. 4. Will wait for Dr. Falcon's evaluation and recommendations. 5. Continue IV fluids. 6. Continue to monitor potassium and magnesium closely. 7. Will go ahead and give patient additional potassium orally this evening and then some IV potassium replacement and followup potassium level at midnight. [facility]
--- NOTE | 2017-03-19 11:54 | Progress Note ---
DATE: 03/19/2017 SUBJECTIVE Verito has now moved from Room 139 to 157 on the medical floor, closer to the nurse's station. This was due to the patient having suicidal ideation yesterday evening. I did receive a phone call from the nurse taking care of this patient and therefore I recommended patient be placed on one-on-one observation. Verito does have a flat effect this morning. She is very depressed as well. She is having some nausea and some dry heaving and a few episodes of vomiting. PHYSICAL EXAMINATION GENERAL: Flat affect, depressed mood, HEENT: Unremarkable. NECK: Supple. LUNGS: Clear. CARDIOVASCULAR: Regular rhythm. ABDOMEN: Soft. Minimal tenderness this morning. Bowel sounds normoactive. EXTREMITIES: No cyanosis, no clubbing, no edema. NEURO: Grossly intact. SKIN: There are a few bruises from IV sticks and venipuncture sites. LAB Potassium this morning was 3.6, magnesium 2.2. Patient received magnesium sulfate IV last night to keep her magnesium around 2.2. ASSESSMENT 1. Nausea and vomiting. 2. Severe depression. 3. Anxiety disorder. 4. Gastroparesis. 5. Insulin dependent diabetic. Blood sugars are actually much better. PLAN 1. Continue current medication at this time. 2. Will wait on Dr. Falcon's consultation. [facility]
[2017-03-19] MEDS: DiphenhydrAMINE 25 MG CAPSULE PO PRN (13:19)
[2017-03-19] MEDS: SALINE FLUSH 10ml SYRINGE IVF PRN ×2 (16:29→20:01)
--- NOTE | 2017-03-19 18:14 | Neuropsychiatric Consult ---
[facility] HPI Date: 03/19/17 Reason for Consultation: S/I Start Time: 17:30 Stop Time: 18:00 History of Present Illness: HPI: 26 Y/O CF with a hx of depression and anxiety and frequent DKA here for DKA and gastroparesis. Pt has reported to nursing staff that she is tired of living and has had thoughts of wanting to harm herself. On face to face the pt states she is depressed and wishes she were . She reports she has S/I at times with no specific plan. She states she feels she needs psychiatric admission and does not feel safe to go home. STRESSORS: Pt reports she goes into DKA easily and has severe GI pain because of it. She reports financial issues and is unable to work because of her health issues. PSYCH ROS: Pt reports feeling depressed with low interest, energy and motivation. She reports anhedonia and S/I at times. She reports feeling hopeless and wishing she were . She reports panic type symptoms with no specific trigger that happen several times/day. She denies any haja or psychosis. PAST PSYCH: Pt has had 2 previous IP admissions for S/I in 2016 both at [facility]. She denies ever trying to harm herself. She is currently on Effexor and Remeron which was recently started by her PCP. She has been seen at in the past and has been on Lexapro and Ativan. [facility] Medical History (Last Updated 03/05/17 @ 14:49 by Jeromy Bruce MD) Diabetic nephropathy associated with type 1 diabetes mellitus (Chronic Medical ~ 11/2016) No longer on ramipril. Gastroparesis diabeticorum (Chronic Medical) Type 1 diabetes mellitus with hyperglycemia (Chronic Medical ~1995) Variable control due to gastroparesis in poor oral intake. However a bit more insulin for lunch and supper should be safe. 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 appendectomy. . stent placement on one of her urethra Family History: Family History (Last Reviewed 08/23/17 @ 14:28 by Kimi Mehta [facility]) Maternal Uncle Aortic aneurysm Father Myocardial infarction Unknown Diabetes mellitus - Social History Smoking status: Former smoker Review of Systems - Psychiatric Psychiatric: Present: abnormal sleep pattern, anhedonia, anxiety, hopelessness, panic attacks, suicidal ideation Mental Status Exam Vitals: Last Vital Signs Temp 98.1 F 03/19/17 15:04 Pulse 112 H 03/19/17 15:04 Resp 16 03/19/17 15:04 BP 153/95 H 03/19/17 15:04 Pulse Ox 100 03/19/17 15:04 Height: 1.65 m Weight: 52.7 kg - Mental Status Exam Muscle Strength/Tone: Weak Dressing: Casual Grooming: Good Attitude: Cooperative Motor Activity: Retardation Eye Contact: Fair Speech: Slowed Volume: Soft Rhythm: Appropriate Rhythm Orientation: Oriented X4 Mood: Depressed Affect: Sad Rate of Thoughts: Delayed Thought Organization: Organized Associations: Intact Abstract Reasoning: Intact, able to abstract Thought Content: Hopelessness, Helplessness, Worthlessness Perception/Psychotic: Perception Normal Language: Naming Intact Fund of Knowledge: Appropriate Memory: Grossly Intact Suicidal Ideation: Intermittent Homicidal Ideation: None Insight: Poor Judgement: Poor Impulse Control: Poor - Laboratory Result Diagrams: 03/18/17 20:22 03/19/17 06:36 Laboratory Results - last 24 hr 03/18/17 03/18/17 03/18/17 20:22 20:22 20:22 WBC 6.9 RBC 3.99 L Hgb 11.5 L Hct 31.9 L MCV 79.9 L MCH 28.8 MCHC 36.1 RDW Std Deviation 35.1 L Plt Count 344 MPV 8.4 L Neutrophils % (Manual) 64.0 Lymphocytes % (Manual) 26.0 Reactive Lymphs % 6.0 H Monocytes % (Manual) 3.0 Eosinophils % (Manual) 1.0 Neutrophils # (Manual) 4.4 Lymphocytes # (Manual) 1.8 Abs React Lymphs (Man) 0.4 H Monocytes # (Manual) 0.2 Eosinophils # (Manual) 0.1 RBC Morph Comment Normal Turbidity Sodium Potassium 2.9 L* Chloride Carbon Dioxide Anion Gap BUN Creatinine GFR Calculation BUN/Creatinine Ratio Glucose Glucometer Calculated Osmolality Calcium Magnesium 1.6 D Total Bilirubin Icterus Index AST ALT Alkaline Phosphatase Total Protein Albumin Globulin Albumin/Globulin Ratio Specimen Hemolysis < 15 09/11/2703/19/17 03/19/17 20:33 02:55 05:42 WBC RBC Hgb Hct MCV MCH MCHC RDW Std Deviation Plt Count MPV Neutrophils % (Manual) Lymphocytes % (Manual) Reactive Lymphs % Monocytes % (Manual) Eosinophils % (Manual) Neutrophils # (Manual) Lymphocytes # (Manual) Abs React Lymphs (Man) Monocytes # (Manual) Eosinophils # (Manual) RBC Morph Comment Turbidity < 20 Sodium 139 Potassium 4.4 D Chloride 106 D Carbon Dioxide 26 Anion Gap 7 BUN 6.0 L Creatinine 0.4 L GFR Calculation 193 BUN/Creatinine Ratio 15 Glucose 101 Glucometer 157 67 Calculated Osmolality 266 Calcium 9.0 Magnesium 2.2 D Total Bilirubin Icterus Index < 2 AST ALT Alkaline Phosphatase Total Protein Albumin Globulin Albumin/Globulin Ratio Specimen Hemolysis 80 H 03/19/17 03/19/17 03/19/17 05:59 06:18 06:36 WBC RBC Hgb Hct MCV MCH MCHC RDW Std Deviation Plt Count MPV Neutrophils % (Manual) Lymphocytes % (Manual) Reactive Lymphs % Monocytes % (Manual) Eosinophils % (Manual) Neutrophils # (Manual) Lymphocytes # (Manual) Abs React Lymphs (Man) Monocytes # (Manual) Eosinophils # (Manual) RBC Morph Comment Turbidity < 20 Sodium 143 Potassium 3.6 D Chloride 102 Carbon Dioxide 30 Anion Gap 11 BUN 7.0 Creatinine 0.5 L GFR Calculation 149 BUN/Creatinine Ratio 14 Glucose 67 Glucometer 63 77 Calculated Osmolality 271 Calcium 9.6 Magnesium Total Bilirubin 0.60 Icterus Index < 2 AST 17 ALT 39 Alkaline Phosphatase 98 Total Protein 7.3 Albumin 4.3 Globulin 3.0 Albumin/Globulin Ratio 1.4 Specimen Hemolysis < 15 03/19/17 03/19/17 11:10 14:46 WBC RBC Hgb Hct MCV MCH MCHC RDW Std Deviation Plt Count MPV Neutrophils % (Manual) Lymphocytes % (Manual) Reactive Lymphs % Monocytes % (Manual) Eosinophils % (Manual) Neutrophils # (Manual) Lymphocytes # (Manual) Abs React Lymphs (Man) Monocytes # (Manual) Eosinophils # (Manual) RBC Morph Comment Turbidity Sodium Potassium Chloride Carbon Dioxide Anion Gap BUN Creatinine GFR Calculation BUN/Creatinine Ratio Glucose Glucometer 172 188 Calculated Osmolality Calcium Magnesium Total Bilirubin Icterus Index AST ALT Alkaline Phosphatase Total Protein Albumin Globulin Albumin/Globulin Ratio Specimen Hemolysis Assessment and Plan (1) MDD (major depressive disorder), recurrent episode, severe Qualifiers: Psychotic features: without psychotic features Qualified Code(s): F33.2 - Major depressive disorder, recurrent severe without psychotic features Current visit: Yes Status: Acute Continue medical management. Agree with starting Remeron. Would consider switching Effexor to XR 150mg daily. Discussed with pt that combo of Remeron and Effexor can help with energy and motivation but will need to monitor for possible increase in anxiety. Discussed options including partial day program. At this time pt states she does not feel safe to go home and feels she needs IP psychiatric treatment. SW please help arrange IP treatment at or [facility]. Pt may not leave AMA. PT states she feels safe here and will not harm herself while in the hospital so I do not feel a 1:1 sitter is necessary unless symptoms worsen.
[2017-03-19] MEDS: MIRTAZAPINE 15 MG TABLET PO SCH (20:01)
[2017-03-20] MEDS: ONDANSETRON 4 MG/2 ML INJECTION IVP PRN ×3 (00:15→18:35)
[2017-03-20] MEDS: KETOROLAC 15 MG/ML INJECTION IM PRN ×3 (03:20→18:20)
[2017-03-20] MEDS: PANTOPRAZOLE 40 MG INJECTION IVP SCH (08:01)
[2017-03-20] MEDS: VENLAFAXINE 75 MG TABLET PO SCH ×2 (08:02→18:19)
[2017-03-20] MEDS: INSULIN GLARGINE 100unit/ml INJECTION SQ SCH ×2 (08:03→23:02)
[2017-03-20] MEDS: PHOSPHORUS 250 MG TABLET PO SCH ×4 (08:03→23:01)
[2017-03-20] MEDS: HYDROCODONE/APAP 10 MG/325 MG TABLET PO PRN ×2 (08:04→19:26)
[2017-03-20] MEDS: DiphenhydrAMINE 25 MG CAPSULE PO PRN (08:04)
[2017-03-20] MEDS: 1/2 NS with KCL 20mEq 1,000 ML IV SCH ×2 (10:08→20:20)
[2017-03-20] MEDS: INSULIN ASPART 100unit/ml INJECTION SQ SCH ×3 (10:11→18:19)
[2017-03-20] MEDS: MIDODRINE 5 MG TABLET PO SCH ×3 (10:11→16:12)
[2017-03-20] MEDS: LORazepam 0.5 MG TABLET PO PRN ×2 (13:10→18:35)
[2017-03-20] MEDS ORDERED: MORPHINE SULFATE 2mg INJECTION IVP ONE (14:26)
[2017-03-20] MEDS: SALINE FLUSH 10ml SYRINGE IVF PRN (14:27)
[2017-03-20] MEDS ORDERED: DiphenhydrAMINE 50 MG/ML INJECTION IVP ONE (14:41)
--- NOTE | 2017-03-20 16:06 | Progress Note ---
DATE 03/20/2017 SUBJECTIVE Verito is having a little bit of a rough time today. According to the patient's nurse, patient is having some dry heaving, some nausea and some vomiting, about 7 mL earlier on today. She says she is not hungry. Verito has a very difficult diagnosis to treat which is chronic gastroparesis due to diabetes, of course recurrent DKA. We are currently trying her on Remeron in place of the Reglan she had been on for many, many years. I told her it will take a little bit of time for the Remeron to kick in. Patient was seen by Dr. Falcon, a psychiatrist here yesterday. Recommendation is to continue with the Effexor, maybe change the Effexor to XR once a day instead of b.i.d., but also continue with the Remeron. He also recommended inpatient hospitalization either at [facility] or [facility]. PHYSICAL EXAMINATION GENERAL: She just looks unhappy and a really flat affect. She looks uncomfortable facial-kumar. VITAL SIGNS: Her blood pressure is 119/84 with a pulse running between 107 to 130. NECK: Supple. LUNGS: Clear to auscultation bilaterally. No wheezing or rales. CARDIOVASCULAR: Regular rhythm. ABDOMEN: Soft. Patient is mildly tender in the epigastric region which is not really new. Bowel sounds normoactive. She has a soft abdomen, no distention, no significant tenderness other than the mild epigastric discomfort, with normoactive bowel sounds. EXTREMITIES: No cyanosis, no clubbing, no edema. NEURO: Exam grossly intact. PSYCH: Patient had a profoundly flat affect today. LAB Lab today shows a potassium of 4.6, creatinine 0.5. Sodium 138. Glucose 220. ASSESSMENT 1. Nausea and vomiting. 2. Severe depression. 3. Gastroparesis due diabetes mellitus. 4. Insulin dependent diabetes mellitus. 5. Symptomatic hypoglycemia. 6. Hypokalemia, treated and resolved. 7. Abdominal pain, chronic. 8. Situational pruritus. PLAN 1. Adjust patient's pain medications. 2. Continue oral Benadryl. 3. Increase IV fluids to 150 mL/hr. 4. I have spoken with Ramon from [facility] who is working with this patient. The plan is to shoot for [facility] inpatient here in town tomorrow. If that is not possible, then will need to shoot for [place] tomorrow as well. This patient is basically medically stable at this time, really there is nothing much I can do for her in terms of abdominal pain other than pain management. Will go ahead and check lipase, amylase and maybe KUB just to be sure we are not missing anything at this time. JAYSON
--- NOTE | 2017-03-20 16:49 | XRay Report ---
Indication: abdominal pain PROCEDURE: XR KUB: Encounter: Initial Comparison: November 04, 2016 Findings: The bowel gas pattern is nonobstructive and nonspecific. Gas is seen in nondilated small and large bowel to the level of the rectum. Moderate stool is seen throughout the colon. Unfused posterior elements at L5 noted incidentally. Impression: Nonobstructive nonspecific bowel gas pattern. .
[2017-03-20] MEDS ORDERED: METOCLOPRAMIDE 10mg/2ml INJECTION IVP ONE (21:33)
[2017-03-20] MEDS ORDERED: INSULIN GLARGINE 100unit/ml INJECTION SQ ONE (21:34)
[2017-03-20] MEDS: MIRTAZAPINE 15 MG TABLET PO SCH (23:03)
[2017-03-21] MEDS: MIRTAZAPINE 15 MG TABLET PO SCH (00:37)
[2017-03-21] MEDS: DiphenhydrAMINE 25 MG CAPSULE PO PRN (00:38)
[2017-03-21] MEDS ORDERED: KETOROLAC 15 MG/ML INJECTION IVP PRN (01:33)
[2017-03-21] MEDS: 1/2 NS with KCL 20mEq 1,000 ML IV SCH ×3 (03:11→17:29)
[2017-03-21] MEDS: MIDODRINE 5 MG TABLET PO SCH ×3 (07:41→15:46)
[2017-03-21 08:53] VITALS: RESP 16
[2017-03-21] MEDS: VENLAFAXINE 75 MG TABLET PO SCH ×2 (08:57→17:30)
[2017-03-21] MEDS: PHOSPHORUS 250 MG TABLET PO SCH ×3 (08:57→17:30)
[2017-03-21] MEDS: INSULIN GLARGINE 100unit/ml INJECTION SQ SCH (08:58)
[2017-03-21] MEDS: PANTOPRAZOLE 40 MG INJECTION IVP SCH (08:58)
[2017-03-21] MEDS: LORazepam 0.5 MG TABLET PO PRN (10:55)
[2017-03-21] MEDS: ONDANSETRON 4 MG/2 ML INJECTION IVP PRN (10:55)
[2017-03-21] MEDS: INSULIN ASPART 100unit/ml INJECTION SQ SCH ×2 (11:00→16:42)
[2017-03-21] MEDS: HYDROCODONE/APAP 10 MG/325 MG TABLET PO PRN ×2 (12:09→18:22)
[2017-03-21] MEDS ORDERED: INSULIN ASPART 100unit/ml INJECTION SQ ONE (15:38)
[2017-03-21 16:14] VITALS: BP 143/96; TEMP 98.7; O2SAT 99
[2017-03-21] MEDS ORDERED: INSULIN ASPART 100unit/ml INJECTION SQ SCH (17:30)
[2017-03-21 17:40] VITALS: PULSE 96
--- NOTE | 2017-03-21 18:26 | Discharge Instructions ---
Discharge Plan - Med Rec/Dispo Rob Instructions: Gastroparesis (GEN) Prescriptions: New Mirtazapine [Remeron] 15 mg PO HS tablet Venlafaxine [Effexor] 75 mg PO BIDWM tablet Continue Ondansetron [Ondansetron Odt] 4 mg PO Q4-6H PRN #40 PRN Reason: NAUSEA &/OR VOMITING Hydrocodone/APAP 10/325 [[place] 10/325] 1 tab PO TID PRN PRN Reason: Pain Insulin Aspart [NovoLOG] 7 unit SQ TIDWM Lisinopril [Prinivil] 10 mg PO DAILY Metoclopramide [Reglan] 10 mg PO QID PRN PRN Reason: Prn Orders LORazepam [Ativan] 0.5 mg PO TID PRN PRN Reason: Anxiety Insulin Glargine,Hum.rec.anlog [Lantus Solostar] 10 unit SQ BID Midodrine [Proamatine] 5 mg PO TID Discontinued Venlafaxine [Effexor] 75 mg PO DAILY Prochlorperazine Maleate [Compazine] 10 mg PO QID PRN #45 tab PRN Reason: N/V/CRAMPS OR ALVARADO Discharge Instructions/Outpatient Orders: Final Provider Discharge Instructions Location: Determined By Patient - Disposition 65 To Psych Hosp/Unit
--- NOTE | 2017-05-16 15:53 | Discharge Summary ---
FINAL DIAGNOSES 1. Acute diabetic ketoacidosis - treated and resolved. 2. Poorly controlled diabetes mellitus type 1. 3. Abdominal pain. 4. Severe depression with some thought of . 5. Diabetic gastroparesis. 6. Chronic pruritus probably due to detergent in bedsheets in hospital. 7. Leukocytosis - treated and resolved. 8. Chronic narcotic use. 9. Chronic abdominal pain. 10. Symptomatic hypoglycemia. 11. Hypokalemia - treated and resolved. REASON FOR ADMISSION Patient is 26-year-old female who was admitted to [facility] by the hospitalist team on 03/15/2017 for acute diabetic ketoacidosis. Patient presented at that time with nausea, not feeling well, abdominal pain. Per physical examination per Dr. Becca Wyatt's note, the patient was a little bit tearful, moaning in pain initially. She had mild tenderness on abdominal exam. LABORATORY Hemoglobin 11.2. Sodium 145, potassium 4.4, chloride 102, CO2 20, creatinine 0.7, blood sugar 257. IMAGING Chest x-ray was unremarkable. HOSPITAL COURSE The patient was initially admitted to CCU for DKA treatment protocol. The patient subsequently transferred from CCU to the medical floor where she remained until 03/21/2017. The patient had a protracted hospital course with persistent abdominal pain and nausea. We tried multiple antiemetics for her and some pain medication as well. We also added Demerol - hopefully that will be a new medication for diabetic gastroparesis which is a very difficult disease to treat unfortunately. She also displayed some symptoms of severe depression. She has some suicidal thoughts with no plan. The patient actually asked for help. The patient desired to be seen by a psychiatrist while she was in-house. She desired to be admitted to the psychiatric unit directly after dismissal from the hospital. She was not comfortable going home because she thought that she was so depressed and didn't feel safe going home because of her thought process. Because of the above we had Dr. Judd [facility], psychiatrist at the hospital, see the patient. He agreed with starting the patient on Remeron and continuing her other medications. He also agreed for the patient to be admitted to [place]. The patient overall is medically stable. Her low potassium was corrected. Her electrolytes were fine after IV fluids. She was medically stable now to be dismissed from this hospital and then sent directly via van arranged by the hospital to [facility] in [place], [place]. DISCHARGE MEDICATIONS 1. [place] 10/325 mg one tablet t.i.d. p.r.n. 2. Insulin - NovoLog 7 units subcutaneously meals. 3. Lantus - 10 units at bedtime. 4. Lisinopril 10 mg one tablet daily. 5. Ativan 0.5 mg one tablet pot 6. Melatonin 5 mg one tablet at bedtime. 7. Midodrine 5 mg one tablet p.o. t.i.d. 8. Reglan 10 mg p.o. q.i.d. 9. Remeron 15 mg at bedtime. FOLLOWUP The patient will follow up with at the office 1 week after dismissal from [facility] inpatient psychiatric [facility]ores. JAYSON
== END 2017-03-21 19:00 | DRG 638 ==
LOC: ED 09:42 → CCU 13:33 → MED 03-16 16:06
PROVIDERS: ADMIT Internal Medicine; ATTEND Family Medicine

== ENCOUNTER 2017-05-23 21:23 | Inpatient (IN) ==
[2017-05-23] MEDS ORDERED: DiphenhydrAMINE 50 MG/ML INJECTION IVP ONE (21:45)
[2017-05-23] MEDS ORDERED: NS 1,000 ML IV ONE ×2 (21:45→22:45)
[2017-05-23] MEDS ORDERED: PROCHLORPERAZINE 10 MG/2 ML INJECTION IVP ONE (21:45)
[2017-05-23] MEDS ORDERED: KETOROLAC 30 MG/ML INJECTION IVP ONE (21:46)
--- NOTE | 2017-05-23 21:47 | Emergency Department Report ---
Nausea/Vomiting/Diarrhea HPI - General Chief complaint: Abdominal Pain Stated complaint: vomiting,bladder pain Time Seen by Provider: 05/23/17 21:44 Source: patient, old records reviewed Limitations: no limitations - History of Present Illness HPI Narrative: Patient is a 26-year-old female presents emergency room for evaluation of abdominal pain nausea vomiting diarrhea. Patient's had the symptoms now for several weeks, was seen 2 weeks ago in the emergency department with complete workup including CT scan, patient was also seen that day and other ER, that was where the CT scan was obtained. Patient was discharged home due to constipation , given instructions and told to follow-up with her doctor. Patient did follow- up with her doctor 1 week ago her complaint at that time was diarrhea, patient does have chronic abdominal pain. Patient states that her doctor started her on a medication, however she could not afford it so she never filled it. Patient continuing to have abdominal pain and diarrhea, did not follow up with his doctor's office today decided to present to the ER for evaluation. Patient did not answer questions about her insulin dosing. MD complaint: nausea, vomiting, abdominal pain Onset (ago): week(s) - Related Data Home Medications Medication Instructions Recorded Confirmed Hydrocodone/APAP [[place] 1 tab PO TID PRN 03/15/17 05/23/17] LORazepam [Ativan] 0.5 mg PO TID PRN 03/15/17 05/23/17 Lisinopril [Prinivil] 10 mg PO DAILY 03/15/17 05/23/17 Metoclopramide [Reglan] 10 mg PO QID PRN 03/15/17 05/23/17 Midodrine [Proamatine] 5 mg PO TID 03/15/17 05/23/17 Melatonin 3 mg PO HS 03/24/17 05/23/17 Insulin Aspart [NovoLOG] 7 units SQ TIDWM 05/05/17 05/23/17 Previous Rx's Medication Instructions Recorded Prochlorperazine Tab [Compazine] 10 mg PO Q6HPRN PRN #20 tab 03/24/17 Lantus Solostar (insulin glargine) 10 unit SQ BID #15 ml 04/24/17 100 unit/mL (3 mL) PEN Remeron (mirtazapine) 15 mg tablet 15 mg PO HS #30 tab 04/25/17 venlafaxine 75 mg tablet 75 mg PO BIDWM #30 tab 04/25/17 paregoric 2 mg/5 mL oral liquid 5 ml PO TID PRN #80 ml 05/15/17 Allergies Allergy/AdvReac Type Severity Reaction Status Date / Time sodium hypochlorite solution Allergy Mild Hives Verified 05/23/17 21:45 (Bleach) adhesive Allergy Unknown BLISTERING Verified 05/23/17 21:45 Review of Systems ENT: Denies: throat pain, dental pain Cardiovascular: Denies: chest pain, palpitations, dyspnea on exertion Respiratory: Denies: cough, dyspnea, wheezes Gastrointestinal: Reports: abdominal pain, nausea, vomiting, diarrhea Neurological: Denies: weakness, numbness Psychiatric: Reports: anxiety, depression PFS Patient Stated Medical History Diabetes Mellitus Type 2 Yes Other GI Yes: gastroenteritis Hx Kidney Stones Yes Hx Urinary Tract Infection Yes Other Yes: retention Depression Yes Clinic Medical History (Last Updated 03/05/17 @ 14:49 by Jeromy Bruce MD) MDD (major depressive disorder), recurrent episode, severe (Acute Medical) Diabetic ketoacidosis (Acute Medical) Diabetic nephropathy associated with type 1 diabetes mellitus (Chronic Medical ~ 11/2016) No longer on ramipril. Gastroparesis diabeticorum (Chronic Medical) Type 1 diabetes mellitus with hyperglycemia (Chronic Medical ~1995) Variable control due to gastroparesis in poor oral intake. However a bit more insulin for lunch and supper should be safe. 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 (Chronic Medical) intermediate current use of insulin (Chronic Medical) Anxiety disorder (Chronic Medical) Chronic abdominal pain (Chronic Medical) Chronic nausea (Chronic Medical) Chronic vomiting (Chronic Medical) Diabetic gastroparesis (Chronic Medical) Type 1 diabetes mellitus (Chronic Medical) Diabetic gastroparesis associated with type 1 diabetes mellitus (Inactive Medical) Fecal impaction in rectum (Inactive Medical) Hyperglycemia (Inactive Medical) Leukocytosis (Inactive Medical) Recurrent abdominal pain (Inactive Medical) Severe major depression with psychotic features (Inactive Medical) Surgical History: appendectomy. . stent placement on one of her urethra Family History: Family History (Last Reviewed 03/05/17 @ 14:28 by ANOOP Jiménez) Maternal Uncle Aortic aneurysm Father Myocardial infarction Unknown Diabetes mellitus - Social History Smoking status: Former smoker Substance use type: does not use Alcohol intake frequency: does not drink Physical Exam - General General appearance: alert, in no apparent distress - Eye Eye exam: Present: PERRL, EOMI - ENT ENT exam: Present: normal oropharynx, mucous membranes moist - Neck Neck exam: Present: full ROM, trachea midline. Absent: tenderness - Chest Chest inspection: Present: symmetric chest wall rise. Absent: tenderness, rash - Respiratory Respiratory exam: Present: normal lung sounds bilaterally. Absent: respiratory distress, wheezes, stridor - Cardiovascular Cardiovascular exam: Present: regular rate, tachycardia, normal heart sounds - Abdominal Exam Abdominal exam: Present: soft, tenderness (diffuse tenderness). Absent: distention - Back Exam Back exam: Present: full ROM. Absent: tenderness, CVA tenderness (R), CVA tenderness (L) - Skin Skin exam: Present: warm, dry - Neurological Exam Neurological exam: Present: alert, oriented X3 - Psychiatric Psychiatric exam: Present: normal affect, normal mood Course Vital Signs Temperature 98.4 F 05/23/17 21:23 Pulse Rate 118 H 05/23/17 21:23 Respiratory Rate 16 05/23/17 21:23 Blood Pressure 91/55 05/23/17 21:23 Pulse Oximetry 97 05/23/17 21:23 Temperature 98.5 F 05/24/17 00:05 Pulse Rate 110 H 05/24/17 00:05 Respiratory Rate 20 05/24/17 00:05 Blood Pressure 123/74 05/24/17 00:05 Pulse Oximetry 99 05/24/17 00:05 Nausea/Vomiting/Diarrhea - [place] Narrative Medical decision making narrative: Diabetic ketoacidosis Attempted to contact Dr. Yusuf, found out after one hour the Dr. Yusuf was checked out to the hospitalist service. Discuss case with Dr. Christianson he will admit - Differential Diagnosis Likely: food poisoning, gastroenteritis, dehydration - Medical Records Attestation: I reviewed the patient's medical records. - Lab Data Result diagrams: 05/23/17 22:14 05/23/17 22:14 Lab Results 05/23/17 05/23/17 05/23/17 Range/Units 22:14 22:14 22:14 WBC 12.1 H (4.5-11.0) T/MM3 RBC 4.61 (4.00-5.20) M/MM3 Hgb 13.5 (12-16) GM/DL Hct 38.4 (36-46) % MCV 83.3 (80-100) UM3 MCH 29.3 (26-34) UUG MCHC 35.2 (31-37) GM/DL RDW Std Deviation 36.9 (36.9-50.2) FL Plt Count 417 H (130-400) T/MM3 MPV 9.7 (9.4-12.4) UM3 Immature Gran % (Auto) 0.3 (0.0-0.5) % Neut % (Auto) 81.0 H (33-66) % Lymph % (Auto) 14.6 L (23-45) % [place] % (Auto) 3.4 (0-9.0) % Eos % (Auto) 0.1 (0-4) % Baso % (Auto) 0.6 (0-2) % Neut # (Auto) 9.8 H (1.8-7.7) T/MM3 Lymph # (Auto) 1.8 (1-4.8) T/MM3 [place] # (Auto) 0.4 (0-0.8) T/MM3 Eos # (Auto) 0.0 (0-0.5) T/MM3 Baso # (Auto) 0.1 (0-0.2) T/MM3 Abs Immat Gran (auto) 0.04 H (0.00-0.03) T/MM3 ABG pH (7.350-7.450) ABG pCO2 (34-45) MMHG ABG pO2 (80-100) MMHG ABG HCO3 (22-26) MEQ/L ABG Total CO2 (23-27) MEQ/L ABG O2 Saturation (95.0-98.0) % ABG Base Excess (-2.0-2.0) MMOL/L O2 Delivery Method Turbidity < 20 (0-20) Sodium 138 (134-144) MEQ/L Potassium 4.7 (3.6-5) MEQ/L Chloride 94 L (98-107) MEQ/L Carbon Dioxide 17 L (22-30) MEQ/L Anion Gap 27 H (5-15) MEQ/L BUN 26.0 H (7-17) MG/DL Creatinine 1.0 (0.7-1.2) MG/DL GFR Calculation 67 BUN/Creatinine Ratio 26 (6-26) RATIO Glucose 455 H (65-110) MG/DL Calculated Osmolality 291 H (261-280) MOSM/KG Calcium 11.0 H (8.4-10.2) MG/DL Total Bilirubin 0.80 (0.20-1.30) MG/DL Icterus Index < 2 (0-7) AST 19 (14-36) U/L ALT 40 (9-52) U/L Alkaline Phosphatase 192 H (38-126) U/L Total Protein 8.8 H (6.3-8.2) G/DL Albumin 5.2 H (3.5-5.0) G/DL Globulin 3.6 (2.4-3.6) G/DL Albumin/Globulin Ratio 1.4 (1.1-2.2) RATIO Lipase 82 (23-300) U/L Serum , Qual Negative (Negative) Specimen Hemolysis < 15 (0-25) Ur Collection Type Urine Color (YELLOW) Urine Clarity Urine pH (5.0-8.0) Ur Specific [place] (1.015-1.025) Urine Protein (NEGATIVE) Urine Glucose (UA) (NEGATIVE) Urine Ketones (NEGATIVE) Urine Occult Blood (NEGATIVE) Urine Nitrate (NEGATIVE) Urine Bilirubin (NEGATIVE) Urine Urobilinogen (NORMAL) EU/DL Ur Leukocyte Esterase (NEGATIVE) Urine RBC (0-3) /HPF Urine WBC (0-5) /HPF Ur Squamous Epith Cells Urine Bacteria (NEGATIVE) Ur Culture Indicated? 05/23/17 05/23/17 Range/Units 23:26 23:45 WBC (4.5-11.0) T/MM3 RBC (4.00-5.20) M/MM3 Hgb (12-16) GM/DL Hct (36-46) % MCV (80-100) UM3 MCH (26-34) UUG MCHC (31-37) GM/DL RDW Std Deviation (36.9-50.2) FL Plt Count (130-400) T/MM3 MPV (9.4-12.4) UM3 Immature Gran % (Auto) (0.0-0.5) % Neut % (Auto) (33-66) % Lymph % (Auto) (23-45) % [place] % (Auto) (0-9.0) % Eos % (Auto) (0-4) % Baso % (Auto) (0-2) % Neut # (Auto) (1.8-7.7) T/MM3 Lymph # (Auto) (1-4.8) T/MM3 [place] # (Auto) (0-0.8) T/MM3 Eos # (Auto) (0-0.5) T/MM3 Baso # (Auto) (0-0.2) T/MM3 Abs Immat Gran (auto) (0.00-0.03) T/MM3 ABG pH 7.290 L (7.350-7.450) ABG pCO2 30 L (34-45) MMHG ABG pO2 114 H (80-100) MMHG ABG HCO3 14 L (22-26) MEQ/L ABG Total CO2 15.3 L (23-27) MEQ/L ABG O2 Saturation 98.0 (95.0-98.0) % ABG Base Excess -10.9 L (-2.0-2.0) MMOL/L O2 Delivery Method Room air Turbidity (0-20) Sodium (134-144) MEQ/L Potassium (3.6-5) MEQ/L Chloride (98-107) MEQ/L Carbon Dioxide (22-30) MEQ/L Anion Gap (5-15) MEQ/L BUN (7-17) MG/DL Creatinine (0.7-1.2) MG/DL GFR Calculation BUN/Creatinine Ratio (6-26) RATIO Glucose (65-110) MG/DL Calculated Osmolality (261-280) MOSM/KG Calcium (8.4-10.2) MG/DL Total Bilirubin (0.20-1.30) MG/DL Icterus Index (0-7) AST (14-36) U/L ALT (9-52) U/L Alkaline Phosphatase (38-126) U/L Total Protein (6.3-8.2) G/DL Albumin (3.5-5.0) G/DL Globulin (2.4-3.6) G/DL Albumin/Globulin Ratio (1.1-2.2) RATIO Lipase (23-300) U/L Serum , Qual (Negative) Specimen Hemolysis (0-25) Ur Collection Type Urine, clean catch Urine Color Yellow (YELLOW) Urine Clarity Sl cloudy Urine pH 5.5 (5.0-8.0) Ur Specific [place] 1.020 (1.015-1.025) Urine Protein Trace A (NEGATIVE) Urine Glucose (UA) 3+ A (NEGATIVE) Urine Ketones 3+ A (NEGATIVE) Urine Occult Blood 2+ A (NEGATIVE) Urine Nitrate Negative (NEGATIVE) Urine Bilirubin Negative (NEGATIVE) Urine Urobilinogen 0.2 (NORMAL) EU/DL Ur Leukocyte Esterase Negative (NEGATIVE) Urine RBC 5-10 H (0-3) /HPF Urine WBC 0-1 (0-5) /HPF Ur Squamous Epith Cells 0-5 Urine Bacteria None seen (NEGATIVE) Ur Culture Indicated? Cult not indicated Disposition Clinical Impression: Diabetic ketoacidosis Qualifiers: Diabetes mellitus type: type 1 Diabetes mellitus complication detail: without coma Qualified Code(s): E10.10 - Type 1 diabetes mellitus with ketoacidosis without coma Disposition: 02 To [facility] [place] Acute Care Condition: Stable Time of Disposition: 00:01 - Seen By: physician
[2017-05-23] MEDS ORDERED: HYDROMORPHONE 2 MG/ML INJECTION IVP ONE (23:19)
[2017-05-23] MEDS ORDERED: INSULIN REGULAR, HUMAN 100 UNIT/ML INJECTION IVP ONE (23:22)
[2017-05-23] MEDS: SALINE FLUSH 10ml SYRINGE IVF PRN (23:41)
[2017-05-24] MEDS ORDERED: NS with KCL 20 mEq 1,000 ML IV SCH (00:20)
[2017-05-24] MEDS ORDERED: LORazepam 0.5 MG TABLET PO PRN (00:20)
[2017-05-24] MEDS ORDERED: INSULIN REGULAR, HUMAN 100 UNIT in NS 100 ML IV PRN (00:20)
[2017-05-24] MEDS ORDERED: DEXTROSE 50% SYRINGE 50ml (1 AMP) IVP PRN (00:20)
[2017-05-24 00:35] VITALS: BMI 20.2
--- NOTE | 2017-05-24 01:13 | History & Physical Report ---
History of Present Illness Date: 05/24/17 Chief complaint: n/v/d, dehydration/poor intake HPI: Verito is a 26 y/o w/ h/o Type I DM and h/o DKA requiring hospitalization, chronic abdominal pain, gastroparesis, and chronic n/v who presents to ER at [facility] [place] w/ chief concern of n/v/d, abdominal pain, decrease po intake and not using her insulin regularly over past few days. Patient states she has had for about 2 weeks following a bout w/ constipation. Patient states the diarrhea is not chronic, but the n/v is chronic intermittent. Also abdominal pain is chronic as well. Patient denies f/c/s, chest pain, melena, BRBPR, hematochezia, dysuria and hematuria. Denies ALVARADO and SOA/dyspnea. In ED patient given IVFs, Toradol, Dilaudid 0.5mg x one, Compazine 10mg IV x one , Benadryl 50 mg x one for pruritis and 5 units regular insulin. Patient glucose = 455, CO2 17 and pH was 7.29 and she had ketones in her urine. UA neg for nitrites, leukocyte esterase. Patient admitted to the ICU on the Hospitalist service for further evaluation and managment. At present, Patient c/o "itching" d/t hospital bed sheets, overall tired, but currently nausea is improved Review of Systems All systems PM: 10-point ROS was reviewed, no additional remarkable complaints except PFSH Patient Stated Medical History Hypotension Yes Diabetes Mellitus Type 1 Yes Other GI Yes: gastroparesis Hx Kidney Stones Yes Hx Urinary Tract Infection Yes Other Yes: retention Depression Yes Clinic Medical History (Last Updated 03/05/17 @ 14:49 by Jeromy Bruce MD) MDD (major depressive disorder), recurrent episode, severe (Acute Medical) Diabetic ketoacidosis (Acute Medical) Diabetic nephropathy associated with type 1 diabetes mellitus (Chronic Medical ~ 11/2016) No longer on ramipril. Gastroparesis diabeticorum (Chronic Medical) Type 1 diabetes mellitus with hyperglycemia (Chronic Medical ~1995) Variable control due to gastroparesis in poor oral intake. However a bit more insulin for lunch and supper should be safe. 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 . stent placement on one of her urethra Family History: Family History (Last Reviewed 03/05/17 @ 14:28 by Kimi Mehta Florentin) Maternal Uncle Aortic aneurysm Father Myocardial infarction Unknown Diabetes mellitus - Social History Smoking status: Former smoker Substance use type: does not use Alcohol intake frequency: does not drink Medications Home Medications Medication Instructions Recorded Confirmed Type Hydrocodone/APAP 10325 [[place] 1 tab PO TID PRN 03/15/17 05/23/17 History 10/325] LORazepam [Ativan] 0.5 mg PO TID PRN 03/15/17 05/23/17 History Lisinopril [Prinivil] 10 mg PO DAILY 03/15/17 05/24/17 History Metoclopramide [Reglan] 10 mg PO QID PRN 03/15/17 05/24/17 History Midodrine [Proamatine] 5 mg PO TID 03/15/17 05/24/17 History Melatonin 3 mg PO HS 03/24/17 05/24/17 History Insulin Aspart [NovoLOG] 7 units SQ TIDWM 05/05/17 05/24/17 History Allergies Allergy/AdvReac Type Severity Reaction Status Date / Time sodium hypochlorite solution Allergy Mild Hives Verified 05/23/17 21:45 (Bleach) adhesive Allergy Unknown BLISTERING Verified 05/23/17 21:45 Exam Vital Signs: Temperature 98.5 F 05/24/17 00:05 Pulse Rate 110 H 05/24/17 00:05 Respiratory Rate 20 05/24/17 00:05 Blood Pressure 123/74 05/24/17 00:05 Pulse Oximetry 99 05/24/17 00:05 Telemetry Rhythm: Sinus Rhythm Height/Weight/BMI: Height 1.65 m Weight 55.3 kg Body Mass Index 20.2 - Constitutional Present: no acute distress, well nourished, well developed - Routine HEENT Exam Head: Present: normocephalic, atraumatic Eye: Present: EOMI, PERRL ENT: Present: mucous membranes dry, oropharynx clear, nares patent - Routine Neck Exam Present: supple, full ROM. Absent: JVD - Routine Respiratory Exam Present: CTA bilaterally - Routine Cardiovascular Exam Present: RRR - Routine Abdominal Exam Present: soft, normoactive bowel sounds, non distended. Absent: tenderness - Routine Skin Exam Present: intact, dry. Absent: cyanosis, erythema - Routine Neurological Exam Present: alert, oriented X3, CN II-XII intact - Routine Psychiatric Exam Present: normal affect, normal thought process Results - Labs CBC & Chem 7: 05/24/17 04:34 05/24/17 08:37 Assessment and Plan Assessment and Plan: Assessment: 1) Acute DKA w/ h/o DKA and h/o Type DM 2) Acute on chronic n/v, with acute diarrhea x 2 weeks ("loose stools") 3) Acute Dehydration 4) Gastroparesis 5) Chronic abdominal pain Plan: DKA Protocol IVFs IV antiemetics - start w/ compazine 1st line, then Zofran PRN Benadryl 25mg IV q 4 hours for itching - convert to po once able to tolerate po IV Dilaudid 0.5mg q 2 hours prn, conver to po Lortab (home med) when able to tolerate po q 2 hour BMPs x 2, then spread out as able Supportive care in ICU manager intensive care consult Will need to restart home meds as indicated later in AM I have discussed the plan of care w/ the patient and the patient verbalizes understanding and agreement. Dr. Christianson's note reviewed. Verito interviewed and examined. Old records reviewed. CC: Nausea/vomiting/abdominal pain HPI: Verito presented to the emergency room after developing increasing abdominal pain associated with 2 days of nausea followed by onset of emesis at 2 PM yesterday afternoon. She vomited several times with a small amount of blood associated with the last episode of vomiting. She reports having diarrhea since 05/04 after being treated for a fecal impaction. She saw Dr. Cain about diarrhea and was given a prescription for paregoric but could not afford the prescription and did not have filled. She's had what she characterizes as a stomachache since onset of the diarrhea and was seen in the emergency room in [place] and subsequently [place] regarding abdominal symptoms on 05/05 but did not require hospitalization at that time. Oral intake has been erratic with worsening symptoms over the past 2 days and subsequently she has not been using insulin consistently. Blood sugars have been climbing as a result. She denies fevers, chills, sweats, cough, sputum production, dysuria, vaginal discharge, or other symptoms to suggest underlying infection. Diarrhea subsided within the past 1-2 days. On presentation to the emergency room the patient's blood sugar was 455, bicarbonate 17, and pH 7.29. Ketones were present. She was admitted to the ICU for management of DKA. PH/SH/FH: agree with that recorded above by Dr. Christianson. ROS: 10 point review as described by Dr. Christianson. EXAM: General-intermittently tearful female, reluctant to participate in exam, no obvious distress, curled in position. 97.8 113/69 98% room air HEENT-PERRL, EOMI without nystagmus, conjunctiva clear, sclera anicteric, conjugate gaze, facial structures symmetric, oropharynx clear, membranes moist, neck supple and without adenopathy Lungs-respirations nonlabored, good airflow, breath sounds clear Cardiac-regular rhythm, S1-S2, normal rate Abd-soft, bowel sounds present although diminished, cries out in pain before pressures exerted on abdomen Ext-without edema Skin-without rash or evidence of wound Neuro-sensation intact 4 extremities, MAEW although limited participation, cranial nerves 3-12 grossly intact Psych-flat affect, histrionic DATA: White count 12.1-11.1 with normal differential; hemoglobin 13.5-10.4 with hydration 7.29/30/114/14 on room air Admission chemistries reviewed, currently bicarbonate 21, creatinine 0.5, glucose 195, magnesium 2.0, phosphorus 3.4, potassium 4.7 UA positive for glucose and ketones, 0-1 WBC. A/P: DKA Type 1 diabetes mellitus with retinopathy and gastroparesis Acute/chronic nausea and vomiting Chronic abdominal pain Dehydration Major depression Normocytic anemia, chronic disease by past workup Recent fecal impaction with subsequent diarrhea Continue IV fluids, when necessary pain medications and antiemetics. Patient is generally on scheduled metoclopramide which will be initiated IV at 10 mg every 6 hours. Resume scheduled Levemir. Acidosis has largely resolved and I believe patient can transition to subcutaneous insulin if she attempts to take anything orally which at present seems unlikely. Will monitor blood sugars per DKA protocol with insulin drip over the next few hours to determine if able to transition to corrective scale insulin later today. Continue Effexor and mirtazapine for depression; monitor for signs of symptom worsening as patient required discharge to inpatient psychiatry during her last hospitalization. Check KUB to determine if persistent fecal impaction. Underlying infectious etiology unlikely to of triggered DKA-inconsistent use of insulin and appropriate monitoring for sick days more likely trigger. DVT Prophylaxis: SCD's Resuscitation Status: Full Code Hospital Course Summary Disclaimer: The visit summary below is not to be considered part of the above Progress Note. Hospital Course: 05/24/17 12:39 DKA Protocol IVFs IV antiemetics - start w/ compazine 1st line, then Zofran PRN Benadryl 25mg IV q 4 hours for itching - convert to po once able to tolerate po IV Dilaudid 0.5mg q 2 hours prn, conver to po Lortab (home med) when able to tolerate po q 2 hour BMPs x 2, then spread out as able Supportive care in ICU Patient is generally on scheduled metoclopramide which will be initiated IV at 10 mg every 6 hours. Resume scheduled Levemir. Acidosis has largely resolved and I believe patient can transition to subcutaneous insulin if she attempts to take anything orally which at present seems unlikely. Will monitor blood sugars per DKA protocol with insulin drip over the next few hours to determine if able to transition to corrective scale insulin later today. Continue Effexor and mirtazapine for depression; monitor for signs of symptom worsening as patient required discharge to inpatient psychiatry during her last hospitalization. Check KUB to determine if persistent fecal impaction. Underlying infectious etiology unlikely to of triggered DKA-inconsistent use of insulin and appropriate monitoring for sick days more likely trigger.
[2017-05-24] MEDS: HYDROMORPHONE 2 MG/ML INJECTION IVP PRN ×8 (01:35→22:39)
[2017-05-24] MEDS: POTASSIUM CHLORIDE INJ 20 MEQ in D5NS 1,000 ML IV SCH ×3 (02:25→19:02)
[2017-05-24] MEDS: DiphenhydrAMINE 50 MG/ML INJECTION IVP PRN ×5 (02:32→22:07)
[2017-05-24] MEDS: PROCHLORPERAZINE 10 MG/2 ML INJECTION IVP PRN (05:02)
[2017-05-24] MEDS: SALINE 0.65% NASAL SPRAY 44 ML BOTTLE EA NOSTRIL PRN ×2 (07:14→15:39)
[2017-05-24] MEDS: VENLAFAXINE 75 MG TABLET PO SCH ×2 (10:12→18:20)
[2017-05-24] MEDS: LISINOPRIL 10 MG TABLET PO SCH (10:12)
[2017-05-24] MEDS: SALINE FLUSH 10ml SYRINGE IVF PRN ×3 (10:16→15:37)
[2017-05-24] MEDS: ONDANSETRON 4 MG/2 ML INJECTION IVP PRN (10:16)
[2017-05-24] MEDS: METOCLOPRAMIDE 10mg/2ml INJECTION IVP SCH ×4 (12:23→23:36)
[2017-05-24] MEDS ORDERED: INSULIN ASPART 100unit/ml INJECTION SQ PRN (16:05)
[2017-05-24] MEDS ORDERED: GLUCOSE ORAL GEL 40% 37.5gm PO PRN (16:07)
[2017-05-24] MEDS: INSULIN ASPART 100unit/ml INJECTION SQ SCH (18:13)
[2017-05-24] MEDS: NS with KCL 20 mEq 1,000 ML IV SCH (19:31)
[2017-05-24] MEDS: INSULIN GLARGINE 100unit/ml INJECTION SQ SCH (20:18)
[2017-05-24] MEDS ORDERED: MELATONIN 3 MG PO SCH (21:00)
[2017-05-24] MEDS: MELATONIN 1 MG TABLET PO SCH (22:06)
[2017-05-24] MEDS: MIRTAZAPINE 15 MG TABLET PO SCH (22:07)
[2017-05-25] MEDS: HYDROMORPHONE 2 MG/ML INJECTION IVP PRN ×8 (01:06→22:35)
[2017-05-25] MEDS: DiphenhydrAMINE 50 MG/ML INJECTION IVP PRN ×4 (02:08→14:22)
[2017-05-25] MEDS: ONDANSETRON 4 MG/2 ML INJECTION IVP PRN (04:25)
[2017-05-25] MEDS: METOCLOPRAMIDE 10mg/2ml INJECTION IVP SCH ×3 (05:50→18:05)
[2017-05-25] MEDS: PROCHLORPERAZINE 10 MG/2 ML INJECTION IVP PRN (08:26)
[2017-05-25] MEDS: VENLAFAXINE 75 MG TABLET PO SCH ×2 (08:29→18:06)
[2017-05-25] MEDS: LISINOPRIL 10 MG TABLET PO SCH (08:29)
[2017-05-25] MEDS: POTASSIUM PHOSPHATE IV SCH (09:08)
[2017-05-25] MEDS: NS IV SCH (09:08)
[2017-05-25] MEDS: INSULIN ASPART 100unit/ml INJECTION SQ SCH ×3 (09:11→18:41)
[2017-05-25] MEDS: INSULIN GLARGINE 100unit/ml INJECTION SQ SCH ×2 (09:11→21:27)
--- NOTE | 2017-05-25 09:19 | XRay Report ---
Indication: abd pain PROCEDURE: XR KUB: Encounter: Initial Comparison: May 05, 2017 Findings: The bowel gas pattern is nonobstructive and nonspecific. Gas is seen in nondilated small and large bowel to the level of the rectum. 7 cm stool ball in the rectum. Moderate stool is seen throughout the colon. The bony structures are grossly unremarkable. Impression: Nonobstructive nonspecific bowel gas pattern. Rectal stool ball. .
[2017-05-25] MEDS: SALINE FLUSH 10ml SYRINGE IVF PRN ×3 (12:26→15:21)
[2017-05-25] MEDS: NS with KCL 20 mEq 1,000 ML IV SCH (13:58)
[2017-05-25] MEDS: POLYETHYL GLYCOL 3350 17gm PACKET PO SCH ×2 (14:00→21:25)
--- NOTE | 2017-05-25 16:47 | Progress Note ---
- Date 05/25/17 Subjective: Verito continues to have some nausea and generalized abdominal pain but no vomiting. She is eating about half of her meals. Continues to require Benadryl and Dilaudid frequently and Compazine occasionally. Nursing reports no vomiting and minimal activity in the room. Slept poorly. Patient reports that she is voiding well after fluids and denies dyspnea or fever. She denies any suicidal thoughts. She became very frustrated when advised that she needs to resume stool softener/laxatives due to presence of large amount of stool/fecal ball in the rectum indicating that she developed fecal incontinence after using MiraLAX several weeks ago. Objective Vital signs: Temperature 98.5 F 05/25/17 15:47 Pulse Rate 102 H 05/25/17 15:47 Respiratory Rate 16 05/25/17 15:47 Blood Pressure 113/77 05/25/17 15:47 Pulse Oximetry 99 05/25/17 15:47 I/O 3653/1850 EXAM General-NAD, alert, more interactive than yesterday HEENT-conjunctiva clear, sclera anicteric, neck supple Lungs-respirations nonlabored, good airflow, breath sounds clear Cardiac-regular rhythm, S1-S2, low-grade tachycardia Abd-soft, mild generalized tenderness without guarding, bowel sounds diminished Ext-without edema Neuro-MAEW Psych-flat affect - Height/Weight/BMI: Height 1.65 m Weight 60.2 kg Body Mass Index 20.2 Results - Labs CBC & Chem 7: 05/25/17 04:39 05/25/17 04:39 Labs: Phosphorus 1.8, magnesium 1.9 Accu-Cheks [id number] today - Imaging and Cardiology Abdominal x-ray Status: image reviewed by me (bowel gas pattern unremarkable, increased stool throughout the colon with probable fecal impaction (7 cm fecal ball read by radiology)) Assessment and Plan (1) Diabetic ketoacidosis Current visit: Yes Status: Acute (2) Type 1 diabetes mellitus with hyperglycemia Problem details: Diabetic gastroparesis, early nephropathy, retinopathy. A1c 11.5 03/15/17 Current visit: No Status: Chronic Assessment and Plan: Assessment: DKA-POA, improved Type 1 diabetes mellitus with retinopathy and gastroparesis; A1c 11.59 Acute/chronic nausea and vomiting Chronic abdominal pain Constipation with persistent fecal impaction Hypophosphatemia Dehydration-POA, improved Major depression Normocytic anemia, chronic disease by past workup Recent fecal impaction with subsequent diarrhea Pruritus, attributed to hospital sheets Plan: Continue IV fluids with addition of K-Phos. Reassess electrolytes in a.m. Continue oral diet, NovoLog being reduced with meals due to diminished intake at meals. Decreased frequency of IV narcotic-advised patient that narcotics are contributing to ongoing constipation and that cutting back on narcotic use is critical to manage bowel disease. Increase activity/ambulation. Recommended MiraLAX in multiple doses for bowel stimulation-patient very opposed to trying this and requests an enema given instead but then declined the enema initially. Continued pruritus-convert Benadryl to by mouth Ongoing nausea, continue IV Reglan with when necessary Compazine/Zofran. Hope to convert oral Reglan as per home regimen tomorrow. High-risk medications in use, supplemental history provided by nursing staff. Unclear if Dr. Cain will return tomorrow to assume care of patient or if hospitalist service will continue to manage care. DVT Prophylaxis: SCD's Resuscitation Status: Full Code Hospital Course Summary Disclaimer: The visit summary below is not to be considered part of the above Progress Note. Hospital Course: 05/24/17 12:39 DKA Protocol IVFs IV antiemetics - start w/ compazine 1st line, then Zofran PRN Benadryl 25mg IV q 4 hours for itching - convert to po once able to tolerate po IV Dilaudid 0.5mg q 2 hours prn, conver to po Lortab (home med) when able to tolerate po q 2 hour BMPs x 2, then spread out as able Supportive care in ICU Patient is generally on scheduled metoclopramide which will be initiated IV at 10 mg every 6 hours. Resume scheduled Levemir. Acidosis has largely resolved and I believe patient can transition to subcutaneous insulin if she attempts to take anything orally which at present seems unlikely. Will monitor blood sugars per DKA protocol with insulin drip over the next few hours to determine if able to transition to corrective scale insulin later today. Continue Effexor and mirtazapine for depression; monitor for signs of symptom worsening as patient required discharge to inpatient psychiatry during her last hospitalization. Check KUB to determine if persistent fecal impaction. Underlying infectious etiology unlikely to of triggered DKA-inconsistent use of insulin and appropriate monitoring for sick days more likely trigger. 05/25/17 Continue IV fluids with addition of K-Phos. Reassess electrolytes in a.m. Continue oral diet, NovoLog being reduced with meals due to diminished intake at meals. Decreased frequency of IV narcotic-advised patient that narcotics are contributing to ongoing constipation and that cutting back on narcotic use is critical to manage bowel disease. Increase activity/ambulation. Recommended MiraLAX in multiple doses for bowel stimulation-patient very opposed to trying this and requests an enema given instead but then declined the enema initially. Continued pruritus-convert Benadryl to by mouth Ongoing nausea, continue IV Reglan with when necessary Compazine/Zofran. Hope to convert oral Reglan as per home regimen tomorrow.
[2017-05-25] MEDS ORDERED: PROCHLORPERAZINE 10 MG TABLET PO PRN (17:07)
[2017-05-25] MEDS: HYDROCODONE/APAP 10 MG/325 MG TABLET PO PRN (21:26)
[2017-05-25] MEDS: MIRTAZAPINE 15 MG TABLET PO SCH (21:26)
[2017-05-25] MEDS: MELATONIN 1 MG TABLET PO SCH (21:27)
[2017-05-25] MEDS: MIDODRINE 5 MG TABLET PO SCH (21:31)
[2017-05-25] MEDS: DiphenhydrAMINE 25 MG CAPSULE PO PRN (21:34)
[2017-05-26] MEDS: METOCLOPRAMIDE 10mg/2ml INJECTION IVP SCH ×4 (00:16→17:24)
[2017-05-26] MEDS: HYDROMORPHONE 2 MG/ML INJECTION IVP PRN ×4 (03:42→17:25)
[2017-05-26] MEDS: POTASSIUM PHOSPHATE IV SCH ×3 (06:23→11:36)
[2017-05-26] MEDS: NS IV SCH ×3 (06:23→11:36)
[2017-05-26] MEDS: MIDODRINE 5 MG TABLET PO SCH ×3 (09:45→16:37)
[2017-05-26] MEDS: VENLAFAXINE 75 MG TABLET PO SCH ×2 (09:46→17:24)
[2017-05-26] MEDS: POLYETHYL GLYCOL 3350 17gm PACKET PO SCH ×2 (09:46→14:22)
[2017-05-26] MEDS: LISINOPRIL 10 MG TABLET PO SCH (09:46)
[2017-05-26] MEDS: INSULIN GLARGINE 100unit/ml INJECTION SQ SCH ×2 (09:46→21:36)
[2017-05-26] MEDS: INSULIN ASPART 100unit/ml INJECTION SQ SCH ×3 (10:15→18:33)
[2017-05-26] MEDS: HYDROCODONE/APAP 10 MG/325 MG TABLET PO PRN ×2 (12:30→18:32)
[2017-05-26] MEDS: DiphenhydrAMINE 25 MG CAPSULE PO PRN (17:53)
--- NOTE | 2017-05-26 19:16 | Progress Note ---
- Date 05/26/17 Subjective: Verito complains of abdominal pain. Says she has had nausea but has been able to eat. Last stool was yesterday. Nurse says patient went 6 hours without iv pain meds earlier today. Patient asking about going home soon. Objective Vital signs: Temperature 97.9 F 05/26/17 15:35 Pulse Rate 95 05/26/17 15:35 Respiratory Rate 20 05/26/17 15:35 Blood Pressure 133/87 05/26/17 15:35 Pulse Oximetry 98 05/26/17 15:35 Height/Weight/BMI: Height 5 ft 5 in Weight 60.6 kg Body Mass Index 20.2 - Constitutional Present: well nourished, well developed - Routine HEENT Exam Eye: Present: EOMI ENT: Present: mucous membranes moist, dentition normal - Routine Respiratory Exam Present: CTA bilaterally. Absent: wheezes - Routine Abdominal Exam Present: soft, normoactive bowel sounds, non distended. Absent: tenderness - Routine Extremities Exam Present: normal capillary refill. Absent: edema Results - Labs CBC & Chem 7: 05/25/17 04:39 05/26/17 04:38 Assessment and Plan (1) Type 1 diabetes mellitus with hyperglycemia Problem details: Diabetic gastroparesis, early nephropathy, retinopathy. A1c 11.5 03/15/17 Current visit: No Status: Chronic (2) Diabetic ketoacidosis Current visit: Yes Status: Acute Assessment and Plan: Assessment: DKA-POA, improved Type 1 diabetes mellitus with retinopathy and gastroparesis; A1c 11.59 Acute/chronic nausea and vomiting Chronic abdominal pain Constipation with persistent fecal impaction Hypophosphatemia Dehydration-POA, improved Major depression Normocytic anemia, chronic disease by past workup Recent fecal impaction with subsequent diarrhea Pruritus, attributed to hospital sheets Plan: Continue IV fluids until patient taking fluids better. Reassess electrolytes in a.m. Continue oral diet, NovoLog being reduced with meals due to diminished intake at meals. Decreased frequency of IV narcotic again-advised patient that narcotics are contributing to ongoing constipation and that cutting back on narcotic use is critical to manage bowel disease. Increase activity/ambulation. Will decrease MiraLAX to once daily in an attempt for patient to take it. Continued pruritus-oral Benadryl Ongoing nausea, convert to oral Reglan with when necessary Compazine/Zofran. Dr. Cain allowing hospitalist service to continue to manage care. Hospital Course Summary Disclaimer: The visit summary below is not to be considered part of the above Progress Note. Hospital Course: 05/24/17 12:39 DKA Protocol IVFs IV antiemetics - start w/ compazine 1st line, then Zofran PRN Benadryl 25mg IV q 4 hours for itching - convert to po once able to tolerate po IV Dilaudid 0.5mg q 2 hours prn, conver to po Lortab (home med) when able to tolerate po q 2 hour BMPs x 2, then spread out as able Supportive care in ICU Patient is generally on scheduled metoclopramide which will be initiated IV at 10 mg every 6 hours. Resume scheduled Levemir. Acidosis has largely resolved and I believe patient can transition to subcutaneous insulin if she attempts to take anything orally which at present seems unlikely. Will monitor blood sugars per DKA protocol with insulin drip over the next few hours to determine if able to transition to corrective scale insulin later today. Continue Effexor and mirtazapine for depression; monitor for signs of symptom worsening as patient required discharge to inpatient psychiatry during her last hospitalization. Check KUB to determine if persistent fecal impaction. Underlying infectious etiology unlikely to of triggered DKA-inconsistent use of insulin and appropriate monitoring for sick days more likely trigger. 05/25/17 Continue IV fluids with addition of K-Phos. Reassess electrolytes in a.m. Continue oral diet, NovoLog being reduced with meals due to diminished intake at meals. Decreased frequency of IV narcotic-advised patient that narcotics are contributing to ongoing constipation and that cutting back on narcotic use is critical to manage bowel disease. Increase activity/ambulation. Recommended MiraLAX in multiple doses for bowel stimulation-patient very opposed to trying this and requests an enema given instead but then declined the enema initially. Continued pruritus-convert Benadryl to by mouth Ongoing nausea, continue IV Reglan with when necessary Compazine/Zofran. Hope to convert oral Reglan as per home regimen tomorrow. 05/26/17 19:24 Continue IV fluids until patient taking fluids better. Reassess electrolytes in a.m. Continue oral diet, NovoLog being reduced with meals due to diminished intake at meals. Decreased frequency of IV narcotic again-advised patient that narcotics are contributing to ongoing constipation and that cutting back on narcotic use is critical to manage bowel disease. Increase activity/ambulation. Will decrease MiraLAX to once daily in an attempt for patient to take it. Continued pruritus-oral Benadryl Ongoing nausea, convert to oral Reglan with when necessary Compazine/Zofran. Dr. Cain allowing hospitalist service to continue to manage care.
[2017-05-26] MEDS ORDERED: HYDROMORPHONE 2 MG/ML INJECTION IVP PRN (19:18)
[2017-05-26] MEDS: MELATONIN 1 MG TABLET PO SCH (21:37)
[2017-05-26] MEDS: SALINE FLUSH 10ml SYRINGE IVF PRN (21:37)
[2017-05-26] MEDS: MIRTAZAPINE 15 MG TABLET PO SCH (21:52)
[2017-05-26] MEDS: METOCLOPRAMIDE 10mg/10ml ORAL LIQUID PO SCH (21:52)
[2017-05-27 00:40] VITALS: TEMP 98.1
[2017-05-27] MEDS: HYDROCODONE/APAP 10 MG/325 MG TABLET PO PRN ×2 (06:28→09:47)
[2017-05-27] MEDS: METOCLOPRAMIDE 10mg/10ml ORAL LIQUID PO SCH ×2 (06:29→13:23)
[2017-05-27] MEDS: MIDODRINE 5 MG TABLET PO SCH ×3 (07:52→15:37)
[2017-05-27] MEDS ORDERED: POLYETHYL GLYCOL 3350 17gm PACKET PO SCH (09:00)
[2017-05-27] MEDS: LISINOPRIL 10 MG TABLET PO SCH (09:48)
[2017-05-27] MEDS: VENLAFAXINE 75 MG TABLET PO SCH (09:48)
[2017-05-27] MEDS: INSULIN ASPART 100unit/ml INJECTION SQ SCH ×2 (10:20→15:36)
[2017-05-27] MEDS: INSULIN GLARGINE 100unit/ml INJECTION SQ SCH (10:22)
[2017-05-27 15:42] VITALS: BP 134/90; PULSE 101; RESP 16; O2SAT 98
--- NOTE | 2017-05-27 21:02 | Discharge Summary ---
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 Acute/chronic nausea and vomiting Chronic abdominal pain Constipation with persistent fecal impaction Hypophosphatemia Dehydration-POA, improved Major depression Normocytic anemia, chronic disease by past workup Recent fecal impaction with subsequent diarrhea Pruritus, attributed to hospital sheets - Laboratory Labs: 05/27/17 04:41 05/27/17 04:41 Laboratory Tests 05/23/17 23:45 ABG pH 7.290 L ABG pCO2 30 L ABG pO2 114 H ABG HCO3 14 L ABG Total CO2 15.3 L ABG O2 Saturation 98.0 ABG Base Excess -10.9 L O2 Delivery Method Room air Laboratory Tests 05/23/17 05/24/17 05/25/17 22:14 04:34 04:39 Hgb 13.5 10.4 L D 9.8 L 05/27/17 04:41 Hgb 8.8 L - Radiology Radiology: KUB x-ray 05/24/17 Findings: The bowel gas pattern is nonobstructive and nonspecific. Gas is seen in nondilated small and large bowel to the level of the rectum. 7 cm stool ball in the rectum. Moderate stool is seen throughout the colon. The bony structures are grossly unremarkable. Impression: Nonobstructive nonspecific bowel gas pattern. Rectal stool ball. History of Present Illness HPI: Verito is a 26 y/o w/ h/o Type I DM and h/o DKA requiring hospitalization, chronic abdominal pain, gastroparesis, and chronic n/v who presents to ER at [facility] w/ chief concern of n/v/d, abdominal pain, decrease po intake and not using her insulin regularly over past few days. Patient states she has had for about 2 weeks following a bout w/ constipation. Patient states the diarrhea is not chronic, but the n/v is chronic intermittent. Also abdominal pain is chronic as well. Patient denies f/c/s, chest pain, melena, BRBPR, hematochezia, dysuria and hematuria. Denies ALVARADO and SOA/dyspnea. In ED patient given IVFs, Toradol, Dilaudid 0.5mg x one, Compazine 10mg IV x one , Benadryl 50 mg x one for pruritis and 5 units regular insulin. Patient glucose = 455, CO2 17 and pH was 7.29 and she had ketones in her urine. UA neg for nitrites, leukocyte esterase. Patient admitted to the ICU on the Hospitalist service for further evaluation and managment. At present, Patient c/o "itching" d/t hospital bed sheets, overall tired, but currently nausea is improved Objective Vital signs: Temperature 98.1 F 05/27/17 04:05 Pulse Rate 101 H 05/27/17 15:41 Respiratory Rate 16 05/27/17 15:41 Blood Pressure 134/90 H 05/27/17 15:41 Pulse Oximetry 98 05/27/17 15:41 Height/Weight/BMI: Height 1.65 m Weight 59.8 kg Body Mass Index 20.2 - Constitutional Present: no acute distress, well nourished, well developed - Routine HEENT Exam Head: Present: normocephalic, atraumatic ENT: Present: mucous membranes moist - Routine Respiratory Exam Present: CTA bilaterally. Absent: wheezes - Routine Cardiovascular Exam Present: RRR. Absent: murmur - Routine Abdominal Exam Present: soft, normoactive bowel sounds, tenderness (diffuse), non distended - Routine Extremities Exam Present: no edema, normal capillary refill - Routine Skin Exam Present: dry, warm - Routine Neurological Exam Present: alert, oriented X3 - Routine Lymphatic Exam Lymphatic: Absent: adenopathy - Routine Psychiatric Exam Present: normal affect, cooperative Hospital Course This is a general summary of the patient's hospital course. For more details refer to the complete medical record. Hospital course: 05/24/17 12:39 DKA Protocol IVFs IV antiemetics - start w/ compazine 1st line, then Zofran PRN Benadryl 25mg IV q 4 hours for itching - convert to po once able to tolerate po IV Dilaudid 0.5mg q 2 hours prn, conver to po Lortab (home med) when able to tolerate po q 2 hour BMPs x 2, then spread out as able Supportive care in ICU Patient is generally on scheduled metoclopramide which will be initiated IV at 10 mg every 6 hours. Resume scheduled Levemir. Acidosis has largely resolved and I believe patient can transition to subcutaneous insulin if she attempts to take anything orally which at present seems unlikely. Will monitor blood sugars per DKA protocol with insulin drip over the next few hours to determine if able to transition to corrective scale insulin later today. Continue Effexor and mirtazapine for depression; monitor for signs of symptom worsening as patient required discharge to inpatient psychiatry during her last hospitalization. Check KUB to determine if persistent fecal impaction. Underlying infectious etiology unlikely to of triggered DKA-inconsistent use of insulin and appropriate monitoring for sick days more likely trigger. 05/25/17 Continue IV fluids with addition of K-Phos. Reassess electrolytes in a.m. Continue oral diet, NovoLog being reduced with meals due to diminished intake at meals. Decreased frequency of IV narcotic-advised patient that narcotics are contributing to ongoing constipation and that cutting back on narcotic use is critical to manage bowel disease. Increase activity/ambulation. Recommended MiraLAX in multiple doses for bowel stimulation-patient very opposed to trying this and requests an enema given instead but then declined the enema initially. Continued pruritus-convert Benadryl to by mouth Ongoing nausea, continue IV Reglan with when necessary Compazine/Zofran. Hope to convert oral Reglan as per home regimen tomorrow. 05/26/17 Continue IV fluids until patient taking fluids better. Reassess electrolytes in a.m. Continue oral diet, NovoLog being reduced with meals due to diminished intake at meals. Decreased frequency of IV narcotic again-advised patient that narcotics are contributing to ongoing constipation and that cutting back on narcotic use is critical to manage bowel disease. Increase activity/ambulation. Will decrease MiraLAX to once daily in an attempt for patient to take it. Continued pruritus-oral Benadryl Ongoing nausea, convert to oral Reglan with when necessary Compazine/Zofran. Dr. Cain allowing hospitalist service to continue to manage care. 05/27/17 Patient requesting to go home. She states she feels better. She still has some abdominal pain but states this is chronic for her. She continues to request IV Dilaudid, but has been told that she cannot be discharged until she's been off of it for 24 hours. At that point, she no longer requested Dilaudid and did well with p.o.Allison. Her labs stabilized with the exception of her hemoglobin at 8.8. This is likely dilutional as she's been continued on IV fluids. She has had no black or bloody stools. Will have her follow-up with her PCP with a repeat CBC to follow this. Again encouraged her to cut back on narcotic use given her constipation and gastroparesis. Patient set up to see her PCP within one week. Recommend repeat CBC and BMP at that time. Specifically follow her hemoglobin. Patient also has an appointment in less than a month with her tire builder operator, Dr. Bruce. Time spent with patient: greater than 35 minutes DVT Prophylaxis: SCD's Discharge Plan - Discharge Disposition Discharge Date: 05/27/17 Disposition: 01 Discharged Home, Self-Care *Condition: Stable Reason For Visit (Visit label in EMR): DKA, n/v/d/, dehydration - Discharge Medications *Discharge Medications: New PEG 3350 17gm PACKET [Miralax] 17 gm PO DAILY packet Continue Hydrocodone/APAP 10/325 [Allison 10/325] 1 tab PO TID PRN PRN Reason: Pain Lisinopril [Prinivil] 10 mg PO DAILY Metoclopramide [Reglan] 10 mg PO QID PRN PRN Reason: Prn Orders LORazepam [Ativan] 0.5 mg PO TID PRN PRN Reason: Anxiety Midodrine [Proamatine] 5 mg PO TID Melatonin 3 mg PO HS Prochlorperazine Tab [Compazine] 10 mg PO Q6HPRN PRN #20 tab PRN Reason: Nausea &/Or Vomiting Insulin Aspart [NovoLOG] 7 units SQ TIDWM Remeron (mirtazapine) 15 mg tablet 15 mg PO HS #30 tab venlafaxine 75 mg tablet 75 mg PO BIDWM #30 tab Lantus Solostar (insulin glargine) 100 unit/mL (3 mL) PEN 10 unit SQ BID #15 ml Discontinued paregoric 2 mg/5 mL oral liquid 5 ml PO TID PRN #80 ml PRN Reason: abdominal discomfort - Discharge Packet/Instructions *Diet: controlled carb *Activity: as tolerated *Pain Management/Treatment: per your routine through Dr. Lerma's office *Wound Care: n/a *Expected Signs/Symptoms: n/a *Notify Physician if: you develop uncontrolled pain or uncontrolled BS's. *During Business Hours Contact: Dr. Cain *After Business Hours Contact: Dr. Cain through the after hours instructions *Pending Lab/Results: No Pending Lab - Referrals/Follow Up *Referrals/Follow Up: Jean Yusuf MD [Family Provider] - (FOLLOW UP WITH DR. YUSUF ON 06/03/2017 AT 11:00 AM OFFICE NUMBER--[phone]) - Patient Handouts - Dismissal Complete Discharge Instructions are:: Complete <Jordan Riley IV - Last Filed: 05/27/17 22:36> Discharge Information Date of admission: 05/24/17 00:09 Attending Physician: Jordan Riley IV, MD Primary care physician: Jean Yusuf MD - Discharge Diagnosis (1) Type 1 diabetes mellitus with hyperglycemia Status: Chronic (2) Diabetic ketoacidosis Status: Resolved - Laboratory Labs: 05/27/17 04:41 05/27/17 04:41 Objective Vital signs: Temperature 98.1 F 05/27/17 04:05 Pulse Rate 101 H 05/27/17 15:41 Respiratory Rate 16 05/27/17 15:41 Blood Pressure 134/90 H 05/27/17 15:41 Pulse Oximetry 98 05/27/17 15:41 Height/Weight/BMI: Height 5 ft 5 in Weight 59.8 kg Body Mass Index 20.2 Hospital Course This is a general summary of the patient's hospital course. For more details refer to the complete medical record. Attestation Narriative - Attestation Attestation Narrative: 05/27/17 22:32 I have independently evaluated and examined this patient. I reviewed the chart, the patient's history, and the MDM DEVELOPER/PA's documented findings as above. We discussed and formulated the assessment and plan as above with additions as below: Patient says she feels better and is ready to go home. She has had some hypoglycemia here on her usual insulin doses. d/w her that she might be eating differently than she does at home but could decrease her meal doses if blood sugars remain low. Recommended she f/u with her PCP. NAD CTAB RRR s/nt/nd no edema Dismiss to home. f/u with PCP
== END 2017-05-27 16:16 | disposition home or self-care (01) | DRG 639 ==
LOC: ED 21:23 → CCU 05-24 00:05 → SUATTDRO 05-24 00:09 → CCU 05-24 00:09 → MED 05-25 15:36
PROVIDERS: ADMIT Internal Medicine; ATTEND Hospitalist

== ENCOUNTER 2017-06-12 10:26 | Inpatient (IN) ==
[2017-06-12 10:53] VITALS: BMI 20.6
[2017-06-12] MEDS ORDERED: NS with KCL 20 mEq 1,000 ML IV SCH (11:45)
[2017-06-12] MEDS: MORPHINE SULFATE 4mg INJECTION IVP PRN ×5 (12:06→22:47)
[2017-06-12] MEDS: DiphenhydrAMINE 50 MG/ML INJECTION IVP PRN ×3 (13:52→22:35)
[2017-06-12] MEDS: METOCLOPRAMIDE 10mg/2ml INJECTION IVP PRN ×2 (13:54→18:56)
[2017-06-12] MEDS ORDERED: MORPHINE SULFATE 2mg INJECTION IVP ONE (14:22)
--- NOTE | 2017-06-12 16:13 | History and Physical ---
HPI The patient is a 26-year-old female here today with her mother to see Dr. Yusuf in the office this morning. Due to complaints of a yfqou-xx-[id number]-day history of nausea and vomiting too numerous to count time-kumar as well as a three-day history of diarrhea up to four or five episodes per day. She has this acute abdominal pain which is mainly epigastric. She does have chronic abdominal pain. I saw this patient in the office on 05/15/2017. At that time she was having issues with constipation and abdominal pain. We put her on paregoric medication and that has led to "diarrhea" according to her mother. She was admitted to [facility] on 05/24/2017 for DKA, nausea, vomiting and dehydration. She went back to the emergency room on 06/02/2017 for pretty much the same thing. It was not deemed necessary for her to be admitted to [facility] at that time. Her lab done yesterday at the emergency room did show leukocytosis with a white blood count of 11,400. ABG shows bicarb 13, base excess -10.1, CO2 19. Blood sugar was 550 with a calculated osmolality of 293, alkaline phosphatase 207. test was negative. She is here this morning constantly crying and screaming because she is having abdominal pain and because of the nausea and vomiting. She said she wants to be in the hospital. Her blood sugar overall is not well controlled. She saw Dr. Bruce for diabetic management. PAST MEDICAL HISTORY 1. Chronic DKA. 2. Type 1 diabetes mellitus needing insulin. The patient does have noncompliance issues. 3. Chronic gastroparesis. 4. Chronic epigastric pain. 5. History of urinary tract infection. 6. Kidney stone. 7. Hypotension. 8. Major depression. 9. Diabetic neuropathy. 10. Anxiety disorder. 11. Chronic nausea and chronic abdominal pain. FAMILY HISTORY Aortic aneurysm, myocardial infarction, diabetes mellitus. SOCIAL HISTORY The patient is , with two children. She does not drink or smoke. Denies illicit drug use. ALLERGIES Sodium hypochlorite. Adhesive tape. REVIEW OF SYSTEMS Denies chest pain, orthopnea, PND, leg-swelling, hematochezia, melena. Denies TIA or seizure symptoms. PHYSICAL EXAM GENERAL: The patient looks worn out, generally tired-appearing, constantly crying. HEENT: Unremarkable. NECK: Supple. No JVD. No thyromegaly. CHEST: Lungs are clear to auscultation bilaterally. No wheezing or rales. CARDIOVASCULAR: Regular rate and rhythm. No murmur. ABDOMEN: Soft. The patient is tender in the epigastric region. No acute surgical abdomen - no rebound or guarding. Bowel sounds are normoactive. EXTREMITIES: No cyanosis, clubbing or edema. NEUROLOGIC: Grossly intact. SKIN: Slightly dry. Oral mucosa is slightly dry. She cries a lot in her room but is not really making a lot of tears. ASSESSMENT 1. Intractable nausea and vomiting. 2. Acute dehydration. 3. Severe hyperglycemia not meeting criteria for DKA as of yesterday. Right now we cannot rule out DKA at this time. 4. Acute diarrhea. 5. Major depression. 6. History of gastroparesis. PLAN 1. Admit patient to [facility] under the care of Dr. Jean Yusuf on an inpatient basis. The patient meets inpatient criteria. She is going to require more than a two-night stay in the hospital. 2. Will make patient n.p.o. for now and advance diet as tolerated. 3. Lab included CBC, CMP, magnesium, UA, serum ketones and ABG. The patient may start on normal saline for now until we know other numbers of the lab. Her blood sugar this morning at home was 239. Will hold medication at this time and just use IV fluids, IV antiemetics and IV pain medication. MTDD
[2017-06-12] MEDS: NS with KCL 20 mEq 1,000 ML IV SCH (16:22)
[2017-06-12] MEDS ORDERED: INSULIN REGULAR, HUMAN 100 UNIT in NS 100 ML IV PRN (16:34)
[2017-06-12] MEDS ORDERED: D5-1/2NS with KCL 20mEq 1,000 ML IV SCH (19:15)
[2017-06-12] MEDS ORDERED: LORazepam 0.5 MG TABLET PO PRN (19:33)
[2017-06-12] MEDS: POTASSIUM CHLORIDE INJ 20 MEQ in D5NS 1,000 ML IV SCH (19:37)
[2017-06-12] MEDS: ONDANSETRON 4 MG/2 ML INJECTION IVP PRN (22:13)
[2017-06-13] MEDS: MORPHINE SULFATE 4mg INJECTION IVP PRN ×9 (01:18→21:27)
[2017-06-13] MEDS: METOCLOPRAMIDE 10mg/2ml INJECTION IVP PRN ×3 (02:23→14:10)
[2017-06-13] MEDS: DiphenhydrAMINE 50 MG/ML INJECTION IVP PRN ×5 (02:37→19:56)
[2017-06-13] MEDS: ONDANSETRON 4 MG/2 ML INJECTION IVP PRN ×3 (04:10→22:02)
[2017-06-13] MEDS: POTASSIUM CHLORIDE INJ 20 MEQ in D5NS 1,000 ML IV SCH (04:48)
[2017-06-13] MEDS: PANTOPRAZOLE 40 MG INJECTION IVP SCH (08:28)
[2017-06-13] MEDS ORDERED: LORazepam 0.5 MG TABLET PO PRN (11:23)
[2017-06-13] MEDS ORDERED: POLYETHYL GLYCOL 3350 17gm PACKET PO PRN (11:23)
[2017-06-13] MEDS: 1/2 NS with KCL 20mEq 1,000 ML IV SCH (11:36)
[2017-06-13] MEDS: INSULIN GLARGINE 100unit/ml INJECTION SQ SCH ×2 (11:41→21:25)
[2017-06-13] MEDS: INSULIN ASPART 100unit/ml INJECTION SQ SCH ×2 (16:19→20:12)
--- NOTE | 2017-06-13 18:44 | Progress Note ---
- Date 06/13/17 Subjective: F/U: DKA. Covering for Dr Yusuf Feels rough. Still with significant lower ab pain. Notes nausea. Oral drive decreased secondary to pain. Breathing well. Feels tired and weak. Objective Vital signs: Temperature 97.4 F 06/13/17 04:00 Pulse Rate 107 H 06/13/17 08:00 Respiratory Rate 22 06/13/17 07:00 Blood Pressure 150/77 H 06/13/17 07:00 Pulse Oximetry 100 06/13/17 07:00 Height/Weight/BMI: Height 1.65 m Weight 55.3 kg Body Mass Index 20.6 - Constitutional Present: well nourished, well developed, average body habitus - Routine HEENT Exam Head: Present: normocephalic, atraumatic Eye: Present: EOMI, PERRL ENT: Present: mucous membranes moist - Routine Respiratory Exam Present: decreased breath sounds. Absent: rales, respiratory distress, rhonchi , wheezes, crackles - Routine Cardiovascular Exam Present: tachycardia (Regular) - Routine Abdominal Exam Present: soft, non distended. Absent: normoactive bowel sounds (Decreased ) - Routine Extremities Exam Present: no edema, pulses intact. Absent: cyanosis, clubbing - Routine Musculoskeletal Exam Musculoskeletal: Present: no clubbing or cyanosis, normal strength - Routine Skin Exam Present: dry, warm - Routine Neurological Exam Present: alert, CN II-XII intact, moving all extremities, vision grossly intact , hearing grossly intact. Absent: motor deficit, altered mental status - Routine Psychiatric Exam Present: anxious Results - Labs CBC & Chem 7: 06/13/17 08:26 06/13/17 08:26 - ABG Interpretation ABG results: 06/12/17 11:02 ABG pH 7.325 L ABG pCO2 18 L* ABG pO2 116 H ABG HCO3 9 L ABG Total CO2 10 L ABG O2 Saturation 98.0 ABG Base Excess -15.0 L Assessment and Plan (1) Diabetic ketoacidosis Current visit: No Status: Resolved Assessment and Plan: Assessment Diabetic Ketoacidosis (POA) - resolved Intractable nausea and vomiting. Acute dehydration. Acute diarrhea. Leukocytosis Major depression. History of gastroparesis. Plan - Covering for Dr Yusuf Will discontinue Insulin drip and start Sq insulins as at home. Advance diet as patient tolerated. Change IVF to 1/2NS with 20 KCl at 75 cc/hr. Restart home medications. Diabetic education. Will check TSH and a1c for completeness. Anticipate transfer to medical floor if blood sugars stay stable off insulin drip. Case discussed with CCU nursing. Time spent with patient care 25 minutes. - Time spent with patient Time with patient PN: 25 minutes Hospital Course Summary Disclaimer: The visit summary below is not to be considered part of the above Progress Note. Hospital Course: 06/12/17 ASSESSMENT 1. Intractable nausea and vomiting. 2. Acute dehydration. 3. Severe hyperglycemia not meeting criteria for DKA as of yesterday. Right now we cannot rule out DKA at this time. 4. Acute diarrhea. 5. Major depression. 6. History of gastroparesis. PLAN 1. Admit patient to [facility] under the care of Dr. Jean Yusuf on an inpatient basis. The patient meets inpatient criteria. She is going to require more than a two-night stay in the hospital. 2. Will make patient n.p.o. for now and advance diet as tolerated. 3. Lab included CBC, CMP, magnesium, UA, serum ketones and ABG. The patient may start on normal saline for now until we know other numbers of the lab. Her blood sugar this morning at home was 239. Will hold medication at this time and just use IV fluids, IV antiemetics and IV pain medication. Lab showing evidence for DKA. DKA protocol initiated. 06/13/17 - Covering for Dr Yusuf Will discontinue Insulin drip and start Sq insulins as at home. Advance diet as patient tolerated. Change IVF to 1/2NS with 20 KCl at 75 cc/hr. Restart home medications. Diabetic education. Will check TSH and a1c for completeness. Anticipate transfer to medical floor if blood sugars stay stable off insulin drip.
[2017-06-13] MEDS: Venlaflaxine XR 75 MG CAPSULE (24hr) PO SCH (20:12)
[2017-06-13] MEDS: INSULIN ASPART 100unit/ml INJECTION SQ PRN (21:01)
[2017-06-13] MEDS: MELATONIN 1 MG TABLET PO SCH (21:51)
[2017-06-13] MEDS: MIRTAZAPINE 15 MG TABLET PO SCH (21:51)
[2017-06-14] MEDS: METOCLOPRAMIDE 10mg/2ml INJECTION IVP PRN (00:31)
[2017-06-14] MEDS: MORPHINE SULFATE 4mg INJECTION IVP PRN ×7 (00:32→21:39)
[2017-06-14] MEDS: 1/2 NS with KCL 20mEq 1,000 ML IV SCH ×2 (01:46→16:09)
[2017-06-14] MEDS: DiphenhydrAMINE 25 MG CAPSULE PO PRN ×3 (04:41→20:18)
[2017-06-14] MEDS: INSULIN GLARGINE 100unit/ml INJECTION SQ SCH ×2 (09:03→21:37)
[2017-06-14] MEDS: LISINOPRIL 10 MG TABLET PO SCH (09:04)
[2017-06-14] MEDS: PANTOPRAZOLE 40 MG INJECTION IVP SCH (09:04)
[2017-06-14] MEDS: INSULIN ASPART 100unit/ml INJECTION SQ SCH ×4 (09:04→18:10)
[2017-06-14] MEDS: Venlaflaxine XR 75 MG CAPSULE (24hr) PO SCH ×2 (09:04→18:36)
[2017-06-14] MEDS: HYDROCODONE/APAP 10 MG/325 MG TABLET PO PRN ×2 (14:04→20:18)
--- NOTE | 2017-06-14 14:16 | Progress Note ---
- Date 06/14/17 Subjective: F/U: DKA. Covering for Dr Yusuf Improving slowly. Oral drive with increase-taking more in, but eating slowly and cautiously. Notes increased ab pain and nausea with eating. Not passing much gas, no stools. Discussed about Dulcolax, put patient declined (worries will develop severe diarrhea). Breathing well. No chest pain. Not having swelling to legs. Would like Suazo out. Objective Vital signs: Temperature 98.5 F 06/14/17 13:00 Pulse Rate 97 06/14/17 13:00 Respiratory Rate 20 06/14/17 13:00 Blood Pressure 127/88 06/14/17 13:00 Pulse Oximetry 100 06/14/17 13:00 Height/Weight/BMI: Height 1.65 m Weight 55.2 kg Body Mass Index 20.6 - Constitutional Present: well nourished, well developed, average body habitus, cooperative - Routine HEENT Exam Head: Present: normocephalic, atraumatic Eye: Present: EOMI, PERRL ENT: Present: mucous membranes moist - Routine Respiratory Exam Present: CTA bilaterally. Absent: rales, respiratory distress, rhonchi, wheezes , crackles - Routine Cardiovascular Exam Present: no murmur, tachycardia (Regular ) - Routine Abdominal Exam Present: soft, tenderness (Mild/diffuse ), non distended. Absent: normoactive bowel sounds (Decreased ), rigid - Routine Extremities Exam Present: no edema, pulses intact. Absent: cyanosis, clubbing - Routine Musculoskeletal Exam Musculoskeletal: Present: no clubbing or cyanosis, normal strength - Routine Skin Exam Present: dry, warm - Routine Neurological Exam Present: alert, oriented X3, CN II-XII intact, moving all extremities, vision grossly intact, hearing grossly intact, normal speech. Absent: motor deficit, altered mental status - Routine Psychiatric Exam Present: normal affect, normal thought process. Absent: anxious, agitated Results - Labs CBC & Chem 7: 06/14/17 04:33 06/14/17 04:33 Assessment and Plan (1) Diabetic ketoacidosis Current visit: No Status: Resolved Assessment and Plan: Assessment Diabetic Ketoacidosis (POA) - resolved Intractable nausea and vomiting. Acute dehydration. Acute diarrhea. Leukocytosis Major depression. History of gastroparesis. Plan - Covering for Dr Yusuf Continue to advance oral intake as she can tolerate. Miralax x1, as worry about constipation with narcotic pain use. Will continue with IVF for hydration support. November d/c tele and suazo. Encourage ambulation. Recheck BMP in am to monitor potassium and CO2. Medically improving. Case discussed with CCU nursing. Time spent with patient care 25 minutes. Resuscitation Status: Full Code - Time spent with patient Time with patient PN: 25 minutes Hospital Course Summary Disclaimer: The visit summary below is not to be considered part of the above Progress Note. Hospital Course: 06/12/17 ASSESSMENT 1. Intractable nausea and vomiting. 2. Acute dehydration. 3. Severe hyperglycemia not meeting criteria for DKA as of yesterday. Right now we cannot rule out DKA at this time. 4. Acute diarrhea. 5. Major depression. 6. History of gastroparesis. PLAN 1. Admit patient to [facility] under the care of Dr. Jean Yusuf on an inpatient basis. The patient meets inpatient criteria. She is going to require more than a two-night stay in the hospital. 2. Will make patient n.p.o. for now and advance diet as tolerated. 3. Lab included CBC, CMP, magnesium, UA, serum ketones and ABG. The patient may start on normal saline for now until we know other numbers of the lab. Her blood sugar this morning at home was 239. Will hold medication at this time and just use IV fluids, IV antiemetics and IV pain medication. Lab showing evidence for DKA. DKA protocol initiated. 06/13/17 - Covering for Dr Yusuf Will discontinue Insulin drip and start Sq insulins as at home. Advance diet as patient tolerated. Change IVF to 1/2NS with 20 KCl at 75 cc/hr. Restart home medications. Diabetic education. Will check TSH and a1c for completeness. Anticipate transfer to medical floor if blood sugars stay stable off insulin drip. 06/14/17 - Covering for Dr Yusuf Continue to advance oral intake as she can tolerate. Miralax x1, as worry about constipation with narcotic pain use. Will continue with IVF for hydration support. May d/c tele and suazo. Encourage ambulation. Recheck BMP in am to monitor potassium and CO2. Medically improving.
[2017-06-14] MEDS ORDERED: POLYETHYL GLYCOL 3350 17gm PACKET PO ONE (14:35)
[2017-06-14] MEDS: NS with KCL 20 mEq 1,000 ML IV SCH (20:09)
[2017-06-14] MEDS: MIRTAZAPINE 15 MG TABLET PO SCH (21:37)
[2017-06-14] MEDS: MELATONIN 1 MG TABLET PO SCH (21:38)
[2017-06-15] MEDS: MORPHINE SULFATE 4mg INJECTION IVP PRN ×9 (01:45→23:04)
[2017-06-15] MEDS: 1/2 NS with KCL 20mEq 1,000 ML IV SCH (07:02)
[2017-06-15] MEDS: INSULIN GLARGINE 100unit/ml INJECTION SQ SCH ×2 (08:42→20:01)
[2017-06-15] MEDS: INSULIN ASPART 100unit/ml INJECTION SQ SCH ×3 (08:42→18:23)
[2017-06-15] MEDS: PANTOPRAZOLE 40 MG INJECTION IVP SCH (08:42)
[2017-06-15] MEDS: Venlaflaxine XR 75 MG CAPSULE (24hr) PO SCH ×2 (08:42→18:23)
[2017-06-15] MEDS: LISINOPRIL 10 MG TABLET PO SCH (08:42)
[2017-06-15] MEDS: METOCLOPRAMIDE 10mg/2ml INJECTION IVP PRN (08:50)
[2017-06-15] MEDS: DiphenhydrAMINE 50 MG/ML INJECTION IVP PRN ×3 (11:36→20:00)
--- NOTE | 2017-06-15 13:14 | Progress Note ---
- Date 06/15/17 Subjective: F/U: DKA. Covering for Dr Yusuf Improving. Able to take more food in. Still has pain and nausea with eating; trying to eat slow so as not to increase pain and nausea. Not passing flatus or stool. Breathing well. Strength increasing-feels less weak and washed out. Objective Vital signs: Temperature 96.5 F L 06/15/17 08:00 Pulse Rate 83 06/15/17 08:00 Respiratory Rate 12 06/15/17 08:00 Blood Pressure 94/65 06/15/17 08:00 Pulse Oximetry 98 06/15/17 08:00 Height/Weight/BMI: Height 1.65 m Weight 56.5 kg Body Mass Index 20.6 - Constitutional Present: well nourished, well developed, thin, cooperative - Routine HEENT Exam Head: Present: normocephalic, atraumatic Eye: Present: EOMI, PERRL ENT: Present: mucous membranes moist - Routine Respiratory Exam Present: CTA bilaterally. Absent: respiratory distress, rhonchi, wheezes, crackles - Routine Cardiovascular Exam Present: RRR, no murmur - Routine Abdominal Exam Present: soft, non distended, non tender. Absent: normoactive bowel sounds ( decreased ) - Routine Extremities Exam Present: no edema, pulses intact. Absent: cyanosis, clubbing - Routine Musculoskeletal Exam Musculoskeletal: Present: no clubbing or cyanosis, normal strength - Routine Skin Exam Present: dry, warm - Routine Neurological Exam Present: alert, oriented X3, CN II-XII intact, moving all extremities, vision grossly intact, hearing grossly intact, normal speech. Absent: motor deficit, altered mental status - Routine Psychiatric Exam Present: normal affect, normal thought process, cooperative. Absent: agitated Results - Labs CBC & Chem 7: 06/14/17 04:33 06/15/17 04:29 Assessment and Plan (1) Diabetic ketoacidosis Current visit: No Status: Resolved Assessment and Plan: Assessment Diabetic Ketoacidosis (POA) - resolved Intractable nausea and vomiting. Acute dehydration. Acute diarrhea. Leukocytosis Major depression. History of gastroparesis. Plan - Covering for Dr Yusuf Oral drive improving. Sugars showing stability. Still has nausea and pain with eating. Continue to advance oral intake as she can tolerate. Encourage Miralax to help bowel function. Encourage ambulation to help strength and bowel function. Will continue with IVF for hydration support, as serum sodium decreasing (139) will change to NS with 20KCl at 75cc/hr. Restart home Midodrine as BP showing decrease. Recheck BMP in am to monitor potassium and CO2. Time spent with patient care 25 minutes. Resuscitation Status: Full Code Hospital Course Summary Disclaimer: The visit summary below is not to be considered part of the above Progress Note. Hospital Course: 06/12/17 ASSESSMENT 1. Intractable nausea and vomiting. 2. Acute dehydration. 3. Severe hyperglycemia not meeting criteria for DKA as of yesterday. Right now we cannot rule out DKA at this time. 4. Acute diarrhea. 5. Major depression. 6. History of gastroparesis. PLAN 1. Admit patient to [facility] under the care of Dr. Jean Yusuf on an inpatient basis. The patient meets inpatient criteria. She is going to require more than a two-night stay in the hospital. 2. Will make patient n.p.o. for now and advance diet as tolerated. 3. Lab included CBC, CMP, magnesium, UA, serum ketones and ABG. The patient may start on normal saline for now until we know other numbers of the lab. Her blood sugar this morning at home was 239. Will hold medication at this time and just use IV fluids, IV antiemetics and IV pain medication. Lab showing evidence for DKA. DKA protocol initiated. 06/13/17 - Covering for Dr Yusuf Will discontinue Insulin drip and start Sq insulins as at home. Advance diet as patient tolerated. Change IVF to 1/2NS with 20 KCl at 75 cc/hr. Restart home medications. Diabetic education. Will check TSH and a1c for completeness. Anticipate transfer to medical floor if blood sugars stay stable off insulin drip. 06/14/17 - Covering for Dr Yusuf Continue to advance oral intake as she can tolerate. Miralax x1, as worry about constipation with narcotic pain use. Will continue with IVF for hydration support. May d/c tele and suazo. Encourage ambulation. Recheck BMP in am to monitor potassium and CO2. Medically improving. 06/15/17 - Covering for Dr Yusuf Oral drive improving. Sugars showing stability. Still has nausea and pain with eating. Continue to advance oral intake as she can tolerate. Encourage Miralax to help bowel function. Encourage ambulation to help strength and bowel function. Will continue with IVF for hydration support, as serum sodium decreasing (139) will change to NS with 20KCl at 75cc/hr. Restart home Midodrine as BP showing decrease. Recheck BMP in am to monitor potassium and CO2.
[2017-06-15] MEDS: NS with KCL 20 mEq 1,000 ML IV SCH (13:46)
[2017-06-15] MEDS: MIDODRINE 5 MG TABLET PO SCH ×2 (14:23→20:01)
[2017-06-15] MEDS: MIRTAZAPINE 15 MG TABLET PO SCH (20:00)
[2017-06-15] MEDS: HYDROCODONE/APAP 10 MG/325 MG TABLET PO PRN (20:00)
[2017-06-15] MEDS: MELATONIN 1 MG TABLET PO SCH (20:01)
[2017-06-16] MEDS: DiphenhydrAMINE 50 MG/ML INJECTION IVP PRN ×2 (00:29→06:32)
[2017-06-16] MEDS: MORPHINE SULFATE 4mg INJECTION IVP PRN ×2 (02:35→06:33)
[2017-06-16] MEDS: NS with KCL 20 mEq 1,000 ML IV SCH ×2 (02:37→15:44)
[2017-06-16] MEDS: HYDROCODONE/APAP 10 MG/325 MG TABLET PO PRN ×3 (04:27→14:09)
[2017-06-16] MEDS: INSULIN ASPART 100unit/ml INJECTION SQ SCH ×4 (08:00→20:42)
[2017-06-16] MEDS: MIDODRINE 5 MG TABLET PO SCH ×3 (10:11→21:25)
[2017-06-16] MEDS: LISINOPRIL 10 MG TABLET PO SCH (10:11)
[2017-06-16] MEDS: Venlaflaxine XR 75 MG CAPSULE (24hr) PO SCH ×2 (10:11→18:59)
[2017-06-16] MEDS: SALINE FLUSH 10ml SYRINGE IV PRN (10:12)
[2017-06-16] MEDS: PANTOPRAZOLE 40 MG INJECTION IVP SCH (10:12)
[2017-06-16] MEDS: INSULIN GLARGINE 100unit/ml INJECTION SQ SCH ×2 (10:12→21:34)
[2017-06-16] MEDS ORDERED: HYDROCODONE/APAP 10 MG/325 MG TABLET PO ONE (20:35)
[2017-06-16] MEDS: MIRTAZAPINE 15 MG TABLET PO SCH (21:26)
[2017-06-16] MEDS: MELATONIN 1 MG TABLET PO SCH (21:26)
[2017-06-17] MEDS: INSULIN ASPART 100unit/ml INJECTION SQ PRN (06:45)
[2017-06-17] MEDS: PANTOPRAZOLE 40 MG INJECTION IVP SCH (09:13)
[2017-06-17] MEDS: INSULIN ASPART 100unit/ml INJECTION SQ SCH ×3 (09:13→17:28)
[2017-06-17] MEDS: INSULIN GLARGINE 100unit/ml INJECTION SQ SCH (09:14)
[2017-06-17] MEDS ORDERED: D5-1/2NS 1,000 ML IV SCH (09:15)
[2017-06-17] MEDS: HYDROCODONE/APAP 10 MG/325 MG TABLET PO PRN ×2 (09:22→21:33)
[2017-06-17] MEDS: LISINOPRIL 10 MG TABLET PO SCH (09:22)
[2017-06-17] MEDS: Venlaflaxine XR 75 MG CAPSULE (24hr) PO SCH ×2 (09:22→17:29)
[2017-06-17] MEDS: MIDODRINE 5 MG TABLET PO SCH ×3 (09:22→15:34)
[2017-06-17] MEDS ORDERED: INSULIN ASPART 100unit/ml INJECTION SQ PRN (11:30)
[2017-06-17] MEDS ORDERED: INSULIN GLARGINE 100unit/ml INJECTION SQ SCH (13:23)
--- NOTE | 2017-06-17 17:49 | Consultation ---
DATE OF CONSULT 06/17/2017 DATE OF ADMISSION 06/12/2017 REASON FOR CONSULTATION Fluctuating blood sugars. HISTORY OF PRESENT ILLNESS The patient is followed in my clinic for type 1 diabetes mellitus that has been difficult to control due to significant gastroparesis. She saw Dr. Yusuf in the office on the morning of admission with a history of nausea and vomiting numerous times over the past three to four days as well as diarrhea. She had epigastric abdominal pain as well that was worse than her usual chronic abdominal pain. Recently she had been admitted to [facility] on 05/2017 for diabetic ketoacidosis and again on 06/02/2017 for diabetic ketoacidosis. She was in the emergency room one day prior to admission at which time her arterial blood gas showed bicarb of 13 and blood sugar was 550. She was admitted to the hospital by Dr. Yusuf. At the time of admission her glucose was 420 with CO2 11 and anion gap 23, consistent with diabetic ketoacidosis. The evening of admission her CO2 had dropped further to 6 with anion gap increasing to 24. Her ketoacidosis resolved over the next couple of days but she continued to have intractable nausea and vomiting. On 06/16/2017 around midnight her blood sugar fell to 46. With treatment it came back up as high as 193 in the morning before breakfast. However, by lunchtime it had fallen to 36 again. Later that day it climbed as high as 350. On the morning when I saw her on 06/17/2017 her glucose was 96. She had been receiving 7 units of NovoLog before each meal although she tells me that at home she only took 3 units for breakfast, 5 units for lunch and 7 units for supper. She was taking the same 10 units b.i.d. of Lantus in the hospital as she took at home. ALLERGIES Sodium hypochlorite solution. Adhesive. PAST MEDICAL HISTORY Type 1 diabetes mellitus since around 1995 with proliferative retinopathy and macular edema in both eyes. 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 She also has chronic abdominal pain, nausea, vomiting and an anxiety disorder. FAMILY HISTORY Remarkable for [place], diabetes mellitus and aortic aneurysm. SOCIAL HISTORY The patient is with two children. She is an ex-smoker and does not drink alcohol. REVIEW OF SYSTEMS Remarkable for weight loss, dry mouth. She denies blurry vision, chest pain, nocturia and paresthesias in her feet. Otherwise as stated in History of Present Illness. PHYSICAL EXAMINATION VITAL SIGNS: Afebrile with stable vital signs. HEENT: Unremarkable. NECK: Without thyromegaly or lymphadenopathy. LUNGS: Clear. HEART: Regular rate and rhythm without murmur. ABDOMEN: Normal bowel sounds. EXTREMITIES: Without cyanosis or edema. Monofilament and vibratory sensation are normal in both feet. PSYCHIATRIC: Normal affect. LABORATORY Reviewed. ASSESSMENT 1. Type 1 diabetes mellitus, with variable control. She seems to be over insulinized now with the result being recurrent hypoglycemia. 2. Long-term insulin use. 3. Hypoglycemia due to insulin. She will need to have less insulin for breakfast and lunch as well as a decrease of her basal insulin which was the only one working at the time of her hypoglycemia around midnight and before lunch. 4. Diabetic nephropathy. 5. Gastroparesis. This is severe and has not ever responded to attempts at treatment. We will need to avoid overinsulinizing her because of her poor oral intake which varies as the gastroparesis waxes and wanes. RECOMMENDATIONS Reduce Lantus to 9 units q.a.m. and h.s. Reduce NovoLog to 3 units for breakfast, 5 units lunch, 7 units supper. Continue to follow fingerstick blood sugars and titrate insulin as necessary. Thank you very much for allowing me to assist in caring for this young lady once again. I will follow her along with you while she remains in the hospital. JAYSON
--- NOTE | 2017-06-17 17:58 | Progress Note ---
DATE 06/17/2017 MELANI Sellers actually was lying in bed in room #135 on the medical floor this morning when I saw her. She was having a hypoglycemic reaction and her blood sugar had just been checked which was 27. The patient is alert but she is quite sweaty. PHYSICAL EXAM HEENT: Unremarkable. NECK: Supple. CARDIOVASCULAR: Regular rate and rhythm ABDOMEN: Soft. EXTREMITIES: No edema. SKIN: Sweaty. ASSESSMENT 1. Hypoglycemic reaction with symptoms. 2. Type 1 diabetes mellitus, poorly controlled with HgA1c 12%. 3. DKA - resolved. 4. Chronic abdominal pain. PLAN Will adjust patient's insulin. Will follow hypoglycemic protocol. Will start her back on D5 1/2 NS to run at 125 cc/hr. Will go ahead and keep patient another day to monitor her blood sugar because of the significant hypoglycemia with symptoms. Will have Dr. Bruce, patient's board certified family physician, consulted to see if he has anything to offer. Will consult Diabetic Education to come back and give patient some diabetic education. JAYSON
--- NOTE | 2017-06-17 18:05 | Progress Note ---
DATE 06/16/2017 MELANI Sellers is sitting in her bed in room #135 on the medical floor. She reported that she was doing better. According the nursing staff she looks great, eating. She actually finished her supper when I saw her. She finished almost 90% or so. However, she did develop some low blood sugar a few hours prior to me seeing her with blood sugar as low as 37 with symptoms. We followed hypoglycemia protocol. In addition, her potassium was 3.5 on Friday. No lab was drawn until yesterday evening. She is on normal saline with 20 mEq potassium. PHYSICAL EXAM GENERAL: The patient looks comfortable, in no acute distress. She looks well. HEENT: Unremarkable. NECK: Supple. CHEST: Lungs are clear. CARDIOVASCULAR: Regular rate and rhythm. ABDOMEN: Soft. EXTREMITIES: No edema. ASSESSMENT 1. Hypoglycemia with symptoms. 2. DKA - now resolved. 3. Type 1 diabetes mellitus with hypoglycemia, poorly controlled with HgA1c 12.4. 4. Medical noncompliance. PLAN Will observe patient's blood sugar for the rest of the night because of hypoglycemia. Will plan dismissal to home tomorrow, 06/17/2017. Continue current medications. JAYSON
[2017-06-17] MEDS: MELATONIN 1 MG TABLET PO SCH (20:58)
[2017-06-17] MEDS: MIRTAZAPINE 15 MG TABLET PO SCH (20:59)
[2017-06-17] MEDS: SALINE FLUSH 10ml SYRINGE IV PRN (21:00)
[2017-06-18] MEDS: MIDODRINE 5 MG TABLET PO SCH ×3 (06:30→15:51)
[2017-06-18] MEDS ORDERED: INSULIN ASPART 100unit/ml INJECTION SQ SCH ×2 (07:30→11:30)
--- NOTE | 2017-06-18 07:43 | Endocrinology Progress Note ---
Subjective Principal diagnosis: Type 1 diabetes mellitus Interval history: Reports abdominal pain per usual. No vomiting. No further hypoglycemia. Blood sugars rebounded very high following yesterday morning's drop to 27 and have remained elevated. Exam Vital signs: Temperature 97.6 F 06/17/17 23:55 Pulse Rate 88 06/17/17 23:55 Respiratory Rate 16 06/17/17 23:55 Blood Pressure 117/71 06/17/17 23:55 Pulse Oximetry 97 06/17/17 23:55 - Constitutional mild distress, well developed - Routine HEENT Exam Head: Present: normocephalic, atraumatic Eye: Present: EOMI ENT: Present: mucous membranes moist - Routine Neck Exam Absent: thyromegaly - Routine Respiratory Exam Absent: dyspnea - Routine Cardiovascular Exam Present: RRR - Routine Abdominal Exam Present: soft, normoactive bowel sounds - Routine Extremities Exam Absent: edema - Routine Skin Exam Present: dry, warm - Routine Neurological Exam Present: oriented X3 - Routine Psychiatric Exam Present: normal affect, normal thought process - Additional findings Additional findings: Laboratory Tests 06/16/17 06/16/17 06/16/17 00:14 00:45 06:40 Glucometer 46 78 193 06/16/17 06/16/17 06/16/17 13:19 16:19 16:35 Glucometer 139 36 71 06/16/17 06/16/17 06/17/17 20:28 21:42 06:36 Glucometer 350 237 173 06/17/17 06/17/17 06/17/17 08:44 09:19 11:25 Glucometer 27 96 336 06/17/17 06/17/17 06/17/17 13:58 16:57 18:01 Glucometer 301 374 427 06/17/17 06/17/17 06/18/17 21:10 23:58 03:02 Glucometer 268 348 346 06/18/17 06:31 Glucometer 335 - Urinary Catheter Management Urethral Cath placed during this visit: yes, but has since been removed by the nurse Insertion date: 06/14/17 Insertion time: 17:20 Removal date: 06/14/17 Removal time: 15:00 Assessment and Plan (1) Hypoglycemia due to insulin Current visit: Yes Status: Acute (2) Type 1 diabetes mellitus with hyperglycemia Problem details: Diabetic gastroparesis, early nephropathy, retinopathy. A1c 11.5 03/15/17 Current visit: No Status: Chronic All glucose levels have been high since tapering insulin after the level of 27 yesterday morning. Advise going home on 10 units Lantus in AM and 9 units at hs , with meal insulin same as prior to admission (current doses). (3) Gastroparesis diabeticorum Current visit: No Status: Chronic Very difficult problem to treat. Clearly interferes greatly with consistent daily glucose profile, making diabetes control extremely difficult. (4) alf current use of insulin Current visit: No Status: Chronic
[2017-06-18] MEDS ORDERED: INSULIN GLARGINE 100unit/ml INJECTION SQ SCH ×2 (09:00→21:00)
[2017-06-18] MEDS: LISINOPRIL 10 MG TABLET PO SCH (09:19)
[2017-06-18] MEDS: Venlaflaxine XR 75 MG CAPSULE (24hr) PO SCH ×2 (09:19→18:03)
[2017-06-18] MEDS: PANTOPRAZOLE 40 MG INJECTION IVP SCH (09:20)
[2017-06-18 15:39] VITALS: BP 104/69; PULSE 110; RESP 16; TEMP 98.9; O2SAT 99
[2017-06-18] MEDS: INSULIN ASPART 100unit/ml INJECTION SQ SCH (18:03)
--- NOTE | 2017-08-13 09:00 | Discharge Summary ---
FINAL DIAGNOSES 1. Diabetic ketoacidosis - treated and resolved. 2. Insulin-dependent diabetes mellitus with hypoglycemia, poorly controlled. 3. Intractable nausea and vomiting - improved and resolved. 4. Acute dehydration - treated and resolved. 5. Acute diarrhea - treated and resolved. 6. Persistent leukocytosis. 7. Major depression. 8. History of gastroparesis. 9. Anxiety disorder. 10. Borderline personality as per Dr. Falcon's evaluation early on. CONSULTATION Dr. Jeromy Bruce. ATTENDING PHYSICIAN Dr. Jean Yusuf. PRIMARY CARE PHYSICIAN Dr. Jean Yusuf. REASON FOR ADMISSION The patient is a 26-year-old female who presented to the office to see Dr. Yusuf on 06/12/2017 with a [id number]-day history of nausea and vomiting associated with diarrhea as well. The patient appeared weak and ill looking. The day before this office visit the patient went to the emergency room. Her blood sugar was 550 with a calculated osmolality of 293 at that time. The patient was subsequently admitted to [facility] under the care of Dr. Jean Yusfu. PHYSICAL EXAMINATION The patient looks worn out, generally tired looking, constantly crying. The exam is essentially unremarkable other than that patient is tender in the epigastric region which is not really a new thing. Oral mucosa is slightly dry. LABORATORY Her blood sugar was 420, creatinine 0.6, BUN 14, calculated osmolality 281, alkaline phosphatase 128. White blood count 19,000, hemoglobin 11.6, platelet count 461,000, bands 2, neutrophils 84, lymphocytes 12. HOSPITAL COURSE The patient was admitted initially to CCU. Clinical data and laboratory data initially did not show DKA but followup did show evidence of DKA. Therefore patient was treated with IV insulin drip and followed the DKA protocol. The patient was subsequently transferred to the medical floor for further evaluation. Dr. Quinn provided coverage on my behalf for this patient from June 13 to June 15. I did resume care on June 16, 2017. The hospital course was challenging with one or two episodes of hypoglycemia with symptoms. She also had persistent nausea and vomiting and diarrhea and no desire to eat. Dr. Bruce was consulted because of the complexity of the patient's medical history. His input was very much appreciated. We made adjustments in the patient's regimen. The patient subsequently was able to hold things down, ambulating, and she desired to go home on 06/18/2017. DISMISSAL MEDICATION 1. Insulin - Lantus 9 units at bedtime. 2. NovoLog 3 units a.c. breakfast, 5 units a.c. lunch, and 7 units a.c. supper. 3. Lisinopril 10 mg one tablet daily. 4. MiraLAX p.r.n. 5. Venlafaxine 75 mg p.o. b.i.d. 6. Midodrine 5 mg p.o. t.i.d. 7. Melatonin 10 mg at bedtime. 8. Hydrocodone one tablet t.i.d. 9. Zofran 4 mg p.o. q.4h. p.r.n. 10. Reglan 10 mg p.o. q.i.d. 11. Hydroxyzine 10 mg p.o. q.6h. p.r.n. 12. Remeron 15 mg one tablet at bedtime. DISMISSAL DIET 320 ADA diet. FOLLOWUP 1. Followup with Dr. Jean Yusuf in one week from discharge. 2. Followup with Dr. Bruce as scheduled. The patient's A1c on 03/15/2017 was 11.5. MTDD
== END 2017-06-18 18:50 | disposition home or self-care (01) | DRG 639 ==
LOC: MED 10:40 → CCU 16:08 → MED 06-13 20:07
PROVIDERS: ADMIT Family Medicine; ATTEND Family Medicine

== ENCOUNTER 2017-09-29 06:35 | Inpatient (IN) ==
[2017-09-29] MEDS ORDERED: INSULIN REGULAR, HUMAN 100 UNIT/ML INJECTION IVP ONE (06:45)
[2017-09-29] MEDS ORDERED: PROCHLORPERAZINE 10 MG TABLET PO ONE (06:47)
[2017-09-29] MEDS ORDERED: KETOROLAC 60 MG/2 ML INJECTION IM ONE (06:47)
[2017-09-29] MEDS ORDERED: DiphenhydrAMINE 50 MG/ML INJECTION IM ONE (06:48)
[2017-09-29] MEDS ORDERED: DiphenhydrAMINE 50 MG/ML INJECTION IVP ONE (06:56)
[2017-09-29] MEDS ORDERED: KETOROLAC 30 MG/ML INJECTION IVP ONE (06:56)
[2017-09-29] MEDS ORDERED: PROCHLORPERAZINE 10 MG/2 ML INJECTION IVP ONE (06:57)
[2017-09-29] MEDS: SALINE FLUSH 10ml SYRINGE IVF PRN ×4 (07:00→19:19)
--- NOTE | 2017-09-29 07:04 | Emergency Department Report ---
Abdominal Pain HPI - General Chief Complaint: Abdominal Pain Stated Complaint: abd pain, vomiting, dizziness Time Seen by Provider: 09/29/17 06:39 Source: patient, RN notes reviewed, old records reviewed Mode of arrival: wheelchair Limitations: no limitations - History of Present Illness HPI narrative: 27yo woman presents to the ER today for evaluation of N/V. Pt states that she has had N/V for the last 24hrs that she could not control with PO zofran. Pt last gave herself insulin at 2100 yesterday; at that time, her BG was >400mg/ dL. Pt is not sure when her BG first became too high this time. From last ER visit: She presents with ongoing and recurrent symptoms of nausea vomiting crampy abdominal pain and watery diarrhea. Patient was seen multiple times in the ER last week, specifically on the , , , twice. Patient had received medications and IV fluids each time, and labs were checked. Due to the patient's significant history of DKA in the past, as well as recurrent cyclic vomiting and histrionic/psychiatric induced vomiting, she is a very difficult patient to control symptoms with. In coordination with the other physicians who are seeing the patient, we will no longer use narcotics or benzodiazepine medications on this patient, as it seems to make her symptoms worsen with rebound. - Related Data Home Medications Medication Instructions Recorded Confirmed Lisinopril [Prinivil] 10 mg PO DAILY 03/15/17 09/29/17 Midodrine [Proamatine] 5 mg PO TID 03/15/17 09/29/17 Melatonin 3 mg PO HS 03/24/17 09/29/17 PEG 3350 17gm PACKET [Miralax] 17 gm PO DAILY PRN 06/02/17 09/29/17 Venlafaxine HCl [Venlafaxine HCl 75 mg PO BIDWM 06/11/17 09/29/17 ER] Ondansetron Odt [Zofran Odt Tablet] 4 mg PO Q4H PRN 06/24/17 09/29/17 Previous Rx's Medication Instructions Recorded Insulin Aspart [NovoLOG] 3 unit SQ ACB30 vial 06/18/17 Insulin Aspart [NovoLOG] 5 unit SQ ACL vial 06/18/17 Insulin Aspart [NovoLOG] 7 unit SQ ACS vial 06/18/17 Insulin Glargine,Hum.rec.anlog 9 unit SQ HS vial 06/18/17 [Lantus] Insulin Glargine,Hum.rec.anlog 10 unit SQ DAILY vial 06/18/17 [Lantus] LORazepam [Ativan] 0.5 mg PO TID PRN #1 tab 06/18/17 Metoclopramide [Reglan] 10 mg PO QID PRN #30 tab 06/25/17 HydrOXYzine ORAL LIQ [Atarax] 10 mg PO Q6HPRN #180 bottle 06/27/17 Remeron (mirtazapine) 15 mg tablet 15 mg PO HS #30 tab 07/23/17 Allergies Allergy/AdvReac Type Severity Reaction Status Date / Time sodium hypochlorite solution Allergy Mild Hives Verified 09/29/17 06:48 (Bleach) adhesive Allergy Unknown BLISTERING Verified 09/29/17 06:48 PFS Patient Stated Medical History Hypotension Yes Diabetes Mellitus Type 1 Yes Diabetes Mellitus Type 2 Yes Other GI Yes: gastroparesis Hx Kidney Stones Yes Hx Renal Disease No Hx Urinary Tract Infection Yes Other Yes: retention Depression Yes Now No Clinic Medical History (Last Updated 03/05/17 @ 14:49 by Jeromy Bruce MD) Diabetic nephropathy associated with type 1 diabetes mellitus (Chronic Medical ~ 11/2016) No longer on ramipril. Type 1 diabetes mellitus with hyperglycemia (Chronic Medical ~1995) Diabetic gastroparesis, early nephropathy, retinopathy. 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 . 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 Cain: Will admit for treatment of recurrent DKA. Time: 09:24 Vital Signs Temperature 97.5 F 09/29/17 06:37 Pulse Rate 104 H 09/29/17 06:37 Respiratory Rate 20 09/29/17 06:37 Blood Pressure 128/86 09/29/17 06:37 Pulse Oximetry 99 09/29/17 06:37 Temperature 97.5 F 09/29/17 06:37 Pulse Rate 104 H 09/29/17 06:37 Respiratory Rate 20 09/29/17 06:37 Blood Pressure 128/86 09/29/17 06:37 Pulse Oximetry 99 09/29/17 06:37 Abdominal Pain - MDM Narrative Medical decision making narrative: Pt is well-known to this ER for frequent and repeated episodes of hyperglycemia/ DKA. Pt was most recently seen by her PCM appx 45 days ago after a hospitalization for recurrent DKA. There has been high suspicion in the past for medication nonadherence, drug-seeking behavior, and medication nonadherence with specific intent to obtain controlled substances. In addition, pt has a comorbid personality disorder; in the past, she has displayed sx c/w anxiety/ agitation induced N/V. All of this makes controlling pts presenting symptoms complicated. On initial presentation, pt was offered toradol for pain control, as during her previous ER visit. Pt immediately stated that toradol does not work well for her and requested 'something stronger' for pain control. - Lab Data Result diagrams: 09/29/17 07:28 09/29/17 08:52 Disposition Clinical Impression: Diabetic ketoacidosis Disposition: 02 To [facility] Acute Care Condition: Stable - Seen By: physician
[2017-09-29] MEDS: NS 1,000 ML IV SCH ×10 (07:05→22:46)
[2017-09-29] MEDS ORDERED: NS 1,000 ML IV ONE ×2 (08:12→09:40)
[2017-09-29] MEDS ORDERED: HYDROCODONE/APAP 5mg/325mg TABLET PO PRN ×2 (14:33→14:40)
[2017-09-29] MEDS: ONDANSETRON 4 MG/2 ML INJECTION IVP PRN (15:15)
[2017-09-29] MEDS: DiphenhydrAMINE 25 MG CAPSULE PO PRN (15:15)
[2017-09-29] MEDS: METOCLOPRAMIDE 10mg/2ml INJECTION IVP PRN (19:19)
[2017-09-29] MEDS: KETOROLAC 15 MG/ML INJECTION IVP SCH (21:39)
[2017-09-30] MEDS: DiphenhydrAMINE 25 MG CAPSULE PO PRN (03:25)
[2017-09-30] MEDS: KETOROLAC 15 MG/ML INJECTION IVP SCH ×4 (03:26→19:30)
[2017-09-30] MEDS: NS 1,000 ML IV SCH (05:52)
[2017-09-30] MEDS: ONDANSETRON 4 MG/2 ML INJECTION IVP PRN ×4 (05:55→19:25)
--- NOTE | 2017-09-30 07:12 | History and Physical ---
CHIEF COMPLAINT Nausea, vomiting and abdominal pain. HISTORY OF PRESENT ILLNESS The patient is a 27-year-old female with known history of insulin-dependent diabetes mellitus since age 5, and frequent hospitalizations to [facility] for DKA. She presented to the emergency room today with chief complaint of nausea of 1-day duration to the point that she could not hold things down. Even with Zofran ingested orally she could not control her nausea. Her last insulin treatment was around 9 o'clock last evening. She said her blood sugar was over 400. She says she was doing her blood sugars at home for the most part but sometimes it is "overwhelming." PAST MEDICAL HISTORY 1. Type 1 diabetes since age 5. 2. History of kidney stones. 3. Renal disease. 4. Urinary tract infection, recurrent. 5. Urinary retention. 6. Depression. 7. Chronic abdominal pain. 8. Diabetic gastroparesis. 9. Anxiety disorder. 10. Chronic nausea. 11. Chronic vomiting. PAST SURGICAL HISTORY 1. Appendectomy. 2. . 3. Urethral stent placement. FAMILY HISTORY Father had myocardial infarction. A maternal uncle with aortic aneurysm. SOCIAL HISTORY Smoking: She quit smoking years ago. She does not use any substance . She does not drink. She is and has two children. ALLERGIES Listed as sodium hypochlorite, adhesive tape. REVIEW OF SYSTEMS Denies any chest pain. No orthopnea. No PND. No leg swelling. Denies any hematochezia. No melena. Denies any TIA or CVA symptoms. Denies any symptoms suggestive of urinary tract infection. The rest of her symptoms are consistent with what is listed in the HPI above. LABS White blood count 14,200. Platelet count 404,000. Hemoglobin 13.3. Sodium 143. Potassium 4.0. CO2 16. Blood sugar 286. This was around 8 o'clock this morning. ASSESSMENT 1. DKA. 2. Diffuse abdominal pain. 3. Insulin-dependent diabetes, poorly controlled, in part due to patient's lack of compliance with medication. 4. Nausea and vomiting. 5. Diabetic gastroparesis. 6. Anxiety and depression. PLAN Admit patient to telemetry medical floor under the care of Dr. Jean Yusuf. Patient does not require insulin drip at this time. Will manage this on the medical floor with adjustment to the insulin protocol. We can feed her if she is hungry. Follow electrolytes. Patient is quite emotional and tearful. She does seem to dramatize her symptoms which is typical for this patient every admission. She does dramatize her symptoms with lots of crying and dramatization , exaggeration of her symptoms - it looks like, is pretty consistent. I told her that we will get her better with IV fluids. We're going to stay away from narcotic use. I told her that she will get better if she can try not to dramatize her symptoms. Follow up lab in the morning. JAYSON
[2017-09-30] MEDS: METOCLOPRAMIDE 10mg/2ml INJECTION IVP PRN ×3 (08:46→21:37)
[2017-09-30] MEDS: INSULIN ASPART 100unit/ml INJECTION SQ SCH ×3 (11:49→21:57)
[2017-09-30 12:23] VITALS: BMI 19.3
[2017-09-30] MEDS: SALINE FLUSH 10ml SYRINGE IVF PRN ×2 (17:12→21:37)
[2017-09-30] MEDS ORDERED: MAGNESIUM SULFATE 1gm PREMIX 1 GM/100 ML BAG IV ONE (19:36)
[2017-09-30] MEDS: ACETAMINOPHEN 325 MG TABLET PO PRN (19:39)
[2017-09-30] MEDS ORDERED: ZOLPIDEM 5 MG TABLET PO ONE (20:16)
--- NOTE | 2017-09-30 20:54 | Progress Note ---
DATE 09/30/2017 SUBJECTIVE Verito is lying in bed. She is still complaining of abdominal pain and nausea that she can't get rid of. I am not sure exactly what is causing Verito's pain and nausea. Her blood sugar during her DKA was not that impressive. Verito typically does this every time she comes into the hospital. PHYSICAL EXAM VITAL SIGNS: Blood pressure 132/82, pulse 85. Temperature 97.9. Oxygen saturation 99% on room air. GENERAL: The patient looks fairly comfortable when I walked into the room. As we got to talking she began crying, typical behavior for Verito, especially when she is requesting narcotic medications for pain management. I think the best thing is to stay away from narcotics at this time and just use antinausea and antiinflammatory IV as well as oral Tylenol. Her potassium was slightly low today. NECK: Supple. CHEST: Lungs are clear. CARDIOVASCULAR: Regular rate and rhythm. ABDOMEN: Soft, just minimal tenderness. Bowel sounds are normoactive. No organomegaly. EXTREMITIES: No cyanosis, clubbing or edema. SKIN: No rash. LABORATORY (today) Potassium was 3.0 earlier this morning and went to 3.5 with replacement. Potassium level had just been drawn a few minutes ago - result pending. Blood sugar is running between 153-319 now. Magnesium is 1.6. Will go ahead and add magnesium for her to swallow tonight. ASSESSMENT 1. DKA 2. DEHYDRATION 3. NAUSEA/VOMINTG 4. ANXIETY/DEPRESSION 5 DM type1 6. ABDOMINAL PAIN. PLAN Will try to give one dose of Ambien so she can sleep tonight. Will also give another Toradol. She is due in two hours. We can give one right now for pain relief. Will start her home medications today. She is prone to have severe hypoglycemia so will go slow on her. This patient would actually qualify for inpatient admission from day one because of her DKA and also a previous hospitalization requiring at least a two- night stay for management of her acute and chronic medical problems. JAYSON
[2017-09-30] MEDS ORDERED: KETOROLAC 15 MG/ML INJECTION IVP SCH (21:15)
[2017-09-30] MEDS: INSULIN GLARGINE 100unit/ml INJECTION SQ SCH (21:45)
[2017-09-30] MEDS: 1/2 NS with KCL 20mEq 1,000 ML IV SCH (23:12)
[2017-10-01] MEDS: KETOROLAC 15 MG/ML INJECTION IVP SCH (01:00)
[2017-10-01] MEDS: KETOROLAC 15 MG/ML INJECTION IVP PRN ×5 (04:51→22:05)
[2017-10-01] MEDS: ONDANSETRON 4 MG/2 ML INJECTION IVP PRN ×5 (04:51→22:05)
[2017-10-01] MEDS: METOCLOPRAMIDE 10mg/2ml INJECTION IVP PRN ×2 (05:28→21:16)
[2017-10-01] MEDS: ACETAMINOPHEN 325 MG TABLET PO PRN ×3 (05:28→21:20)
[2017-10-01] MEDS: DiphenhydrAMINE 25 MG CAPSULE PO PRN ×3 (05:29→21:20)
[2017-10-01] MEDS: 1/2 NS with KCL 20mEq 1,000 ML IV SCH ×3 (05:31→20:15)
[2017-10-01] MEDS: LORazepam 0.5 MG TABLET PO PRN ×3 (09:14→20:12)
[2017-10-01] MEDS: INSULIN ASPART 100unit/ml INJECTION SQ SCH ×3 (09:14→18:11)
[2017-10-01] MEDS: INSULIN GLARGINE 100unit/ml INJECTION SQ SCH ×2 (09:14→21:25)
[2017-10-01 15:51] VITALS: RESP 14
--- NOTE | 2017-10-01 19:33 | Progress Note ---
DATE 10/01/2017 SUBJECTIVE The patient is lying in bed this morning. I have talked to the nursing staff taking care of this patient last evening and this morning. The patient became quite emotional as soon as I walked into the room and she started crying, asking for pain medication, anxiety medication with all kinds of demands and complaints. REVIEW OF SYSTEMS No fever or chills. She is still having belly pain and nausea. PHYSICAL EXAM GENERAL: Again, she became very emotional, weeping like she typically does when she is here in this hospital. NECK: Supple. CHEST: Lungs are clear. CARDIOVASCULAR: Regular rate and rhythm. ABDOMEN: Soft, nontender. EXTREMITIES: No cyanosis, clubbing or edema. NEUROLOGIC: Grossly intact. ASSESSMENT 1. DKA - resolving. 2. Diffuse abdominal pain. 3. Insulin-dependent diabetes mellitus poorly controlled. 4. Nausea and vomiting. 5. Diabetic gastroparesis. 6. Anxiety disorder. 7. Depression. PLAN Will start patient on IV fluids again. Sugar is creeping up to about 500 overnight so will use IV fluids to get her more hydrated. She requested Xanax that she takes at home for anxiety - that is okay with me. Will get IV started. She got Ambien one dose last night and that made her sleepy. Will just see how she does today. She needs to get better and walk. Her sugar must stabilize before dismissal to home. She is wanting to go home today. I told her we will see how she does this morning and this afternoon and go from there. JAYSON
[2017-10-01] MEDS: SALINE FLUSH 10ml SYRINGE IVF PRN (21:16)
[2017-10-01] MEDS ORDERED: ZOLPIDEM 5 MG TABLET PO ONE (21:44)
[2017-10-02] MEDS: 1/2 NS with KCL 20mEq 1,000 ML IV SCH ×2 (02:49→08:25)
[2017-10-02 02:53] VITALS: O2SAT 98
[2017-10-02] MEDS: DiphenhydrAMINE 25 MG CAPSULE PO PRN (05:31)
[2017-10-02] MEDS: ONDANSETRON 4 MG/2 ML INJECTION IVP PRN (05:31)
[2017-10-02] MEDS: KETOROLAC 15 MG/ML INJECTION IVP PRN (05:31)
[2017-10-02] MEDS: ACETAMINOPHEN 325 MG TABLET PO PRN (05:31)
[2017-10-02 07:59] VITALS: BP 118/81; PULSE 103; TEMP 98.2
[2017-10-02] MEDS: INSULIN ASPART 100unit/ml INJECTION SQ SCH ×2 (08:25→12:00)
[2017-10-02] MEDS: INSULIN GLARGINE 100unit/ml INJECTION SQ SCH (08:25)
[2017-10-02] MEDS: LORazepam 0.5 MG TABLET PO PRN (09:13)
[2017-10-02] MEDS: SALINE FLUSH 10ml SYRINGE IVF PRN (09:45)
[2017-10-02] MEDS: METOCLOPRAMIDE 10mg/2ml INJECTION IVP PRN (09:45)
--- NOTE | 2017-11-12 13:18 | Discharge Summary ---
FINAL DIAGNOSES 1. DKA with recurrence. 2. Diffuse abdominal pain. 3. Insulin-dependent diabetes mellitus, poorly control due to primarily lack of compliance with medication. 4. Nausea and vomiting. 5. Diabetic gastroparesis. 6. Anxiety and depression. 7. Borderline personality. 8. Hypokalemia, treated and resolved. 9. Hyperphosphatemia, treated with IV hydration and resolved. 10. Hypercalcemia, treated with hydration and resolved. CONSULTATION None. REASON FOR ADMISSION The patient is a 27-year-old female with known history of insulin-dependent diabetes mellitus since age 5 and frequent hospitalizations to [facility] for DKA. She presented to the emergency room on the day of admission, , with chief complaint of nausea of 1-day duration to the point that she could not hold things down. She was taking her Zofran and that had not helped. She said she had been checking her blood sugar at home and taking her insulin. Blood sugar has been over 400. PHYSICAL EXAMINATION The patient looked tired and very tearful. Vital Signs: Blood pressure 139/94 with a pulse of 98, respiration 16, temperature 99.1 O2 sat was 98% on room air. Physical examination was unremarkable other than diffuse abdominal tenderness and pain which is somewhat chronic for this patient. Bowel sounds normoactive. Neuro exam was grossly intact. LABORATORY White blood count 14,200. Platelet count 404,000. Potassium 4.3. Sodium 141. CO2 13. Anion gap 28. BUN 31. Creatinine 0.4. Calcium 10.5. Phosphorus 4.8. Glucose 370. Alkaline phosphatase 164. Total protein 1.8. Lipase 41. Plasma lactate 1.3. ABG: pH 7.34, pCO2 27, pO2 100, base excess -10. HOSPITAL COURSE The patient was admitted to the general medical floor under the care of Dr. Jean Yusuf. The DKA protocol was adjusted to fine tune to the patient's level of presentation, and she was treated accordingly with IV fluids and adjusted her home insulin dosage. She did have electrolyte abnormalities including hypokalemia. This was treated as well as her hyperphosphatemia and hypercalcemia. They were all treated due to dehydration and they all resolved prior to dismissal. She was dismissed to home on 10/02/2017 in stable medical condition. DISMISSAL MEDICATION 1. Lisinopril 10 mg one tablet daily. 2. MiraLAX 17 g p.o. daily p.r.n. 3. Effexor 75 mg p.o. b.i.d. 4. NovoLog 3 units a.c. breakfast, 7 units a.c. supper. 5. Zofran 4 mg p.o. q.4h. p.r.n. 6. Reglan 10 mg p.o. q.i.d. p.r.n. 7. Lantus 9 units at bedtime. 8. Lorazepam 0.5 mg p.o. t.i.d. 9. Midodrine 5 mg p.o. t.i.d. 10. Melatonin 10 mg one tablet at bedtime. 11. NovoLog 5 units a.c. lunch. 12. Atarax 10 mg one tablet q.6h. p.r.n., #180. 13. Remeron 15 mg one tablet at bedtime. DISCHARGE DIET 1500 ADA diet. FOLLOWUP Patient is to follow up with Dr. Yusuf in one week or sooner. CODE STATUS Patient is a Full Code. MTDD
== END 2017-10-02 12:20 | disposition home or self-care (01) | DRG 639 ==
LOC: MED 06:35 → ED 06:35 → MED 10:02
PROVIDERS: ADMIT Family Medicine; ATTEND Family Medicine

== ENCOUNTER 2017-11-10 23:48 | Inpatient (IN) ==
--- NOTE | 2017-11-11 00:38 | Emergency Department Report ---
General Adult HPI - General Chief complaint: Nausea/Vomiting/Diarrhea Stated complaint: SOA,vomitting, Time Seen by Provider: 11/11/17 00:38 Source: patient Mode of arrival: ambulatory Limitations: no limitations - History of Present Illness HPI narrative: 27-year-old female presents to the emergency department with the chief complaint of nominal pain and possibly being in DKA. She noted onset of symptoms earlier today prior to arrival to the emergency department. She was at home when her symptoms began. Symptoms have been persistent in nature since onset. She describes her pain as moderate. It is dull. It is generalized. No radiation. These are typical symptoms for the patient when she goes into DKA. She has no other complaints or associated symptoms at this time. She denies any trauma, travel, poorly prepared food, or recent antibiotic use. - Related Data Home Medications Medication Instructions Recorded Confirmed Lisinopril [Prinivil] 10 mg PO DAILY 03/15/17 11/11/17 Midodrine [Proamatine] 5 mg PO TID 03/15/17 11/11/17 Melatonin 3 mg PO HS 03/24/17 11/11/17 PEG 3350 17gm PACKET [Miralax] 17 gm PO DAILY PRN 06/02/17 11/11/17 Venlafaxine HCl [Venlafaxine HCl 75 mg PO BIDWM 06/11/17 11/11/17 ER] Ondansetron Odt [Zofran Odt Tablet] 4 mg PO Q4H PRN 06/24/17 11/11/17 Previous Rx's Medication Instructions Recorded Insulin Aspart [NovoLOG] 3 unit SQ ACB30 vial 06/18/17 Insulin Aspart [NovoLOG] 5 unit SQ ACL vial 06/18/17 Insulin Aspart [NovoLOG] 7 unit SQ ACS vial 06/18/17 Insulin Glargine,Hum.rec.anlog 10 unit SQ DAILY vial 06/18/17 [Lantus] Metoclopramide [Reglan] 10 mg PO QID PRN #30 tab 06/25/17 HydrOXYzine ORAL LIQ [Atarax] 10 mg PO Q6HPRN #180 bottle 06/27/17 Remeron (mirtazapine) 15 mg tablet 15 mg PO HS #30 tab 07/23/17 Insulin Glargine,Hum.rec.anlog 9 unit SQ HS #3 vial 10/02/17 [Lantus] LORazepam [Ativan] 0.5 mg PO TID PRN #20 tab 10/02/17 Allergies Allergy/AdvReac Type Severity Reaction Status Date / Time sodium hypochlorite solution Allergy Mild Hives Verified 11/11/17 00:38 (Bleach) adhesive Allergy Unknown BLISTERING Verified 11/11/17 00:38 Review of Systems Constitutional: Denies: fever, chills Eyes: Denies: eye pain, vision change ENT: Denies: ear pain, throat pain Cardiovascular: Denies: chest pain, palpitations Respiratory: Denies: cough, dyspnea Gastrointestinal: Reports: abdominal pain, nausea, vomiting. Denies: diarrhea Genitourinary: Denies: urgency, dysuria Musculoskeletal: Denies: back pain, arthralgia Integumentary: Denies: erythema, rash Neurological: Denies: headache, numbness Psychiatric: Denies: anxiety, depression Endocrine: Denies: polydipsia, polyuria Hematological/Lymphatic: Denies: easy bruising, lymphadenopathy Allergic/Immunologic: Denies: facial swelling, urticaria PFSH Patient Stated Medical History Hypotension Yes Diabetes Mellitus Type 1 Yes Diabetes Mellitus Type 2 Yes Other GI Yes: gastroparesis Hx Kidney Stones Yes Hx Renal Disease No Hx Urinary Tract Infection Yes Other Yes: retention Depression Yes Now No Clinic Medical History (Last Updated 03/05/17 @ 14:49 by Jeromy Bruce MD) Diabetic nephropathy associated with type 1 diabetes mellitus (Chronic Medical ~ 11/2016) No longer on ramipril. Type 1 diabetes mellitus with hyperglycemia (Chronic Medical ~1995) Diabetic gastroparesis, early nephropathy, retinopathy. 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 . 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 Physical Exam - Limitations Limitations: no limitations - General General appearance: alert, in no apparent distress - Normal Exams: Head:: Normocephalic without trauma Eyes:: Pupils are PERRLA w/ EOMI, No scleral icterus, irritation, or foreign bodies noted ENMT:: No facial trauma, nasal exudates, pharyngeal erythema, or exudates are noted Dental: No fractured, loose, or missing teeth noted Neck:: Full range of motion, without adenopathy, JVD, bruits or thyromegaly Chest/Respirations:: Clear all bentley, with good airflow, and symmetry bilaterally Cardiovascular:: Regular rate and rhythm, without murmur or gallop, Pulses 2+ all extremities, capillary refill, <2 seconds all extremities Abdomen:: Bowel sounds positive, soft, non-tender, non-distended, no hepatosplenomegaly, masses or bruits noted Lymphatic:: No lymphadenopathy, or lymphedema noted Musculoskeletal:: No tenderness, or deformity noted, good range of motion, all extremities Integumentary:: No rashes, hives, or bruising noted, hair and nails, without abnormality Neurological:: Patient is alert, and oriented, cranial nerves, motor/sensory/ cerebellar, exams w/o gross deficits, to observation Psychiatric:: Patient exhibits, appropriate attention, emotion and affect Course Vital Signs Temperature 97.5 F 11/11/17 00:13 Pulse Rate 122 H 11/11/17 00:13 Respiratory Rate 22 11/11/17 00:13 Blood Pressure 157/105 H 11/11/17 00:13 Pulse Oximetry 100 11/11/17 00:13 Temperature 97.5 F 11/11/17 00:13 Pulse Rate 108 H 11/11/17 06:00 Respiratory Rate 26 H 11/11/17 06:00 Blood Pressure 121/81 11/11/17 06:00 Pulse Oximetry 100 11/11/17 06:00 Medical Decision Making - [facility] Narrative Medical decision making narrative: Labs/imaging discussed in detail with the patient and questions are answered. She is given 2 L of normal saline intravenously. Patient is given parental narcotic and antiemetic medication intravenously. She is discussed with the hospitalist Dr. Umer Bellamy and will be admitted to the service of the hospitalist in the CCU in improved condition. She is admitted to the CCU in improved condition. Dr. Bellamy will initiate the insulin drip orders. She is in agreement with the current plan of management. - Differential Diagnosis DKA, Dehydration, Metabolic disorder, UTI - Lab Data Result diagrams: 11/11/17 01:32 11/11/17 06:05 Lab Results 11/11/17 11/11/17 11/11/17 Range/Units 00:36 01:32 01:32 WBC 11.0 (4.5-11.0) T/MM3 RBC 4.05 (4.00-5.20) M/MM3 Hgb 11.9 L (12-16) GM/DL Hct 34.7 L (36-46) % MCV 85.7 (80-100) UM3 MCH 29.4 (26-34) UUG MCHC 34.3 (31-37) GM/DL RDW Std Deviation 38.3 (36.9-50.2) FL Plt Count 410 H (130-400) T/MM3 MPV 8.7 L (9.4-12.4) UM3 Immature Gran % (Auto) 1.7 H (0.0-0.5) % Neut % (Auto) 83.9 H (33-66) % Lymph % (Auto) 9.6 L (23-45) % [place] % (Auto) 4.3 (0-9.0) % Eos % (Auto) 0.0 (0-4) % Baso % (Auto) 0.5 (0-2) % Neut # (Auto) 9.2 H (1.8-7.7) T/MM3 Lymph # (Auto) 1.1 (1-4.8) T/MM3 [place] # (Auto) 0.5 (0-0.8) T/MM3 Eos # (Auto) 0.0 (0-0.5) T/MM3 Baso # (Auto) 0.1 (0-0.2) T/MM3 Abs Immat Gran (auto) 0.19 H (0.00-0.03) T/MM3 VBG pH (7.310-7.410) VBG pCO2 (40.0-52.0) MMHG VBG pO2 (40.0-52.0) MMHG VBG HCO3 (22.0-26.0) MEQ/L VBG Total CO2 (22.0-32.0) MEQ/L VBG O2 Saturation (0.0-100.0) % VBG Base Excess (-5.0-5.0) MMOL/L Turbidity < 20 (0-20) Sodium 141 (134-144) MEQ/L Potassium 4.4 (3.6-5) MEQ/L Chloride 104 (98-107) MEQ/L Carbon Dioxide < 5 L* (22-30) MEQ/L Anion Gap TNP BUN 19.0 H (7-17) MG/DL Creatinine 0.8 (0.7-1.2) mg/dL GFR Calculation 86 BUN/Creatinine Ratio 24 (6-26) RATIO Glucose 580 H (65-110) MG/DL Glucometer > 500 (65-110) mg/dL Calculated Osmolality 300 H (261-280) MOSM/KG Calcium 9.4 (8.4-10.2) MG/DL Total Bilirubin 0.50 (0.20-1.30) MG/DL Icterus Index < 2 (0-7) AST 13 L (14-36) U/L ALT 11 (1-35) U/L Alkaline Phosphatase 194 H (38-126) U/L Total Protein 7.1 (6.3-8.2) g/dL Albumin 4.1 (3.5-5.0) g/dL Globulin 3.0 (2.4-3.6) G/DL Albumin/Globulin Ratio 1.4 (1.1-2.2) RATIO Lipase 45 (23-300) U/L Specimen Hemolysis 25 (0-25) Ur Collection Type Urine Color (YELLOW) Urine Clarity Urine pH (5.0-8.0) Ur Specific [place] (1.015-1.025) Urine Protein (NEGATIVE) Urine Glucose (UA) (NEGATIVE) Urine Ketones (NEGATIVE) Urine Occult Blood (NEGATIVE) Urine Nitrate (NEGATIVE) Urine Bilirubin (NEGATIVE) Urine Urobilinogen (NORMAL) EU/DL Ur Leukocyte Esterase (NEGATIVE) Urine RBC (0-3) /HPF Urine WBC (0-5) /HPF Urine Bacteria (NEGATIVE) Ur Culture Indicated? Urine Test (Negative) 11/11/17 11/11/17 11/11/17 Range/Units 02:14 02:14 02:56 WBC (4.5-11.0) T/MM3 RBC (4.00-5.20) M/MM3 Hgb (12-16) GM/DL Hct (36-46) % MCV (80-100) UM3 MCH (26-34) UUG MCHC (31-37) GM/DL RDW Std Deviation (36.9-50.2) FL Plt Count (130-400) T/MM3 MPV (9.4-12.4) UM3 Immature Gran % (Auto) (0.0-0.5) % Neut % (Auto) (33-66) % Lymph % (Auto) (23-45) % [place] % (Auto) (0-9.0) % Eos % (Auto) (0-4) % Baso % (Auto) (0-2) % Neut # (Auto) (1.8-7.7) T/MM3 Lymph # (Auto) (1-4.8) T/MM3 [place] # (Auto) (0-0.8) T/MM3 Eos # (Auto) (0-0.5) T/MM3 Baso # (Auto) (0-0.2) T/MM3 Abs Immat Gran (auto) (0.00-0.03) T/MM3 VBG pH 7.185 L (7.310-7.410) VBG pCO2 14.3 L (40.0-52.0) MMHG VBG pO2 63.1 H (40.0-52.0) MMHG VBG HCO3 5.4 L (22.0-26.0) MEQ/L VBG Total CO2 5.9 L (22.0-32.0) MEQ/L VBG O2 Saturation 86.9 (0.0-100.0) % VBG Base Excess -20.6 L (-5.0-5.0) MMOL/L Turbidity (0-20) Sodium (134-144) MEQ/L Potassium (3.6-5) MEQ/L Chloride (98-107) MEQ/L Carbon Dioxide (22-30) MEQ/L Anion Gap BUN (7-17) MG/DL Creatinine (0.7-1.2) mg/dL GFR Calculation BUN/Creatinine Ratio (6-26) RATIO Glucose (65-110) MG/DL Glucometer (65-110) mg/dL Calculated Osmolality (261-280) MOSM/KG Calcium (8.4-10.2) MG/DL Total Bilirubin (0.20-1.30) MG/DL Icterus Index (0-7) AST (14-36) U/L ALT (1-35) U/L Alkaline Phosphatase (38-126) U/L Total Protein (6.3-8.2) g/dL Albumin (3.5-5.0) g/dL Globulin (2.4-3.6) G/DL Albumin/Globulin Ratio (1.1-2.2) RATIO Lipase (23-300) U/L Specimen Hemolysis (0-25) Ur Collection Type Urine, void-cc/notcc Urine Color Yellow (YELLOW) Urine Clarity Sl cloudy Urine pH 5.5 (5.0-8.0) Ur Specific [place] 1.020 (1.015-1.025) Urine Protein 1+ A (NEGATIVE) Urine Glucose (UA) 3+ A (NEGATIVE) Urine Ketones 3+ A (NEGATIVE) Urine Occult Blood 3+ A (NEGATIVE) Urine Nitrate Negative (NEGATIVE) Urine Bilirubin Negative (NEGATIVE) Urine Urobilinogen 0.2 (NORMAL) EU/DL Ur Leukocyte Esterase Negative (NEGATIVE) Urine RBC 5-10 H (0-3) /HPF Urine WBC 0-1 (0-5) /HPF Urine Bacteria None seen (NEGATIVE) Ur Culture Indicated? Cult not indicated Urine Test Negative (Negative) Critical Care Time Critical Care Time: Yes Total Critical Care Time: 47 Attestation: 47 minutes of critical care time was assessed to the patient due to need for repeat assessment at the bedside, complex medical decision making and potential for decompensation. She had a CO2 of less than 5. Critical care time was spent documenting the medical record, treating the patient, updating family, and making telephone calls and the patient's behalf. Disposition Clinical Impression: Diabetic ketoacidosis Qualifiers: Diabetes mellitus type: type 1 Diabetes mellitus complication detail: without coma Qualified Code(s): E10.10 - Type 1 diabetes mellitus with ketoacidosis without coma Disposition: 02 To [facility] [place] Care Condition: Stable Time of Disposition: 02:15 - Seen By: physician
[2017-11-11] MEDS ORDERED: NS 1,000 ML IV ONE ×2 (00:39→02:32)
[2017-11-11] MEDS ORDERED: ONDANSETRON 4 MG/2 ML INJECTION IVP ONE (01:04)
[2017-11-11] MEDS ORDERED: HYDROMORPHONE 2 MG/ML INJECTION IVP ONE (01:05)
[2017-11-11] MEDS ORDERED: DiphenhydrAMINE 50 MG/ML INJECTION IVP ONE (01:15)
[2017-11-11] MEDS: SALINE FLUSH 10ml SYRINGE IVF PRN ×3 (03:18→23:14)
[2017-11-11] MEDS ORDERED: INSULIN REGULAR, HUMAN 100 UNIT in NS 100 ML IV PRN (03:50)
[2017-11-11] MEDS: ONDANSETRON 4 MG/2 ML INJECTION IVP PRN ×4 (04:02→21:05)
[2017-11-11] MEDS: MORPHINE SULFATE 2mg INJ IVP PRN ×3 (04:15→08:31)
--- NOTE | 2017-11-11 04:15 | History & Physical Report ---
History of Present Illness Date: 11/11/17 Chief complaint: abdomen pain HPI: This is a 27 y/o female who has a history of DM1 with recurrent episodes of DKA. Patient felt bad 2 days ago and started throwing up for the past 24 hours. Patient will admit to not taking much insulin over the past 24 hours secondary to her nausea/vomiting and concerned regarding low sugars. In the ED the patient has Kussmaul breathing and is slightly altered. Her pH is 7.1 with serum HcO3 not measurable. The patient will be admitted into the ICU for further management of her DKA. Note that her serum K is 4.4 to start with and she requires ivf with K in them. She currently has 22 g in her thumb. Discussion with housekeeper cleaning cooking and ED provider is that she needs at least [address] to infuse insulin and K solution. IV start team was contacted and indicated that they have not recently been able to place PICC line in this patient. Patient refuses to allow port placement. Nursing cost and sales record supervisor indicated that Anesthesia could assist and ultimately it was determined that general surgeon would assist with the placement of this necessary line. Patient agrees to do this. Review of Systems Review of systems: no fever, chills or sweats, very weak, at times confused, no sore throat, no congestion, dry mouth, no neck pain, no chest pain, occasional cough, abd pain diffuse with multiple episodes n/v no blood, bowel movement today normal, no skin rashes, no focal motor deficits. 12 point ROS otherwise negative except for outlined above Past Medical History Medical History: Medical History (Last Updated 03/05/17 @ 14:49 by Jeromy Bruce MD) Diabetic nephropathy associated with type 1 diabetes mellitus (Chronic) Onset Date: ~11/2016 No longer on ramipril. Type 1 diabetes mellitus with hyperglycemia (Chronic) Onset Date: ~1995 Diabetic gastroparesis, early nephropathy, retinopathy. 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 . stent placement on one of her urethra Family History: Family History (Last Reviewed 03/05/17 @ 14:28 by ANOOP Jiménez) Maternal Uncle Aortic aneurysm Father Heart attack Unknown Diabetes Family History: As Above - Social History Smoking status: Former smoker Medications Home Medications Medication Instructions Recorded Confirmed Type Lisinopril [Prinivil] 10 mg PO DAILY 03/15/17 11/11/17 History Midodrine [Proamatine] 5 mg PO TID 03/15/17 11/11/17 History Melatonin 3 mg PO HS 03/24/17 11/11/17 History PEG 3350 17gm PACKET [Miralax] 17 gm PO DAILY PRN 06/02/17 11/11/17 History Venlafaxine HCl [Venlafaxine HCl 75 mg PO BIDWM 06/11/17 11/11/17 History ER] Insulin Aspart [NovoLOG] 3 unit SQ ACB30 vial 06/18/17 11/11/17 Rx Insulin Aspart [NovoLOG] 5 unit SQ ACL vial 06/18/17 11/11/17 Rx Insulin Aspart [NovoLOG] 7 unit SQ ACS vial 06/18/17 11/11/17 Rx Insulin Glargine,Hum.rec.anlog 10 unit SQ DAILY vial 06/18/17 11/11/17 Rx [Lantus] Ondansetron Odt [Zofran Odt Tablet] 4 mg PO Q4H PRN 06/24/17 11/11/17 History Metoclopramide [Reglan] 10 mg PO QID PRN #30 tab 06/25/17 11/11/17 Rx HydrOXYzine ORAL LIQ [Atarax] 10 mg PO Q6HPRN #180 bottle 06/27/17 11/11/17 Rx Remeron (mirtazapine) 15 mg tablet 15 mg PO HS #30 tab 07/23/17 11/11/17 Rx Insulin Glargine,Hum.rec.anlog 9 unit SQ HS #3 vial 10/02/17 11/11/17 Rx [Lantus] LORazepam [Ativan] 0.5 mg PO TID PRN #20 tab 10/02/17 11/11/17 Rx Allergies Allergy/AdvReac Type Severity Reaction Status Date / Time sodium hypochlorite solution Allergy Mild Hives Verified 11/11/17 00:38 (Bleach) adhesive Allergy Unknown BLISTERING Verified 11/11/17 00:38 Exam Vital Signs: Temperature 97.5 F 11/11/17 00:13 Pulse Rate 118 H 11/11/17 03:50 Respiratory Rate 22 11/11/17 03:50 Blood Pressure 123/83 11/11/17 03:30 Pulse Oximetry 100 11/11/17 03:50 - Constitutional Present: moderate distress, thin, cachectic, disheveled, agitated - Routine HEENT Exam Head: Present: normocephalic, atraumatic Eye: Present: EOMI, conjunctivae pink ENT: Present: mucous membranes dry - Routine Neck Exam Present: full ROM - Routine Respiratory Exam Present: CTA bilaterally. Absent: rales, wheezes - Routine Cardiovascular Exam Present: RRR, tachycardia - Routine Abdominal Exam Present: soft Comments: diffuse tenderness with decreased bowel sounds, non surgical in appearance with nursing examination - Routine Extremities Exam Present: no edema - Routine Back/Spine/Pelvis Exam Back/Spine: Present: full ROM - Routine Skin Exam Present: intact, dry - Routine Neurological Exam Absent: alert, oriented X3, motor deficit - Routine Psychiatric Exam Present: anxious Results - Labs CBC & Chem 7: 11/11/17 01:32 11/11/17 17:20 Labs: labs reviewed and pertinent labs will be discussed below Assessment and Plan (1) Diabetic ketoacidosis Current visit: No Status: Resolved (2) Type 1 diabetes mellitus with hyperglycemia Problem details: Diabetic gastroparesis, early nephropathy, retinopathy. A1c 11.5 03/15/17 Current visit: No Status: Chronic (3) Chronic abdominal pain Current visit: Yes Status: Acute Assessment and Plan: 1. DKA acute POA: This patient has severe DKA with pH 7.1 on presentation. Currently working on adequate IV access to start appropriate treatment. Need another VBG with next blood draw. if still less than 7.1 would r/c HCO3 gtt. Currently her K is low and needs replaced immediately. will start with 20 in bag but r/c bolus as well. IvF infusing with insulin gtt. Careful monitoring of electrolytes per protocol. Critically ill with sig risk currently 2. DM1 chronic POA: is on aspirin, alfredito inhibitor and insulin. apparently hx of poor compliance. r/c family educator again prior to discharge 3. severe metabolic acidosis gap POA: due to # 1. 4. abdomen pain chronic with acute worsening POA: ivf, iv pain meds, multiple causes indudign diabetic gastroparesis, IV morphine prn fo rnow 5. DVT ppx; SCD, lovenox 6. gastric ppx; PPI critically ill 45 min critical care time so far. Kai Assessment DKA with severe metabolic acidosis Uncontrolled Type I DM Intractable N/V Ab pain Anxiety disorder Plan Inpatient admission to [facility] [place] for treatment of DKA. Initiate DKA protocol. Monitor blood sugars and lab draw as per protocol. IVF adjustment per protocol. Zofran prn nausea. Benadryl prn itching. MS prn pain. Poor IV ascess - Dr Vaz consulted for central line placement. Lovenox for DVT prevention. Possible Diabetic education when patient less acutely ill. Full code per her requests. Care to return to Dr Yusuf at time of discharge from [facility] [place]. DVT Prophylaxis: SCD's, Lovenox GI Prophylaxis: Protonix Resuscitation Status: Full Code - Time spent with patient Time with patient PN: 50 minutes - Physician Narrative Physician: Johnnie Quinn MD Narrative: Date: 11/11/17 Time: 1730 I have independently interviewed and examined pt. Chart reviewed. Reviewed above note and concur. CC: N/V/D, Ab pain. HPI: 27 y/o WF with Type I DM and history for frequent DKA present to ED secondary to ab pain and n/v/d. Symptoms onset acutely on the . Developed moderate dull generalized ab pain. Increasing nausea with episodes of emesis. Not able to keep foods/liquids in. Did not take insulin due to worry for low blood sugars. Symptoms progressed during the day. Presents to ED as worried was developing DKA. Evaluated in ED, showing evidence for DKA. Place in inpatient admission status at [facility] [place] CC[facility] for definitive treatment. PMHx: Type I DM with gasteroparesis, retinopathy, nephropathy, Anxiety D/O. Chronic ab pain with n/v. All: sodium hypochlorite, adhesive MED: see MAR SHx: . Resides in [place]. No smoke/ETOH. Sr Yusuf PCP FHx: Father-heart disease/AR ROS: As in HPI. GEN: tired weak HEENT: mouth dry. Lungs: not SOA or congested CV: no chest pain Skin: very itchy EXAM GEN: WD thin WF who looks very tired, weak, and acutely ill. Not engaging well with conversation. HEENT: NC/AT PERRLA EOMI MM dry Neck: supple, midline Lungs: clear bilaterally no distress or wheezes CV: tachy, regular AB: soft ND mild diffuse tenderness BS decreased EXT: thin and without edema Neuro: CN II-XII intact. No focal deficits Psych: withdrawn MS: normal muscle tone. Assessment DKA Uncontrolled Type I DM Intractable N/V Ab pain Anxiety disorder Plan Inpatient admission to [facility] [place] [facility] for treatment of DKA. Initiate DKA protocol. Monitor blood sugars and lab draw as per protocol. IVF adjustment per protocol. Zofran prn nausea. Benadryl prn itching. MS prn pain. Poor IV ascess - Dr Vaz consulted for central line placement. Lovenox for DVT prevention. Possible Diabetic education when patient less acutely ill. Full code per her requests. Care to return to Dr Yusuf at time of discharge from [facility] [place]. Hospital Course Summary Disclaimer: The visit summary below is not to be considered part of the above Progress Note. Hospital Course: 11/11/17 Inpatient admission to [facility] [place] [facility] for treatment of DKA. Initiate DKA protocol. Monitor blood sugars and lab draw as per protocol. IVF adjustment per protocol. Zofran prn nausea. Benadryl prn itching. MS prn pain. Poor IV ascess - Dr Vaz consulted for central line placement. IV Protonix for GI protection. Lovenox for DVT prevention. Possible Diabetic education when patient less acutely ill. Full code per her requests. Care to return to Dr Yusuf at time of discharge from [facility] [place].
[2017-11-11] MEDS: DiphenhydrAMINE 50 MG/ML INJECTION IVP PRN ×3 (04:31→18:20)
[2017-11-11] MEDS: NS with KCL 20 mEq 1,000 ML IV SCH ×2 (05:40→20:36)
[2017-11-11] MEDS: PANTOPRAZOLE 40 MG INJECTION IVP SCH ×2 (05:41→15:16)
[2017-11-11] MEDS: ENOXAPARIN 40 MG/0.4 ML INJECTION SQ SCH ×2 (08:21→08:25)
--- NOTE | 2017-11-11 08:42 | XRay Report ---
Indication: IJ placement PROCEDURE: XR chest 1V: Encounter: Initial Comparison: June 24, 2017 Findings: New right IJ central venous catheter with the tip projecting over the lower SVC. No pneumothorax. Lungs are clear. No pleural effusion. Heart size and mediastinal contours are within normal limits. Pulmonary vascularity is normal. Impression: New right IJ line as above. .
[2017-11-11] MEDS ORDERED: POTASSIUM PHOSPHATE IV SCH (11:00)
[2017-11-11] MEDS ORDERED: 1/2 NS IV SCH (11:00)
[2017-11-11] MEDS: MORPHINE SULFATE 4mg INJECTION IVP PRN ×5 (11:25→23:14)
--- NOTE | 2017-11-11 13:49 | Procedure Note ---
DATE OF PROCEDURE: 11/11/2017 SURGEON Fidel Pickens MD PREOPERATIVE DIAGNOSIS Diabetic ketoacidosis. POSTOPERATIVE DIAGNOSIS Diabetic ketoacidosis. PROCEDURE Placement of right internal jugular central venous line with sonographic guidance. ANESTHESIA 1% lidocaine. ASA CLASS 3. INDICATIONS The patient is a 27-year-old female with type 1 diabetes mellitus. She was admitted to the hospitalist service with diabetic ketoacidosis and was transferred to the Intensive Care Unit. The only IV site able to be obtained was in her left thumb. A central line was requested. The patient was not on any blood thinners. FINDINGS The right internal jugular vein was widely patent on sonography. Postprocedure chest x-ray showed good position of the line with no evidence of pneumothorax. DESCRIPTION OF PROCEDURE The risks and benefits of central line placement were discussed with the patient. The discussion included, but was not limited to, bleeding, injury to neck structures, infection, pneumothorax requiring additional procedures. Following discussion she did wish to proceed with central line placement. The patient was placed in Trendelenburg position. The right neck was prepped and draped using chlorhexidine and a full procedure drape. Full sterile precautions were utilized by myself including sterile gown and gloves along with hat and mask. A sterile Sonoprobe was brought onto the field and was used to inspect the right neck. The right internal jugular vein was widely patent. Local was then injected at the skin overlying the vein. A small skin incision was made with an 11-blade scalpel. A Cook needle was then advanced into the vein under direct vision with the Sonoprobe. A guidewire was threaded through the needle and the needle was removed. A dilator was threaded over the guidewire and was then removed. The triple-lumen central venous line was then threaded into position to an approximate depth of 12.5 cm. All three ports of the catheter aspirated and flushed easily. Sterile caps were applied. The catheter was secured to the skin using silk sutures. A Biopatch and Tegaderm dressings were placed as a dressing. The patient tolerated the procedure well. She remained in the Intensive Care Unit in her preprocedure state. [facility]ITALIldefonso
[2017-11-11] MEDS: D5W IV SCH (15:59)
[2017-11-11] MEDS: POTASSIUM CHLORIDE IV SCH (15:59)
[2017-11-11] MEDS: POTASSIUM PHOSPHATE IV SCH (15:59)
[2017-11-11] MEDS: POTASSIUM CHLORIDE PREMIX 10 MEQ/100 ML BAG IV SCH (23:16)
[2017-11-12] MEDS: POTASSIUM CHLORIDE PREMIX 10 MEQ/100 ML BAG IV SCH ×3 (00:08→02:37)
[2017-11-12] MEDS: MORPHINE SULFATE 4mg INJECTION IVP PRN ×10 (02:10→22:35)
[2017-11-12] MEDS: ONDANSETRON 4 MG/2 ML INJECTION IVP PRN ×5 (02:10→18:30)
[2017-11-12] MEDS: DiphenhydrAMINE 50 MG/ML INJECTION IVP PRN ×4 (02:10→20:34)
[2017-11-12] MEDS: D5W IV SCH ×2 (02:13→13:10)
[2017-11-12] MEDS: POTASSIUM PHOSPHATE IV SCH ×2 (02:13→13:10)
[2017-11-12] MEDS: POTASSIUM CHLORIDE IV SCH ×2 (02:13→13:10)
[2017-11-12] MEDS: PANTOPRAZOLE 40 MG INJECTION IVP SCH ×2 (03:37→16:10)
[2017-11-12] MEDS: ENOXAPARIN 40 MG/0.4 ML INJECTION SQ SCH (08:22)
[2017-11-12] MEDS ORDERED: INSULIN GLARGINE 100unit/ml INJECTION SQ ONE (10:54)
[2017-11-12] MEDS ORDERED: LORazepam 0.5 MG TABLET PO PRN (10:57)
--- NOTE | 2017-11-12 11:23 | Progress Note ---
- Date 11/12/17 Subjective: F/U: DKA, Intractable N/V, Ab pain Little change-very nauseated, worse with positional changes. No appetite. Ab pain persists. Not passing flatus. Breathing fair. Making urine. Objective Vital signs: Temperature 98.7 F 11/12/17 08:00 Pulse Rate 110 H 11/12/17 11:00 Respiratory Rate 26 H 11/12/17 11:00 Blood Pressure 145/94 H 11/12/17 11:00 Pulse Oximetry 99 11/12/17 11:00 Height/Weight/BMI: Height 1.65 m Weight 50.1 kg Body Mass Index 18.3 - Constitutional Present: moderate distress, well nourished, well developed, thin - Routine HEENT Exam Head: Present: normocephalic, atraumatic Eye: Present: EOMI, PERRL ENT: Present: mucous membranes dry - Routine Respiratory Exam Present: decreased breath sounds. Absent: respiratory distress - Routine Cardiovascular Exam Present: no murmur, tachycardia (Regular) - Routine Abdominal Exam Present: soft, tenderness (Mild/diffuse ). Absent: normoactive bowel sounds ( Decreased) - Routine Extremities Exam Present: no edema, pulses intact. Absent: cyanosis, clubbing - Routine Musculoskeletal Exam Musculoskeletal: Present: no clubbing or cyanosis - Routine Skin Exam Present: dry, warm - Routine Neurological Exam Present: alert, vision grossly intact, hearing grossly intact. Absent: motor deficit - Routine Psychiatric Exam Comments: Withdrawn. Answers questions with brief phrases. Not making eye contact. Results - Labs CBC & Chem 7: 11/12/17 01:08 11/12/17 08:53 - ABG Interpretation ABG results: 11/11/17 06:05 VBG pH 7.104 L VBG pCO2 13.1 L VBG pO2 146.5 H VBG HCO3 4.1 L VBG Total CO2 4.5 L VBG O2 Saturation 98.4 VBG Base Excess -23.4 L Assessment and Plan (1) Diabetic ketoacidosis Current visit: No Status: Resolved (2) Type 1 diabetes mellitus with hyperglycemia Problem details: Diabetic gastroparesis, early nephropathy, retinopathy. A1c 11.5 03/15/17 Current visit: No Status: Chronic (3) Chronic abdominal pain Current visit: Yes Status: Acute Assessment and Plan: Assessment DKA with severe metabolic acidosis Uncontrolled Type I DM Intractable N/V Ab pain Anxiety disorder Plan Anion gap closed and CO2 approaching normal. Will stop insulin drip and start Lantus. Continue D5W with 20KCl - likely need fluid change this afternoon. Could advance to clear liquids as she tolerated. Will start Sopalamine patch to help nausea and initiate routine IV metoclopramide. Will recheck BMP this am due to stopping insulin drip - need to monitor CO2 and anion gap. Continue with supportive care. Possible transfer to medical floor later today if does well. Case discussed with CCU nursing. Time spent with patient care 25 minutes. DVT Prophylaxis: SCD's, Lovenox Resuscitation Status: Full Code - Time spent with patient Time with patient PN: 25 minutes - Physician Narrative Physician: Johnnie Quinn MD Narrative: Date: 11/12/17 Time: 1119 Hospital Course Summary Disclaimer: The visit summary below is not to be considered part of the above Progress Note. Hospital Course: 11/11/17 Inpatient admission to [facility] CCU for treatment of DKA. Initiate DKA protocol. Monitor blood sugars and lab draw as per protocol. IVF adjustment per protocol. Zofran prn nausea. Benadryl prn itching. MS prn pain. Poor IV access - Dr Vaz consulted for central line placement. IV Protonix for GI protection. Lovenox for DVT prevention. Possible Diabetic education when patient less acutely ill. Full code per her requests. Care to return to Dr Yusuf at time of discharge from [facility]. 11/12/17 Anion gap closed and CO2 approaching normal. Will stop insulin drip and start Lantus. Continue D5W with 20KCl - likely need fluid change this afternoon. Could advance to clear liquids as she tolerated. Will start Sopalamine patch to help nausea and initiate routine IV metoclopramide. Will recheck BMP this am due to stopping insulin drip - need to monitor CO2 and anion gap. Continue with supportive care. Possible transfer to medical floor later today if does well.
[2017-11-12] MEDS: METOCLOPRAMIDE 10mg/2ml INJECTION IVP SCH ×3 (11:36→22:02)
[2017-11-12] MEDS ORDERED: SCOPOLAMINE 1mg/3 days PATCH (Eq. 1.5 Patch) TD SCH (12:00)
[2017-11-12] MEDS ORDERED: D5-1/2NS with KCL 20mEq 1,000 ML IV SCH (12:30)
[2017-11-12] MEDS: SALINE FLUSH 10ml SYRINGE IVF PRN (14:29)
[2017-11-12] MEDS ORDERED: INSULIN REGULAR, HUMAN 100 UNIT/ML INJECTION SQ ONE ×2 (17:24→19:54)
[2017-11-12] MEDS ORDERED: Venlaflaxine XR 75 MG CAPSULE (24hr) PO SCH (17:30)
[2017-11-12] MEDS ORDERED: INSULIN REGULAR, HUMAN 100 UNIT/ML INJECTION SQ PRN (19:34)
[2017-11-12] MEDS ORDERED: MIRTAZAPINE 15 MG TABLET PO SCH (21:00)
[2017-11-12] MEDS: INSULIN GLARGINE 100unit/ml INJECTION SQ SCH (21:22)
[2017-11-12] MEDS: 1/2 NS with KCL 20mEq 1,000 ML IV SCH (21:26)
[2017-11-12] MEDS ORDERED: INSULIN ASPART 100unit/ml INJECTION SQ ONE (21:54)
[2017-11-13] MEDS: ONDANSETRON 4 MG/2 ML INJECTION IVP PRN (00:31)
[2017-11-13] MEDS: MORPHINE SULFATE 4mg INJECTION IVP PRN ×10 (00:35→23:27)
[2017-11-13] MEDS: DiphenhydrAMINE 50 MG/ML INJECTION IVP PRN ×4 (02:35→21:21)
[2017-11-13] MEDS: METOCLOPRAMIDE 10mg/2ml INJECTION IVP SCH ×4 (02:38→21:23)
[2017-11-13] MEDS: PANTOPRAZOLE 40 MG INJECTION IVP SCH ×2 (04:19→15:12)
[2017-11-13] MEDS: ENOXAPARIN 40 MG/0.4 ML INJECTION SQ SCH (09:11)
[2017-11-13] MEDS: INSULIN GLARGINE 100unit/ml INJECTION SQ SCH ×2 (09:11→21:19)
[2017-11-13] MEDS: 1/2 NS with KCL 20mEq 1,000 ML IV SCH ×2 (10:55→23:24)
[2017-11-13 11:01] VITALS: BMI 18.5
[2017-11-13] MEDS ORDERED: INSULIN ASPART 100unit/ml INJECTION SQ PRN (14:08)
--- NOTE | 2017-11-13 14:12 | Progress Note ---
- Date 11/13/17 Subjective: F/U: DKA, Intractable N/V, Ab pain Doing better today. Still having ab pain and requesting MS routinely, but nausea less. Feels more hungry, would like to cautiously try regular foods. Passing flatus, no stool. Moving more-able to get to bathroom well. Moving arms legs in bed. Not liking Lovenox shots. Reports not on Remeron and Wellbutrin at home. Breathing well. Urinating well. Objective Vital signs: Temperature 97.9 F 11/13/17 08:00 Pulse Rate 94 11/13/17 08:00 Respiratory Rate 16 11/13/17 08:00 Blood Pressure 116/85 11/13/17 08:00 Pulse Oximetry 100 11/13/17 08:00 Height/Weight/BMI: Height 1.65 m Weight 50.5 kg Body Mass Index 18.5 - Constitutional Present: well nourished, well developed, thin, cooperative. Absent: agitated, somnolent Comments: Look much more energetic. Able to sit up in bed (not curled up in the position like the previous days.) - Routine HEENT Exam Head: Present: normocephalic, atraumatic Eye: Present: EOMI, PERRL ENT: Present: mucous membranes moist - Routine Respiratory Exam Present: CTA bilaterally. Absent: respiratory distress - Routine Cardiovascular Exam Present: RRR, no murmur - Routine Abdominal Exam Present: soft, non distended, non tender. Absent: normoactive bowel sounds ( Decreased) - Routine Extremities Exam Present: no edema. Absent: cyanosis, clubbing - Routine Musculoskeletal Exam Musculoskeletal: Present: no clubbing or cyanosis, normal strength - Routine Skin Exam Present: dry, warm - Routine Neurological Exam Present: alert, oriented X3, CN II-XII intact, moving all extremities, vision grossly intact, hearing grossly intact, normal speech. Absent: motor deficit, altered mental status - Routine Psychiatric Exam Present: normal affect, normal thought process, cooperative Comments: Able to engage well in conversations. Thoughts linear. Results - Labs CBC & Chem 7: 11/13/17 04:17 11/13/17 04:17 Assessment and Plan (1) Diabetic ketoacidosis Current visit: No Status: Resolved (2) Type 1 diabetes mellitus with hyperglycemia Problem details: Diabetic gastroparesis, early nephropathy, retinopathy. A1c 11.5 03/15/17 Current visit: No Status: Chronic (3) Chronic abdominal pain Current visit: Yes Status: Acute Assessment and Plan: Assessment DKA with severe metabolic acidosis Uncontrolled Type I DM Intractable N/V Ab pain Anxiety disorder Plan Clinically improving. Nausea decreasing and appetite improving. Will advance diet to Carb consistent. Advised caution with eating. Routine mealtime insulin as at home - report 5, 7, 7 dosing. Decrease ISS due to resumption of home insulin. Can stop Lovenox as patient ambulatory. Stop Remeron and Wellbutrin as patient not taking these at home. Encourage ambulation. Discussed about Port placement due to poor IV access - patient wanting to think about it, but open. Recheck CBC and BMP in am. Case discussed with nursing. Time spent with patient care 35 minutes. - Physician Narrative Narrative: Date: 11/13/17 Time: 1400 Hospital Course Summary Disclaimer: The visit summary below is not to be considered part of the above Progress Note. Hospital Course: 11/11/17 Inpatient admission to [facility]U for treatment of DKA. Initiate DKA protocol. Monitor blood sugars and lab draw as per protocol. IVF adjustment per protocol. Zofran prn nausea. Benadryl prn itching. MS prn pain. Poor IV access - Dr Vaz consulted for central line placement. IV Protonix for GI protection. Lovenox for DVT prevention. Possible Diabetic education when patient less acutely ill. Full code per her requests. Care to return to Dr Yusuf at time of discharge from [facility]. 11/12/17 Anion gap closed and CO2 approaching normal. Will stop insulin drip and start Lantus. Continue D5W with 20KCl - likely need fluid change this afternoon. Could advance to clear liquids as she tolerated. Will start Sopalamine patch to help nausea and initiate routine IV metoclopramide. Will recheck BMP this am due to stopping insulin drip - need to monitor CO2 and anion gap. Continue with supportive care. Possible transfer to medical floor later today if does well. Lab and blood sugars doing well. Can move to medical floor - change IVF to 1/ 2NS with potassium as sugars showing elevation. 11/13/17 Clinically improving. Nausea decreasing and appetite improving. Will advance diet to Carb consistent. Advised caution with eating. Routine mealtime insulin as at home - report 5, 7, 7 dosing. Decrease ISS due to resumption of home insulin. Can stop Lovenox as patient ambulatory. Stop Remeron and Wellbutrin as patient not taking these at home. Encourage ambulation. Discussed about Port placement due to poor IV access - patient wanting to think about it, but open.
[2017-11-13] MEDS: SALINE FLUSH 10ml SYRINGE IV PRN ×4 (15:18→17:19)
[2017-11-13] MEDS: INSULIN ASPART 100unit/ml INJECTION SQ SCH ×2 (16:20→16:21)
[2017-11-13] MEDS ORDERED: INSULIN REGULAR, HUMAN 100 UNIT/ML INJECTION SQ ONE (19:54)
[2017-11-14] MEDS: DiphenhydrAMINE 50 MG/ML INJECTION IVP PRN ×3 (03:24→15:36)
[2017-11-14] MEDS: MORPHINE SULFATE 4mg INJECTION IVP PRN ×6 (03:30→15:37)
[2017-11-14] MEDS: METOCLOPRAMIDE 10mg/2ml INJECTION IVP SCH ×3 (03:31→15:39)
[2017-11-14] MEDS: PANTOPRAZOLE 40 MG INJECTION IVP SCH ×2 (03:34→15:39)
[2017-11-14] MEDS: INSULIN ASPART 100unit/ml INJECTION SQ SCH ×5 (05:50→18:45)
[2017-11-14] MEDS ORDERED: REFRESH CLASSIC Eye Drops 0.4ml EACH EYE SCH (09:00)
[2017-11-14] MEDS: INSULIN GLARGINE 100unit/ml INJECTION SQ SCH (09:30)
--- NOTE | 2017-11-14 12:50 | Progress Note ---
- Date 11/14/17 Subjective: F/U: DKA, Intractable N/V, Ab pain Improving. Tolerating food (using caution with eating). Less nauseated. Passing flatus but no stool. Breathing well. Objective Vital signs: Temperature 98.8 F 11/14/17 07:58 Pulse Rate 100 11/14/17 07:58 Respiratory Rate 18 11/14/17 07:58 Blood Pressure 100/68 11/14/17 07:58 Pulse Oximetry 98 11/14/17 07:58 Height/Weight/BMI: Height 1.65 m Weight 51.3 kg Body Mass Index 18.5 - Constitutional Present: well nourished, well developed, average body habitus, cooperative - Routine HEENT Exam Head: Present: normocephalic, atraumatic Eye: Present: EOMI, PERRL ENT: Present: mucous membranes moist - Routine Respiratory Exam Present: CTA bilaterally. Absent: respiratory distress - Routine Cardiovascular Exam Present: RRR, no murmur - Routine Abdominal Exam Present: soft, non distended, non tender. Absent: normoactive bowel sounds ( Decreased) - Routine Extremities Exam Present: no edema, pulses intact. Absent: cyanosis, clubbing - Routine Musculoskeletal Exam Musculoskeletal: Present: no clubbing or cyanosis, normal strength - Routine Skin Exam Present: dry, warm - Routine Neurological Exam Present: alert, oriented X3, CN II-XII intact, moving all extremities, vision grossly intact, hearing grossly intact, normal speech. Absent: motor deficit, altered mental status - Routine Psychiatric Exam Present: normal affect, normal thought process, cooperative Results - Labs CBC & Chem 7: 11/14/17 04:54 11/14/17 04:54 Assessment and Plan (1) Diabetic ketoacidosis Current visit: No Status: Resolved (2) Type 1 diabetes mellitus with hyperglycemia Problem details: Diabetic gastroparesis, early nephropathy, retinopathy. A1c 11.5 03/15/17 Current visit: No Status: Chronic (3) Chronic abdominal pain Current visit: Yes Status: Acute Assessment and Plan: Assessment DKA with severe metabolic acidosis - resolved Uncontrolled Type I DM Intractable N/V Ab pain Anxiety disorder Plan Doing well. Tolerating foods/liquids. Nausea decreased. Pain decreasing. Ambulating well. Will discontinue IVF. Dr Vaz to discuss possible port placement at some time in future. Patient has poor IV access and frequent episodes of DKA. Anticipate discharge to home today. Case discussed with nursing and Dr Pickens. Time spent with patient care 25 minutes. DVT Prophylaxis: other (Ambulation) - Physician Narrative Physician: Johnnie Quinn MD Narrative: Date: 11/14/17 Time: 1247 Hospital Course Summary Disclaimer: The visit summary below is not to be considered part of the above Progress Note. Hospital Course: 11/11/17 Inpatient admission to [facility] for treatment of DKA. Initiate DKA protocol. Monitor blood sugars and lab draw as per protocol. IVF adjustment per protocol. Zofran prn nausea. Benadryl prn itching. MS prn pain. Poor IV access - Dr Vaz consulted for central line placement. IV Protonix for GI protection. Lovenox for DVT prevention. Possible Diabetic education when patient less acutely ill. Full code per her requests. Care to return to Dr Yusuf at time of discharge from [facility]. 11/12/17 Anion gap closed and CO2 approaching normal. Will stop insulin drip and start Lantus. Continue D5W with 20KCl - likely need fluid change this afternoon. Could advance to clear liquids as she tolerated. Will start Sopalamine patch to help nausea and initiate routine IV metoclopramide. Will recheck BMP this am due to stopping insulin drip - need to monitor CO2 and anion gap. Continue with supportive care. Possible transfer to medical floor later today if does well. Lab and blood sugars doing well. Can move to medical floor - change IVF to 1/ 2NS with potassium as sugars showing elevation. 11/13/17 Clinically improving. Nausea decreasing and appetite improving. Will advance diet to Carb consistent. Advised caution with eating. Routine mealtime insulin as at home - report 5, 7, 7 dosing. Decrease ISS due to resumption of home insulin. Can stop Lovenox as patient ambulatory. Stop Remeron and Wellbutrin as patient not taking these at home. Encourage ambulation. Discussed about Port placement due to poor IV access - patient wanting to think about it, but open. 11/14/17 Doing well. Tolerating foods/liquids. Nausea decreased. Pain decreasing. Ambulating well. Will discontinue IVF. Dr Vaz to discuss possible port placement at some time in future. Patient has poor IV access and frequent episodes of DKA. Anticipate discharge to home today.
[2017-11-14] MEDS: 1/2 NS with KCL 20mEq 1,000 ML IV SCH (13:05)
[2017-11-14 15:34] VITALS: BP 123/83; PULSE 110; RESP 16; TEMP 97.7; O2SAT 99
--- NOTE | 2017-11-14 17:18 | Consultation ---
DATE OF CONSULTATION 11/14/2017 CONSULTING PHYSICIAN Fidel Pickens MD REQUESTING PHYSICIAN Johnnie Quinn MD REASON FOR CONSULTATION Discussion of Port-A-Cath placement. Dr. uQinn had recommended to Verito that she consider elective Port-A-Cath placement given her frequent hospitalizations and difficulty with IV access. I came by to discuss the procedure with her. The details, risks, benefits, and expected postoperative course of PowerPort placement were discussed with the patient. Discussion included but was not limited to bleeding, infection, possible need for port removal due to infection, injury to neck structures, pneumothorax possibly requiring chest tube placement, and need for maintenance of the port every two months for the maintaining patency of the catheter. The patient had opportunity to ask questions. She was strongly considering PowerPort placement but wanted to talk to her and check on insurance coverage before proceeding. If she does desire port placement she can call the office (she was given a business card). She will need arrangements for her diabetic medications from Dr. Bruce's office. 10 minutes of [id number] time were spent with the patient with all of the time being used for counseling and coordination of care. JAYSON
--- NOTE | 2017-11-14 17:54 | Discharge Summary ---
Discharge Information Date of admission: 11/11/17 03:44 Anticipated date of discharge: 11/14/17 Attending Physician: Johnnie Quinn MD Primary care physician: Jean Yusuf MD Consults: Physician Consult: Fidel Pickens Reason For Exam: Discuss possible port - Discharge Diagnosis (1) Diabetic ketoacidosis Status: Resolved (2) Type 1 diabetes mellitus with hyperglycemia Status: Chronic (3) Chronic abdominal pain Status: Acute Discharge diagnosis DKA with severe metabolic acidosis - resolved Associated conditions and complications Uncontrolled Type I DM Intractable N/V Ab pain Anxiety disorder - Procedures Procedures: DATE OF PROCEDURE: 11/11/2017 SURGEON: Fidel Pickens MD PROCEDURE: Placement of right internal jugular central venous line with sonographic guidance. - Laboratory Labs: Admit Lab 11/11/17 01:32 WBC 11.0 Hgb 11.9 L Hct 34.7 L MCV 85.7 MCH 29.4 Plt Count 410 H Neut % (Auto) 83.9 H Lymph % (Auto) 9.6 L Pender % (Auto) 4.3 Eos % (Auto) 0.0 Baso % (Auto) 0.5 Admit Lab 11/11/17 01:32 Sodium 141 Potassium 4.4 Chloride 104 Carbon Dioxide < 5 L* Anion Gap TNP BUN 19.0 H Creatinine 0.8 GFR Calculation 86 BUN/Creatinine Ratio 24 Glucose 580 H Calculated Osmolality 300 H Calcium 9.4 Total Bilirubin 0.50 Icterus Index < 2 AST 13 L ALT 11 Alkaline Phosphatase 194 H Total Protein 7.1 Albumin 4.1 Globulin 3.0 Albumin/Globulin Ratio 1.4 Lipase 45 11/14/17 04:54 11/14/17 04:54 - Radiology Radiology: Date of Exam: 11/11/17 Type of Exam: XR chest 1V Findings: New right IJ central venous catheter with the tip projecting over the lower SVC. No pneumothorax. Lungs are clear. No pleural effusion. Heart size and mediastinal contours are within normal limits. Pulmonary vascularity is normal. Impression: New right IJ line as above. History of Present Illness HPI: This is a 27 y/o female who has a history of DM1 with recurrent episodes of DKA. Patient felt bad 2 days ago and started throwing up for the past 24 hours. Patient will admit to not taking much insulin over the past 24 hours secondary to her nausea/vomiting and concerned regarding low sugars. In the ED the patient has Kussmaul breathing and is slightly altered. Her pH is 7.1 with serum HcO3 not measurable. The patient will be admitted into the ICU for further management of her DKA. Note that her serum K is 4.4 to start with and she requires ivf with K in them. She currently has 22 g in her thumb. Discussion with warehouse driver and ED provider is that she needs at least [address] to infuse insulin and K solution. IV start team was contacted and indicated that they have not recently been able to place PICC line in this patient. Patient refuses to allow port placement. Nursing body shop supervisor indicated that Anesthesia could assist and ultimately it was determined that general surgeon would assist with the placement of this necessary line. Patient agrees to do this. For complete details of the H&P refer to that document. Objective Vital signs: Temperature 97.7 F 11/14/17 15:33 Pulse Rate 110 H 11/14/17 15:33 Respiratory Rate 16 11/14/17 15:33 Blood Pressure 123/83 11/14/17 15:33 Pulse Oximetry 99 11/14/17 15:33 Height/Weight/BMI: Height 1.65 m Weight 51.3 kg Body Mass Index 18.5 Hospital Course This is a general summary of the patient's hospital course. For more details refer to the complete medical record. Hospital course: 11/11/17 [place] [facility] [place] of [place]. Initiate DKA protocol. Monitor blood sugars and lab draw as per protocol. IVF adjustment per protocol. Zofran prn nausea. Benadryl prn itching. MS prn pain. Poor IV access - Dr Vaz consulted for central line placement. IV Protonix for GI protection. Lovenox for DVT prevention. Possible Diabetic education when patient less acutely ill. Full code per her requests. Care to return to Dr Yusuf at time of discharge from [facility] [place] 11/12/17 Anion gap closed and CO2 approaching normal. Will stop insulin drip and start Lantus. Continue D5W with 20KCl - likely need fluid change this afternoon. Could advance to clear liquids as she tolerated. Will start Sopalamine patch to help nausea and initiate routine IV metoclopramide. Will recheck BMP this am due to stopping insulin drip - need to monitor CO2 and anion gap. Continue with supportive care. Possible transfer to medical floor later today if does well. Lab and blood sugars doing well. Can move to medical floor - change IVF to 1/ 2NS with potassium as sugars showing elevation. 11/13/17 Clinically improving. Nausea decreasing and appetite improving. Will advance diet to Carb consistent. Advised caution with eating. Routine mealtime insulin as at home - report 5, 7, 7 dosing. Decrease ISS due to resumption of home insulin. Can stop Lovenox as patient ambulatory. Stop Remeron and Wellbutrin as patient not taking these at home. Encourage ambulation. Discussed about Port placement due to poor IV access - patient wanting to think about it, but open. 11/14/17 Doing well. Tolerating foods/liquids. Nausea decreased. Pain decreasing. Ambulating well. Will discontinue IVF. Dr Vaz to discuss possible port placement at some time in future. Patient has poor IV access and frequent episodes of DKA. Doing well this evening. Tolerating oral intake. Nausea and pain stable. Will discharge to home. Rx for Woodward 5/325 1 q6h prn severe pain. #15 F/U with Dr Yusuf in 1 week. Can F/U with Dr Pickens when she is ready for port placement. See orders for details. Time spent with patient: discharge greater than 30 minutes Resuscitation Status: Full Code Discharge Plan - Discharge Disposition Discharge Date: 11/14/17 Disposition: 01 Discharged Home, Self-Care *Condition: Stable Reason For Visit (Visit label in EMR): dka - Discharge Medications *Discharge Medications: New Hydrocodone/APAP 5/325 [Woodward 5/325] 1 tab PO Q6HR PRN #15 tab PRN Reason: Pain Polyvinyl Alcohol/Povidone O/S [Refresh Classic] 1 drop EACH EYE BID ampul Continue Lisinopril [Prinivil] 10 mg PO DAILY PEG 3350 17gm PACKET [Miralax] 17 gm PO DAILY PRN PRN Reason: Constipation Insulin Aspart [NovoLOG] 7 unit SQ ACS vial Ondansetron Odt [Zofran Odt Tablet] 4 mg PO Q4H PRN PRN Reason: Nausea Metoclopramide [Reglan] 10 mg PO QID PRN #30 tab PRN Reason: Prn Orders Insulin Glargine,Hum.rec.anlog [Lantus] 9 unit SQ HS #3 vial LORazepam [Ativan] 0.5 mg PO TID PRN #20 tab PRN Reason: Anxiety Midodrine [Proamatine] 5 mg PO TID Melatonin 3 mg PO HS Insulin Glargine,Hum.rec.anlog [Lantus] 10 unit SQ DAILY vial HydrOXYzine ORAL LIQ [Atarax] 10 mg PO Q6HPRN #180 bottle Changed Insulin Aspart [NovoLOG] 5 unit SQ ACB30 #0 vial Insulin Aspart [NovoLOG] 7 unit SQ ACL #0 vial Discontinued Remeron (mirtazapine) 15 mg tablet 15 mg PO HS #30 tab - Discharge Packet/Instructions *Diet: 2000 KCAL ADA *Activity: As tolerated *Pain Management/Treatment: May use Woodward spairingly for pain-watch for nausa. *Wound Care: Keep central line site covered and dry. Do not get area wet for 24 hours. Additional Instructions: Contact Dr. Pickens's office when you want to get your Port-A-Cath placement scheduled ([phone] dial [phone] when the recording starts). *Expected Signs/Symptoms: Improvement of oral intake. *Notify Physician if: Increasing ab pain, nausea, or problems with blood sugar control. *During Business Hours Contact: Dr Yusuf *After Business Hours Contact: Call [facility] [place] have [place] Yusuf contacted. *Pending Lab/Results: No Pending Lab - Referrals/Follow Up *Referrals/Follow Up: Fidel Pickens MD [Physician] - (Contact when ready to get port placed.) Jean Yusuf MD [Primary Care Provider] - 1 Week (Hopsital follow up for DKA) - Patient Handouts - Dismissal Complete Discharge Instructions are:: Complete Physician Narrative - Narrative Physician: Johnnie Quinn MD Attestation Narrative: Date: 11/14/17 Time: 1750 I have independently interviewed and examined patient prior to discharge. See my progress note for details. Medically stable for discharge to home.
[2017-11-15] MEDS ORDERED: SCOPOLAMINE PATCH REMOVAL TD SCH (12:00)
== END 2017-11-14 19:10 | disposition home or self-care (01) | DRG 639 ==
LOC: ED 23:48 → CCU 11-11 03:40 → MED 11-12 18:52
PROVIDERS: ADMIT Emergency Medicine; ATTEND Hospitalist